=== PATIENT | male | born 1995 | race Two or more races ===

== ENCOUNTER 2018-11-20 16:29 | Inpatient (IN) ==
[2018-11-20] MEDS ORDERED: ONDANSETRON INJ 2 MG/ML 2 ML VIAL IV STA (16:53)
[2018-11-20] MEDS ORDERED: KETOROLAC TROMETHAMINE 15 MG/ML VIAL IV ONE (17:00)
[2018-11-20] MEDS ORDERED: SODIUM CHLORIDE 0.9% 1000ML 1,000 ML IV SCH ×2 (17:00→22:26)
--- NOTE | 2018-11-20 17:06 | Emergency Department Note ---
History of Present Illness General Chief complaint: Vomiting Stated complaint: STOMACH HURTS, VOMITING Source: patient Mode of arrival: ambulatory Limitations: no limitations History of Present Illness Maximum Pain Intensity: 6 This patient is a 23-year-old male who presents the emergency department ambulatory complaining of abdominal pain and vomiting. The patient reports that 2 days ago, he had a fairly sudden onset of vomiting, upper abdominal pain and diarrhea. He states the symptoms lasted for approximately 3 hours and he felt better. He states that the next day, he felt okay. He states that today, he began vomiting this morning and has been vomiting for the past 6 hours without relief. He has had over 15 episodes of vomiting. There has been no hematemesis. Patient has had no diarrhea today. Patient states that his pain is a gnawing pain in the left upper abdomen. He says discomfort a 6/10 and it is sometimes relieved by positional changes. He was seen by [facility] and given Zofran and a GI cocktail without relief. He denies alcohol use, but does admit to occasional marijuana use. He states that his last marijuana use was on Sunday, 1 day before the symptoms started. Denies any urinary symptoms, chest pain, shortness of breath, rash or fevers. Home Medications Home Medications Medication Instructions Recorded Confirmed Type ascorbic acid (vitamin C) [Vitamin 0 mg PO DAILY PRN 11/20/18 11/20/18 History C] Allergies Allergy/AdvReac Type Severity Reaction Status Date / Time No Known Allergies Allergy Unverified 11/20/18 16:34 Past Med/Surg History Medical History No significant past medical history Social History Preferred Language: Lithuanian Communication Ability: Effective [place] Helper Required: No Beliefs That Will Affect Care: None Current Living Situation: Alone Other Information That Helps Us Care for You: No Feels Safe at Home: Yes Smoking Status: Current some day smoker Cigarettes Per Day: socially on occassion Do You Dip or Chew Tobacco: No Hx Alcohol Use: No Hx Substance Use: Yes substance use type: marijuana Substance Use Type Other:: occassionally Last Used Substance: Days (ago) Review of Systems A total of 10 systems reviewed and were otherwise negative Physical Exam Vital Signs Vital Signs - 24 hr 11/20/18 16:34 11/20/18 17:38 11/20/18 18:33 Temperature 36.6 C Temperature Source Oral Sepsis Recent Fever Within 48 Hours No Sepsis New/Unexplained Change in Mental Status No Sepsis Action Taken by Nursing No Action Required Pulse Rate 45 L Pulse Rate [Finger] 61 51 L Pulse Rhythm Regular Pulse Rhythm [Finger] Irregular Pulse Strength Normal Pulse Strength [Finger] Respiratory Rate 18 19 15 Respiratory Effort / Characteristics Non-Labored Spontaneous Non-Labored Non-Labored Respiratory Depth Normal Normal Normal Respiratory Pattern Regular Regular Blood Pressure 156/102 H Blood Pressure [Left Arm] 138/68 142/68 H Blood Pressure Mean 120 Blood Pressure Mean [Left Arm] 91 92 Blood Pressure Position Sitting Blood Pressure Position [Left Arm] Sitting Pulse Oximetry 100 100 100 Oxygen Delivery Method Room Air Room Air Room Air 11/20/18 19:03 11/20/18 20:45 11/20/18 21:02 Temperature Temperature Source Sepsis Recent Fever Within 48 Hours Sepsis New/Unexplained Change in Mental Status Sepsis Action Taken by Nursing Pulse Rate Pulse Rate [Finger] 56 L 93 H Pulse Rhythm Pulse Rhythm [Finger] Pulse Strength Pulse Strength [Finger] Respiratory Rate 16 21 Respiratory Effort / Characteristics Non-Labored Spontaneous Respiratory Depth Normal Respiratory Pattern Regular Blood Pressure Blood Pressure [Left Arm] 127/63 Blood Pressure Mean Blood Pressure Mean [Left Arm] 84 Blood Pressure Position Blood Pressure Position [Left Arm] Pulse Oximetry 100 98 Oxygen Delivery Method Room Air Room Air 11/20/18 21:23 11/20/18 21:56 11/20/18 22:17 Temperature 36.4 C L Temperature Source Oral Sepsis Recent Fever Within 48 Hours Sepsis New/Unexplained Change in Mental Status Sepsis Action Taken by Nursing Pulse Rate 59 L Pulse Rate [Finger] 70 84 Pulse Rhythm Pulse Rhythm [Finger] Regular Pulse Strength Pulse Strength [Finger] Normal Respiratory Rate 18 18 18 Respiratory Effort / Characteristics Non-Labored Respiratory Depth Normal Respiratory Pattern Blood Pressure 125/54 L Blood Pressure [Left Arm] 132/56 L 160/95 H Blood Pressure Mean Blood Pressure Mean [Left Arm] 81 116 Blood Pressure Position Blood Pressure Position [Left Arm] Lying Pulse Oximetry 97 98 96 Oxygen Delivery Method Room Air Room Air 11/20/18 22:38 11/20/18 23:24 11/21/18 00:41 Temperature 37.6 C H Temperature Source Oral Sepsis Recent Fever Within 48 Hours Sepsis New/Unexplained Change in Mental Status Sepsis Action Taken by Nursing Pulse Rate 62 Pulse Rate [Finger] 59 L Pulse Rhythm Pulse Rhythm [Finger] Pulse Strength Pulse Strength [Finger] Respiratory Rate Respiratory Effort / Characteristics Non-Labored Spontaneous Respiratory Depth Normal Normal Respiratory Pattern Regular Blood Pressure Blood Pressure [Left Arm] 148/79 H Blood Pressure Mean Blood Pressure Mean [Left Arm] 102 Blood Pressure Position Blood Pressure Position [Left Arm] Lying Pulse Oximetry 96 Oxygen Delivery Method Room Air Room Air VITALS: Vitals are noted on the nurse's note and reviewed by myself. Vital signs stable. GENERAL: This is a 23-year-old male, in no acute distress, nondiaphoretic, well- developed well-nourished. SKIN: The skin was without rashes. EARS: External auditory canals clear, tympanic membranes pearly childs without erythema or effusion bilaterally. EYES: Pupils equal round and reactive to light and accommodation. MOUTH: Mucous membranes moist. Tonsils are not enlarged. Pharynx without erythema or exudate. NECK: Supple without nuchal rigidity. No lymphadenopathy. HEART: Regular rate and rhythm without murmurs gallops or rubs. LUNGS: Clear to auscultation bilaterally without wheezes, rales or rhonchi. ABDOMEN: Positive bowel sounds x 4. Soft, nontender to palpation. No guarding or rebound tenderness. NEURO: Patient was alert and oriented to person place and time. Course Reevaluation(s) Reevaluation #1: Patient was reevaluated after receiving the Zofran and his nausea is better, however he is still having pain. A dose of Toradol was ordered. Reevaluation #2: Patient was reevaluated and is still having significant pain. A dose of morphine was ordered and CT of the abdomen/pelvis was ordered. Reevaluation #3: Patient was reevaluated and is symptom-free at this time. Findings were discussed with the patient and he is agreeable with admission. Consultations Consultation #1: Dr. Yu - thoracic surgery Dr. Yu will see the patient and recommend starting him on Zosyn and keeping him n.p.o. He also requests a CT of the chest with p.o. contrast. Consultation #2: Dr. Oleary - [facility] Hospitalist Administered Medications Potassium Chloride/Dextrose/Sod Cl (D5w And 1/2nss + 20meq Kcl) 20 meq in 1,000 mls @ 125 mls/hr IV .Q8H SHANON Stop: 12/20/18 21:29 Last Admin: 11/20/18 22:41 Dose: 125 mls/hr Documented by: [id number] Ampicillin Sodium/Sulbactam Sodium 3,000 mg/ Sodium Chloride 108 mls @ 200 mls/hr IV Q6H SHANON; Protocol Stop: 12/01/18 00:00 Last Infusion: 11/21/18 00:58 Dose: 0 mls/hr Documented by: [id number] Admin: 11/21/18 00:28 Dose: 200 mls/hr Documented by: [id number] Fluconazole (Diflucan) 200 mg in 100 mls @ 100 mls/hr IV Q24H SHANON Stop: 11/30/18 22:59 Last Admin: 11/21/18 00:30 Dose: 100 mls/hr Documented by: [id number] Discontinued Medications Sodium Chloride (Nss 1000ml) 1,000 mls @ 999 mls/hr IV .Q1H1M SHANON Stop: 11/20/18 18:00 Last Infusion: 11/20/18 18:34 Dose: 0 mls/hr Documented by: [id number] Admin: 11/20/18 17:33 Dose: 999 mls/hr Documented by: [id number] Piperacillin Sod/Tazobactam Sod (Zosyn) 3.375 gm in 115 mls @ 230 mls/hr IV NOW STA Stop: 11/20/18 20:14 Last Infusion: 11/20/18 20:44 Dose: 0 mls/hr Documented by: [id number] Admin: 11/20/18 19:58 Dose: 230 mls/hr Documented by: [id number] Sodium Chloride (Nss 1000ml) 1,000 mls @ 125 mls/hr IV .Q8H SHANON Stop: 12/20/18 22:25 Last Admin: 11/20/18 22:42 Dose: Not Given Documented by: [id number] Ioversol (Optiray 320 100ml) 93 ml IV ONCE PRN PRN Reason: Interaction Checking Stop: 11/24/18 18:57 Last Admin: 11/20/18 18:58 Dose: 93 ml Documented by: [id number] Ketorolac Tromethamine (Toradol) 15 mg IV NOW ONE Stop: 11/20/18 17:01 Last Admin: 11/20/18 17:34 Dose: 15 mg Documented by: [id number] Morphine Sulfate (Morphine Sulfate) 6 mg IV NOW STA Stop: 11/20/18 18:17 Last Admin: 11/20/18 18:32 Dose: Not Given Documented by: [id number] Morphine Sulfate (Morphine Sulfate) Confirm Administered Dose 4 mg .ROUTE .STK- MED ONE Stop: 11/20/18 18:29 Last Admin: 11/20/18 18:31 Dose: 4 mg Documented by: [id number] Morphine Sulfate (Morphine Sulfate) Confirm Administered Dose 2 mg .ROUTE .STK- MED ONE Stop: 11/20/18 18:29 Last Admin: 11/20/18 18:31 Dose: 2 mg Documented by: [id number] Ondansetron HCl (Zofran) 4 mg IV NOW STA Stop: 11/20/18 16:54 Last Admin: 11/20/18 17:34 Dose: 4 mg Documented by: [id number] Medical Decision Making Differential Diagnosis Differential diagnosis includes gastritis, gastroenteritis, bowel obstruction, Boerhaave syndrome, Antonia-Hassan tear, cholecystitis, pancreatitis, kidney stone, among others. Home Medications Current Medication List: was personally reviewed by me Laboratory Data Attestation: I reviewed the patient's lab results. Result diagrams: 11/20/18 17:29 11/20/18 17:29 Lab Results 11/20/18 11/20/18 11/20/18 Range/Units 17:29 17:29 21:20 WBC 13.13 H (4.8-10.8) K/uL RBC 5.64 (4.7-6.1) M/uL Hgb 16.8 (14.0-18.0) g/dL Hct 46.9 (42-52) % MCV 83.2 (80-100) fL MCH 29.8 (25-34) pg MCHC 35.8 (32-36) g/dL RDW Std Deviation 39.8 (36.4-46.3) fL RDW Coeff of Diego 13.3 (11.5-14.5) % Plt Count 323 (130-400) K/uL MPV 11.1 H (7.4-10.4) fL Immature Gran % (Auto) 0.3 % Neut % (Auto) 88.3 % Lymph % (Auto) 7.8 % Delta % (Auto) 3.4 % Eos % (Auto) 0.1 % Baso % (Auto) 0.1 % Immature Gran # (Auto) 0.04 H (0.00-0.02) K/uL Neut # (Auto) 11.60 H (1.4-6.5) K/uL Lymph # (Auto) 1.02 L (1.2-3.4) K/uL Delta # (Auto) 0.45 (0.11-0.59) K/uL Eos # (Auto) 0.01 (0-0.5) K/uL Baso # (Auto) 0.01 (0-0.2) K/uL Sodium 136 (136-145) mmol/L Potassium 4.3 (3.5-5.1) mmol/L Chloride 105 (98-107) mmol/L Carbon Dioxide 26 (21-32) mmol/L Anion Gap 5.0 (3-11) BUN 11 (7-18) mg/dl Creatinine 0.92 (0.6-1.4) mg/dl Est Cr Clr Drug Dosing 188.3 ml/min Est GFR ( Amer) 137.3 Est GFR (Non-Af Amer) 118.5 BUN/Creatinine Ratio 12.4 (10-20) Glucose 134 H (70-99) mg/dl Calcium 9.1 (8.5-10.1) mg/dl Total Bilirubin 0.6 (0.2-1) mg/dl AST 10 L (15-37) U/L ALT 20 (12-78) U/L Alkaline Phosphatase 83 (45-117) U/L Total Protein 8.1 (6.4-8.2) gm/dl Albumin 3.9 (3.4-5.0) gm/dl Globulin 4.2 H (2.5-4.0) gm/dl Albumin/Globulin Ratio 0.9 (0.9-2) Lipase 64 L (73-393) U/L Specimen Hemolysis Urine Color Yellow Urine Appearance Clear (Clear) Urine pH 8.5 H (4.5-7.5) Ur Specific Aristes > 1.045 H (1.000-1.030) Urine Protein Negative (Negative) Urine Glucose (UA) Negative (Negative) Urine Ketones 1+ H (Negative) Urine Blood Negative (Negative) Urine Nitrite Negative (Negative) Urine Bilirubin Negative (Negative) Urine Urobilinogen Negative (Negative) Ur Leukocyte Esterase Negative (Negative) Imaging Data Attestation: I personally reviewed and interpreted this imaging study as follows: Radiologist's Impression: CHEST AND ABDOMEN 2 VIEWS FINDINGS: The lungs are clear. The cardiomediastinal silhouette is within normal limits. There is no pneumoperitoneum or pneumatosis. The bowel gas pattern is unremarkable. No evidence for bowel obstruction. No pathologic calcifications. Of note, there is relative paucity of bowel gas resulting in suboptimal evaluation. IMPRESSION: No acute cardiopulmonary process. No evidence for bowel obstruction. ABDOMEN AND PELVIS CT WITH IV CONTRAST FINDINGS: The lung bases are clear. Small amount of pneumomediastinum surroundi ng the distal esophagus. This also extends along the bilateral lower lobe bronchi. No pneumoperitoneum. No fractures within the visualized osseous structures. The liver, gallbladder, spleen, adrenal glands, pancreas, and kidneys are unremarkable. No hydronephrosis. No retroperitoneal lymphadenopathy. The bladder is unremarkable. No bowel wall thickening or obstruction. Normal appendix. IMPRESSION: 1. Small amount of pneumomediastinum within the lower chest primarily surrounding the distal esophagus. 2. No bowel wall thickening or obstruction. 3. Normal appendix. CT chest with oral contrast FINDINGS: There is again noted a small amount of pneumomediastinum seen surrounding the majority of the esophagus. There is motion artifact resulting in suboptimal evaluation. Questionable punctate focus of extraluminal contrast within the left side of the esophagus on image 144. However, this is likely artifact due to the motion at this level. No definite extraluminal contrast to confirm the presence of an esophageal tear. The trachea appears intact and is patent. No esophageal wall thickening. No mediastinal or hilar lymphadenopathy. The heart is normal in size. No pleural or pericardial effusions. Normal caliber thoracic aorta. No fractures within the visualized osseous structures. No pneumothorax. Small focal groundglass density within the left lower lobe p osteriorly and a 4 mm subpleural nodular density within the left lower lobe posteriorly favors dependent change/atelectasis. The right lung is clear. IMPRESSION: Redemonstration of the small amount of pneumomediastinum. No definite evidence for esophageal tear. Blood Pressure Blood Pressure Findings: Elevated blood pressure Blood Pressure Disposition: further management by hospitalist REBECCA Joya The patient is a 23-year-old male who presents today complaining of vomiting and left upper quadrant abdominal pain. Labs revealed mild leukocytosis of 13,000. Patient is not anemic and there are no concerning elect light abnormalities. CT of the abdomen and pelvis shows pneumomediastinum. Given concern for Boerhaave syndrome with the location of the pneumomediastinum, Dr. Yu of thoracic surgery was promptly consulted. He did evaluate the patient in the emergency department and had recommended CT of the chest with p.o. contrast as well as Zosyn, both of which were ordered. He recommended admission to the medicine service. Patient remained stable throughout his stay in the emergency department and was symptom-free after receiving Zofran and morphine. The patient's case was discussed with Dr. Espinoza, who agreed with my evaluation and treatment plan. Impression & Plan Pneumomediastinum, Vomiting Discharge Plan Visit Data *Final* Discharge Date/Time: 11/20/18 21:56 Chief Complaint: Vomiting Stated Complaint: STOMACH HURTS, VOMITING ED Provider: Romel Espinoza ED Midlevel Provider: Jael Rodriguez Discharge Problem: Pneumomediastinum, Vomiting Patient Disposition: Admitted As Inpatient Discharge Instructions Interventions: ED Discharge Assessment Last Done: 11/20/18 21:56
[2018-11-20 17:40] LABS: Basophils # (auto) 0.01 K/uL (0-0.2); Basophils % (auto) 0.1 %; Eosinophils # (auto) 0.01 K/uL (0-0.5); Eosinophils % (auto) 0.1 %; Hematocrit (blood only) 46.9 % (42-52); Hemoglobin 16.8 g/dL (14.0-18.0); Immature Granulocytes # (auto) 0.04 K/uL (0.00-0.02); Immature Granulocytes % (auto) 0.3 %; Lymphocytes # (auto) 1.02 K/uL (1.2-3.4); Lymphocytes % (auto) 7.8 %; Mean Corpuscular Hgb Conc 35.8 g/dL (32-36); Mean Corpuscular Volume 83.2 fL (80-100); Mean Platelet Volume 11.1 fL (7.4-10.4); Monocytes # (auto) 0.45 K/uL (0.11-0.59); Monocytes % (auto) 3.4 %; Neutrophils % (auto) 88.3 %; Platelet Count 323 K/uL (130-400); RDW Coefficient of Variation 13.3 % (11.5-14.5); RDW Standard Deviation 39.8 fL (36.4-46.3); Red Blood Count 5.64 M/uL (4.7-6.1); White Blood Count 13.13 K/uL (4.8-10.8)
[2018-11-20 18:08] LABS: Albumin Globulin Ratio 0.9 (0.9-2); Albumin Level 3.9 gm/dl (3.4-5.0); BUN Creatinine Ratio 12.4 (10-20); Bilirubin,Total 0.6 mg/dl (0.2-1); Calcium 9.1 mg/dl (8.5-10.1); Creatinine Clr Calc Pharmacy 188.3 ml/min; Est GFR (African American) 137.3; Est GFR (Non-African American) 118.5; Globulin 4.2 gm/dl (2.5-4.0); Potassium 4.3 mmol/L (3.5-5.1); Total Protein 8.1 gm/dl (6.4-8.2)
--- NOTE | 2018-11-20 18:11 | XRay Report ---
CHEST AND ABDOMEN 2 VIEWS HISTORY: abdominal pain, vomiting COMPARISON: None. FINDINGS: The lungs are clear. The cardiomediastinal silhouette is within normal limits. There is no pneumoperitoneum or pneumatosis. The bowel gas pattern is unremarkable. No evidence for b owel obstruction. No pathologic calcifications. Of note, there is relative paucity of bowel gas resul ting in suboptimal evaluation. IMPRESSION: No acute cardiopulmonary process. No evidence for bowel obstruction. Electronically signed by: Abram Dewitt M.D. 11/20/2018 6:09 PM
[2018-11-20] MEDS ORDERED: MoRPHine SULFATE 10 MG/ML CARP/VIAL IV STA (18:16)
[2018-11-20] MEDS ORDERED: MoRPHine SULFATE 2 MG/ML CARP ONE (18:28)
[2018-11-20] MEDS ORDERED: MoRPHine SULFATE 4 MG/ML 1 ML CARP\\VIAL ONE (18:28)
[2018-11-20] MEDS ORDERED: IOVERSOL 100ml IV PRN (18:58)
--- NOTE | 2018-11-20 19:27 | CT Scan Report ---
ABDOMEN AND PELVIS CT WITH IV CONTRAST CT DOSE: 2088.17 mGy.cm HISTORY: Left upper quadrant abdominal pain. Vomiting. TECHNIQUE: Multiaxial CT images of the abdomen and pelvis were performed following the use of intrave nous contrast. A dose lowering technique was utilized adhering to the principles of ALARA. COMPARISON STUDY: None. FINDINGS: The lung bases are clear. Small amount of pneumomediastinum surrounding the distal esophagu s. This also extends along the bilateral lower lobe bronchi. No pneumoperitoneum. No fractures within the visualized osseous structures. The liver, gallbladder, spleen, adrenal glands, pancreas, and kid neys are unremarkable. No hydronephrosis. No retroperitoneal lymphadenopathy. The bladder is unremark able. No bowel wall thickening or obstruction. Normal appendix. IMPRESSION: 1. Small amount of pneumomediastinum within the lower chest primarily surrounding the distal esophagu s. 2. No bowel wall thickening or obstruction. 3. Normal appendix. Electronically signed by: Abram Dewitt M.D. 11/20/2018 7:25 PM
[2018-11-20] MEDS ORDERED: PIPERACILL/TAZOBAC CONSULT ACTIVE PRN (19:45)
[2018-11-20] MEDS ORDERED: PIPERACILLIN/TAZOBACTAM 3.375 GM/115 ML BAG IV STA (19:45)
--- NOTE | 2018-11-20 21:16 | History & Physical Report ---
Date of Service November 20, 2018 Assessment & Plan (1) Pneumomediastinum: 23yoM with hx of asthma as a child presents with vomiting and abdominal pain which started 2 days ago. Associated with diarrhea 2 days ago. Found to have pneumomediastinum on imaging likely from perforated esophagus from vomiting. Pneumomediastinum in the setting of severe vomiting induced esophageal perforation -CT chest: Redemonstration of the small amount of pneumomediastinum. No definite evidence for esophageal tear. -Ct abdomen/pelvis: Small amount of pneumomediastinum within the lower chest primarily surrounding the distal esophagus -Received a dose of Zosyn in the ED -On Unasyn and Diflucan for empiric coverage -Pain control: Tylenol IV -Thoracic surgery consulted: Dr. Yu - Recommended starting on Unasyn - Npo for possible procedure Abdominal pain/diarrhea/vomiting: likely viral gastroenteritis -Pt reports eating rice last night but symptoms started 2 days ago prior to him eating rice thus unlikely to be bacillus cereus -Afebrile, no WBC -Received 1L IVFs in the ED -Started on NS IVF 125cc/hr -Zofran for nausea -Pain control: Tylenol IV -Continue to monitor closely Hx of asthma -Wheezing appreciated on exam -Albuterol 2 puff Q4H PRN Code: Full DVT: SCDs, encourage ambulation Dispo: PCU w/t telemetry (2) Abdominal pain: (3) Vomiting: History of Present Illness Chief Complaint: Abdominal pain and vomiting Primary Care Provider: [facility] 23yoM with hx of asthma as a child presents with vomiting and abdominal pain which started 2 days ago. Reports on Sunday after he woke up started vomiting and also had abdominal pain and diarrhea for about 2 hours. Then he felt better the rest of Sunday and yesterday. However this AM after he woke up he started vomiting again and also developed LUQ abdominal pain. He did not have diarrhea today. Denies eating out or traveling recently. He reports cooking his own meals. He cannot remember what he ate on Sunday or Sunday but Sunday night he made Biryani (rice) which he had last night as well with chicken nuggets from [employer]. Denies any f/c, cp, sob, dysuria, hemoptysis, hematochezia, dark stools. PMhx: asthma as a child Past Surgical Hx: none Fhx: DM, HTN, HLD Social hx: smokes socially and smoked marijuana on Sunday. Denies alcohol use Allergies Allergy/AdvReac Type Severity Reaction Status Date / Time No Known Allergies Allergy Unverified 11/20/18 16:34 Home Medications Home Medications Medication Instructions Recorded Confirmed Type ascorbic acid (vitamin C) [Vitamin 0 mg PO DAILY PRN 11/20/18 11/20/18 History C] Past Med/Surg History Medical History No significant past medical history Social History Preferred Language: Bermudian Communication Ability: Effective [place]ail[place] Hand Required: No Beliefs That Will Affect Care: None Current Living Situation: Alone Other Information That Helps Us Care for You: No Feels Safe at Home: Yes Smoking Status: Current some day smoker Cigarettes Per Day: socially on occassi on Do You Dip or Chew Tobacco: No Hx Alcohol Use: No Hx Substance Use: Yes substance use type: marijuana Substance Use Type Other:: occassionally Last Used Substance: Days (ago) Review of Systems Review of Systems: As per HPI Physical Exam Physical Exam: General: Actively vomiting when examined Neuro: alert, and oriented x 4 CV: RRR, no m/r/g PULM: occasional wheezing appreciated, diminished breath sounds especially in bibasilar lung lester GI: +BS, non-distended, non TTP LE: no calf TTP, no LE edema Results & Data Vital Signs (Past 12 Hours) Vital Signs Temp Pulse Pulse Resp BP BP Pulse Ox 11/20/18 20:45 93 H 21 98 11/20/18 19:03 56 L 16 127/63 100 11/20/18 18:33 51 L 15 142/68 H 100 11/20/18 17:38 61 19 138/68 100 11/20/18 16:34 36.6 C 45 L 18 156/102 H 100 Laboratory Results Abnormal lab results 11/20/18 11/20/18 Range/Units 17:29 17:29 WBC 13.13 H (4.8-10.8) K/uL MPV 11.1 H (7.4-10.4) fL Immature Gran # (Auto) 0.04 H (0.00-0.02) K/uL Neut # (Auto) 11.60 H (1.4-6.5) K/uL Lymph # (Auto) 1.02 L (1.2-3.4) K/uL Glucose 134 H (70-99) mg/dl AST 10 L (15-37) U/L Globulin 4.2 H (2.5-4.0) gm/dl Lipase 64 L (73-393) U/L Diagnostic Findings ABDOMEN AND PELVIS CT WITH IV CONTRAST CT DOSE: 2088.17 mGy.cm HISTORY: Left upper quadrant abdominal pain. Vomiting. TECHNIQUE: Multiaxial CT images of the abdomen and pelvis were performed following the use of intravenous contrast. A dose lowering technique was utilized adhering to the principles of ALARA. COMPARISON STUDY: None. FINDINGS: The lung bases are clear. Small amount of pneumomediastinum surrounding the distal esophagus. This also extends along the bilateral lower lobe bronchi. No pneumoperitoneum. No fractures within the visualized osseous s tructures. The liver, gallbladder, spleen, adrenal glands, pancreas, and kidneys are unremarkable. No hydronephrosis. No retroperitoneal lymphadenopathy. The bladder is unremarkable. No bowel wall thickening or obstruction. Normal appendix. IMPRESSION: 1. Small amount of pneumomediastinum within the lower chest primarily surrounding the distal esophagus. 2. No bowel wall thickening or obstruction. 3. Normal appendix. CHEST AND ABDOMEN 2 VIEWS HISTORY: abdominal pain, vomiting COMPARISON: None. FINDINGS: The lungs are clear. The cardiomediastinal silhouette is within normal limits. There is no pneumoperitoneum or pneumatosis. The bowel gas pattern is unremarkable. No evidence for bowel obstruction. No pathologic calcifications. Of note, there is relative paucity of bowel gas resulting in suboptimal evaluation. IMPRESSION: No acute cardiopulmonary process. No evidence for bowel obstruction. Code Status & VTE Plan Code Status Full VTE Prophylaxis Plan VTE Prophylaxis will be ordered: Yes Supervising Physician Co-Signing Physician Notes Pt seen/examined in conjunction with resident MD Franky Elizabeth. Orders and plan of admission discussed with resident 23 y/o M presenting with 2 days of nausea, vomiting and abdominal pain. Imaging demonstrated pneumomediastinum. A CT chest with oral contrast was obtained following which did not demonstarte a clear esophageal tear. OE AAO x 3 S1,2 R CTAB NT at time of admission No CCE No deficits P: Pt will be kept NPO - broad spectrum antibiotics and Diflucan provided Thoracic surgical eval to follow - management likely to be conservative for now considering CT result. Illness is likely food-borne and self-limiting - no additional treatment in this regard provided symptoms do not recur Antiemetics, analgesics and IVF provided Resident Activity Tracking Resident Involvement: Resident Care Provided Care Provided: Adult Hospital Medicine
--- NOTE | 2018-11-20 21:26 | CT Scan Report ---
CT chest with oral contrast CT DOSE: 1181.52 mGy.cm HISTORY: Pneumomediastinum. oral contrast - evaluate esophageal rupture/tear TECHNIQUE: Multiaxial CT images of the chest were performed following oral contrast. A dose lowering technique was utilized adhering to the principles of ALARA. COMPARISON: Abdomen and pelvis CT 11/20/2018. FINDINGS: There is again noted a small amount of pneumomediastinum seen surrounding the majority of t he esophagus. There is motion artifact resulting in suboptimal evaluation. Questionable punctate focu s of extraluminal contrast within the left side of the esophagus on image 144. However, this is likel y artifact due to the motion at this level. No definite extraluminal contrast to confirm the presence of an esophageal tear. The trachea appears intact and is patent. No esophageal wall thickening. No m ediastinal or hilar lymphadenopathy. The heart is normal in size. No pleural or pericardial effusions . Normal caliber thoracic aorta. No fractures within the visualized osseous structures. No pneumothor ax. Small focal groundglass density within the left lower lobe posteriorly and a 4 mm subpleural nodu lar density within the left lower lobe posteriorly favors dependent change/atelectasis. The right mario g is clear. IMPRESSION: Redemonstration of the small amount of pneumomediastinum. No definite evidence for esophageal tear. Electronically signed by: Abram Dewitt M.D. 11/20/2018 9:24 PM
[2018-11-20 21:48] LABS: Appearance Urine Clear (Clear); Bilirubin Urine Negative (Negative); Blood Urine Negative (Negative); Color Urine Yellow; Glucose Urine UA Negative (Negative); Ketones Urine 1+ (Negative); Leukocyte Esterase Urine Negative (Negative); Nitrite Urine Negative (Negative); Protein Urine Negative (Negative); Specific Gravity Urine > 1.045 (1.000-1.030); Urobilinogen Urine Negative (Negative); pH Urine 8.5 (4.5-7.5)
[2018-11-20] MEDS ORDERED: ALBUTEROL HFA 8 GM INHALER INH PRN (22:26)
[2018-11-20] MEDS ORDERED: ONDANSETRON INJ 2 MG/ML 2 ML VIAL IV PRN (22:26)
[2018-11-20] MEDS ORDERED: ACETAMINOPHEN 65 ML IV PRN (22:26)
[2018-11-20] MEDS: D5W AND 1/2NSS + 20MEQ KCL 20 MEQ/1,000 ML BAG IV SCH (22:41)
[2018-11-20] MEDS ORDERED: FLUCONAZOLE 200 MG/100 ML BAG IV SCH (23:00)
[2018-11-21] MEDS: AMPICILLIN/SULBACTAM SOD 3,000 MG in 0.9 % SODIUM CHLORIDE 100 ML IV SCH ×2 (00:28→05:35)
--- NOTE | 2018-11-21 03:24 | Consultation Report ---
DATE OF CONSULTATION: 11/20/2018 REASON FOR CONSULTATION: Questionable Boerhaave syndrome. 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 Other than being overweight, the patient really has no medical problems. He developed diarrhea with nausea and vomiting 72 hours ago; however, after 1 day this resolved and he felt better. He developed some abdominal pain today and started vomiting again and presented to the Emergency Room. His white count was a bit elevated at 13,130 and his BUN and creatinine were stable at 11 and 0.92; however, the patient states that his urine output has decreased and it is darker. He is also quite thirsty. CT scan of his chest was obtained which showed some air around his distal esophagus. I was asked to evaluate him from a CT surgery standpoint. I asked Jael Rodriguez to obtain a CT scan with p.o. contrast. He has just gotten the study when I arrived in the Emergency Room. He occasionally smokes cigarettes and occasionally marijuana. He has had no fever or chills. PAST MEDICAL HISTORY: Obesity and occasional cigarette use. PAST SURGICAL HISTORY: None. MEDICATIONS: None. ALLERGIES: No known drug allergies. SOCIAL HISTORY: The patient is a student here at [employer] [facility]. 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 He really does not drink alcohol and rarely smokes. He has a brother who is at [facility] and the rest of his family is in [place]. He has been in this country for 3 years. FAMILY MEDICAL HISTORY: Noncontributory. He has no children. REVIEW OF SYSTEMS: The patient's weight has been stable. He has had no skin breakdown. He is overweight, but physically active. He has no neurologic symptoms. He has had no visual or auditory symptoms. He denies chest pain or palpitations. The rest of his review of systems is unremarkable. PHYSICAL EXAMINATION: GENERAL: This is a 6-foot 1-inch, almost 300-pound male who is awake, alert and oriented. HEENT: His extraocular movements are intact. His pupils are equally round and reactive. Sclerae are anicteric but a bit pale. He has no nasolabial flattening. His teeth are in excellent repair. His tongue is midline. NECK: Thick but supple, and he has no supraclavicular or cervical lymphadenopathy. I detect no subcutaneous emphysema or neck vein distention. LUNGS: Grossly clear. He has very mild end-expiratory wheezing, but no rales or rhonchi. HEART: He has a regular rate and rhythm of his heart and I do not detect a Lucy's crunch. ABDOMEN: Obese, but soft and I am not illiciting any tenderness and he has good bowel sounds. He has no peripheral edema. He has excellent peripheral pulses. He has no skin breakdown. He has no joint effusions. NEUROLOGIC: He is completely intact. DATA: I reviewed his CT scan, both of the lower chest and upper abdomen and of his chest with contrast. Dr. Gallegos and I went over this and we do not feel this patient has a leak. It is not obvious on the scan. PLAN: I am going to keep him n.p.o., keep him on antibiotics, and repeat an x-ray in the morning. Clinically, he is stable and I do not think any further intervention is indicated tonightMilena SAM
[2018-11-21 06:24] LABS: Basophils # (auto) 0.02 K/uL (0-0.2); Basophils % (auto) 0.2 %; Eosinophils % (auto) 0.9 %; Hematocrit (blood only) 42.5 % (42-52); Hemoglobin 14.8 g/dL (14.0-18.0); Immature Granulocytes # (auto) 0.02 K/uL (0.00-0.02); Immature Granulocytes % (auto) 0.2 %; Lymphocytes # (auto) 3.71 K/uL (1.2-3.4); Lymphocytes % (auto) 35.2 %; Mean Corpuscular Hgb Conc 34.8 g/dL (32-36); Mean Corpuscular Volume 84.7 fL (80-100); Mean Platelet Volume 10.9 fL (7.4-10.4); Monocytes # (auto) 0.96 K/uL (0.11-0.59); Monocytes % (auto) 9.1 %; Neutrophils # (auto) 5.72 K/uL (1.4-6.5); Neutrophils % (auto) 54.4 %; Platelet Count 299 K/uL (130-400); RDW Coefficient of Variation 13.6 % (11.5-14.5); RDW Standard Deviation 41.8 fL (36.4-46.3); Red Blood Count 5.02 M/uL (4.7-6.1); White Blood Count 10.53 K/uL (4.8-10.8)
[2018-11-21] MEDS: D5W AND 1/2NSS + 20MEQ KCL 20 MEQ/1,000 ML BAG IV SCH (06:29)
[2018-11-21 06:57] LABS: BUN Creatinine Ratio 9.3 (10-20); Calcium 8.8 mg/dl (8.5-10.1); Est GFR (African American) 139.1; Potassium 3.8 mmol/L (3.5-5.1)
--- NOTE | 2018-11-21 07:13 | XRay Report ---
XR chest 1V portable HISTORY: 23 years-old Male pneumomediastinum follow-up study in a patient with pneumomediastinum COMPARISON: Acute abdominal series radiographs and chest CT of same day TECHNIQUE: Portable AP view of the chest FINDINGS: The previous described pneumomediastinum seen on chest CT is not definitively seen on this exam. Card iac mediastinal and hilar silhouettes are within normal limits. No pneumothorax, pleural effusion, fo sierra airspace consolidation or overt pulmonary edema. The bones appear normal. IMPRESSION: No acute process. The previously described small volume pneumoperitoneum seen on chest CT is not iden tified by radiography. The above report was generated using voice recognition software. It may contain grammatical, syntax o r spelling errors. Electronically signed by: Foreign Alston M.D. 11/21/2018 7:11 AM
--- NOTE | 2018-11-21 10:02 | Surgery Progress Note ---
Date of Service November 21, 2018 Assessment & Plan (1) Pneumomediastinum: -this is not noted on CXR today -no fevers noted this morning -no leukocytosis, ALIS, or electrolyte abnormalities -as pt. has noted clinical improvement, he is felt to be stable for d/c -I have instructed him to see Dr. Yu in office in 1 week with a CXR prior to appt. (office will set up his appt. and CXR) -discussed with primary service Subjective Pt./ denies CP or SOB. No N/V or diarrhea. No fevers, shakes, chills. Physical Exam Physical Exam: No crepitus noted with palpation of neck, back or chest wall. Neck: trachea midline, no stridor Respiratory: normal respiratory effort, lungs clear to auscultation no respiratory distress and no labored breathing Cardiovascular: RRR, no murmur, no edema Gastrointestinal (Abdomen): soft and non-tender Results & Data Vital Signs (Past 12 Hours) Vital Signs Temp Pulse Pulse Resp BP BP Pulse Ox 11/21/18 07:53 36.6 C 63 16 128/72 97 11/21/18 07:37 57 L 11/21/18 03:50 36.7 C 72 18 151/67 H 92 11/21/18 00:41 62 11/20/18 23:24 37.6 C H 59 L 148/79 H 96 11/20/18 22:17 36.4 C L 84 18 160/95 H 96
--- NOTE | 2018-11-21 15:56 | Discharge Summary ---
Date of Service November 21, 2018 Admission HPI Per Admitting Provider 23yoM with hx of asthma as a child presents with vomiting and abdominal pain which started 2 days ago. Reports on Sunday after he woke up started vomiting and also had abdominal pain and diarrhea for about 2 hours. Then he felt better the rest of Sunday and yesterday. However this AM after he woke up he started vomiting again and also developed LUQ abdominal pain. He did not have diarrhea today. Denies eating out or traveling recently. He reports cooking his own meals. He cannot remember what he ate on Sunday or Sunday but Sunday night he made Biryani (rice) which he had last night as well with chicken nuggets from [employer]. Denies any f/c, cp, sob, dysuria, hemoptysis, hematochezia, dark stools. PMhx: asthma as a child Past Surgical Hx: none Fhx: DM, HTN, HLD Social hx: smokes socially and smoked marijuana on Sunday. Denies alcohol use Principal Diagnosis no Discharge Exam General Appearance: WD/WN, no apparent distress, Eyes: normal inspection, PERRL, EOMI, sclerae normal ENT: normal ENT inspection, hearing grossly normal, pharynx normal Neck: supple, no adenopathy, thyroid normal, no JVD, no carotid bruits, trachea midline Respiratory/Chest: chest non-tender, normal breath sounds, no respiratory distress, no accessory muscle use, no rales, wheezing Cardiovascular: regular rate, rhythm, no JVD, no murmur Abdomen: normal bowel sounds, non tender, soft, no organomegaly, Extremities: normal range of motion, non-tender, normal inspection, no pedal edema, no calf tenderness, normal capillary refill, pelvis stable, joint has no limited range of motion, capillary refill is normal, no cyanosis clubbing 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, no motor/sensory deficits, alert, normal mood/affect, oriented x 3 Skin: normal color, warm/dry, no rash Lymphatic: no adenopathy Discharge Data Allergies Allergy/AdvReac Type Severity Reaction Status Date / Time No Known Allergies Allergy Unverified 11/20/18 16:34 Consultations 11/20/18 20:40 Consult Thoracic Surgery Stat 11/20/18 20:41 ED Decision to Admit Stat 11/20/18 22:26 Consult Thoracic Surgery Stat Ordered Studies 11/20/18 18:16 CT abd pelvis IV con only Stat 11/20/18 19:59 CT chest wo con Stat Hospital Course (1) Pneumomediastinum: 23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 I Ed, CT scan of his chest which showed some air around his distal esophagus. 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, no chest pain, denies cough sputum denied nausea vomiting, Tolerates diet, up and walk no dizziness, Discussed with her chest surgeons team patient is stable to be discharged to home, do not need any antibiotic, Patient no fever and chill,Laboratory Results - last 24 hr 11/20/18 11/20/18 11/20/18 17:29 17:29 21:20 WBC 13.13 H RBC 5.64 Hgb 16.8 Hct 46.9 MCV 83.2 MCH 29.8 MCHC 35.8 RDW Std Deviation 39.8 RDW Coeff of Diego 13.3 Plt Count 323 MPV 11.1 H Immature Gran % (Auto) 0.3 Neut % (Auto) 88.3 Lymph % (Auto) 7.8 Bladen % (Auto) 3.4 Eos % (Auto) 0.1 Baso % (Auto) 0.1 Immature Gran # (Auto) 0.04 H Neut # (Auto) 11.60 H Lymph # (Auto) 1.02 L Bladen # (Auto) 0.45 Eos # (Auto) 0.01 Baso # (Auto) 0.01 Sodium 136 Potassium 4.3 Chloride 105 Carbon Dioxide 26 Anion Gap 5.0 BUN 11 Creatinine 0.92 Est Cr Clr Drug Dosing 188.3 Est GFR ( Amer) 137.3 Est GFR (Non-Af Amer) 118.5 BUN/Creatinine Ratio 12.4 Glucose 134 H Calcium 9.1 Total Bilirubin 0.6 AST 10 L ALT 20 Alkaline Phosphatase 83 Total Protein 8.1 Albumin 3.9 Globulin 4.2 H Albumin/Globulin Ratio 0.9 Lipase 64 L Specimen Hemolysis Urine Color Yellow Urine Appearance Clear Urine pH 8.5 H Ur Specific [place] > 1.045 H Urine Protein Negative Urine Glucose (UA) Negative Urine Ketones 1+ H Urine Blood Negative Urine Nitrite Negative Urine Bilirubin Negative Urine Urobilinogen Negative Ur Leukocyte Esterase Negative 11/21/18 11/21/18 06:11 06:11 WBC 10.53 RBC 5.02 Hgb 14.8 Hct 42.5 MCV 84.7 MCH 29.5 MCHC 34.8 RDW Std Deviation 41.8 RDW Coeff of Diego 13.6 Plt Count 299 MPV 10.9 H Immature Gran % (Auto) 0.2 Neut % (Auto) 54.4 Lymph % (Auto) 35.2 [place] % (Auto) 9.1 Eos % (Auto) 0.9 Baso % (Auto) 0.2 Immature Gran # (Auto) 0.02 Neut # (Auto) 5.72 Lymph # (Auto) 3.71 H Bladen # (Auto) 0.96 H Eos # (Auto) 0.10 Baso # (Auto) 0.02 Sodium 140 Potassium 3.8 Chloride 107 Carbon Dioxide 30 Anion Gap 3.0 BUN 8 Creatinine 0.91 Est Cr Clr Drug Dosing 191.0 Est GFR ( Amer) 139.1 Est GFR (Non-Af Amer) 120.0 BUN/Creatinine Ratio 9.3 L Glucose 111 H Calcium 8.8 Total Bilirubin AST ALT Alkaline Phosphatase Total Protein Albumin Globulin Albumin/Globulin Ratio Lipase Specimen Hemolysis Urine Color Urine Appearance Urine pH Ur Specific [place] Urine Protein Urine Glucose (UA) Urine Ketones Urine Blood Urine Nitrite Urine Bilirubin Urine Urobilinogen Ur Leukocyte Esterase Has advised him to follow up with chest surgeon, his office will call you for appointment possible have gastritis, I give him Pepcid for 7 day i told him he needs to follow up with your primary care physician in 1 week, (2) Abdominal pain: (3) Vomiting: Total Time Total Time Spent Total Time Spent (In Minutes): 30 Discharge Plan Discharge Items Patient Disposition: Home - Self-Care Reason For Visit: ABDOMINAL PAIN AND VOMITING,PNEMOMEDIASTINUM Discharge Diagnosis: Pneumomediastinum Condition: Fair Discharge Goals: Decrease discomfort, Diagnostic testing, Improve disease control, Increase independence and Prevent disease Activity: Resume your previous activity Non-emergency contact: Primary Care Provider Call non-emergency contact if: you have any medication questions Follow-up/Referrals: [place] [Primary Care Provider] - Diet: Regular Addtl Provider Instructions: you have Pneumomediastinum, resolved, you need to have follow up with chest surgeon, his office will call you for appointment you possible have gastritis, I give you Pepcid for 7 day . you need to follow up with your primary care physician in 1 week, - take medication as instructed, never overdose or any misuse, or take with alcohol, because misuse of medicine may cause organ damage or , call me, or your primary care physician if have questions of discharge medicaitons. - call your primary care physician, or go to local emergency room if has any fever/chill, chest pain, shortness of breathing, nausea/vomiting/abdominal pain, facial droop/slurry speech/local weakness, or if has any questions. - fall precaution - diet as instructed - you need to follow up with your subspecialist, such as Dr. Yu Prescriptions: New albuterol sulfate [Ventolin HFA] 90 mcg/actuation Hfa Aerosol Inhaler 2 puff inhalation Q4H PRN (Reason: sob) 7 Days Qty: 1 RF: 0 famotidine [Pepcid] 20 mg tablet 20 mg PO BID 7 Days Qty: 14 RF: 0 Continued ascorbic acid (vitamin C) [Vitamin C] 1,000 mg Tablet PO DAILY PRN (Reason: WHEN FEELS LIKE GETTING SICK) RF: 0 Stand-Alone Forms: My [facility] Discharge Orders: Discharge Order (Routine); Ordered 11/21/18 Ordered By: Andres Orta Admission Data Admit Date/Time: 11/20/18 21:15 Attending Provider: Andres Orta Admit Provider: Hilario Oleary Primary Care Provider: [facility] Other Providers: Gurvinder Yu ; Hilario Oleary Service: Telemetry Other Interventions: Discharge Summary Assessment (RN) Last Done: 11/21/18 11:55 DC Date/Time DO NOT enter until pt leaves facility: 11/21/18 12:22
--- NOTE | 2018-11-21 22:22 | Discharge Summary ---
DISCHARGE DIAGNOSES: 1. Pneumomediastinum. 2. Obesity. 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 He came to the ER where CT scan was obtained which showed some gas around his distal esophagus and a question of a possible esophageal tear/Boerhaave syndrome was raised. I came in to see him and we obtained a CT scan with oral contrast of the chest and did not see evidence of a leak. Clinically, he looked quite good and we kept him n.p.o. on antibiotics overnight and with IV fluids and this morning he looked much improved. His abdomen was soft. His white count was normal. He had no fevers. His x-ray showed no evidence of increasing pneumomediastinum. The patient will be discharged by the medical service today. I will see him back in the office in a week and we will keep him on Augmentin.
--- OUTSIDE RECORDS SUMMARY | 2018-11-25 20:49 | External Medical Summary | Continuity of Care Document ---
:1995 Author Name Reed Lam Address Unavailable Unavailable , Care Team Providers Name Role Phone NonMNPG M.DMilena Unavailable [email or web address] [email or web address], NO Unavailable Unavailable Problems Active medical history not documented Allergies and Adverse Reactions Allergy history not documented Medications Medications not documented Procedures Procedures not documented Immunizations Immunizations not documented Plan of Treatment Planned Observations Planned Goals not documented Results No Known Results Results not documented
== END 2018-11-21 12:22 | disposition home or self-care (01) | DRG 200 ==
LOC: ED 16:29 → 2S 21:15 → SUATTDRO 21:15 → 2S 21:56

== ENCOUNTER 2018-11-24 13:24 | Inpatient (IN) ==
[2018-11-24] MEDS ORDERED: MoRPHine SULFATE 4 MG/ML 1 ML CARP\\VIAL IV STA ×3 (13:37→15:09)
[2018-11-24] MEDS ORDERED: ONDANSETRON INJ 2 MG/ML 2 ML VIAL IV STA ×2 (13:37→15:18)
[2018-11-24] MEDS ORDERED: SODIUM CHLORIDE 0.9% 1000ML 1,000 ML IV SCH (13:45)
--- NOTE | 2018-11-24 13:57 | XRay Report ---
XR chest 1V portable HISTORY: 23 years-old Male vomiting, recent pneumomediastinum acute vomiting COMPARISON: Acute abdominal series radiographs 11/22/2018 TECHNIQUE: Portable AP view of the chest FINDINGS: Cardiomediastinal silhouettes are within normal limits. No pneumothorax, pleural effusion, focal airs pace consolidation or overt pulmonary edema. No definite pneumomediastinum identified. Bones of the c hest appear grossly intact. IMPRESSION: No acute process. The above report was generated using voice recognition software. It may contain grammatical, syntax o r spelling errors. Electronically signed by: Foreign Alston M.D. 11/24/2018 1:54 PM
[2018-11-24 13:58] LABS: Basophils # (auto) 0.03 K/uL (0-0.2); Basophils % (auto) 0.3 %; Eosinophils # (auto) 0.11 K/uL (0-0.5); Eosinophils % (auto) 1.2 %; Hematocrit (blood only) 47.1 % (42-52); Hemoglobin 17.4 g/dL (14.0-18.0); Immature Granulocytes # (auto) 0.02 K/uL (0.00-0.02); Immature Granulocytes % (auto) 0.2 %; Lymphocytes # (auto) 1.62 K/uL (1.2-3.4); Mean Corpuscular Hgb Conc 36.9 g/dL (32-36); Mean Corpuscular Volume 82.9 fL (80-100); Mean Platelet Volume 10.6 fL (7.4-10.4); Monocytes # (auto) 0.69 K/uL (0.11-0.59); Monocytes % (auto) 7.2 %; Neutrophils # (auto) 7.08 K/uL (1.4-6.5); Neutrophils % (auto) 74.1 %; Platelet Count 321 K/uL (130-400); RDW Coefficient of Variation 13.3 % (11.5-14.5); RDW Standard Deviation 39.9 fL (36.4-46.3); Red Blood Count 5.68 M/uL (4.7-6.1); White Blood Count 9.55 K/uL (4.8-10.8)
[2018-11-24 14:14] LABS: Calcium 9.1 mg/dl (8.5-10.1); Creatinine Clr Calc Pharmacy 171.4 ml/min; Est GFR (African American) 122.7; Est GFR (Non-African American) 105.8; Potassium 3.5 mmol/L (3.5-5.1)
[2018-11-24 14:33] LABS: Appearance Urine Clear (Clear); Bacteria Urine Automated Negative (Negative); Bilirubin Urine Negative (Negative); Blood Urine Negative (Negative); Color Urine Dark Yellow; Epithelial Cell Urine Auto >30 /lpf (0-5); Glucose Urine UA Negative (Negative); Leukocyte Esterase Urine Negative (Negative); Nitrite Urine Negative (Negative); Protein Urine Trace (Negative); RBC Urine Automated 0-4 /hpf (0-4); Specific Gravity Urine 1.029 (1.000-1.030); Urobilinogen Urine Negative (Negative)
[2018-11-24 14:37] LABS: Ketones Urine 3+ (Negative)
[2018-11-24] MEDS ORDERED: OPTIRAY 320 125ml IV PRN (14:47)
--- NOTE | 2018-11-24 15:11 | CT Scan Report ---
CHEST CT WITH CONTRAST; CT abdomen and pelvis with IV and oral contrast HISTORY: Follow-up study in a patient with recent pneumomediastinum. Persistent vomiting. recent pne umomediastinum, vomitng. Please give PO TECHNIQUE: Multiaxial CT images of the chest, abdomen and pelvis were performed following the intrave nous administration of contrast. A dose lowering technique was utilized adhering to the principles o f ALARA. COMPARISON: CT chest, abdomen and pelvis 11/20/2018. FINDINGS: CT CHEST: Normal-appearing thyroid. No adenopathy. Heart is normal in size without pericardial effusion. The th oracic aorta is normal in course and caliber without aneurysm or dissection. Patency of the imaged gr eat vessels. Pulmonary arterial tree appears unremarkable. There is no pneumothorax, pleural effusion , focal airspace consolidation or pulmonary edema. Pleural-based 4 mm solid nodule of the left lower lobe on image 295 series 6 is likely benign and unchanged. Central airways are patent. Study is limit ed by respiratory motion artifact. Minimal persistent pneumomediastinum is noted probably surrounding the distal esophagus, decreased from comparison. Contrast is noted within the thoracic esophagus. Mi nimal hyperdensity is noted within the subcarinal distribution on image 210 series 6 which is likely unchanged from prior study. No pneumoperitoneum. Bilateral gynecomastia. Soft tissues are otherwise unremarkable. Bones appear to be intact. CT ABDOMEN/PELVIS: No pneumatosis or pneumoperitoneum. Minimal pneumomediastinum tracks along the distal esophagus. Mild wall thickening of the distal esophagus. Spleen is mildly enlarged, 14.7 cm. Liver, gallbladder, quigley creas and adrenal glands are unremarkable. The kidneys, ureters are unremarkable. Moderate wall thick ening of the bladder with partial distention. Prostate is unremarkable. Aorta and IVC are within norm al limits. No bowel obstruction or focal bowel wall thickening. No ascites or mesenteric inflammation. Nondisten tion involves the majority of the colon. Terminal ileum and appendix are unremarkable. The soft tissu es are within normal limits. Bones appear to be intact. IMPRESSION: 1. Trace pneumomediastinum surrounding the distal esophagus has decreased from prior. No pneumothorax or pneumoperitoneum. 2. There is mild wall thickening of the distal esophagus. Additionally, there is trace hyperdensity w ithin the subcarinal distribution which may reflect extravasated contrast in the setting of acute eso phageal wall injury. No significant associated edema or fluid. 3. No bowel obstruction or focal bowel wall thickening. 4. Mild splenomegaly. Findings were discussed with Dr. Stringer on 11/24/2018 at 3:05 PM Electronically signed by: Foreign Alston M.D. 11/24/2018 3:09 PM
[2018-11-24] MEDS ORDERED: SODIUM CHLORIDE 0.9% 1000ML 1,000 ML IV ONE (15:18)
--- NOTE | 2018-11-24 16:23 | Emergency Department Note ---
Entered by Josiah Eaton acting as a scribe for History of Present Illness General Chief complaint: GI Assessment Stated complaint: ABD PAIN,NAUSEA,VOMITING Time Seen by Provider: 11/24/18 13:30 Source: patient Mode of arrival: ambulatory History of Present Illness Provider complaint: GI Assessment Onset (ago): day(s) 3 Location: abdomen Pain Consistency: + constant Maximum Pain Intensity: 7 Current Pain Intensity: 7 Associated symptoms: + nausea/vomiting; no fever/chills Patient is a 23 year old male who presents himself to the ER with complaint of vomiting beginning three days ago. Patient states he has been in hospital two previous times this week for the same problem. He was discharged last morning and was feeling better until Sunday when he had to come back for the same symptoms. Currently he keeps having episodes of vomiting as well as having accompanied symptoms of nausea. He rates his constant pain at a value of 7 on the pain intensity scale. Patient denies fevers and chills. Home Medications Home Medications Medication Instructions Recorded Confirmed Type ascorbic acid (vitamin C) [Vitamin 0 mg PO DAILY PRN 11/20/18 11/24/18 History C] albuterol sulfate [Ventolin HFA] 2 puff INHALATION Q4H PRN 7 Days 11/21/18 11/24/18 Rx #1 gm famotidine [Pepcid] 20 mg PO BID 7 Days #14 tab 11/21/18 11/24/18 Rx omeprazole 40 mg PO DAILY 28 Days #28 cap 11/22/18 11/24/18 Rx ondansetron 4 mg PO Q6H PRN #20 tab 11/22/18 11/24/18 Rx promethazine 25 mg PO Q6H PRN #20 tab 11/22/18 11/24/18 Rx Allergies Allergy/AdvReac Type Severity Reaction Status Date / Time No Known Allergies Allergy Unverified 11/24/18 14:38 Past Med/Surg History Medical History Asthma No significant past surgical history No significant past medical history Social History Preferred Language: Setswana Communication Ability: Effective Instructional Technologist Required: No Beliefs That Will Affect Care: None Current Living Situation: Alone Other Information That Helps Us Care for You: No Feels Safe at Home: Yes Safety Concerns: Feels Safe At This Time Smoking Status: Current some day smoker Tobacco Type: cigarettes Cigarettes Per Day: socially on occasion Do You Dip or Chew Tobacco: No Second Hand Exposure: No Tobacco Cessation Education Requested by Patient: No Hx Alcohol Use: No Hx Substance Use: Yes substance use type: marijuana Substance Use Type Other:: occassionally Last Used Substance: Unknown Last Used Substance Other:: occasionally Review of Systems See HPI for pertinent positives & negatives. and A total of 10 systems reviewed and were otherwise negative Physical Exam Vital Signs Vital Signs - 24 hr 11/24/18 13:26 11/24/18 13:55 11/24/18 14:26 Temperature 36.6 C Temperature Source Oral Sepsis Recent Fever Within 48 Hours No Sepsis New/Unexplained Change in Mental Status No Sepsis Action Taken by Nursing No Action Required Pulse Rate 65 Pulse Rate [Finger] 53 L Pulse Rhythm [Finger] Pulse Strength [Finger] Respiratory Rate 18 20 Respiratory Effort / Characteristics Non-Labored Spontaneous Respiratory Depth Normal Respiratory Pattern Regular Blood Pressure 175/95 H Blood Pressure [Left Arm] 179/106 H Blood Pressure Mean 121 Blood Pressure Mean [Left Arm] 130 Blood Pressure Position Sitting Blood Pressure Position [Left Arm] Pulse Oximetry 97 97 99 Oxygen Delivery Method Room Air Room Air Room Air 11/24/18 15:17 Temperature Temperature Source Sepsis Recent Fever Within 48 Hours Sepsis New/Unexplained Change in Mental Status Sepsis Action Taken by Nursing Pulse Rate Pulse Rate [Finger] 51 L Pulse Rhythm [Finger] Regular Pulse Strength [Finger] Normal Respiratory Rate 18 Respiratory Effort / Characteristics Non-Labored Spontaneous Respiratory Depth Normal Respiratory Pattern Regular Blood Pressure Blood Pressure [Left Arm] 171/98 H Blood Pressure Mean Blood Pressure Mean [Left Arm] 122 Blood Pressure Position Blood Pressure Position [Left Arm] Sitting Pulse Oximetry 100 Oxygen Delivery Method Room Air General: Non-ill appearing 23 year old male in no acute distress. Holding emesis bag. HEENT: Normal cephalic atraumatic. Pupils are equal round and reactive to light. Extraocular movements are intact. Oropharynx is pink with moist mucous membranes. No swelling of the mouth lips or tongue. Neck: Supple with a midline trachea. No meningeal signs or stiffness, no JVD or bruits. No Stridor. Chest: Clear to auscultation bilaterally. No wheezes or rhonchi. No increased work of breathing. Heart: regular rate and rhythm. Abdomen: Soft nontender, nondistended without rebound guarding or rigidity. Extremities: No cyanosis clubbing or edema. No calf tenderness or asymmetry Spine/Back. Non tender to palpation. No CVA tenderness Skin: Good turgor without rashes. Neurologic exam: Cranial nerves two through 12 are intact. Motor and sensation are intact and symmetrical throughout. Course 1402: An IV has been established on the patient. 1415: The patient is feeling better. He is requesting more pain medication. 1445: I spoke to Dr. Alston, Radiologist [facility] regarding the patients case. He thought that there was questionable extraluminal contrast around the distal esophagus which was unchanged from previous CT and felt that it could be a healing perforation. 1515: I spoke with Dr. Yu, [facility]. He does not think this is perforation of the esophagus. 1518: Patient feels a little nauseated after coming back from CAT scan. 1526: I spoke with Dr. Dillon Colon, [facility] regarding the patients case. He will admit the patient under his care. Patient has verbalized agreement of the treatment plan. 1515: I went to go speak with the patient; he was on the phone with his mother. Consultations Consultation #1: Dr. Alston, Radiologist [facility] Time: 14:45 Consultation #2: Dr. Yu, [facility]. Time: 15:15 Consultation #3: Dr. Dillon Colon, [facility] Time: 15:26 Administered Medications Ioversol (Optiray 320 125ml) 120 ml IV ONCE PRN PRN Reason: Interaction Checking Stop: 11/28/18 14:46 Last Admin: 11/24/18 14:47 Dose: 120 ml Documented by: [id number] Discontinued Medications Hydromorphone HCl (Dilaudid) Confirm Administered Dose 1 mg .ROUTE .STK-MED ONE Stop: 11/24/18 16:54 Last Admin: 11/24/18 16:56 Dose: 1 mg Documented by: [id number] Sodium Chloride (Nss 1000ml) 1,000 mls @ 999 mls/hr IV .Q1H1M SHANON Stop: 11/24/18 14:45 Last Infusion: 11/24/18 14:52 Dose: 0 mls/hr Documented by: [id number] Admin: 11/24/18 13:52 Dose: 999 mls/hr Documented by: [id number] Sodium Chloride (Nss 1000ml) 1,000 mls @ 999 mls/hr IV .Q1H1M ONE Stop: 11/24/18 16:18 Last Infusion: 11/24/18 16:20 Dose: 0 mls/hr Documented by: [id number] Admin: 11/24/18 15:20 Dose: 999 mls/hr Documented by: [id number] Morphine Sulfate (Morphine Sulfate) 4 mg IV NOW STA Stop: 11/24/18 13:38 Last Admin: 11/24/18 13:53 Dose: 4 mg Documented by: [id number] Morphine Sulfate (Morphine Sulfate) 4 mg IV NOW STA Stop: 11/24/18 14:21 Last Admin: 11/24/18 14:26 Dose: 4 mg Documented by: [id number] Morphine Sulfate (Morphine Sulfate) 4 mg IV NOW STA Stop: 11/24/18 15:10 Last Admin: 11/24/18 15:13 Dose: 4 mg Documented by: [id number] Ondansetron HCl (Zofran) 4 mg IV NOW STA Stop: 11/24/18 13:38 Last Admin: 11/24/18 13:52 Dose: 4 mg Documented by: [id number] Ondansetron HCl (Zofran) 4 mg IV NOW STA Stop: 11/24/18 15:19 Last Admin: 11/24/18 15:35 Dose: 4 mg Documented by: [id number] Medical Decision Making Differential Diagnosis Dehydration, boerhaave's syndrome, infection, electrolyte or metabolic abnormality. Medical Records Attestation: I reviewed the patient's medical records. Home Medications Current Medication List: was personally reviewed by me Laboratory Data Attestation: I reviewed the patient's lab results. Result diagrams: 11/24/18 13:42 11/24/18 13:42 Lab Results 11/24/18 11/24/18 11/24/18 Range/Units 13:42 13:42 13:42 WBC 9.55 (4.8-10.8) K/uL RBC 5.68 (4.7-6.1) M/uL Hgb 17.4 (14.0-18.0) g/dL Hct 47.1 (42-52) % MCV 82.9 (80-100) fL MCH 30.6 (25-34) pg MCHC 36.9 H (32-36) g/dL RDW Std Deviation 39.9 (36.4-46.3) fL RDW Coeff of [place] 13.3 (11.5-14.5) % Plt Count 321 (130-400) K/uL MPV 10.6 H (7.4-10.4) fL Immature Gran % (Auto) 0.2 % Neut % (Auto) 74.1 % Lymph % (Auto) 17.0 % [place] % (Auto) 7.2 % Eos % (Auto) 1.2 % Baso % (Auto) 0.3 % Immature Gran # (Auto) 0.02 (0.00-0.02) K/uL Neut # (Auto) 7.08 H (1.4-6.5) K/uL Lymph # (Auto) 1.62 (1.2-3.4) K/uL [place] # (Auto) 0.69 H (0.11-0.59) K/uL Eos # (Auto) 0.11 (0-0.5) K/uL Baso # (Auto) 0.03 (0-0.2) K/uL Sodium 137 (136-145) mmol/L Potassium 3.5 (3.5-5.1) mmol/L Chloride 101 (98-107) mmol/L Carbon Dioxide 26 (21-32) mmol/L Anion Gap 10.0 (3-11) BUN 11 (7-18) mg/dl Creatinine 1.01 (0.6-1.4) mg/dl Est Cr Clr Drug Dosing 171.4 ml/min Est GFR ( Amer) 122.7 Est GFR (Non-Af Amer) 105.8 BUN/Creatinine Ratio 11.0 (10-20) Glucose 103 H (70-99) mg/dl Calcium 9.1 (8.5-10.1) mg/dl Total Bilirubin 1.0 (0.2-1) mg/dl AST 11 L (15-37) U/L ALT 18 (12-78) U/L Alkaline Phosphatase 79 (45-117) U/L Total Protein 8.0 (6.4-8.2) gm/dl Albumin 4.0 (3.4-5.0) gm/dl Globulin 4.0 (2.5-4.0) gm/dl Albumin/Globulin Ratio 1.0 (0.9-2) Lipase 100 (73-393) U/L Urine Color Dark Yellow Urine Appearance Clear (Clear) Urine pH 6.0 (4.5-7.5) Ur Specific [place] 1.029 (1.000-1.030) Urine Protein Trace H (Negative) Urine Glucose (UA) Negative (Negative) Urine Ketones 3+ H (Negative) Urine Blood Negative (Negative) Urine Nitrite Negative (Negative) Urine Bilirubin Negative (Negative) Urine Urobilinogen Negative (Negative) Ur Leukocyte Esterase Negative (Negative) Urine WBC (Auto) 1-5 (0-5) /hpf Urine RBC (Auto) 0-4 (0-4) /hpf U Hyaline Cast (Auto) 10-30 H (0-5) /lpf U Epithel Cells (Auto) >30 H (0-5) /lpf Urine Bacteria (Auto) Negative (Negative) Imaging Data Attestation: I personally reviewed and interpreted this imaging study as follows: Radiologist's Impression: Radiology results as stated below per my review and the radiologist's interpretation: CHEST CT WITH CONTRAST; CT abdomen and pelvis with IV and oral contrast HISTORY: Follow-up study in a patient with recent pneumomediastinum. Persistent vomiting. recent pneumomediastinum, vomitng. Please give PO TECHNIQUE: Multiaxial CT images of the chest, abdomen and pelvis were performed following the intravenous administration of contrast. A dose lowering technique was utilized adhering to the principles of ALARA. COMPARISON: CT chest, abdomen and pelvis 11/20/2018. FINDINGS: CT CHEST: Normal-appearing thyroid. No adenopathy. Heart is normal in size without pericardial effusion. The thoracic aorta is normal in course and caliber without aneurysm or dissection. Patency of the imaged great vessels. Pulmonary arterial tree appears unremarkable. There is no pneumothorax, pleural effusion, focal airspace consolidation or pulmonary edema. Pleural-based 4 mm solid nodule of the left lower lobe on image 295 series 6 is likely benign and unchanged. Central airways are patent. Study is limited by respiratory motion artifact. Minimal persistent pneumomediastinum is noted probably surrounding the distal esophagus, decreased from comparison. Contrast is noted within the thoracic esophagus. Minimal hyperdensity is noted within the subcarinal distribution on image 210 series 6 which is likely unchanged from prior study. No pneumoperitoneum. Bilateral gynecomastia. Soft tissues are otherwise unremarkable. Bones appear to be intact. CT ABDOMEN/PELVIS: No pneumatosis or pneumoperitoneum. Minimal pneumomediastinum tracks along the distal esophagus. Mild wall thickening of the distal esophagus. Spleen is mildly enlarged, 14.7 cm. Liver, gallbladder, pancreas and adrenal glands are unremarkable. The kidneys, ureters are unremarkable. Moderate wall thickening of the bladder with partial distention. Prostate is unremarkable. Aorta and IVC are within normal limits. No bowel obstruction or focal bowel wall thickening. No ascites or mesenteric inflammation. Nondistention involves the majority of the colon. Terminal ileum and appendix are unremarkable. The soft tissues are within normal limits. Bones appear to be intact. IMPRESSION: 1. Trace pneumomediastinum surrounding the distal esophagus has decreased from prior. No pneumothorax or pneumoperitoneum. 2. There is mild wall thickening of the distal esophagus. Additionally, there is trace hyperdensity within the subcarinal distribution which may reflect extravasated contrast in the setting of acute esophageal wall injury. No significant associated edema or fluid. 3. No bowel obstruction or focal bowel wall thickening. 4. Mild splenomegaly. Findings were discussed with Dr. Stringer on 11/24/2018 at 3:05 PM Electronically signed by: Foreign Alston M.D. 11/24/2018 3:09 PM Dictated: 11/24/18 1452 Transcribed: 11/24/[address] WITH CONTRAST; CT abdomen and pelvis with IV and oral contrast HISTORY: Follow-up study in a patient with recent pneumomediastinum. Persistent vomiting. recent pneumomediastinum, vomitng. Please give PO TECHNIQUE: Multiaxial CT images of the chest, abdomen and pelvis were performed following the intravenous administration of contrast. A dose lowering technique was utilized adhering to the principles of ALARA. COMPARISON: CT chest, abdomen and pelvis 11/20/2018. FINDINGS: CT CHEST: Normal-appearing thyroid. No adenopathy. Heart is normal in size without pericardial effusion. The thoracic aorta is normal in course and caliber without aneurysm or dissection. Patency of the imaged great vessels. Pulmonary arterial tree appears unremarkable. There is no pneumothorax, pleural effusion, focal airspace consolidation or pulmonary edema. Pleural-based 4 mm solid nodule of the left lower lobe on image 295 series 6 is likely benign and unchanged. Ce ntral airways are patent. Study is limited by respiratory motion artifact. Minimal persistent pneumomediastinum is noted probably surrounding the distal esophagus, decreased from comparison. Contrast is noted within the thoracic esophagus. Minimal hyperdensity is noted within the subcarinal distribution on image 210 series 6 which is likely unchanged from prior study. No pneumoperitoneum. Bilateral gynecomastia. Soft tissues are otherwise unremarkable. Bones appear to be intact. CT ABDOMEN/PELVIS: No pneumatosis or pneumoperitoneum. Minimal pneumomediastinum tracks along the distal esophagus. Mild wall thickening of the distal esophagus. Spleen is mildly enlarged, 14.7 cm. Liver, gallbladder, pancreas and adrenal glands are unremarkable. The kidneys, ureters are unremarkable. Moderate wall thickening of the bladder with partial distention. Prostate is unremarkable. Aorta and IVC are within normal limits. No bowel obstruction or focal bowel wall thickening. No ascites or mesenteric inflammation. Nondistention involves the majority of the colon. Terminal ileum and appendix are unremarkable. The soft tissues are within normal limits. Bones appear to be intact. IMPRESSION: 1. Trace pneumomediastinum surrounding the distal esophagus has decreased from prior. No pneumothorax or pneumoperitoneum. 2. There is mild wall thickening of the distal esophagus. Additionally, there is trace hyperdensity within the subcarinal distribution which may reflect extravasated contrast in the setting of acute esophageal wall injury. No significant associated edema or fluid. 3. No bowel obstruction or focal bowel wall thickening. 4. Mild splenomegaly. Findings were discussed with Dr. Stringer on 11/24/2018 at 3:05 PM Electronically signed by: Foreign Alston M.D. 11/24/2018 3:09 PM Dictated: 11/24/18 1452 Transcribed: 11/24/18 1452 XR chest 1V portable HISTORY: 23 years-old Male vomiting, recent pneumomediastinum acute vomiting COMPARISON: Acute abdominal series radiographs 11/22/2018 TECHNIQUE: Portable AP view of the chest FINDINGS: Cardiomediastinal silhouettes are within normal limits. No pneumothorax, pleural effusion, focal airspace consolidation or overt pulmonary edema. No definite pneumomediastinum identified. Bones of the chest appear grossly intact. IMPRESSION: No acute process. The above report was generated using voice recognition software. It may contain grammatical, syntax or spelling errors. Electronically signed by: Foreign Alston M.D. 11/24/2018 1:54 PM Dictated: 11/24/18 1353 Transcribed: 11/24/18 1353 Blood Pressure Blood Pressure Findings: Elevated blood pressure Blood Pressure Disposition: Referred to patients primary care provider [facility] Narrative This patient comes in as described above. He comes in after having vomiting that started this morning. He has a significant history as of late with vomiting abdominal pain. he has been admitted here and seen here several times. He was admitted after having numerous mediastinum several days ago. They did a CT with Gastrografin there is no evidence to suggest significant esophageal extravasation. The patient has had no fever. On my initial exam, he appears un comfortable and diaphoretic and is vomiting but has stable vital signs is afebrile. IV access was established his abdomen is remained benign and not significantly tender no peritonitis. No crepitus in the abdomen or chest. His white count is not elevated. He has no significant anemia. He has no normal electrolytes. I did a CAT scan of his chest and abdomen including some p.o. contrast on the chest. The pneumomediastinum is almost completely gone, there is no other acute findings but the radiologist told me that there is some thickening of the distal esophagus and he thinks looking back on the previous one there could have been some small extravasation at that point. today he said it looks similar may be slightly better like it was a healing esophageal injury. I called and discussed case with Dr. Yu. He does not feel it is an esophageal rupture he looked at this CAT scan before at length with the radiologist and GI people and does feel that the patient needs a GI follow-up as well. I do think he needs to be admitted. He does have a history of marijuana use although says he has not smoked in a week but this could be related to hyperemesis cannabis. I do think he needs to be admitted for pain management and observation he is got multiple doses of IV morphine for pain medication here as well as IV Zofran. I did consult Dr. Colon to see him in the ER for admissi on. Impression & Plan Abdominal pain, Vomiting Discharge Plan Visit Data Chief Complaint: GI Assessment Stated Complaint: ABD PAIN,NAUSEA,VOMITING ED Provider: Isaiah Stringer Discharge Problem: Abdominal pain, Vomiting Patient Disposition: Being Evaluated by Hospitalist Discharge Instructions Interventions: ED Discharge Assessment Last Done: 11/24/18 17:41 Forms Stand Alone Forms: My [employer] Prescriptions Prescriptions: No Action ascorbic acid (vitamin C) [Vitamin C] 1,000 mg Tablet PO DAILY PRN (Reason: WHEN FEELS LIKE GETTING SICK) RF: 0 albuterol sulfate [Ventolin HFA] 90 mcg/actuation Hfa Aerosol Inhaler 2 puff inhalation Q4H PRN (Reason: sob) 7 Days Qty: 1 RF: 0 famotidine [Pepcid] 20 mg tablet 20 mg PO BID 7 Days Qty: 14 RF: 0 ondansetron 4 mg tablet,disintegrating 4 mg PO Q6H PRN (Reason: nausea and vomiting) Qty: 20 RF: 0 promethazine 25 mg tablet 25 mg PO Q6H PRN (Reason: nausea and vomiting) Qty: 20 RF: 0 omeprazole 40 mg capsule,delayed release(DR/EC) 40 mg PO DAILY 28 Days Qty: 28 RF: 0 Referrals [facility]errals: [facility] [Primary Care Provider[facility] - Discharge Problem: Abdominal pain Qualifiers: Abdominal location: unspecified location Qualified Code(s): R10.9 - Unspecified abdominal pain Vomiting Qualifiers: Vomiting type: unspecified Vomiting Intractability: unspecified Nausea presence: with nausea Qualified Code(s): R11.2 - Nausea with vomiting, unspecified The scribe's documentation has been prepared under my direction and personally reviewed by me in its entirety. I confirm that the note above accurately reflects all work, treatment, procedures, and medical decision making performed by me.
[2018-11-24] MEDS ORDERED: HYDROmorphone INJ 1 MG/ML SYRINGE IV STA (16:49)
--- NOTE | 2018-11-24 16:49 | History & Physical Report ---
Date of Service November 24, 2018 Assessment & Plan (1) Nausea & vomiting: intractable nausea and vomiting for the past week was admitted on 11/20 due to small pneumomediastinum presumed to be from small perforation resolved with conservative measures has been unable to eat or drink much for the past week, no bowel movements recently does admit to recreational marijuana use, has not smoked in a week says that a hot shower did improve his nausea feeling will observe on medical floor Zofran, Phenergan, Ativan PRN for nausea check TSH, CMP and CBC in the morning NPO after midnight with GI consult for tomorrow (2) Abdominal pain: says that the pain gets better after vomiting abdomen soft, no signs of acute abdomen CT abd/pelvis without clear etiology of pain and labs normal likely some degree of abdominal muscle pain from retching (3) Pneumomediastinum: resolved since 11/20 no chest pain, no dyspnea currently presumed to be due to small perforation from vomiting (4) Marijuana use: says that it is recreational has not smoked in a week recommend stopping History of Present Illness Chief Complaint: I can't stop vomiting Primary Care Provider: [facility] 23 yo male with history of asthma and recent history of severe vomiting and pneumomediastinum who returns to the ED with the continued complaint of severe abdominal pain, nausea and vomiting. He cannot keep food or drink down, cannot keep down the antinausea medications and PPI that he has been prescribed. He says that the symptoms started one week ago. He has no history of severe vomiting episodes, just typical occasional vomiting with acute illnesses. This is easily the worst episode of vomiting he has ever had. He has been to the ED 4 times in the past week. He was found to have a pneumomediastinum on Chest CT on 11/20 and he was admitted for observation. Treated empirically with Unasyn and Diflucan. Dr. Yu saw the patient and reviewed imaging with radiology. He had a repeat CT with oral contrast prior to discharge. There was no extravasation of contrast and the pneumomediastinum was smaller on 11/21. He was discharged to home. He came back to the ED one day later and was sent home after nausea was treated. He came back today c/o vomiting since this morning. He had a CT again that showed trace pneumomediastinum and perhaps some small amount of extravasation. Labs were normal. Vital signs stable. He was treated with Zofran and IV fluids and admission requested. 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 He has not been drinking alcohol recently. He does admit to smoking marijuana and cigarettes. He says he stopped smoking marijuana a week ago when he started to have vomiting. Allergies Allergy/AdvReac Type Severity Reaction Status Date / Time No Known Allergies Allergy Unverified 11/24/18 14:38 Home Medications Home Medications Medication Instructions Recorded Confirmed Type ascorbic acid (vitamin C) [Vitamin 0 mg PO DAILY PRN 11/20/18 11/24/18 History C] albuterol sulfate [Ventolin HFA] 2 puff INHALATION Q4H PRN 7 Days 11/21/18 11/24/18 Rx #1 gm famotidine [Pepcid] 20 mg PO BID 7 Days #14 tab 11/21/18 11/24/18 Rx omeprazole 40 mg PO DAILY 28 Days #28 cap 11/22/18 11/24/18 Rx ondansetron 4 mg PO Q6H PRN #20 tab 11/22/18 11/24/18 Rx promethazine 25 mg PO Q6H PRN #20 tab 11/22/18 11/24/18 Rx Past Med/Surg History Medical History Asthma No significant past surgical history No significant past medical history Social History Preferred Language: Mohawk Communication Ability: Effective [employer] Required: No Beliefs That Will Affect Care: None Current Living Situation: Alone Other Information That Helps Us Care for You: No Feels Safe at Home: Yes Safety Concerns: Feels Safe At This Time Smoking Status: Current some day smoker Tobacco Type: cigarettes Cigarettes Per Day: socially on occasion Do You Dip or Chew Tobacco: No Second Hand Exposure: No Tobacco Cessation Education Requested by Patient: No Hx Alcohol Use: No Hx Substance Use: Yes substance use type: marijuana Substance Use Type Other:: occassionally Last Used Substance: Unknown Last Used Substance Other:: occasionally Review of Systems Review of Systems: All systems reviewed & are unremarkable except as noted in HPI & below Gastrointestinal: + abdominal pain, + nausea and + vomiting; no constipation, no diarrhea/loose stools and no blood in stools Physical Exam Constitutional: WD/WN, vitals as above + obese Eyes: PERRL, conjunctivae normal, anicteric sclerae ENMT: external ear and nose normal, oropharynx normal Neck: trachea midline, no thyromegaly Respiratory: normal respiratory effort, lungs clear to auscultation Cardiovascular: RRR, no murmur, no edema Gastrointestinal (Abdomen): Inspection/Auscultation: abdomen normal to inspection and normal bowel sounds; abdomen not distended Percussion/Palpation: + abdomen tender (epigastric) and abdomen soft; no guardin g, no hernia and no abdominal mass Musculoskeletal: no cyanosis or clubbing, extremities motor strength 5/5 Skin: no rashes, warm and dry Neurologic: patellar DTR's 2+ bilat, sensation intact and PERRL, EOMI, accommodation nl, no face palsy, no dysarthria Psychiatric: A+Ox3, euthymic affect Lymphatic: no cervical or axillary lymphadenopathy Results & Data Vital Signs (Past 12 Hours) Vital Signs Temp Pulse Pulse Resp BP BP Pulse Ox 11/24/18 15:17 51 L 18 171/98 H 100 11/24/18 14:26 53 L 20 179/106 H 99 11/24/18 13:55 97 11/24/18 13:26 36.6 C 65 18 175/95 H 97 Laboratory Results Laboratory Results - last 24 hr 11/24/18 11/24/18 11/24/18 13:42 13:42 13:42 WBC 9.55 RBC 5.68 Hgb 17.4 Hct 47.1 MCV 82.9 MCH 30.6 MCHC 36.9 H RDW Std Deviation 39.9 RDW Coeff of Diego 13.3 Plt Count 321 MPV 10.6 H Immature Gran % (Auto) 0.2 Neut % (Auto) 74.1 Lymph % (Auto) 17.0 [place] % (Auto) 7.2 Eos % (Auto) 1.2 Baso % (Auto) 0.3 Immature Gran # (Auto) 0.02 Neut # (Auto) 7.08 H Lymph # (Auto) 1.62 [place] # (Auto) 0.69 H Eos # (Auto) 0.11 Baso # (Auto) 0.03 Sodium 137 Potassium 3.5 Chloride 101 Carbon Dioxide 26 Anion Gap 10.0 BUN 11 Creatinine 1.01 Est Cr Clr Drug Dosing 171.4 Est GFR ( Amer) 122.7 Est GFR (Non-Af Amer) 105.8 BUN/Creatinine Ratio 11.0 Glucose 103 H Calcium 9.1 Total Bilirubin 1.0 AST 11 L ALT 18 Alkaline Phosphatase 79 Total Protein 8.0 Albumin 4.0 Globulin 4.0 Albumin/Globulin Ratio 1.0 Lipase 100 Urine Color Dark Yellow Urine Appearance Clear Urine pH 6.0 Ur Specific [place] 1.029 Urine Protein Trace H Urine Glucose (UA) Negative Urine Ketones 3+ H Urine Blood Negative Urine Nitrite Negative Urine Bilirubin Negative Urine Urobilinogen Negative Ur Leukocyte Esterase Negative Urine WBC (Auto) 1-5 Urine RBC (Auto) 0-4 U Hyaline Cast (Auto) 10-30 H U Epithel Cells (Auto) >30 H Urine Bacteria (Auto) Negative Diagnostic Findings CT CHEST ABDOMEN PELVIS IMPRESSION: 1. Trace pneumomediastinum surrounding the distal esophagus has decreased from prior. No pneumothorax or pneumoperitoneum. 2. There is mild wall thickening of the distal esophagus. Additionally, there is trace hyperdensity within the subcarinal distribution which may reflect extravasated contrast in the setting of acute esophageal wall injury. No significant associated edema or fluid. 3. No bowel obstruction or focal bowel wall thickening. 4. Mild splenomegaly. Code Status & VTE Plan Code Status full code VTE Prophylaxis Plan VTE Prophylaxis will be ordered: No (1) Nausea & vomiting Vomiting Intractability: non-intractable Vomiting type: unspecified Qualified Code(s): R11.2 - Nausea with vomiting, unspecified
[2018-11-24] MEDS ORDERED: HYDROmorphone INJ 1 MG/ML SYRINGE ONE (16:53)
[2018-11-24] MEDS ORDERED: PROMETHAZINE HCL 25 MG in SODIUM CHLORIDE 0.9% 50 ML IV PRN (18:08)
[2018-11-24] MEDS ORDERED: LORazepam 1 MG/2 ML VIAL IV PRN (18:08)
[2018-11-24] MEDS: D5W AND 1/2NSS 1,000 ML IV SCH (18:34)
[2018-11-24] MEDS ORDERED: HYDROmorphone INJ 1 MG/ML SYRINGE IV PRN (19:28)
[2018-11-25] MEDS: D5W AND 1/2NSS 1,000 ML IV SCH ×2 (06:35→18:25)
[2018-11-25] MEDS: ONDANSETRON INJ 2 MG/ML 2 ML VIAL IV PRN (06:45)
[2018-11-25 07:02] LABS: Basophils # (auto) 0.03 K/uL (0-0.2); Basophils % (auto) 0.4 %; Eosinophils # (auto) 0.21 K/uL (0-0.5); Eosinophils % (auto) 2.6 %; Hematocrit (blood only) 45.5 % (42-52); Hemoglobin 16.2 g/dL (14.0-18.0); Immature Granulocytes # (auto) 0.03 K/uL (0.00-0.02); Immature Granulocytes % (auto) 0.4 %; Lymphocytes # (auto) 2.72 K/uL (1.2-3.4); Lymphocytes % (auto) 34.1 %; Mean Corpuscular Hgb Conc 35.6 g/dL (32-36); Mean Corpuscular Volume 83.2 fL (80-100); Mean Platelet Volume 10.4 fL (7.4-10.4); Monocytes # (auto) 0.81 K/uL (0.11-0.59); Monocytes % (auto) 10.2 %; Neutrophils # (auto) 4.17 K/uL (1.4-6.5); Neutrophils % (auto) 52.3 %; Platelet Count 274 K/uL (130-400); RDW Coefficient of Variation 13.3 % (11.5-14.5); RDW Standard Deviation 39.7 fL (36.4-46.3); Red Blood Count 5.47 M/uL (4.7-6.1); White Blood Count 7.97 K/uL (4.8-10.8)
[2018-11-25 07:40] LABS: Albumin Level 3.5 gm/dl (3.4-5.0); BUN Creatinine Ratio 7.6 (10-20); Calcium 9.4 mg/dl (8.5-10.1); Creatinine Clr Calc Pharmacy 192.3 ml/min; Est GFR (Non-African American) 121.7
[2018-11-25 07:49] LABS: Albumin Globulin Ratio 0.9 (0.9-2); Bilirubin,Total 0.8 mg/dl (0.2-1); Globulin 3.7 gm/dl (2.5-4.0); Total Protein 7.2 gm/dl (6.4-8.2)
[2018-11-25 08:24] LABS: Potassium 3.6 mmol/L (3.5-5.1)
[2018-11-25] MEDS ORDERED: HYDROmorphone INJ 1 MG/ML SYRINGE IV STA (12:52)
[2018-11-25] MEDS ORDERED: HYDROmorphone INJ 1 MG/ML SYRINGE IV PRN (13:55)
--- NOTE | 2018-11-25 15:02 | Medical Student Progress Note ---
Date of Service November 25, 2018 Assessment & Plan (1) Abdominal pain: Abdominal pain occurs after vomiting. It is likely related to amount/frequency of vomiting and possibly just musculoskeletal in nature. The patient does continue to request large amounts of narcotics to control pain. 1. Use medications to manage pain effectively but begin titrating back to lower doses. Abdominal location: unspecified location Qualified Code(s): R10.9 - Unspecified abdominal pain (2) Nausea & vomiting: Given the persistent and cyclical nature of the patient's presenting symptoms, this could be Cyclic Vomiting Syndrome or Marijuana Hyperemesis Syndrome. Unfortunately there is substantial overlap between these two conditions. Marijuana Hyperemesis is usually a diagnosis of exclusion, but the patient's history of marijuana use as well as the improvement of symptoms with a hot shower make this a likely diagnosis. Cyclic Vomiting will require an additional work-up for an underlying cause. 1. Counseled patient about abstaining from marijuana for 2+ weeks to see if symptoms improve. He has already gone 8 days without marijuana use due to illness. 2. Appreciate GI consult re: Cyclic Vomiting or need for an EGD, further work- up. Vomiting Intractability: non-intractable Vomiting type: unspecified Qualified Code(s): R11.2 - Nausea with vomiting, unspecified (3) Marijuana use: See above for Marijuana Hyperemesis Syndrome. Subjective Patient states that today he is really feeling poorly. He describes a cyclic pattern to his nausea/vomiting. He states that he is awakened every day with nausea around 8am, and then begins vomiting within the hour. The vomiting persists throughout the day. He has abdominal pain after vomiting that he rates as a 7/10. Around 9pm the nausea and vomiting subside and he is able to sip broth or water and go to sleep, then the cycle repeats. Patient states that he does use marijuana regularly - a couple times per week in social situations for about three years. Physical Exam Vital Signs (Past 24 Hours): Last Vital Signs Temp 36.6 C 11/25/18 06:32 Pulse 56 L 11/25/18 06:32 Resp 18 11/25/18 06:32 BP 117/75 11/25/18 06:32 Pulse Ox 98 11/25/18 06:32 Physical Exam: Deferred due to patient request. Constitutional: Ill-appearing male laying in bed with trash can beside bed. Results & Data Diagnostic Findings Gastric occult blood negative.
[2018-11-25] MEDS ORDERED: METOCLOPRAMIDE HCL INJ 5 MG/ML 2 ML VIAL IV PRN (15:06)
--- NOTE | 2018-11-25 15:48 | Hospitalist Progress Note ---
Date of Service November 25, 2018 Assessment & Plan (1) Nausea & vomiting: intractable nausea and vomiting for the past week was admitted on 11/20 due to small pneumomediastinum presumed to be from small perforation resolved with conservative measures d/w Dr. Yu today, there was no evidence of esophageal perforation has been unable to eat or drink much for the past week, no bowel movements recently does admit to recreational marijuana use, has not smoked in a week says that a hot shower did improve his nausea feeling reports that he has been smoking for 3 years, 3-4x a week Zofran, Phenergan, Ativan PRN for nausea will give a dose of Reglan today consult [facility] GI today TSH normal could this be marijuana hyperemesis or cyclic vomiting syndrome (2) Abdominal pain: pain actually occurs after vomiting today abdomen soft, no signs of acute abdomen CT abd/pelvis without clear etiology of pain and labs normal likely some degree of abdominal muscle pain from retching decrease Dilaudid to 0.5mg (3) Pneumomediastinum: resolved since 11/20 no chest pain, no dyspnea currently no evidence of esophageal perforation (4) Marijuana use: see above advised patient to stop Subjective patient says he slept well last night, no nausea or vomiting, no pain he awoke this morning with nausea and several episodes of vomiting again this continued all day, the vomiting would make his pain worse used Phenergan, Ativan, Zofran PRN for the nausea was requiring Dilaudid for the pain, discussed decreasing the dose to 0.5mg labs stable discussed his marijuana use in depth, says he has been smoking for 3 years says that he smokes 3-4x a week with friends but not every day he has not smoked for a week now discussed that the marijuana may be the cause but will ask GI if there is further work up that can be done updated patients uncle at the bedside Review of Systems Review of Systems: All systems reviewed & are unremarkable except as noted in HPI & below Gastrointestinal: + abdominal pain (epigastric, severe, after vomiting), + nausea and + vomiting; no constipation and no diarrhea/loose stools Physical Exam Constitutional: WD/WN, vitals as above + obese Eyes: PERRL, conjunctivae normal, anicteric sclerae ENMT: external ear and nose normal, oropharynx normal Neck: trachea midline, no thyromegaly Respiratory: normal respiratory effort, lungs clear to auscultation Cardiovascular: RRR, no murmur, no edema Gastrointestinal (Abdomen): Inspection/Auscultation: abdomen normal to inspection and normal bowel sounds; abdomen not distended Percussion/Palpation: + abdomen tender (epigastric) and abdomen soft; no guarding, no hernia and no abdominal mass Musculoskeletal: no cyanosis or clubbing, extremities motor strength 5/5 Skin: no rashes, warm and dry Neurologic: patellar DTR's 2+ bilat, sensation intact and PERRL, EOMI, accommodation nl, no face palsy, no dysarthria Psychiatric: A+Ox3, euthymic affect Lymphatic: no cervical or axillary lymphadenopathy Results & Data Vital Signs (Past 12 Hours) Vital Signs Temp Pulse Resp BP Pulse Ox 11/25/18 15:25 36.6 C 95 H 18 160/92 H 93 11/25/18 06:32 36.6 C 56 L 18 117/75 98 Laboratory Results Laboratory Results - last 24 hr 11/25/18 11/25/18 11/25/18 06:52 06:52 07:57 WBC 7.97 RBC 5.47 Hgb 16.2 Hct 45.5 MCV 83.2 MCH 29.6 MCHC 35.6 RDW Std Deviation 39.7 RDW Coeff of Diego 13.3 Plt Count 274 MPV 10.4 Immature Gran % (Auto) 0.4 Neut % (Auto) 52.3 Lymph % (Auto) 34.1 [place] % (Auto) 10.2 Eos % (Auto) 2.6 Baso % (Auto) 0.4 Immature Gran # (Auto) 0.03 H Neut # (Auto) 4.17 Lymph # (Auto) 2.72 [place] # (Auto) 0.81 H Eos # (Auto) 0.21 Baso # (Auto) 0.03 Sodium 140 Potassium 3.6 Chloride 104 Carbon Dioxide 29 Anion Gap 7.0 BUN 7 Creatinine 0.90 Est Cr Clr Drug Dosing 192.3 Est GFR ( Amer) 141.0 Est GFR (Non-Af Amer) 121.7 BUN/Creatinine Ratio 7.6 L Glucose 91 Calcium 9.4 Total Bilirubin 0.8 AST 8 L ALT 17 Alkaline Phosphatase 68 Total Protein 7.2 Albumin 3.5 Globulin 3.7 Albumin/Globulin Ratio 0.9 TSH 2.600 Medications Administered Current Inpatient Medications Hydromorphone HCl (Dilaudid) 0.5 mg IV Q4H PRN PRN Reason: Pain Stop: 12/08/18 19:27 Dextrose/Sodium Chloride (D5w And 1/2nss) 1,000 mls @ 80 mls/hr IV .[id number] SHANON Stop: 12/24/18 18:07 Last Admin: 11/25/18 06:35 Dose: 80 mls/hr Documented by: Lorazepam (Ativan) 1 mg in 2 mls @ 0.5 mls/min IV Q6 PRN PRN Reason: Nausea And Vomiting Stop: 12/24/18 18:07 Last Admin: 11/25/18 10:58 Dose: 0.5 mls/min Documented by: Promethazine HCl 25 mg/ Sodium (Chloride) 51 mls @ 204 mls/hr IV Q6H PRN PRN Reason: Nausea And Vomiting Stop: 12/24/18 18:07 Last Infusion: 11/25/18 10:43 Dose: Infused Documented by: Metoclopramide HCl (Reglan) 10 mg IV Q6H PRN PRN Reason: Nausea Stop: 12/25/18 15:05 Ondansetron HCl (Zofran) 4 mg IV Q4H PRN PRN Reason: Nausea Stop: 12/24/18 18:07 Last Admin: 11/25/18 06:45 Dose: 4 mg Documented by: (1) Nausea & vomiting Vomiting Intractability: non-intractable Vomiting type: unspecified Qualified Code(s): R11.2 - Nausea with vomiting, unspecified
--- NOTE | 2018-11-25 18:18 | Consultation Report ---
DATE OF CONSULTATION: 11/25/2018 REASON FOR EVALUATION: Abdominal pain, vomiting, and history of pneumomediastinum. 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 He also had a little bit of left upper quadrant pain. He was seen in the Emergency Room and had a small pneumomediastinum, which was treated conservatively and resolved after a few days and was discharged home. He did okay for a short period of time but then his vomiting recurred and is having crampy abdominal pain. The diarrhea seemed to have stopped, but he presented back to the Emergency Room where he had a small residual amount of air in the mediastinum around the distal esophagus, but he was continuing to vomit and he was hospitalized. Of note, the patient does smoke marijuana recreationally about twice a week. He does notice that his nausea and vomiting gets better after a hot shower, which sometimes goes along with cannabis hyperemesis syndrome. No one around him has been similarly afflicted. He has had no fever, skin rash. The diarrhea has resolved, but he continued to have vomiting mitigating against some kind of an infection. His CT of the abdomen and pelvis and chest was otherwise negative. PAST MEDICAL HISTORY: Remarkable only for asthma. MEDICATIONS: Omeprazole, Zofran, Pepcid, albuterol inhaler, vitamin C. ALLERGIES: None. FAMILY HISTORY: Noncontributory. SOCIAL HISTORY: The patient is from [facility]. 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 Does not use alcohol, does smoke marijuana. REVIEW OF SYSTEMS: Positive for some abdominal pain and nausea persisting. PHYSICAL EXAMINATION: GENERAL: The patient is overweight, in no acute distress. VITAL SIGNS: Normal except for slightly elevated blood pressure. He is afebrile. ABDOMEN: Soft. There are no masses, tenderness, or hepatosplenomegaly. IMPRESSION: The patient is having vomiting. He did have associated diarrhea at the onset, which is a little atypical for cannabis hyperemesis, but he does get better with a hot shower, which is very typical of cannabis hyperemesis. He has developed a little bit of air in the mediastinum, which I think has resolved by now. At this point I recommend getting an ultrasound of the gallbladder to rule that out even though it is highly unlikely that he has gallstones. Will also proceed with an upper endoscopy tomorrow November 26 to rule out anything in his stomach or esophagus that could be contributing to his symptoms.
--- OUTSIDE RECORDS SUMMARY | 2018-11-25 22:43 | External Medical Summary | Continuity of Care Document ---
:1995 Author Name Reed Lam Address Unavailable Unavailable , Care Team Providers Name Role Phone NonMNPG M.DMilena Unavailable [email or web address] PCP, NO Unavailable Unavailable Problems Active medical history not documented Allergies and Adverse Reactions Allergy history not documented Medications Medications not documented Procedures Procedures not documented Immunizations Immunizations not documented Plan of Treatment Planned Observations Planned Goals not documented Results No Known Results Results not documented
[2018-11-26] MEDS: D5W AND 1/2NSS 1,000 ML IV SCH (06:27)
[2018-11-26] MEDS: ONDANSETRON INJ 2 MG/ML 2 ML VIAL IV PRN (08:05)
[2018-11-26 08:10] LABS: Basophils # (auto) 0.03 K/uL (0-0.2); Basophils % (auto) 0.5 %; Eosinophils # (auto) 0.21 K/uL (0-0.5); Eosinophils % (auto) 3.4 %; Hematocrit (blood only) 42.1 % (42-52); Hemoglobin 15.2 g/dL (14.0-18.0); Immature Granulocytes # (auto) 0.02 K/uL (0.00-0.02); Immature Granulocytes % (auto) 0.3 %; Lymphocytes # (auto) 2.26 K/uL (1.2-3.4); Lymphocytes % (auto) 36.7 %; Mean Corpuscular Hgb Conc 36.1 g/dL (32-36); Mean Corpuscular Volume 83.2 fL (80-100); Mean Platelet Volume 10.1 fL (7.4-10.4); Monocytes % (auto) 11.4 %; Neutrophils # (auto) 2.94 K/uL (1.4-6.5); Neutrophils % (auto) 47.7 %; Platelet Count 241 K/uL (130-400); RDW Coefficient of Variation 13.5 % (11.5-14.5); RDW Standard Deviation 40.3 fL (36.4-46.3); Red Blood Count 5.06 M/uL (4.7-6.1); White Blood Count 6.16 K/uL (4.8-10.8)
[2018-11-26 08:35] LABS: Alanine Aminotransferase 16 U/L (12-78); Albumin Level 3.5 gm/dl (3.4-5.0); Aspartate Aminotransferase 8 U/L (15-37); BUN Creatinine Ratio 7.7 (10-20); Blood Urea Nitrogen 6 mg/dl (7-18); Calcium 8.8 mg/dl (8.5-10.1); Carbon Dioxide 26 mmol/L (21-32); Chloride 105 mmol/L (98-107); Creatinine Clr Calc Pharmacy 227.7 ml/min; Est GFR (African American) > 150.0; Est GFR (Non-African American) 130.4; Glucose 99 mg/dl (70-99); Potassium 3.3 mmol/L (3.5-5.1); Sodium 139 mmol/L (136-145)
[2018-11-26 08:38] LABS: Alkaline Phosphatase 64 U/L (45-117); Bilirubin,Total 0.7 mg/dl (0.2-1); Globulin 3.4 gm/dl (2.5-4.0); Total Protein 6.9 gm/dl (6.4-8.2)
--- NOTE | 2018-11-26 11:12 | Medical Student Progress Note ---
Date of Service November 26, 2018 Assessment & Plan (1) Abdominal pain: Abdominal pain occurs after vomiting. It is likely related to amount/frequency of vomiting and possibly just musculoskeletal in nature. Patient states the pain is improved today and he is not requiring as much pain medication. 1. Use medications to manage pain effectively but begin titrating back to lower doses. Abdominal location: unspecified location Qualified Code(s): R10.9 - Unspecified abdominal pain (2) Nausea & vomiting: Given the persistent and cyclical nature of the patient's presenting symptoms, this could be Cyclic Vomiting Syndrome or Marijuana Hyperemesis Syndrome. Unfortunately there is substantial overlap between these two conditions. Marijuana Hyperemesis is usually a diagnosis of exclusion, but the patient's history of marijuana use as well as the improvement of symptoms with a hot shower make this a likely diagnosis. Cyclic Vomiting will require an additional work-up for an underlying cause. 1. Counseled patient about abstaining from marijuana for 2+ weeks to see if symptoms improve. He has already gone 9 days without marijuana use due to illness. 2. GI recommendations for u/s of gallbladder and upper endoscopy series, which will be completed this afternoon. Further management depending on results of these studies. Vomiting Intractability: non-intractable Vomiting type: unspecified Qualified Code(s): R11.2 - Nausea with vomiting, unspecified (3) Marijuana use: See above for Marijuana Hyperemesis Syndrome. Subjective Patient is seen with his uncle. He is feeling much better than yesterday. He states that he woke up this morning with some nausea but has not vomited since last evening. He is not having any abdominal pain, although he states this is not unusual because he has not been vomiting. Per GI, the patient has been scheduled for an ultrasound of the gallbladder as well as an upper endoscopy, both of which should be completed this afternoon. Patient is wondering if he will be able to go home after the tests are completed. He is also wondering about getting a medical excuse for school. Physical Exam Vital Signs (Past 24 Hours): Last Vital Signs Temp 36.6 C 11/26/18 07:11 Pulse 60 11/26/18 07:11 Resp 18 11/26/18 07:11 BP 132/77 11/26/18 07:11 Pulse Ox 98 11/26/18 07:11 Constitutional: Patient is an obese male who appears his stated age. He is sitting up in bed today fully dressed. He appears to be more alert than yesterday. Respiratory: Lungs clear to auscultation bilaterally. No rhonchi, rales, or wheezes. Cardiovascular: Regular rate and rhythm with no murmurs, rubs, or gallops. Gastrointestinal (Abdomen): Normoactive bowel sounds in all four quadrants. No tenderness to palpation.
--- NOTE | 2018-11-26 12:52 | Hospitalist Progress Note ---
Date of Service November 26, 2018 Assessment & Plan (1) Nausea & vomiting: intractable nausea and vomiting for the past week was admitted on 11/20 due to small pneumomediastinum presumed to be from small perforation resolved with conservative measures d/w Dr. Yu, there was no evidence of esophageal perforation has been unable to eat or drink much for the past week, no bowel movements recently does admit to recreational marijuana use, has not smoked in a week says that a hot shower did improve his nausea feeling reports that he has been smoking for 3 years, 3-4x a week Zofran, Phenergan, Ativan PRN for nausea improved with some reglan RUQ US on 11/26 shows no abnormalities EGD on 11/26 was normal TSH normal could this be marijuana hyperemesis or cyclic vomiting syndrome will advance diet tonight would want him to eat tonight and tomorrow morning prior to discharging (2) Abdominal pain: pain actually occurs after vomiting abdomen soft, no signs of acute abdomen CT abd/pelvis without clear etiology of pain and labs normal likely some degree of abdominal muscle pain from retching decrease Dilaudid to 0.5mg, taper off prior to d/c (3) Pneumomediastinum: resolved since 11/20 no chest pain, no dyspnea currently no evidence of esophageal perforation (4) Marijuana use: see above advised patient to stop Subjective patient feeling better today, no vomiting, less nausea labs normal including CBC and CMP and lipase appreciate GI consultation, will check abdominal US and endoscopy today updated patient's uncle at the bedside, all questions answered discussed that we should advance diet after scope today, want him tolerating some food prior to discharge Review of Systems Review of Systems: All systems reviewed & are unremarkable except as noted in HPI & below Gastrointestinal: + abdominal pain, + nausea and + vomiting; no constipation and no diarrhea/loose stools Physical Exam Constitutional: WD/WN, vitals as above + obese Eyes: PERRL, conjunctivae normal, anicteric sclerae ENMT: external ear and nose normal, oropharynx normal Neck: trachea midline, no thyromegaly Respiratory: normal respiratory effort, lungs clear to auscultation Cardiovascular: RRR, no murmur, no edema Gastrointestinal (Abdomen): Inspection/Auscultation: abdomen normal to inspection and normal bowel sounds; abdomen not distended Percussion/Palpation: abdomen soft; abdomen nontender, no guarding, no hernia and no abdominal mass Musculoskeletal: no cyanosis or clubbing, extremities motor strength 5/5 Skin: no rashes, warm and dry Neurologic: patellar DTR's 2+ bilat, sensation intact and PERRL, EOMI, accommodation nl, no face palsy, no dysarthria Psychiatric: A+Ox3, euthymic affect Lymphatic: no cervical or axillary lymphadenopathy Results & Data Vital Signs (Past 12 Hours) Vital Signs Temp Pulse Resp BP Pulse Ox 11/26/18 07:11 36.6 C 60 18 132/77 98 Laboratory Results Laboratory Results - last 24 hr 11/26/18 11/26/18 07:56 07:56 WBC 6.16 RBC 5.06 Hgb 15.2 Hct 42.1 MCV 83.2 MCH 30.0 MCHC 36.1 H RDW Std Deviation 40.3 RDW Coeff of Diego 13.5 Plt Count 241 MPV 10.1 Immature Gran % (Auto) 0.3 Neut % (Auto) 47.7 Lymph % (Auto) 36.7 [place] % (Auto) 11.4 Eos % (Auto) 3.4 Baso % (Auto) 0.5 Immature Gran # (Auto) 0.02 Neut # (Auto) 2.94 Lymph # (Auto) 2.26 [place] # (Auto) 0.70 H Eos # (Auto) 0.21 Baso # (Auto) 0.03 Sodium 139 Potassium 3.3 L Chloride 105 Carbon Dioxide 26 Anion Gap 9.0 BUN 6 L Creatinine 0.76 Est Cr Clr Drug Dosing 227.7 Est GFR ( Amer) > 150.0 Est GFR (Non-Af Amer) 130.4 BUN/Creatinine Ratio 7.7 L Glucose 99 Calcium 8.8 Total Bilirubin 0.7 AST 8 L ALT 16 Alkaline Phosphatase 64 Total Protein 6.9 Albumin 3.5 Globulin 3.4 Albumin/Globulin Ratio 1.0 Lipase 108 Diagnostic Findings EGD: normal findings RUQ US: normal GB, no stones seen Medications Administered Current Inpatient Medications Hydromorphone HCl (Dilaudid) 0.5 mg IV Q4H PRN PRN Reason: Pain Stop: 12/08/18 19:27 Dextrose/Sodium Chloride (D5w And 1/2nss) 1,000 mls @ 80 mls/hr IV .[id number] SHANON Stop: 12/24/18 18:07 Last Admin: 11/26/18 06:27 Dose: 80 mls/hr Documented by: Lorazepam (Ativan) 1 mg in 2 mls @ 0.5 mls/min IV Q6 PRN PRN Reason: Nausea And Vomiting Stop: 12/24/18 18:07 Last Admin: 11/25/18 10:58 Dose: 0.5 mls/min Documented by: Promethazine HCl 25 mg/ Sodium (Chloride) 51 mls @ 204 mls/hr IV Q6H PRN PRN Reason: Nausea And Vomiting Stop: 12/24/18 18:07 Last Infusion: 11/25/18 10:43 Dose: Infused Documented by: Metoclopramide HCl (Reglan) 10 mg IV Q6H PRN PRN Reason: Nausea Stop: 12/25/18 15:05 Ondansetron HCl (Zofran) 4 mg IV Q4H PRN PRN Reason: Nausea Stop: 12/24/18 18:07 Last Admin: 11/26/18 08:05 Dose: 4 mg Documented by: (1) Nausea & vomiting Vomiting Intractability: non-intractable Vomiting type: unspecified Qualified Code(s): R11.2 - Nausea with vomiting, unspecified
--- NOTE | 2018-11-26 14:52 | Anesthesiology Consultation ---
Date of Service November 26, 2018 Assessment & Plan (1) Encounter for pre-operative examination: Chart Review Chart Review: Acceptable Risk for Surgery and Patient NOT seen in Pre Admission Testing Consults Requested none History Surgery Operation Date: 11/26/18 08:30 Proposed Procedures p Esophagogastroduodenoscopy Dr Jacob James Height/Weight Height: 6 ft 2 in Weight: 138.5 kg Allergies Allergy/AdvReac Type Severity Reaction Status Date / Time No Known Allergies Allergy Unverified 11/24/18 14:38 Medications Home Medications Medication Instructions Recorded Confirmed Last Taken ascorbic acid (vitamin C) [Vitamin 0 mg PO DAILY PRN 11/20/18 11/24/18 11/20/18 C] albuterol sulfate [Ventolin HFA] 2 puff INHALATION Q4H PRN 7 Days 11/21/18 11/24/18 11/24/18 #1 gm famotidine [Pepcid] 20 mg PO BID 7 Days #14 tab 11/21/18 11/24/18 11/24/18 omeprazole 40 mg PO DAILY 28 Days #28 cap 11/22/18 11/24/18 11/23/18 ondansetron 4 mg PO Q6H PRN #20 tab 11/22/18 11/24/18 11/24/18 promethazine 25 mg PO Q6H PRN #20 tab 11/22/18 11/24/18 11/23/18 Active Medications Generic Name Dose Route Start Last Admin Trade Name Freq PRN Reason Stop Dose Admin Dextrose/Sodium Chloride 1,000 mls @ 80 mls/hr 11/24/18 18:08 11/26/18 13:34 D5w And 1/2nss IV 12/24/18 18:07 0 mls/hr .[id number] SHANON Infusion Lorazepam 1 mg in 2 mls @ 0.5 mls/min 11/24/18 18:08 11/25/18 10:58 Ativan IV 12/24/18 18:07 0.5 mls/min Q6 PRN Administration Nausea And Vomiting Promethazine HCl 25 mg/ Sodium 51 mls @ 204 mls/hr 11/24/18 18:08 11/25/18 10:43 Chloride IV 12/24/18 18:07 Infused Q6H PRN Infusion Nausea And Vomiting Ondansetron HCl 4 mg 11/24/18 18:08 11/26/18 08:05 Zofran IV 12/24/18 18:07 4 mg Q4H PRN Administration Nausea NPO Date Last Intake of Fluids: 11/25/18 Time Last Intake of Fluids: 21:00 Date Last Intake of Solids: 11/25/18 Time Last Intake of Solids: 21:00 Past Medical History Medical History Pneumomediastinum (Acute) Asthma No significant past surgical history Obesity No significant past medical history Exercise / Class Metabolic Activity II 4-5 Yardwork/Stairs/Walk up hill Past Surgical History none Past Anesthesia History No Hx of Anesthesia Complications and No Family Hx of Anesthesia Complications History of PONV No Hx of PONV, No Family Hx of PONV and Other (cyclic vomiting part of reason for EGD) Social History Smoking Status: Current some day smoker tobacco type: cigarettes Smoking cigarettes per day: socially on occasion Do You Dip or Chew Tobacco: No Hx Alcohol Use: No Hx Substance Use: Yes substance use type: marijuana Substance Use Type Other:: occassionally Last Used Substance: Unknown Last Used Substance Other:: occasionally Physical Exam Vital Signs Last Vital Signs Temp 36.2 C L 11/26/18 14:52 Pulse 83 11/26/18 14:52 Resp 20 11/26/18 14:52 BP 173/81 H 11/26/18 14:52 Pulse Ox 98 11/26/18 14:52 Testing Electrocardiogram Date: 11/21/18 Findings: + NSR @ (67) NSR with sinus arrhythmia. Chest X-Ray Date: 11/24/18 XR chest 1V portable HISTORY: 23 years-old Male vomiting, recent pneumomediastinum acute vomiting COMPARISON: Acute abdominal series radiographs 11/22/2018 TECHNIQUE: Portable AP view of the chest FINDINGS: Cardiomediastinal silhouettes are within normal limits. No pneumothorax, pleural effusion, focal airspace consolidation or overt pulmonary edema. No definite pneumomediastinum identified. Bones of the chest appear grossly intact. IMPRESSION: No acute process. Laboratory Results 11/26/18 07:56 11/26/18 07:56 Urine Color Dark Yellow 11/24/18 13:42 Urine Appearance Clear (Clear) 11/24/18 13:42 Urine pH 6.0 (4.5-7.5) 11/24/18 13:42 Ur Specific [place] 1.029 (1.000-1.030) 11/24/18 13:42 Urine Protein Trace (Negative) H 11/24/18 13:42 Urine Glucose (UA) Negative (Negative) 11/24/18 13:42 Urine Ketones 3+ (Negative) H 11/24/18 13:42 Urine Nitrite Negative (Negative) 11/24/18 13:42 Ur Leukocyte Esterase Negative (Negative) 11/24/18 13:42 Urine WBC (Auto) 1-5 /hpf (0-5) 11/24/18 13:42 Urine RBC (Auto) 0-4 /hpf (0-4) 11/24/18 13:42 U Hyaline Cast (Auto) 10-30 /lpf (0-5) H 11/24/18 13:42 U Epithel Cells (Auto) >30 /lpf (0-5) H 11/24/18 13:42 Urine Bacteria (Auto) Negative (Negative) 11/24/18 13:42
--- NOTE | 2018-11-26 14:56 | Ultrasound Report ---
ULTRASOUND RIGHT UPPER QUADRANT ABDOMEN CLINICAL HISTORY: Generalized abdominal pain. COMPARISON STUDY: Abdominal CT dated 11/24/2018. TECHNIQUE: Real-time, grayscale, and color flow sonography of the right upper quadrant of the abdomen was performed. Images are reviewed in the transverse and longitudinal planes. FINDINGS: Liver: The liver is normal in size and echotexture. There is no intrahepatic biliary ductal dilatatio n. The main portal vein is patent. Gallbladder: The gallbladder is normal in appearance. No gallstones are identified. There is no gallb ladder wall thickening or pericholecystic fluid. A sonographic Rivera's sign is reportedly absent. Th e common bile duct measures up to 0.3 cm in diameter. Pancreas: Not well visualized due to overlying bowel gas. Right kidney: Survey images of the right kidney demonstrate normal size and echotexture. There is no hydronephrosis. Ascites: None. IMPRESSION: No acute sonographic abnormality is identified in the right upper quadrant. No gallstones are seen. Electronically signed by: Santiago Paige M.D. 11/26/2018 2:54 PM
--- NOTE | 2018-11-26 15:11 | History & Physical Report ---
Date of Service November 26, 2018 History of Present Illness Chief Complaint: vomiting Primary Care Provider: [facility] Allergies Allergy/AdvReac Type Severity Reaction Status Date / Time No Known Allergies Allergy Unverified 11/24/18 14:38 Home Medications Home Medications Medication Instructions Recorded Confirmed Type ascorbic acid (vitamin C) [Vitamin 0 mg PO DAILY PRN 11/20/18 11/24/18 History C] albuterol sulfate [Ventolin HFA] 2 puff INHALATION Q4H PRN 7 Days 11/21/18 11/24/18 Rx #1 gm famotidine [Pepcid] 20 mg PO BID 7 Days #14 tab 11/21/18 11/24/18 Rx omeprazole 40 mg PO DAILY 28 Days #28 cap 11/22/18 11/24/18 Rx ondansetron 4 mg PO Q6H PRN #20 tab 11/22/18 11/24/18 Rx promethazine 25 mg PO Q6H PRN #20 tab 11/22/18 11/24/18 Rx Past Med/Surg History Medical History Pneumomediastinum (Acute) Asthma No significant past surgical history Obesity No significant past medical history Social History Preferred Language: [place] Communication Ability: Effective Fiberglass Roving Winder Required: No Beliefs That Will Affect Care: None Current Living Situation: Alone Other Information That Helps Us Care for You: No Feels Safe at Home: Yes Safety Concerns: Feels Safe At This Time Smoking Status: Current some day smoker Tobacco Type: cigarettes Cigarettes Per Day: socially on occasion Do You Dip or Chew Tobacco: No Second Hand Exposure: No Tobacco Cessation Education Requested by Patient: No Hx Alcohol Use: No Hx Substance Use: Yes substance use type: marijuana Substance Use Type Other:: occassionally Last Used Substance: Unknown Last Used Substance Other:: occasionally Physical Exam Vital Signs (Past 24 Hours): Last Vital Signs Temp 36.2 C L 11/26/18 14:52 Pulse 83 11/26/18 14:52 Resp 20 11/26/18 14:52 BP 173/81 H 11/26/18 14:52 Pulse Ox 98 11/26/18 14:52 Constitutional: + obese Respiratory: normal respiratory effort Cardiovascular: Rate/Rhythm: regular rate and regular rhythm Gastrointestinal (Abdomen): Percussion/Palpation: abdomen soft Code Status & VTE Plan VTE Prophylaxis Plan VTE Prophylaxis will be ordered: No
[2018-11-26] MEDS ORDERED: SODIUM CHLORIDE 0.9% 1000ML 1,000 ML IV SCH (15:15)
--- NOTE | 2018-11-26 15:40 | GI REPORT ---
Patient Name: Kamila Ramirez Procedure Date: 11/26/2018 3:07 PM Date of : 1995 Admit Type: Inpatient Age: 23 Gender: Male Attending MD: James James MD Procedure: Upper GI endoscopy Providers: James James MD Referring MD: Pancho Colon Indications: Periumbilical abdominal pain, Nausea with vomiting Medicines: Propofol total dose 600 mg IV, Ondansetron 4 mg IV, Lidocaine 80 mg IV Complications: No immediate complications. Estimated Blood Loss: Estimated blood loss: none. Procedure: Pre-Anesthesia Assessment: - Prior to the procedure, a History and Physical was performed, and patient medications, allergies and sensitivities were reviewed. The patient's tolerance of previous anesthesia was reviewed. - The risks and benefits of the procedure and the sedation options and risks were discussed with the patient. All questions were answered and informed consent was obtained. After obtaining informed consent, the endoscope was passed under direct vision. Throughout the procedure, the patient's blood pressure, pulse, and oxygen saturations were monitored continuously. The Endoscope was introduced through the mouth, and advanced to the second part of duodenum. The upper GI endoscopy was accomplished without difficulty. The patient tolerated the procedure well. Findings: The Z-line was regular and was found 39 cm from the incisors. 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 The entire examined stomach was normal. The examined duodenum was normal. Impression: - Z-line regular, 39 cm from the incisors. 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 - Normal stomach. - Normal examined duodenum. - No specimens collected. Recommendation: - Return patient [facility] for [facility] care. James James M.D. James James MD 11/26/2018 3:39:40 PM This report has been signed electronically. Note Initiated On: 11/26/2018 3:07 PM Number of Addenda: 0 I attest to the content of the Intraoperative Record and orders documented therein, exceptions below {[id number]}
[2018-11-26] MEDS ORDERED: ONDANSETRON INJ 2 MG/ML 2 ML VIAL ONE (15:44)
[2018-11-26] MEDS ORDERED: PROPOFOL IV EMULSION 10 MG/ML 20 ML VIAL IV ONE (15:44)
[2018-11-26] MEDS ORDERED: LIDOCAINE HCL 2% 2 ML VIAL/AMP(20MG/ML) INFIL ONE (15:44)
--- NOTE | 2018-11-26 15:49 | Anesthesiology Progress Note ---
Date of Service November 26, 2018 Anesthesia Post Procedure Vital Signs Vital Signs: Temp Pulse Pulse Resp BP Pulse Ox 11/26/18 14:52 36.2 C L 83 20 173/81 H 98 11/26/18 07:11 36.6 C 60 18 132/77 98 11/25/18 22:53 36.9 C 65 18 109/66 96 Pain Intensity Left Abdomen: Pain Intensity: 4 Transfer of Care Handoff Completed per policy Notes Mental Status: alert / awake / arousable and participated in evaluation Patient Amnestic to Procedure: Yes Nausea / Vomiting: adequately controlled Pain: adequately controlled Airway Patency, RR, SpO2: stable & adequate BP & HR: stable & adequate Hydration State: stable & adequate Anesthetic Complications: no major complications apparent and Pt Satisfied with anesthetic care
--- NOTE | 2018-11-26 16:09 | Progress Note ---
DATE: 11/26/2018 The patient tolerated liquids last night and feels better today. He had an abdominal ultrasound which was normal. Upper endoscopy was performed in the endoscopy unit today to further evaluate his symptoms. The exam was normal except for a mild single gastric inlet patch which does not really have any clinical significance. There was no obvious tear or scarring in the esophagus. The stomach and duodenum looked normal. IMPRESSION: The patient's nausea and vomiting remains unclear, but could be related to cannabis hyperemesis and I would recommend that the patient refrain from using cannabis in the future. No further GI suggestions at this time.
[2018-11-27] MEDS: D5W AND 1/2NSS 1,000 ML IV SCH (07:11)
--- NOTE | 2018-11-27 14:52 | Discharge Summary ---
Date of Service November 27, 2018 Admission HPI Per Admitting Provider 23 yo male with history of asthma and recent history of severe vomiting and pneumomediastinum who returns to the ED with the continued complaint of severe abdominal pain, nausea and vomiting. He cannot keep food or drink down, cannot keep down the antinausea medications and PPI that he has been prescribed. He says that the symptoms started one week ago. He has no history of severe vomiting episodes, just typical occasional vomiting with acute illnesses. This is easily the worst episode of vomiting he has ever had. He has been to the ED 4 times in the past week. He was found to have a pneumomediastinum on Chest CT on 11/20 and he was admitted for observation. Treated empirically with Unasyn and Diflucan. Dr. Yu saw the patient and reviewed imaging with radiology. He had a repeat CT with oral contrast prior to discharge. There was no extravasation of contrast and the pneumomediastinum was smaller on 11/21. He was discharged to home. He came back to the ED one day later and was sent home after nausea was treated. He came back today c/o vomiting since this morning. He had a CT again that showed trace pneumomediastinum and perhaps some small amount of extravasation. Labs were normal. Vital signs stable. He was treated with Zofran and IV fluids and admission requested. 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 He has not been drinking alcohol recently. He does admit to smoking marijuana and cigarettes. He says he stopped smoking marijuana a week ago when he started to have vomiting. Admission Exam Per Admitting Provider Constitutional: WD/WN, vitals as above + obese Eyes: PERRL, conjunctivae normal, anicteric sclerae ENMT: external ear and nose normal, oropharynx normal Neck: trachea midline, no thyromegaly Respiratory: normal respiratory effort, lungs clear to auscultation Cardiovascular: RRR, no murmur, no edema Gastrointestinal (Abdomen): Inspection/Auscultation: abdomen normal to inspection and normal bowel sounds; abdomen not distended Percussion/Palpation: + abdomen tender (epigastric) and abdomen soft; no guarding, no hernia and no abdominal mass Musculoskeletal: no cyanosis or clubbing, extremities motor strength 5/5 Skin: no rashes, warm and dry Neurologic: patellar DTR's 2+ bilat, sensation intact and PERRL, EOMI, accommodation nl, no face palsy, no dysarthria Psychiatric: A+Ox3, euthymic affect Lymphatic: no cervical or axillary lymphadenopathy Principal Diagnosis Canibus hyperemesis Discharge Exam Constitutional WD/WN, vitals as above + obese Eyes PERRL, conjunctivae normal, anicteric sclerae ENMT external ear and nose normal, oropharynx normal Neck trachea midline, no thyromegaly Respiratory normal respiratory effort, lungs clear to auscultation Cardiovascular RRR, no murmur, no edema Gastrointestinal (Abdomen) Inspection/Auscultation: abdomen normal to inspection and normal bowel sounds; abdomen not distended Percussion/Palpation: abdomen soft; abdomen nontender, no guarding, no hernia and no abdominal mass Musculoskeletal no cyanosis or clubbing, extremities motor strength 5/5 Skin no rashes, warm and dry Neurologic patellar DTR's 2+ bilat, sensation intact and PERRL, EOMI, accommodation nl, no face palsy, no dysarthria Psychiatric A+Ox3, euthymic affect Lymphatic no cervical or axillary lymphadenopathy Discharge Data Allergies Allergy/AdvReac Type Severity Reaction Status Date / Time No Known Allergies Allergy Unverified 11/24/18 14:38 Consultations 11/24/18 15:29 ED Decision to Admit Stat 11/24/18 18:08 Consult Gastroenterology Routine Procedures Performed Operation Date: 11/26/18 08:30 Actual Procedures p Esophagogastroduodenoscopy(Not Applicable) - James James Ordered Studies 11/24/18 14:16 CT abd pelvis oral and IV con Stat CT chest w con Stat 11/26/18 08:42 US point of care ultrasound Routine 11/26/18 10:35 US abdomen limited Urgent Hospital Course (1) Nausea & vomiting: intractable nausea and vomiting for the past week was admitted on 11/20 due to small pneumomediastinum presumed to be from small perforation resolved with conservative measures d/w Dr. Yu, there was no evidence of esophageal perforation has been unable to eat or drink much for the past week, no bowel movements recently does admit to recreational marijuana use, has not smoked in a week says that a hot shower did improve his nausea feeling reports that he has been smoking for 3 years, 3-4x a week Zofran, Phenergan, Ativan PRN for nausea improved with some reglan RUQ US on 11/26 shows no abnormalities EGD on 11/26 was normal TSH normal could this be marijuana hyperemesis or cyclic vomiting syndrome tolerated dinner and then breakfast on the day of discharge, no vomiting instructed to abstain from marijuana completely as this was the suspected source of his vomiting (2) Abdominal pain: pain actually occurs after vomiting abdomen soft, no signs of acute abdomen CT abd/pelvis without clear etiology of pain and labs normal likely some degree of abdominal muscle pain from retching decrease Dilaudid to 0.5mg, discontinued prior to discharge not having any pain on the day of discharge (3) Pneumomediastinum: resolved since 11/20 no chest pain, no dyspnea currently no evidence of esophageal perforation (4) Marijuana use: see above advised patient to stop, otherwise he will likely have episodes of cyclic vomiting Total Time Total Time Spent Total Time Spent (In Minutes): 35 minutes Total Time Includes: Examination of the Patient, Discharge Planning, Medication Reconciliation, Communication With Other Providers (Dr. James) and Other (updating the patient's uncle in the room) Discharge Plan Discharge Items Patient Disposition: Home - Self-Care Reason For Visit: INTRACTABLE NAUSEA AND VOMITING Discharge Diagnosis: Cyclic vomiting Possible cannibus hyperemesis Condition: Good Discharge Goals: Decrease discomfort and Improve function Activity: Resume your previous activity Non-emergency contact: Primary Care Provider Call non-emergency contact if: you have any medication questions and your symptoms worsen Follow-up/Referrals: Stephan Chandra [Outside Practitioners] - 11/29/18 9:40 am (Please, follow up at [facility] with Dr. Stephan Chandra on SundayNovember 29 at 9:40 am. *If you need to change this appointment, call the office at [phone].) Diet: Regular Addtl Provider Instructions: Medications: continue to use the Zofran and Phenergan as needed for nausea Cyclic vomiting, possibly related to marijuana use extensive work up without another clear etiology several CT scans of abdomen were normal lipase, liver enzymes, electrolytes normal US of the gall bladder was normal EGD showed normal stomach and duodenum recommendation is to stop smoking marijuana for the time being typically if symptoms go away after two weeks then this can suggest the diagnosis would not know for sure unless the vomiting returns after you resume smoking I would not recommend this method but you are free to make your own decisions Prescriptions: Continued ascorbic acid (vitamin C) [Vitamin C] 1,000 mg Tablet PO DAILY PRN (Reason: WHEN FEELS LIKE GETTING SICK) RF: 0 ondansetron 4 mg tablet,disintegrating 4 mg PO Q6H PRN (Reason: nausea and vomiting) Qty: 20 RF: 0 promethazine 25 mg tablet 25 mg PO Q6H PRN (Reason: nausea and vomiting) Qty: 20 RF: 0 Discontinued famotidine [Pepcid] 20 mg tablet 20 mg PO BID 7 Days Qty: 14 RF: 0 omeprazole 40 mg capsule,delayed release(DR/EC) 40 mg PO DAILY 28 Days Qty: 28 RF: 0 Stand-Alone Forms: [facility] Discharge Orders: Discharge Order (Routine); Ordered 11/27/18 Ordered By: Pancho Colon Admission Data Admit Date/Time: 11/26/18 07:49 Attending Provider: Pancho Colon Admit Provider: Pancho Colon Primary Care Provider: [place],[facility] Other Providers: Pancho Colon ; James James Service: Medical Other Interventions: Discharge Summary Assessment (RN) Last Done: 11/27/18 11:50 DC Date/Time DO NOT enter until pt leaves facility: 11/27/18 12:15
== END 2018-11-27 12:15 | disposition home or self-care (01) | DRG 392 ==
LOC: ED 13:24 → 4W 13:24
DX: R10.9 Unspecified abdominal pain; R11.2 Nausea with vomiting, unspecified; F12.90 Cannabis use, unspecified, uncomplicated; J45.909 Unspecified asthma, uncomplicated

== ENCOUNTER 2019-03-22 14:43 | Observation (INO) ==
[2019-03-22] MEDS ORDERED: ONDANSETRON INJ 2 MG/ML 2 ML VIAL IV STA ×2 (15:11→19:20)
[2019-03-22] MEDS ORDERED: FAMOTIDINE 20MG/5ML IV PUSH IV STA (15:11)
[2019-03-22] MEDS ORDERED: DICYCLOMINE HCL 10 MG/ML 2 ML AMP/VIAL IM ONE ×2 (15:11→17:35)
[2019-03-22] MEDS ORDERED: KETOROLAC TROMETHAMINE 15 MG/ML VIAL IV ONE ×2 (15:11→19:37)
[2019-03-22] MEDS ORDERED: PROMETHAZINE 25 MG/51 ML BAG IV STA (15:11)
[2019-03-22] MEDS ORDERED: CAPSAICIN CR 0.075% 60 GM TUBE EXT STA (15:13)
[2019-03-22 15:37] LABS: Basophils # (auto) 0.02 K/uL (0-0.2); Basophils % (auto) 0.2 %; Eosinophils # (auto) 0.06 K/uL (0-0.5); Eosinophils % (auto) 0.6 %; Hematocrit (blood only) 48.4 % (42-52); Hemoglobin 17.6 g/dL (14.0-18.0); Immature Granulocytes # (auto) 0.02 K/uL (0.00-0.02); Immature Granulocytes % (auto) 0.2 %; Lymphocytes # (auto) 1.99 K/uL (1.2-3.4); Lymphocytes % (auto) 21.5 %; Mean Corpuscular Hemoglobin 30.7 pg (25-34); Mean Corpuscular Hgb Conc 36.4 g/dL (32-36); Mean Corpuscular Volume 84.5 fL (80-100); Mean Platelet Volume 10.7 fL (7.4-10.4); Monocytes # (auto) 0.87 K/uL (0.11-0.59); Monocytes % (auto) 9.4 %; Neutrophils # (auto) 6.31 K/uL (1.4-6.5); Neutrophils % (auto) 68.1 %; Platelet Count 340 K/uL (130-400); RDW Coefficient of Variation 13.7 % (11.5-14.5); RDW Standard Deviation 41.5 fL (36.4-46.3); Red Blood Count 5.73 M/uL (4.7-6.1); White Blood Count 9.27 K/uL (4.8-10.8)
[2019-03-22] MEDS: SODIUM CHLORIDE 0.9% 1000ML 1,000 ML IV SCH ×2 (15:45→17:03)
[2019-03-22 16:03] LABS: Alanine Aminotransferase 27 U/L (12-78); Albumin Level 4.3 gm/dl (3.4-5.0); Aspartate Aminotransferase 14 U/L (15-37); BUN Creatinine Ratio 16.8 (10-20); Blood Urea Nitrogen 17 mg/dl (7-18); Calcium 9.4 mg/dl (8.5-10.1); Carbon Dioxide 27 mmol/L (21-32); Chloride 101 mmol/L (98-107); Est GFR (African American) 125.7; Est GFR (Non-African American) 108.4; Glucose 114 mg/dl (70-99); Lipase 85 U/L (73-393); Potassium 3.4 mmol/L (3.5-5.1); Sodium 138 mmol/L (136-145)
[2019-03-22 16:07] LABS: Albumin Globulin Ratio 1.1 (0.9-2); Alkaline Phosphatase 83 U/L (45-117); Bilirubin,Total 1.2 mg/dl (0.2-1); Total Protein 8.3 gm/dl (6.4-8.2)
[2019-03-22] MEDS ORDERED: DiphenhydrAMINE HCL 50 MG/ML VIAL IV STA (16:35)
[2019-03-22] MEDS ORDERED: MoRPHine SULFATE 2 MG/ML CARP IV STA ×2 (16:35→21:08)
[2019-03-22] MEDS ORDERED: METOCLOPRAMIDE HCL INJ 5 MG/ML 2 ML VIAL IV STA (16:35)
[2019-03-22] MEDS ORDERED: CAPSAICIN CR 0.075% 60 GM TUBE ONE (17:15)
[2019-03-22] MEDS ORDERED: SODIUM CHLORIDE 0.9% 1000ML 1,000 ML IV STA (19:20)
[2019-03-22] MEDS ORDERED: OPTIRAY 320 125ml IV PRN (20:49)
--- NOTE | 2019-03-22 21:12 | CT Scan Report ---
ABDOMEN AND PELVIS CT WITH IV CONTRAST CT DOSE: 1753.37 mGy.cm HISTORY: Acute generalized abdominal pain with vomiting abd pain, vomiting TECHNIQUE: Multiaxial CT images of the abdomen and pelvis were performed following the use of intrave nous contrast. A dose lowering technique was utilized adhering to the principles of ALARA. COMPARISON STUDY: Abdominal ultrasound 11/26/2018, CT abdomen and pelvis 11/24/2018 FINDINGS: Lung bases are clear. 3 mm pleural-based solid nodule about the left lower lobe is unchanged and like ly benign. There is no pneumatosis or pneumoperitoneum. The imaged inferior cardiac chambers appear u nremarkable. Gallbladder, pancreas, adrenal glands and liver appear unremarkable. The spleen measures within the upper limits of normal in size. Kidneys and ureters are unremarkable. There is mild circu mferential wall thickening of the urinary bladder. Prostate appears unremarkable. Aorta and IVC are w ithin normal limits. No adenopathy. No bowel obstruction or bowel wall thickening. The majority of the large bowel is decompressed. The a ppendix appears normal within the abdominal right lower quadrant. No ascites or mesenteric inflammati on. Soft tissues appear to be within normal limits. Bones appear to be intact without acute fracture identified. Subcutaneous emphysema of the left gluteal distribution is suggestive of additional injec tion site. Posterior annular disc bulging at L4-L5 and L5-S1 likely contributes to the degree of cent ral canal stenosis. IMPRESSION: 1. No bowel obstruction or bowel wall thickening. 2. Normal appendix. 3. Mild urinary bladder wall thickening. Correlate with urinalysis to exclude cystitis. Electronically signed by: Foreign Alston M.D. 03/22/2019 9:11 PM
--- NOTE | 2019-03-22 21:43 | Emergency Department Note ---
Entered by Graciela Russell acting as a scribe for ED Provider Note CHIEF COMPLAINT: Abdominal Pain HISTORY OF PRESENT ILLNESS: The patient is a 23 year old male who presents to the Emergency Room with complaints of left sided abdominal pain. He rates his pain as an 8/10 in severity. He admits to a history of cyclic vomiting syndrome due to regular marijuana use. He stopped smoking for 3 months and states his symptoms resolved. 1 week ago, he smoked "a lot" of marijuana and also drank alcohol while visiting [place] with friends, and has experienced abdominal pain and vomiting for the past 3 days. He cannot remember how many times he has vomited today. He has not been able to eat or drink in the past 2 days and states he thinks he is dehydrated. He also feels lightheaded. Pt denies LOC, headache, fevers, chills, cough or rhinorrhea, diaphoresis, visual changes, neck pain, chest pain, breathing difficulties, back pain, me kieran, hematochezia, urinary symptoms, numbness, weakness, lymphadenopathy, rash, or other complaints. REVIEW OF SYSTEMS: See HPI for pertinent positives and negatives. A total of ten systems were reviewed and were otherwise negative. PMHx/PSHx: Cyclic Vomiting Syndrome SOCIAL HISTORY: Patient lives at home. PHYSICAL EXAM: GENERAL: Awake, alert, actively vomiting, in no distress HENT: Normocephalic, atraumatic. Oropharynx unremarkable. EYES: PERRL. Normal conjunctiva. Sclera non-icteric. NECK: Inspection normal. Non-tender. Supple. No nuchal rigidity. FROM. No masses. RESPIRATORY: Clear to auscultation. No wheezes. No rales. Normal respiratory effort. CARDIAC: Normal rate. Normal rhythm. No murmurs. No rubs. Extremities warm and well perfused. Pulses equal. No JVD. GI: Soft, non-distended. No tenderness to palpation. No rebound or guarding. No masses. RECTAL: Deferred. MUSCULOSKELETAL: Atraumatic. Chest examination reveals no tenderness. The back is symmetrical on inspection without obvious abnormality. There is no CVA tenderness to palpation. No joint edema. LOWER EXTREMITIES: Calves are equal size bilaterally and non-tender. No edema. No discoloration. NEURO: Normal sensorium. No sensory or motor deficits noted. SKIN: No rash or jaundice noted. EMERGENCY DEPARTMENT COURSE: 1510: Past medical records reviewed. The patient was evaluated in room A9B, and a complete history and physical examination were performed. 164: Nursing informed me the patient is complaining of pain. 1814: I reevaluated the patient. He is still feeling nauseous. I discussed my recommendation we do a CT scan and he is agreeable with the plan. 2129: I discussed the patients case with Dr. Carlson, [facility] Hospitalist. The patient will be further evaluated. 2134: I reevaluated the patient. I discussed my recommendation he remain in the hospital for further evaluation and management and he verbalized complete understanding and agreement. MEDICAL DECISION MAKING: A9 Prior records/ancillary studies reviewed. Triage Nursing notes reviewed and agree them. The patient's history was concerning for nausea, vomiting, and abdominal pain after heavy marijuana use. Differential diagnosis: Etiologies such as cannabinoid induced hyperemesis, cyclic vomiting syndrome, gastroenteritis, food borne illness, infections, appendicitis, diverticulitis, inflammatory bowel disease, GI bleed, biliary pathology, as well as others were entertained. Physical examination findings: No peritoneal findings or guarding. No significant tenderness in the abdomen. ER treatment provided: IV hydration to L NSS. IV Zofran IV Phenergan IV Toradol IM Bentyl Topical capsaicin cream on reassessment the patient felt somewhat better but he was still nauseated IV Reglan IV Benadryl IV morphine 2 mg x 2 diagnostics interpretation by me: The labs revealed an unremarkable CBC and chemistry panel. Imaging studies: CT scan negative for acute process. Mildly thickened bladder wall. Urinalysis pending. The patient has intractable nausea and vomiting which I suspect is from his cannabinoid abuse. As he cannot tolerate oral intake at this point time further management will be necessary in the hospital. He has been in the emergency department for 7 hours for the above treatment. Consultation: A consultation was placed with the hospitalist. The case was discussed and diagnostics were reviewed. The patient was evaluated in the ER for further treatment. IMPRESSION: Intractable nausea and vomiting, upper abdominal pain, marijuana abuse PLAN: Being evaluated by hospitalist The scribe's documentation has been prepared under my direction and personally reviewed by me in its entirety. I confirm that the note above accurately reflects all work, treatment, procedures, and medical decision making performed by me. 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 Beliefs That Will Affect Care: None Current Living Situation: Alone Feels Safe at Home: Yes Smoking Status: Never smoker Tobacco Type: cigarettes ; Cigarettes Per Day: socially on occasion ; Second Hand Exposure: No ; Hx Alcohol Use: No Hx Substance Use: Yes substance use type: marijuana Substance Use Type Other:: occassionally Last Used Substance: Unknown Results & Data Vital Signs Vital Signs - 24 hr 03/22/19 14:46 03/22/19 15:01 03/22/19 16:00 Temperature 36.6 C Temperature Source Oral Sepsis Recent Fever Within 48 Hours No Sepsis Action Taken by Nursing No Action Required Pulse Rate 70 57 L Pulse Rate [Right] Pulse Rate from SpO2 Sensor 56 L Pulse Rhythm Regular Regular Pulse Rhythm [Right] Pulse Strength Normal Pulse Strength [Right] Respiratory Rate 20 20 Respiratory Effort / Characteristics Non-Labored Spontaneous Respiratory Depth Normal Respiratory Pattern Regular Blood Pressure 164/123 H 160/104 H Blood Pressure [Right Arm] Blood Pressure Mean 136 122 Blood Pressure Mean [Right Arm] Blood Pressure Position Sitting Pulse Oximetry 99 99 98 Oxygen Delivery Method Room Air Room Air 03/22/19 16:10 03/22/19 16:30 03/22/19 17:00 Temperature Temperature Source Sepsis Recent Fever Within 48 Hours Sepsis Action Taken by Nursing Pulse Rate 67 60 96 H Pulse Rate [Right] Pulse Rate from SpO2 Sensor 61 93 H Pulse Rhythm Pulse Rhythm [Right] Pulse Strength Pulse Strength [Right] Respiratory Rate 16 21 14 Respiratory Effort / Characteristics Respiratory Depth Respiratory Pattern Blood Pressure 114/87 160/100 H Blood Pressure [Right Arm] Blood Pressure Mean 96 120 Blood Pressure Mean [Right Arm] Blood Pressure Position Pulse Oximetry 98 100 Oxygen Delivery Method 03/22/19 17:30 03/22/19 18:00 03/22/19 18:30 Temperature Temperature Source Sepsis Recent Fever Within 48 Hours Sepsis Action Taken by Nursing Pulse Rate 67 74 57 L Pulse Rate [Right] Pulse Rate from SpO2 Sensor 67 71 58 L Pulse Rhythm Pulse Rhythm [Right] Pulse Strength Pulse Strength [Right] Respiratory Rate 25 H 14 24 Respiratory Effort / Characteristics Respiratory Depth Respiratory Pattern Blood Pressure 146/91 H 156/94 H 149/89 H Blood Pressure [Right Arm] Blood Pressure Mean 109 114 109 Blood Pressure Mean [Right Arm] Blood Pressure Position Pulse Oximetry 99 98 99 Oxygen Delivery Method 03/22/19 19:00 03/22/19 19:30 03/22/19 20:00 Temperature Temperature Source Sepsis Recent Fever Within 48 Hours Sepsis Action Taken by Nursing Pulse Rate 54 L 56 L 57 L Pulse Rate [Right] Pulse Rate from SpO2 Sensor 54 L 58 L 56 L Pulse Rhythm Pulse Rhythm [Right] Pulse Strength Pulse Strength [Right] Respiratory Rate 15 17 18 Respiratory Effort / Characteristics Respiratory Depth Respiratory Pattern Blood Pressure 154/101 H 136/87 139/85 Blood Pressure [Right Arm] Blood Pressure Mean 118 103 103 Blood Pressure Mean [Right Arm] Blood Pressure Position Pulse Oximetry 100 99 97 Oxygen Delivery Method 03/22/19 20:28 03/22/19 20:30 03/22/19 20:35 Temperature Temperature Source Sepsis Recent Fever Within 48 Hours Sepsis Action Taken by Nursing Pulse Rate 54 L 51 L Pulse Rate [Right] 53 L Pulse Rate from SpO2 Sensor 54 L 50 L Pulse Rhythm Pulse Rhythm [Right] Regular Pulse Strength Pulse Strength [Right] Normal Respiratory Rate 19 12 16 Respiratory Effort / Characteristics Non-Labored Spontaneous Respiratory Depth Normal Respiratory Pattern Blood Pressure 145/88 H 170/102 H Blood Pressure [Right Arm] 170/102 H Blood Pressure Mean 107 124 Blood Pressure Mean [Right Arm] 124 Blood Pressure Position Pulse Oximetry 100 100 97 Oxygen Delivery Method Room Air 03/22/19 21:00 03/22/19 21:04 03/22/19 21:30 Temperature Temperature Source Sepsis Recent Fever Within 48 Hours Sepsis Action Taken by Nursing Pulse Rate 69 71 53 L Pulse Rate [Right] Pulse Rate from SpO2 Sensor 67 54 L Pulse Rhythm Pulse Rhythm [Right] Pulse Strength Pulse Strength [Right] Respiratory Rate 32 H 19 18 Respiratory Effort / Characteristics Respiratory Depth Respiratory Pattern Blood Pressure 154/89 H 137/91 Blood Pressure [Right Arm] Blood Pressure Mean 110 106 Blood Pressure Mean [Right Arm] Blood Pressure Position Pulse Oximetry 99 98 Oxygen Delivery Method Home Medications Current Medication List: was personally reviewed by me Laboratory Data Attestation: I reviewed the patient's lab results. Result diagrams: 03/22/19 15:15 03/22/19 15:15 Lab Results 08/24/19 08/24/19 Range/Units 15:15 15:15 WBC 9.27 (4.8-10.8) K/uL RBC 5.73 (4.7-6.1) M/uL Hgb 17.6 (14.0-18.0) g/dL Hct 48.4 (42-52) % MCV 84.5 (80-100) fL MCH 30.7 (25-34) pg MCHC 36.4 H (32-36) g/dL RDW Std Deviation 41.5 (36.4-46.3) fL RDW Coeff of Diego 13.7 (11.5-14.5) % Plt Count 340 (130-400) K/uL MPV 10.7 H (7.4-10.4) fL Immature Gran % (Auto) 0.2 % Neut % (Auto) 68.1 % Lymph % (Auto) 21.5 % Osborne % (Auto) 9.4 % Eos % (Auto) 0.6 % Baso % (Auto) 0.2 % Immature Gran # (Auto) 0.02 (0.00-0.02) K/uL Neut # (Auto) 6.31 (1.4-6.5) K/uL Lymph # (Auto) 1.99 (1.2-3.4) K/uL Osborne # (Auto) 0.87 H (0.11-0.59) K/uL Eos # (Auto) 0.06 (0-0.5) K/uL Baso # (Auto) 0.02 (0-0.2) K/uL Sodium 138 (136-145) mmol/L Potassium 3.4 L (3.5-5.1) mmol/L Chloride 101 (98-107) mmol/L Carbon Dioxide 27 (21-32) mmol/L Anion Gap 10.0 (3-11) BUN 17 (7-18) mg/dl Creatinine 0.99 (0.6-1.4) mg/dl Est Cr Clr Drug Dosing Not Reportable Est GFR ( Amer) 125.7 Est GFR (Non-Af Amer) 108.4 BUN/Creatinine Ratio 16.8 (10-20) Glucose 114 H (70-99) mg/dl Calcium 9.4 (8.5-10.1) mg/dl Total Bilirubin 1.2 H (0.2-1) mg/dl AST 14 L (15-37) U/L ALT 27 (12-78) U/L Alkaline Phosphatase 83 (45-117) U/L Total Protein 8.3 H (6.4-8.2) gm/dl Albumin 4.3 (3.4-5.0) gm/dl Globulin 4.0 (2.5-4.0) gm/dl Albumin/Globulin Ratio 1.1 (0.9-2) Lipase 85 (73-393) U/L Administered Medications Sodium Chloride (Nss 1000ml) 1,000 mls @ 125 mls/hr IV .Q8H STA Stop: 03/23/19 03:19 Last Admin: 03/22/19 20:29 Dose: 125 mls/hr Documented by: [id number] Ioversol (Optiray 320 125ml) 115 ml IV ONCE PRN PRN Reason: Interaction Checking Stop: 03/26/19 20:48 Last Admin: 03/22/19 20:50 Dose: 115 ml Documented by: [id number] Discontinued Medications Capsaicin (Zostrix) 1 appln EXT NOW STA Stop: 03/22/19 15:14 Last Admin: 03/22/19 16:45 Dose: 1 appln Documented by: [id number] Capsaicin (Zostrix) Confirm Administered Dose 180 appln .ROUTE .STK-MED ONE Stop: 03/22/19 17:16 Last Admin: 03/22/19 20:29 Dose: 180 appln Documented by: [id number] Dicyclomine HCl (Bentyl) 20 mg IM NOW ONE Stop: 03/22/19 15:12 Last Admin: 03/22/19 17:43 Dose: 20 mg Documented by: [id number] Dicyclomine HCl (Bentyl) Confirm Administered Dose 20 mg IM .STK-MED ONE Stop: 03/22/19 17:36 Last Admin: 03/22/19 17:45 Dose: Not Given Documented by: [id number] Diphenhydramine HCl (Benadryl) 50 mg IV NOW STA Stop: 03/22/19 16:36 Last Admin: 03/22/19 17:03 Dose: 50 mg Documented by: [id number] Famotidine (Pepcid 20mg Iv Push) 20 mg IV ONE STA Stop: 03/22/19 15:12 Last Admin: 03/22/19 15:44 Dose: 20 mg Documented by: [id number] Sodium Chloride (Nss 1000ml) 1,000 mls @ 999 mls/hr IV .Q1H1M SHANON Stop: 03/22/19 17:15 Last Infusion: 03/22/19 18:04 Dose: 0 mls/hr Documented by: [id number] Admin: 03/22/19 17:03 Dose: 999 mls/hr Documented by: [id number] Infusion: 03/22/19 16:46 Dose: 999 mls/hr Documented by: [id number] Admin: 03/22/19 15:45 Dose: 999 mls/hr Documented by: [id number] Promethazine HCl (Phenergan) 25 mg in 51 mls @ 204 mls/hr IV NOW STA Stop: 03/22/19 15:25 Last Infusion: 03/22/19 16:00 Dose: 0 mls/hr Documented by: [id number] Admin: 03/22/19 15:44 Dose: 204 mls/hr Documented by: [id number] Ketorolac Tromethamine (Toradol) 10 mg IV NOW ONE Stop: 03/22/19 15:12 Last Admin: 03/22/19 15:45 Dose: 10 mg Documented by: [id number] Ketorolac Tromethamine (Toradol) 10 mg IV NOW ONE Stop: 03/22/19 19:38 Last Admin: 03/22/19 20:28 Dose: 10 mg Documented by: [id number] Metoclopramide HCl (Reglan) 10 mg IV NOW STA Stop: 03/22/19 16:36 Last Admin: 03/22/19 17:02 Dose: 10 mg Documented by: [id number] Morphine Sulfate (Morphine Sulfate) 2 mg IV NOW STA Stop: 03/22/19 16:36 Last Admin: 03/22/19 17:03 Dose: 2 mg Documented by: [id number] Morphine Sulfate (Morphine Sulfate) 2 mg IV NOW STA Stop: 03/22/19 21:09 Last Admin: 03/22/19 21:41 Dose: 2 mg Documented by: [id number] Ondansetron HCl (Zofran) 4 mg IV NOW STA Stop: 03/22/19 15:12 Last Admin: 03/22/19 15:48 Dose: 4 mg Documented by: [id number] Ondansetron HCl (Zofran) 4 mg IV NOW STA Stop: 03/22/19 19:21 Last Admin: 03/22/19 20:28 Dose: 4 mg Documented by: [id number] Imaging Data Radiologist's Impression: Radiology results as stated below per my review and the radiologist's interpretation: ABDOMEN AND PELVIS CT WITH IV CONTRAST CT DOSE: 1753.37 mGy.cm HISTORY: Acute generalized abdominal pain with vomiting abd pain, vomiting TECHNIQUE: Multiaxial CT images of the abdomen and pelvis were performed following the use of intravenous contrast. A dose lowering technique was utilized adhering to the principles of ALARA. COMPARISON STUDY: Abdominal ultrasound 11/26/2018, CT abdomen and pelvis 11/24/2018 FINDINGS: Lung bases are clear. 3 mm pleural-based solid nodule about the left lower lobe is unchanged and likely benign. There is no pneumatosis or pneumoperitoneum. The imaged inferior cardiac chambers appear unremarkable. Gallbladder, pancreas, ad renal glands and liver appear unremarkable. The spleen measures within the upper limits of normal in size. Kidneys and ureters are unremarkable. There is mild circumferential wall thickening of the urinary bladder. Prostate appears unremarkable. Aorta and IVC are within normal limits. No adenopathy. No bowel obstruction or bowel wall thickening. The majority of the large bowel is decompressed. The appendix appears normal within the abdominal right lower quadrant. No ascites or mesenteric inflammation. Soft tissues appear to be within normal limits. Bones appear to be intact without acute fracture identified. Subcutaneous emphysema of the left gluteal distribution is suggestive of additional injection site. Posterior annular disc bulging at L4-L5 and L5-S1 likely contributes to the degree of central canal stenosis. IMPRESSION: 1. No bowel obstruction or bowel wall thickening. 2. Normal appendix. 3. Mild urinary bladder wall thickening. Correlate with urinalysis to exclude cystitis. Electronically signed by: Foreign Alston M.D. 03/22/2019 9:11 PM Blood Pressure Blood Pressure Findings: Elevated blood pressure Blood Pressure Disposition: further management by hospitalist Discharge Plan Visit Data Chief Complaint: Abdominal Pain Stated Complaint: ABD PAIN , NUSEA,VOMITING ED Provider: Ankit Soriano Discharge Problem: Intractable nausea and vomiting, Marijuana use, Upper abdominal pain Patient Disposition: Being Evaluated by Hospitalist Forms Stand Alone Forms: My [facility] Prescriptions Prescriptions: No Action ascorbic acid (vitamin C) [Vitamin C] 1,000 mg Tablet PO DAILY PRN (Reason: WHEN FEELS LIKE GETTING SICK) RF: 0 albuterol sulfate [Ventolin HFA] 90 mcg/actuation HFA aerosol inhaler 1 - 2 puff inhalation DAILY PRN (Reason: Shortness Of Breath) RF: 0 Referrals Referrals: [facility] [Primary Care Provider] - The scribe's documentation has been prepared under my direction and personally reviewed by me in its entirety. I confirm that the note above accurately reflects all work, treatment, procedures, and medical decision making performed by me.
--- NOTE | 2019-03-22 23:11 | History & Physical Report ---
Date of Service March 22, 2019 Assessment & Plan (1) Intractable nausea and vomitinyoM with hx of asthma as a child presents with intractable vomiting x 3 days and abdominal pain which started today. Reports heavy alcohol and marijuana use during [place] trip with friends 1 week ago. Arrived 4 days ago and for the past 3 days has been having nausea/vomiting non stop and unable to keep anything down. Developed L sided abdominal pain today and presented to the ED. Hx of recent admission in october 2018 for similar symptoms and found to have pneumomediastinum at that time as well which was conservatively treated. Abdominal pain/nausea/vomiting: likely marijuana hyperemesis in the setting of significant marijuana use vs. GERD triggered by heavy alcohol use -Afebrile, no WBC -Initially tachycardic to 90s and hypertensive now HR 60s and normotensive -K 3.4, mild elevation in TB 1.2 otherwise CMP wnl -Abdominal CT: unremarkable -In the ED received: 1L IVFs and NS at 125cc/hr, morphine, toradol, famotidine, zofran, reglan, bentyl, capsaicin, and benadryl - at the time of admission symptoms had improved -Continue NS IVF 125cc/hr -Started on carafate -Capsaicin and Zofran prn for nausea/vomiting -Pain control: Tylenol IV -Continue to monitor closely Hypokalemia -K 3.4 -IVF 125cc NS + KCL 20meq Hx of asthma -Albuterol 2 puff Q4H PRN Code: Full DVT: SCDs, encourage ambulation Dispo: med/surg (2) Marijuana use: (3) Asthma: (4) Abdominal pain: History of Present Illness Chief Complaint: Nausea/Vomiting/Abdominal pain Primary Care Provider: [facility] 23-year-old male with history of childhood asthma presents with recurrent episode of nausea/vomiting x4 days and abdominal pain that started today as well. Patient reports being in [place] with friends for the past week and used a lot of marijuana and alcohol. Reports returning on Sunday from trip and developing nausea/vomiting starting , 3 days ago. Has had nonstop nausea and vomiting and unable to keep anything down. Was very dehydrated today and also developed abdominal pain and thus presented to the emergency room. Associate with lightheadedness which has now resolved. At the time of admission evaluation patient reported improvement in nausea, vomiting, and abdominal pain however was not able to keep fluids given in the emergency room down. Denies any headache, chest pain, shortness of breath, diarrhea, constipation, dysuria, hematochezia. Patient was recently admitted in October 2018 for similar nausea/v omiting/abdominal pain and at that time the patient was found to have pneumomediastinum which was treated conservatively. Patient was advised to stop smoking marijuana and reports stopped for about 3 months which helped improve symptoms but partied a lot at recent [place] trip which involved smoking marijuana and drinking alcohol and symptoms returned. Allergies Allergy/AdvReac Type Severity Reaction Status Date / Time No Known Allergies Allergy Unverified 03/22/19 16:36 Home Medications Home Medications Medication Instructions Recorded Confirmed Type ascorbic acid (vitamin C) [Vitamin 0 mg PO DAILY PRN 11/20/18 03/22/19 History C] albuterol sulfate [Ventolin HFA] 1 - 2 puff INHALATION DAILY PRN 03/22/19 03/22/19 History ondansetron 4 mg PO Q6H PRN #10 tab 03/23/19 Rx Past Med/Surg History Medical History Cyclic vomiting syndrome No significant past medical history Asthma No significant past surgical history Obesity Pneumomediastinum (Acute) Social History Preferred Language: Mauritanian Communication Ability: Effective Financial Cost Analyst Required: No Beliefs That Will Affect Care: None Current Living Situation: Alone Other Information That Helps Us Care for You: No Feels Safe at Home: Yes Safety Concerns: Feels Safe At This Time Smoking Status: Never smoker Tobacco Type: cigarettes ; Cigarettes Per Day: socially on occasion ; Second Hand Exposure: No ; Hx Alcohol Use: Yes Alcohol type: beer and hard liquor Hx Substance Use: Yes substance use type: marijuana Substance Use Type Other:: occassionally Last Used Substance: Days (ago) Review of Systems Review of Systems: As per HPI Physical Exam Physical Exam: General: In NAD HEENT: Dry mucous membranes Neuro: A&O x 4 Pulm: CTAB equal breath sounds bilaterally CV: RRR, no m/r/g, cap refill 3 sec Abdomen:+BS, no TTP in all quadrants, non-distended LE: no LE edema, no calf TTP Results & Data Vital Signs (Past 12 Hours) Vital Signs Temp Pulse Pulse Resp BP BP Pulse Ox 03/22/19 23:02 63 16 119/55 L 96 03/22/19 21:30 53 L 18 137/91 98 03/22/19 21:04 71 19 154/89 H 99 03/22/19 21:00 69 32 H 03/22/19 20:35 53 L 16 170/102 H 97 03/22/19 20:30 51 L 12 170/102 H 100 03/22/19 20:28 54 L 19 145/88 H 100 03/22/19 20:00 57 L 18 139/85 97 03/22/19 19:30 56 L 17 136/87 99 03/22/19 19:00 54 L 15 154/101 H 100 03/22/19 18:30 57 L 24 149/89 H 99 03/22/19 18:00 74 14 156/94 H 98 03/22/19 17:30 67 25 H 146/91 H 99 03/22/19 17:00 96 H 14 100 03/22/19 16:30 60 21 160/100 H 98 03/22/19 16:10 67 16 114/87 03/22/19 16:00 57 L 20 160/104 H 98 03/22/19 15:01 99 03/22/19 14:46 36.6 C 70 20 164/123 H 99 Laboratory Results Abnormal lab results 03/22/19 03/22/19 Range/Units 15:15 15:15 MCHC 36.4 H (32-36) g/dL MPV 10.7 H (7.4-10.4) fL [place] # (Auto) 0.87 H (0.11-0.59) K/uL Potassium 3.4 L (3.5-5.1) mmol/L Glucose 114 H (70-99) mg/dl Total Bilirubin 1.2 H (0.2-1) mg/dl AST 14 L (15-37) U/L Total Protein 8.3 H (6.4-8.2) gm/dl Diagnostic Findings ABDOMEN AND PELVIS CT WITH IV CONTRAST CT DOSE: 1753.37 mGy.cm HISTORY: Acute generalized abdominal pain with vomiting abd pain, vomiting TECHNIQUE: Multiaxial CT images of the abdomen and pelvis were performed following the use of intravenous contrast. A dose lowering technique was utilized adhering to the principles of ALARA. COMPARISON STUDY: Abdominal ultrasound 11/26/2018, CT abdomen and pelvis 11/24/2018 FINDINGS: Lung bases are clear. 3 mm pleural-based solid nodule about the left lower lobe is unchanged and likely benign. There is no pneumatosis or pneumoperitoneum. The imaged inferior cardiac chambers appear unremarkable. Gallbladder, pancreas, adrenal glands and liver appear unremarkable. The spleen measures within the upper limits of normal in size. Kidneys and ureters are unremarkable. There is mild circumferential wall thickening of the urinary bladder. Prostate appears unremarkable. Aorta and IVC are within normal limits. No adenopathy. No bowel obstruction or bowel wall thickening. The majority of the large bowel is decompressed. The appendix appears normal within the abdominal right lower quadrant. No ascites or mesenteric inflammation. Soft tissues appear to be within normal limits. Bones appear to be intact without acute fracture identified. Subcutaneous emphysema of the left gluteal distribution is suggestive of additional injection site. Posterior annular disc bulging at L4-L5 and L5-S1 likely contributes to the degree of central canal stenosis. IMPRESSION: 1. No bowel obstruction or bowel wall thickening. 2. Normal appendix. 3. Mild urinary bladder wall thickening. Correlate with urinalysis to exclude cystitis. Medications Administered Current Inpatient Medications Sodium Chloride (Nss 1000ml) 1,000 mls @ 125 mls/hr IV .Q8H STA Stop: 03/23/19 03:19 Last Admin: 03/22/19 20:29 Dose: 125 mls/hr Documented by: Ioversol (Optiray 320 125ml) 115 ml IV ONCE PRN PRN Reason: Interaction Checking Stop: 03/26/19 20:48 Last Admin: 03/22/19 20:50 Dose: 115 ml Documented by: Code Status & VTE Plan Code Status Full VTE Prophylaxis Plan VTE Prophylaxis will be ordered: Yes Supervising Physician Co-Signing Physician Notes Attending addendum: I have physically seen this patient, have supervised the medical residents activities, and agree with the H&P unless as otherwise noted. Assessment and Plan: Cannabinoid hyperemesis syndrome/intractable nausea vomiting- Heavy alcohol use. No relief with multiple medications given in ED. Admit for IV fluids. Carafate, Zofran and capsaicin as noted. Acetaminophen IV as needed. Principal treatment for patient on the long-term basis is to quit marijuana use. Asthma- Albuterol 2 puffs every 4 hours as needed Remainder of orders and notations as noted. PG Care Time/CCT Total # of Minutes Spent Total Time Spent with Patient: Total time spent is greater than 50% in coordination of care (as documented) at patient's floor/unit and/or counseling patient: Resident Activity Tracking Resident Involvement: Resident Care Provided Care Provided: Adult Hospital Medicine (1) Abdominal pain Abdominal location: unspecified location Qualified Code(s): R10.9 - Unspecified abdominal pain
[2019-03-23] MEDS ORDERED: ACETAMINOPHEN 1,000 MG/100 ML VIAL IV PRN (00:35)
[2019-03-23] MEDS ORDERED: CAPSAICIN CR 0.075% 60 GM TUBE EXT PRN (00:35)
[2019-03-23] MEDS ORDERED: ONDANSETRON INJ 2 MG/ML 2 ML VIAL IV PRN (00:35)
[2019-03-23] MEDS ORDERED: ALBUTEROL HFA 8 GM INHALER INH PRN (00:35)
[2019-03-23] MEDS ORDERED: ACETAMINOPHEN 325 MG TAB PO PRN (00:35)
[2019-03-23] MEDS ORDERED: POTASSIUM CHLORIDE 20 MEQ in SODIUM CHLORIDE 0.9% 1000ML 1,000 ML IV SCH (00:35)
[2019-03-23 00:49] LABS: Appearance Urine Clear (Clear); Bilirubin Urine Negative (Negative); Blood Urine Negative (Negative); Color Urine Yellow; Glucose Urine UA Negative (Negative); Ketones Urine 1+ (Negative); Leukocyte Esterase Urine Negative (Negative); Nitrite Urine Negative (Negative); Protein Urine Negative (Negative); Specific Gravity Urine > 1.045 (1.000-1.030); Urobilinogen Urine Negative (Negative); pH Urine 6.5 (4.5-7.5)
[2019-03-23] MEDS: NSS + 20MEQ KCL 20 MEQ/1,000 ML BAG IV SCH ×2 (01:13→09:37)
[2019-03-23 07:15] LABS: Alanine Aminotransferase 19 U/L (12-78); Albumin Level 3.2 gm/dl (3.4-5.0); Alkaline Phosphatase 62 U/L (45-117); Aspartate Aminotransferase 12 U/L (15-37); BUN Creatinine Ratio 15.4 (10-20); Bilirubin,Total 0.7 mg/dl (0.2-1); Blood Urea Nitrogen 14 mg/dl (7-18); Calcium 8.6 mg/dl (8.5-10.1); Carbon Dioxide 27 mmol/L (21-32); Chloride 109 mmol/L (98-107); Est GFR (African American) 141.7; Est GFR (Non-African American) 122.2; Globulin 3.3 gm/dl (2.5-4.0); Glucose 82 mg/dl (70-99); Potassium 3.7 mmol/L (3.5-5.1); Sodium 142 mmol/L (136-145); Total Protein 6.5 gm/dl (6.4-8.2)
[2019-03-23] MEDS: SUCRALFATE 1 GM/10 ML UDC PO SCH ×2 (08:12→12:58)
[2019-03-23] MEDS ORDERED: ONDANSETRON 4 MG OD TAB PO PRN (12:28)
--- NOTE | 2019-03-23 15:24 | Discharge Summary ---
Date of Service March 23, 2019 Admission HPI Per Admitting Provider 23-year-old male with history of childhood asthma presents with recurrent episode of nausea/vomiting x4 days and abdominal pain that started today as well. Patient reports being in [place] with friends for the past week and used a lot of marijuana and alcohol. Reports returning on Sunday from trip and developing nausea/vomiting starting , 3 days ago. Has had nonstop nausea and vomiting and unable to keep anything down. Was very dehydrated today and also developed abdominal pain and thus presented to the emergency room. Associate with lightheadedness which has now resolved. At the time of admission evaluation patient reported improvement in nausea, vomiting, and abdominal pain however was not able to keep fluids given in the emergency room down. Denies any headache, chest pain, shortness of breath, diarrhea, constipation, dysuria, hematochezia. Patient was recently admitted in October 2018 for similar nausea/vomiting/abdominal pain and at that time the patient was found to have pneumomediastinum which was treated conservatively. Patient was advised to stop smoking marijuana and reports stopped for about 3 months which helped improve symptoms but partied a lot at recent [place] trip which involved smoking marijuana and drinking alcohol and symptoms returned. Discharge Data Consultations 03/22/19 21:44 ED Decision to Admit Stat Hospital Course (1) Intractable nausea and vomitinyoM with hx of asthma as a child presents with intractable vomiting x 3 days and abdominal pain which started today. Reports heavy alcohol and marijuana use during [place] trip with friends 1 week ago. Arrived 4 days ago and for the past 3 days has been having nausea/vomiting non stop and unable to keep anything down. Developed L sided abdominal pain today and presented to the ED. Hx of recent admission in October 2018 for similar symptoms and found to have pneumomediastinum at that time as well which was conservatively treated. Canabis hyperemesis: -Afebrile, no WBC ; Initially tachycardic to 90s and hypertensive now HR 60s and normotensive -previous extensive GI work-up for similar episode in November that was all negative -Abdominal CT: unremarkable -Continue on Zofran ODT as needed Asthma: -continue Albuterol 2 puff Q4H PRN Code: Full (2) Marijuana use: (3) Asthma: (4) Abdominal pain: Supervising Physician Co-Signing Physician Notes I personally examined the patient and verified all ovalle points of history and exam, discussed case, and agree with decision making with Dr Santiago. Feeling better. Able to eat. Feeling up to going home. Understands that any intake of cannabis is likely to trigger emesis in him, and he expresses a desire to not have this happen again. Vitals noted, in general he is awake and alert pleasant no distress. HEENT normal cephalic atraumatic mucous members moist. Breathing unlabored no accessory muscle use good effort. Skin shows no rashes no pallor or icterus. Intractable nausea and vomitingappears to have been a repeat of cannabis hyperemesis. 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 We discussed cessation for the indefinite future. He is stable for home, Zofran as needed nausea. Hematemesishis story with the intractable vomiting seems to fit with that of something along the lines of a Antonia-Hassan tear, or other pathology that can appear to be bleeding significantly without significant hemorrhage to show for it. We discussed clinical follow-up of this versus endoscopic intervention, but given that his bleeding appears to be slowing, and given that he has good probable cause for the bleeding to be something of a more benign pathology, and further given that he had an EGD only about 4 months ago without any other notable upper GI pathology, we both agreed the clinical follow-up made the most sense in his regard. Certainly if bleeding recurs or persists then endoscopic intervention should be undertaken. Resident Activity Tracking Resident Involvement: Resident Care Provided Care Provided: Adult [facility] Medicine
== END 2019-03-23 16:00 | disposition home or self-care (01) ==
LOC: ED 14:43 → 4W 14:43 → SUATTDRO 23:17 → 4W 03-23 00:06

== ENCOUNTER 2019-05-31 09:39 | Observation (INO) ==
[2019-05-31] MEDS ORDERED: METOCLOPRAMIDE HCL INJ 5 MG/ML 2 ML VIAL IV ONE ×2 (09:52→13:26)
[2019-05-31] MEDS ORDERED: ONDANSETRON INJ 2 MG/ML 2 ML VIAL IV STA ×3 (09:52→15:00)
[2019-05-31] MEDS ORDERED: SODIUM CHLORIDE 0.9% 1000ML 2,000 ML IV ONE (09:52)
[2019-05-31] MEDS ORDERED: KETOROLAC TROMETHAMINE 15 MG/ML VIAL IV ONE (09:58)
[2019-05-31 10:18] LABS: Basophils # (auto) 0.03 K/uL (0-0.2); Basophils % (auto) 0.4 %; Eosinophils # (auto) 0.05 K/uL (0-0.5); Eosinophils % (auto) 0.6 %; Hematocrit (blood only) 48.1 % (42-52); Hemoglobin 17.1 g/dL (14.0-18.0); Immature Granulocytes # (auto) 0.02 K/uL (0.00-0.02); Immature Granulocytes % (auto) 0.3 %; Lymphocytes # (auto) 2.59 K/uL (1.2-3.4); Lymphocytes % (auto) 33.4 %; Mean Corpuscular Hemoglobin 30.8 pg (25-34); Mean Corpuscular Hgb Conc 35.6 g/dL (32-36); Mean Corpuscular Volume 86.7 fL (80-100); Mean Platelet Volume 10.6 fL (7.4-10.4); Monocytes # (auto) 0.63 K/uL (0.11-0.59); Monocytes % (auto) 8.1 %; Neutrophils # (auto) 4.43 K/uL (1.4-6.5); Neutrophils % (auto) 57.2 %; Platelet Count 300 K/uL (130-400); RDW Coefficient of Variation 13.2 % (11.5-14.5); RDW Standard Deviation 41.8 fL (36.4-46.3); Red Blood Count 5.55 M/uL (4.7-6.1); White Blood Count 7.75 K/uL (4.8-10.8)
[2019-05-31 10:52] LABS: Albumin Globulin Ratio 1.1 (0.9-2); Albumin Level 4.1 gm/dl (3.4-5.0); BUN Creatinine Ratio 13.9 (10-20); Calcium 9.2 mg/dl (8.5-10.1); Creatinine Clr Calc Pharmacy 188.3 ml/min; Est GFR (African American) 135.5; Est GFR (Non-African American) 116.9; Globulin 3.6 gm/dl (2.5-4.0); Potassium 3.5 mmol/L (3.5-5.1); Total Protein 7.7 gm/dl (6.4-8.2)
[2019-05-31] MEDS ORDERED: PROMETHAZINE HCL 25 MG in SODIUM CHLORIDE 0.9% 50 ML IV STA ×2 (11:04→12:26)
[2019-05-31] MEDS ORDERED: MoRPHine SULFATE 4 MG/ML 1 ML CARP\\VIAL IV STA ×2 (11:04→13:26)
[2019-05-31] MEDS ORDERED: CAPSAICIN CR 0.075% 60 GM TUBE EXT STA (11:05)
[2019-05-31] MEDS ORDERED: PROMETHAZINE 25 MG/51 ML NSS IV ONE ×2 (11:30→12:30)
[2019-05-31] MEDS ORDERED: SODIUM CHLORIDE 0.9% 1000ML 1,000 ML IV ONE (12:27)
[2019-05-31 15:26] LABS: Appearance Urine Clear (Clear); Bilirubin Urine Negative (Negative); Blood Urine Negative (Negative); Color Urine Yellow; Glucose Urine UA Negative (Negative); Ketones Urine 2+ (Negative); Leukocyte Esterase Urine Negative (Negative); Nitrite Urine Negative (Negative); Protein Urine Negative (Negative); Specific Gravity Urine 1.015 (1.000-1.030); Urobilinogen Urine Negative (Negative); pH Urine 7.5 (4.5-7.5)
--- NOTE | 2019-05-31 15:47 | History & Physical Report ---
Date of Service May 31, 2019 Assessment & Plan (1) Cannabis hyperemesis syndrome concurrent with and due to cannabis abuse: Hyperemesis secondary to cannabis abuse leading to cyclical vomiting syndrome (2) Cyclical vomiting syndrome: Patient advised to quit marijuana abuse. (3) Intractable nausea and vomiting: Add Zofran as needed basis. Add Pepcid. Consult gastroenterology. Add gentle IV fluids. (4) HTN (hypertension): We will monitor blood pressure closely. He has no past history of hypertension. May need IV hydralazine PRN basis (5) Marijuana use: (6) Asthma: Controlled. (7) Hypokalemia: Add potassium supplements with IV fluids, repeat labs in a.m. (8) Dehydration: IV fluids. Monitor intake output. (9) Alcohol abuse: Add Ativan as needed basis (10) Obesity: Add subcu heparin for DVT prophylaxis History of Present Illness Chief Complaint: Intractable nausea vomiting Primary Care Provider: [facility] The patient is 23 years old male with history of chronic marijuana abuse. He has been diagnosed with cyclical vomiting syndrome. The patient says he has bee n having intractable nausea /vomiting for the last 5 days. He was drinking alcohol and using marijuana prior to that. He now has decreased oral intake and is not able to tolerate liquids. No diarrhea. He is complaining of pain in the epigastrium. He had endoscopy in October which was within normal limits. No hematemesis. No syncope. No diarrhea /no bloody stools. The patient received multiple doses of Zofran and Reglan in ER, but his symptoms have been persisting. He will be admitted under observation for further evaluation and management. Allergies Allergy/AdvReac Type Severity Reaction Status Date / Time Pork/Porcine Containing AdvReac Unknown Unknown Verified 05/31/19 16:02 Products Home Medications Home Medications Medication Instructions Recorded Confirmed Type No Known Home Medications 05/31/19 05/31/19 History Past Med/Surg History Medical History Cyclic vomiting syndrome No significant past medical history Asthma No significant past surgical history Obesity Pneumomediastinum (Acute) Social History Preferred Language: Croatian Communication Ability: Effective Roll Examiner Required: No Beliefs That Will Affect Care: Denominational Denominational Beliefs: Islamic diet Current Living Situation: Alone Other Information That Helps Us Care for You: No Feels Safe at Home: Yes Safety Concerns: Feels Safe At This Time Smoking Status: Current some day smoker Tobacco Type: cigarettes ; Cigarettes Per Day: 4 a month ; Do You Dip or Chew Tobacco: No ; Second Hand Exposure: No ; Tobacco Cessation Education Requested by Patient: No Hx Alcohol Use: Yes Alcohol type: beer and hard liquor Hx Substance Use: Yes substance use type: marijuana Substance Use Type Other:: occassionally Last Used Substance: Unknown Review of Systems Review of Systems: All systems reviewed & are unremarkable except as noted in HPI & below Physical Exam Physical Exam: GENERAL : No acute distress, obese male EYES: No icterus, gaze conjugate NOSE: No evidence of epistaxis MOUTH: No lesions or candidiasis, mucosa moist NECK: Supple LUNGS: CTA B/L, no wheezes, rales or rhonchi HEART: Regular, rate controlled ABDOMEN: Soft, tenderness noted in the epigastrium, ND, BS Present EXTREMITIES: No LE edema, pedal pulses intact NEURO: A&OX3 Results & Data Vital Signs (Past 12 Hours) Vital Signs Temp Pulse Pulse Resp BP BP Pulse Ox 05/31/19 15:10 67 19 99 05/31/19 15:01 55 L 17 141/112 H 100 05/31/19 15:00 62 24 99 05/31/19 14:58 56 L 18 165/104 H 100 05/31/19 14:50 58 L 17 100 05/31/19 14:40 65 19 98 05/31/19 14:31 59 L 17 98 05/31/19 14:30 56 L 17 163/88 H 97 05/31/19 14:20 63 17 98 05/31/19 14:10 58 L 18 98 05/31/19 14:01 60 18 98 05/31/19 14:00 60 17 181/104 H 98 05/31/19 13:50 59 L 17 98 05/31/19 13:40 58 L 18 98 05/31/19 13:31 75 17 05/31/19 13:30 61 19 183/105 H 05/31/19 13:20 64 19 05/31/19 13:10 70 20 05/31/19 13:01 67 17 05/31/19 13:00 62 19 184/100 H 05/31/19 12:50 66 20 05/31/19 12:40 82 79 19 185/103 H 94 05/31/19 12:31 75 14 99 05/31/19 12:30 61 17 185/103 H 98 05/31/19 12:20 59 L 15 98 05/31/19 12:17 56 L 16 180/107 H 99 05/31/19 12:10 60 18 98 05/31/19 12:00 53 L 18 98 05/31/19 11:50 53 L 18 96 05/31/19 11:42 59 L 12 166/109 H 99 05/31/19 11:40 53 L 15 98 05/31/19 11:37 54 L 15 166/109 H 100 05/31/19 11:30 61 18 05/31/19 11:20 50 L 18 05/31/19 11:10 76 17 05/31/19 11:00 63 20 05/31/19 10:50 48 L 15 98 05/31/19 10:47 50 L 13 179/117 H 97 05/31/19 10:40 21 100 05/31/19 10:39 18 159/137 H 05/31/19 10:30 79 22 98 05/31/19 10:22 51 L 16 173/110 H 100 05/31/19 10:20 52 L 12 05/31/19 10:09 55 L 20 173/110 H 95 05/31/19 09:43 98.6 F 75 20 201/121 H 96 Laboratory Results 05/31/19 10:09 05/31/19 10:09 Code Status & VTE Plan Code Status Full code VTE Prophylaxis Plan VTE Prophylaxis will be ordered: Yes PG Care Time/CCT Total # of Minutes Spent Total Time Spent with Patient: Total time spent is greater than 50% in co ordination of care (as documented) at patient's floor/unit and/or counseling patient: 60 min (1) HTN (hypertension) Hypertension type: unspecified Qualified Code(s): I10 - Essential (primary) hypertension
--- NOTE | 2019-05-31 16:13 | Emergency Department Note ---
Entered by Jesus Pineda acting as a scribe for Leandro Douglas DO History of Present Illness General Chief complaint: Vomiting Stated complaint: VOMITING - NAUSEA - ABDOMINAL PAIN,HERE LAST NIGHT Source: patient Mode of arrival: ambulatory Limitations: no limitations History of Present Illness Onset (ago): day(s) 3 Location: abdomen Pain Consistency: + constant Maximum Pain Intensity: 7 Quality: + aching Associated symptoms: + denies other symptoms (fever, hematuria, dysuria), + cough, + nausea/vomiting and + other (diarrhea) Treatments prior to arrival: other (Zofran) The patient is a 23 year old male who presents to the Emergency Room with complaints of constant nausea and abdominal pain that started three days prior to arrival. The patient states that he has felt achy pain in his stomach that has been. The patient notes that he has a history of cyclic vomiting for the past five months. The patient denies any fever, hematuria, or dysuria. The patient reports that he has diarrhea and has not eaten regularly for the past four days. The patient states that he has associated runny nose and cough from the flue. The patient notes that he is a regular marijuana user, but notes that he stopped one week prior to arrival. The patient reports that he was seen in the hospital yesterday for the same issues. The patient reports that he has taken Zofran for the vomiting and that it has helped. The patient notes that he drank over the weekend. 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 Beliefs That Will Affect Care: Anglican Anglican Beliefs: Islamic diet Current Living Situation: Alone Other Information That Helps Us Care for You: No Feels Safe at Home: Yes Safety Concerns: Feels Safe At This Time Smoking Status: Current some day smoker Tobacco Type: cigarettes ; Cigarettes Per Day: 4 a month ; Do You Dip or Chew Tobacco: No ; Second Hand Exposure: No ; Tobacco Cessation Education Requested by Patient: No Hx Alcohol Use: Yes Alcohol type: beer and hard liquor Hx Substance Use: Yes substance use type: marijuana Substance Use Type Other:: occassionally Last Used Substance: Unknown Review of Systems See HPI for pertinent positives & negatives. and A total of 10 systems reviewed and were otherwise negative Physical Exam Vital Signs Vital Signs - 24 hr 05/31/19 09:43 05/31/19 10:09 05/31/19 10:20 Temperature 37 C Temperature Source Oral Sepsis Recent Fever Within 48 Hours No Sepsis Action Taken by Nursing No Action Required Pulse Rate 75 52 L Pulse Rate [Apical] 55 L Pulse Rate from SpO2 Sensor Pulse Rhythm Irregular Pulse Rhythm [Apical] Irregular Respiratory Rate 20 20 12 Respiratory Effort / Characteristics Non-Labored Spontaneous Non-Labored Respiratory Depth Normal Normal Respiratory Pattern Blood Pressure 201/121 H Blood Pressure [Right Arm] 173/110 H Blood Pressure Mean 147 Blood Pressure Mean [Right Arm] 131 Blood Pressure Position [Right Arm] Sitting Pulse Oximetry 96 95 Oxygen Delivery Method Room Air Room Air 05/31/19 10:22 05/31/19 10:30 05/31/19 10:39 Temperature Temperature Source Sepsis Recent Fever Within 48 Hours Sepsis Action Taken by Nursing Pulse Rate 51 L 79 Pulse Rate [Apical] Pulse Rate from SpO2 Sensor 50 L 77 Pulse Rhythm Pulse Rhythm [Apical] Respiratory Rate 16 22 18 Respiratory Effort / Characteristics Respiratory Depth Respiratory Pattern Blood Pressure 173/110 H 159/137 H Blood Pressure [Right Arm] Blood Pressure Mean 131 144 Blood Pressure Mean [Right Arm] Blood Pressure Position [Right Arm] Pulse Oximetry 100 98 Oxygen Delivery Method 05/31/19 10:40 05/31/19 10:47 05/31/19 10:50 Temperature Temperature Source Sepsis Recent Fever Within 48 Hours Sepsis Action Taken by Nursing Pulse Rate 50 L 48 L Pulse Rate [Apical] Pulse Rate from SpO2 Sensor 51 L 47 L 49 L Pulse Rhythm Pulse Rhythm [Apical] Respiratory Rate 21 13 15 Respiratory Effort / Characteristics Respiratory Depth Respiratory Pattern Blood Pressure 179/117 H Blood Pressure [Right Arm] Blood Pressure Mean 137 Blood Pressure Mean [Right Arm] Blood Pressure Position [Right Arm] Pulse Oximetry 100 97 98 Oxygen Delivery Method 05/31/19 11:00 05/31/19 11:10 05/31/19 11:20 Temperature Temperature Source Sepsis Recent Fever Within 48 Hours Sepsis Action Taken by Nursing Pulse Rate 63 76 50 L Pulse Rate [Apical] Pulse Rate from SpO2 Sensor Pulse Rhythm Pulse Rhythm [Apical] Respiratory Rate 20 17 18 Respiratory Effort / Characteristics Respiratory Depth Respiratory Pattern Blood Pressure Blood Pressure [Right Arm] Blood Pressure Mean Blood Pressure Mean [Right Arm] Blood Pressure Position [Right Arm] Pulse Oximetry Oxygen Delivery Method 05/31/19 11:30 05/31/19 11:37 05/31/19 11:40 Temperature Temperature Source Sepsis Recent Fever Within 48 Hours Sepsis Action Taken by Nursing Pulse Rate 61 54 L 53 L Pulse Rate [Apical] Pulse Rate from SpO2 Sensor 55 L 51 L Pulse Rhythm Pulse Rhythm [Apical] Respiratory Rate 18 15 15 Respiratory Effort / Characteristics Respiratory Depth Respiratory Pattern Blood Pressure 166/109 H Blood Pressure [Right Arm] Blood Pressure Mean 128 Blood Pressure Mean [Right Arm] Blood Pressure Position [Right Arm] Pulse Oximetry 100 98 Oxygen Delivery Method 05/31/19 11:42 05/31/19 11:50 05/31/19 12:00 Temperature Temperature Source Sepsis Recent Fever Within 48 Hours Sepsis Action Taken by Nursing Pulse Rate 53 L 53 L Pulse Rate [Apical] 59 L Pulse Rate from SpO2 Sensor 57 L 54 L Pulse Rhythm Pulse Rhythm [Apical] Regular Respiratory Rate 12 18 18 Respiratory Effort / Characteristics Non-Labored Spontaneous Respiratory Depth Normal Respiratory Pattern Regular Blood Pressure Blood Pressure [Right Arm] 166/109 H Blood Pressure Mean Blood Pressure Mean [Right Arm] 128 Blood Pressure Position [Right Arm] Sitting Pulse Oximetry 99 96 98 Oxygen Delivery Method Room Air 05/31/19 12:10 05/31/19 12:17 05/31/19 12:20 Temperature Temperature Source Sepsis Recent Fever Within 48 Hours Sepsis Action Taken by Nursing Pulse Rate 60 56 L 59 L Pulse Rate [Apical] Pulse Rate from SpO2 Sensor 61 56 L 57 L Pulse Rhythm Pulse Rhythm [Apical] Respiratory Rate 18 16 15 Respiratory Effort / Characteristics Respiratory Depth Respiratory Pattern Blood Pressure 180/107 H Blood Pressure [Right Arm] Blood Pressure Mean 131 Blood Pressure Mean [Right Arm] Blood Pressure Position [Right Arm] Pulse Oximetry 98 99 98 Oxygen Delivery Method 05/31/19 12:30 05/31/19 12:31 05/31/19 12:40 Temperature Temperature Source Sepsis Recent Fever Within 48 Hours Sepsis Action Taken by Nursing Pulse Rate 61 75 82 Pulse Rate [Apical] 79 Pulse Rate from SpO2 Sensor 58 L 73 Pulse Rhythm Pulse Rhythm [Apical] Irregular Respiratory Rate 17 14 19 Respiratory Effort / Characteristics Non-Labored Respiratory Depth Normal Respiratory Pattern Blood Pressure 185/103 H Blood Pressure [Right Arm] 185/103 H Blood Pressure Mean 130 Blood Pressure Mean [Right Arm] 130 Blood Pressure Position [Right Arm] Sitting Pulse Oximetry 98 99 94 Oxygen Delivery Method Room Air 05/31/19 12:50 05/31/19 13:00 05/31/19 13:01 Temperature Temperature Source Sepsis Recent Fever Within 48 Hours Sepsis Action Taken by Nursing Pulse Rate 66 62 67 Pulse Rate [Apical] Pulse Rate from SpO2 Sensor Pulse Rhythm Pulse Rhythm [Apical] Respiratory Rate 20 19 17 Respiratory Effort / Characteristics Respiratory Depth Respiratory Pattern Blood Pressure 184/100 H Blood Pressure [Right Arm] Blood Pressure Mean 128 Blood Pressure Mean [Right Arm] Blood Pressure Position [Right Arm] Pulse Oximetry Oxygen Delivery Method 05/31/19 13:10 05/31/19 13:20 05/31/19 13:30 Temperature Temperature Source Sepsis Recent Fever Within 48 Hours Sepsis Action Taken by Nursing Pulse Rate 70 64 61 Pulse Rate [Apical] Pulse Rate from SpO2 Sensor Pulse Rhythm Pulse Rhythm [Apical] Respiratory Rate 20 19 19 Respiratory Effort / Characteristics Respiratory Depth Respiratory Pattern Blood Pressure 183/105 H Blood Pressure [Right Arm] Blood Pressure Mean 131 Blood Pressure Mean [Right Arm] Blood Pressure Position [Right Arm] Pulse Oximetry Oxygen Delivery Method 05/31/19 13:31 05/31/19 13:40 05/31/19 13:50 Temperature Temperature Source Sepsis Recent Fever Within 48 Hours Sepsis Action Taken by Nursing Pulse Rate 75 58 L 59 L Pulse Rate [Apical] Pulse Rate from SpO2 Sensor 58 L 60 Pulse Rhythm Pulse Rhythm [Apical] Respiratory Rate 17 18 17 Respiratory Effort / Characteristics Respiratory Depth Respiratory Pattern Blood Pressure Blood Pressure [Right Arm] Blood Pressure Mean Blood Pressure Mean [Right Arm] Blood Pressure Position [Right Arm] Pulse Oximetry 98 98 Oxygen Delivery Method 05/31/19 14:00 05/31/19 14:01 05/31/19 14:10 Temperature Temperature Source Sepsis Recent Fever Within 48 Hours Sepsis Action Taken by Nursing Pulse Rate 60 60 58 L Pulse Rate [Apical] Pulse Rate from SpO2 Sensor 62 62 58 L Pulse Rhythm Pulse Rhythm [Apical] Respiratory Rate 17 18 18 Respiratory Effort / Characteristics Respiratory Depth Respiratory Pattern Blood Pressure 181/104 H Blood Pressure [Right Arm] Blood Pressure Mean 129 Blood Pressure Mean [Right Arm] Blood Pressure Position [Right Arm] Pulse Oximetry 98 98 98 Oxygen Delivery Method 05/31/19 14:20 05/31/19 14:30 05/31/19 14:31 Temperature Temperature Source Sepsis Recent Fever Within 48 Hours Sepsis Action Taken by Nursing Pulse Rate 63 56 L 59 L Pulse Rate [Apical] Pulse Rate from SpO2 Sensor 66 56 L 61 Pulse Rhythm Pulse Rhythm [Apical] Respiratory Rate 17 17 17 Respiratory Effort / Characteristics Respiratory Depth Respiratory Pattern Blood Pressure 163/88 H Blood Pressure [Right Arm] Blood Pressure Mean 113 Blood Pressure Mean [Right Arm] Blood Pressure Position [Right Arm] Pulse Oximetry 98 97 98 Oxygen Delivery Method 05/31/19 14:40 05/31/19 14:50 05/31/19 14:58 Temperature Temperature Source Sepsis Recent Fever Within 48 Hours Sepsis Action Taken by Nursing Pulse Rate 65 58 L 56 L Pulse Rate [Apical] Pulse Rate from SpO2 Sensor 64 56 L 60 Pulse Rhythm Pulse Rhythm [Apical] Respiratory Rate 19 17 18 Respiratory Effort / Characteristics Respiratory Depth Respiratory Pattern Blood Pressure 165/104 H Blood Pressure [Right Arm] Blood Pressure Mean 124 Blood Pressure Mean [Right Arm] Blood Pressure Position [Right Arm] Pulse Oximetry 98 100 100 Oxygen Delivery Method 05/31/19 15:00 05/31/19 15:01 05/31/19 15:10 Temperature Temperature Source Sepsis Recent Fever Within 48 Hours Sepsis Action Taken by Nursing Pulse Rate 62 55 L 67 Pulse Rate [Apical] Pulse Rate from SpO2 Sensor 61 56 L 66 Pulse Rhythm Pulse Rhythm [Apical] Respiratory Rate 24 17 19 Respiratory Effort / Characteristics Respiratory Depth Respiratory Pattern Blood Pressure 141/112 H Blood Pressure [Right Arm] Blood Pressure Mean 121 Blood Pressure Mean [Right Arm] Blood Pressure Position [Right Arm] Pulse Oximetry 99 100 99 Oxygen Delivery Method GENERAL: sitting up in bed, holding a vomit bag, clear emesis present, mild distress EYE EXAM: normal conjunctiva, PERRL and EOM's grossly intact OROPHARYNX: no exudate, no erythema, lips, buccal mucosa, and tongue normal and mucous membranes are moist NECK: supple, no nuchal rigidity, no adenopathy, non-tender LUNGS: Clear to auscultation. Normal chest wall mechanics HEART: no murmurs, S1 normal and S2 normal ABDOMEN: abdomen soft, non-tender, normo-active bowel sounds, no masses, no rebound or guarding. BACK: Back is symmetrical on inspection and there is no deformity, no midline tenderness, no CVA tenderness. SKIN: no rashes and no bruising UPPER EXTREMITIES: upper extremities are grossly normal. LOWER EXTREMITIES: No pitting edema. NEURO EXAM: Normal sensorium, cranial nerves II-XII grossly intact, normal speech, no gross weakness of arms, no gross weakness of legs. Course ED COURSE: Vital signs were reviewed and showed hypertensive situationally The patients medical record was reviewed The above diagnostic studies were performed and reviewed. ED treatments and interventions as stated above. 0952: The patient was evaluated in room B06. A complete history and physical examination was performed. 0952: The patient denies any abdominal imaging. 1106: Upon reevaluation, the patient is still vomiting.I discussed my findings with the patient and he understands and agrees with the treatment plan. Based on the patients age, coexisting illnesses, exam and lab findings the decision to treat as an inpatient was made. The patient remained stable while under my care. The patient will be evaluated for further management. Administered Medications Discontinued Medications Capsaicin (Zostrix) 1 appln EXT NOW STA Stop: 05/31/19 11:06 Last Admin: 05/31/19 11:34 Dose: 1 appln Documented by: [id number] Sodium Chloride (Nss 1000ml) 2,000 mls @ 999 mls/hr IV .Q2H1M ONE Stop: 05/31/19 11:52 Last Infusion: 05/31/19 12:11 Dose: 0 mls/hr Documented by: [id number] Admin: 05/31/19 10:10 Dose: 999 mls/hr Documented by: [id number] Promethazine HCl 25 mg/ Sodium (Chloride) 51 mls @ 204 mls/hr IV NOW STA Stop: 05/31/19 11:18 Last Infusion: 05/31/19 11:48 Dose: 0 mls/hr Documented by: [id number] Admin: 05/31/19 11:33 Dose: 204 mls/hr Documented by: [id number] Promethazine HCl 25 mg/ Sodium (Chloride) 51 mls @ 204 mls/hr IV NOW STA Stop: 05/31/19 12:40 Last Infusion: 05/31/19 12:47 Dose: 0 mls/hr Documented by: [id number] Admin: 05/31/19 12:32 Dose: 204 mls/hr Documented by: [id number] Sodium Chloride (Nss 1000ml) 1,000 mls @ 999 mls/hr IV .Q1H1M ONE Stop: 05/31/19 13:27 Last Admin: 05/31/19 12:32 Dose: 999 mls/hr Documented by: [id number] Ketorolac Tromethamine (Toradol) 15 mg IV NOW ONE Stop: 05/31/19 09:59 Last Admin: 05/31/19 10:14 Dose: 15 mg Documented by: [id number] Metoclopramide HCl (Reglan) 5 mg IV ONE ONE Stop: 05/31/19 09:53 Last Admin: 05/31/19 10:14 Dose: 5 mg Documented by: [id number] Metoclopramide HCl (Reglan) 5 mg IV ONE ONE Stop: 05/31/19 13:27 Last Admin: 05/31/19 13:41 Dose: 5 mg Documented by: [id number] Morphine Sulfate (Morphine Sulfate) 4 mg IV NOW STA Stop: 05/31/19 11:05 Last Admin: 05/31/19 11:34 Dose: 4 mg Documented by: [id number] Morphine Sulfate (Morphine Sulfate) 4 mg IV NOW STA Stop: 05/31/19 13:27 Last Admin: 05/31/19 13:34 Dose: 4 mg Documented by: [id number] Ondansetron HCl (Zofran) 4 mg IV NOW STA Stop: 05/31/19 09:53 Last Admin: 05/31/19 10:14 Dose: 4 mg Documented by: [id number] Ondansetron HCl (Zofran) 4 mg IV NOW STA Stop: 05/31/19 12:27 Last Admin: 05/31/19 12:38 Dose: 4 mg Documented by: [id number] Ondansetron HCl (Zofran) 4 mg IV NOW STA Stop: 05/31/19 15:01 Last Admin: 05/31/19 15:06 Dose: 4 mg Documented by: [id number] Promethazine HCl (Phenergan) Confirm Administered Dose 25 mg IV .STK-MED ONE Stop: 05/31/19 11:31 Last Admin: 05/31/19 11:33 Dose: Not Given Documented by: [id number] Promethazine HCl (Phenergan) Confirm Administered Dose 25 mg IV .STK-MED ONE Stop: 05/31/19 12:31 Last Admin: 05/31/19 12:43 Dose: Not Given Documented by: [id number] Medical Decision Making Differential Diagnosis Differential diagnoses includes but is not limited to gastritis, peptic ulcer disease, GERD, gallbladder disease, pancreatitis, small bowel obstruction, acute coronary syndrome, pericarditis, ischemic bowel, irritable bowel disease, irritable bowel syndrome, appendicitis, diverticulitis, malignancy, hernia, urinary tract infection, torsion, [/ectopic (if female)], perforation, trauma, infectious. Medical Records Attestation: I reviewed the patient's medical records. Home Medications Current Medication List: was personally reviewed by me Laboratory Data Attestation: I reviewed the patient's lab results. Result diagrams: 05/31/19 10:05/31/19 10:09 Lab Results 05/31/19 05/31/19 05/31/19 Range/Units 10:09 10:09 15:05 WBC 7.75 (4.8-10.8) K/uL RBC 5.55 (4.7-6.1) M/uL Hgb 17.1 (14.0-18.0) g/dL Hct 48.1 (42-52) % MCV 86.7 (80-100) fL MCH 30.8 (25-34) pg MCHC 35.6 (32-36) g/dL RDW Std Deviation 41.8 (36.4-46.3) fL RDW Coeff of Diego 13.2 (11.5-14.5) % Plt Count 300 (130-400) K/uL MPV 10.6 H (7.4-10.4) fL Immature Gran % (Auto) 0.3 % Neut % (Auto) 57.2 % Lymph % (Auto) 33.4 % [place] % (Auto) 8.1 % Eos % (Auto) 0.6 % Baso % (Auto) 0.4 % Immature Gran # (Auto) 0.02 (0.00-0.02) K/uL Neut # (Auto) 4.43 (1.4-6.5) K/uL Lymph # (Auto) 2.59 (1.2-3.4) K/uL [place] # (Auto) 0.63 H (0.11-0.59) K/uL Eos # (Auto) 0.05 (0-0.5) K/uL Baso # (Auto) 0.03 (0-0.2) K/uL Sodium 137 (136-145) mmol/L Potassium 3.5 (3.5-5.1) mmol/L Chloride 102 (98-107) mmol/L Carbon Dioxide 27 (21-32) mmol/L Anion Gap 8.0 (3-11) BUN 13 (7-18) mg/dl Creatinine 0.93 (0.6-1.4) mg/dl Est Cr Clr Drug Dosing 188.3 ml/min Est GFR ( Amer) 135.5 Est GFR (Non-Af Amer) 116.9 BUN/Creatinine Ratio 13.9 (10-20) Glucose 103 H (70-99) mg/dl Calcium 9.2 (8.5-10.1) mg/dl Total Bilirubin 1.0 (0.2-1) mg/dl AST 11 L (15-37) U/L ALT 15 (12-78) U/L Alkaline Phosphatase 73 (45-117) U/L Total Protein 7.7 (6.4-8.2) gm/dl Albumin 4.1 (3.4-5.0) gm/dl Globulin 3.6 (2.5-4.0) gm/dl Albumin/Globulin Ratio 1.1 (0.9-2) Lipase 108 (73-393) U/L Specimen Hemolysis Urine Color Yellow Urine Appearance Clear (Clear) Urine pH 7.5 (4.5-7.5) Ur Specific [place] 1.015 (1.000-1.030) Urine Protein Negative (Negative) Urine Glucose (UA) Negative (Negative) Urine Ketones 2+ H (Negative) Urine Blood Negative (Negative) Urine Nitrite Negative (Negative) Urine Bilirubin Negative (Negative) Urine Urobilinogen Negative (Negative) Ur Leukocyte Esterase Negative (Negative) Blood Pressure Blood Pressure Findings: Elevated blood pressure Blood Pressure Disposition: did not require urgent referral MDM Narrative Patient is a 23-year-old male with a past medical history of cyclical vomiting syndrome who smokes marijuana regularly but has stopped and has not since this past Sunday. He notes he did drink alcohol this weekend. Sunday he started with nausea and vomiting. He is Zofran until coming into the ER last night. He was given fluids and Zofran during that visit and was discharged. He presents today with same symptoms. Patient declined imaging while in the ER. IV was established blood work was obtained and showed no significant leukocytosis or anemia. BMP along with LFTs bilirubin and lipase was negative. UA had 2+ ketones. He was given multiple doses of Zofran, Reglan, Phenergan and IV fluids along with IV narcotics. Capsaicin was applied to the abdomen. Vomiting did decrease but he still had after drinking. He was discussed with the hospitalist for observation. Impression & Plan Cyclical vomiting syndrome, HTN (hypertension), Vomiting Discharge Plan Visit Data Chief Complaint: Vomiting Stated Complaint: VOMITING - NAUSEA - ABDOMINAL PAIN,HERE LAST NIGHT ED Provider: Leandro Douglas Discharge Problem: Cyclical vomiting syndrome, HTN (hypertension), Vomiting Discharge Instructions Krames/Other Patient Handouts: Abd Pain, Hypertension Control, Hypertension Dc, Syndrome Cyclic Vomiting Ch Activity Restrictions/Additional Instructions: Please follow up with your primary care doctor or if you are a student, [facility] with in the next 24 hours. Any worsening of your symptoms, please return to the ED immediately. This includes any fevers greater than 100.4, worsening pain, chest pain, shortness breath, persistent nausea, vomiting, unable to eat or drink, or any other concerning signs or symptoms from your standpoint. You were given medications during this visit that will inhibit your ability to drive, operate machinery and work. Please do NOT drive, operate machinery, drink alcohol or work for the next 12hrs. You were found to have a blood pressure greater than 120 systolic over 90 diastolic. Due to the new Medicare guidelines, we are now recommending that you follow up with your primary care doctor in regards to this elevated blood pressure. Forms Stand Alone Forms: My [facility] Prescriptions Prescriptions: No Action No Known Home Medications RF: 0 Referrals Referrals: [facility] [Primary Care Provider] - Discharge Problem: HTN (hypertension) Qualifiers: Hypertension type: unspecified Qualified Code(s): I10 - Essential (primary) hypertension Vomiting Qualifiers: Vomiting type: unspecified Vomiting Intractability: unspecified Nausea presenc e: with nausea Qualified Code(s): R11.2 - Nausea with vomiting, unspecified The scribe's documentation has been prepared under my direction and personally reviewed by me in its entirety. I confirm that the note above accurately reflects all work, treatment, procedures, and medical decision making performed by me.
[2019-05-31] MEDS ORDERED: ACETAMINOPHEN 325 MG TAB PO PRN (17:28)
[2019-05-31] MEDS ORDERED: MAGNESIUM HYDROXIDE SUSP 30 ML UDC PO PRN (17:28)
[2019-05-31] MEDS ORDERED: LORazepam 0.5 MG TAB PO PRN (17:28)
[2019-05-31] MEDS ORDERED: ZOLPIDEM TARTRATE 5 MG TAB PO PRN (17:28)
[2019-05-31] MEDS ORDERED: ALUMINUM/MAGNESIUM SUSP 30 ML UDC PO PRN (17:28)
[2019-05-31] MEDS ORDERED: POLYETHYLENE (MIRALAX) 17 GM PACK PO PRN (17:28)
[2019-05-31] MEDS: NSS + 20MEQ KCL 20 MEQ/1,000 ML BAG IV SCH (17:51)
[2019-05-31] MEDS: ONDANSETRON INJ 2 MG/ML 2 ML VIAL IV PRN (19:17)
[2019-05-31] MEDS ORDERED: ENOXAPARIN INJ 40 MG/0.4 ML SYR SQ SCH (21:00)
[2019-06-01] MEDS: NSS + 20MEQ KCL 20 MEQ/1,000 ML BAG IV SCH ×2 (01:16→08:02)
[2019-06-01 05:46] LABS: Hematocrit (blood only) 42.1 % (42-52); Hemoglobin 14.6 g/dL (14.0-18.0); Mean Corpuscular Hemoglobin 30.2 pg (25-34); Mean Corpuscular Hgb Conc 34.7 g/dL (32-36); Mean Platelet Volume 10.9 fL (7.4-10.4); Platelet Count 247 K/uL (130-400); RDW Standard Deviation 41.8 fL (36.4-46.3); Red Blood Count 4.84 M/uL (4.7-6.1); White Blood Count 6.76 K/uL (4.8-10.8)
[2019-06-01 06:11] LABS: Albumin Level 3.1 gm/dl (3.4-5.0); BUN Creatinine Ratio 11.3 (10-20); Bilirubin Direct 0.2 mg/dl (0-0.2); Calcium 8.3 mg/dl (8.5-10.1); Creatinine Clr Calc Pharmacy 208.4 ml/min; Est GFR (African American) 145.1; Est GFR (Non-African American) 125.2; Potassium 3.4 mmol/L (3.5-5.1)
[2019-06-01 06:19] LABS: Globulin 3.1 gm/dl (2.5-4.0); Total Protein 6.2 gm/dl (6.4-8.2)
[2019-06-01] MEDS: ONDANSETRON INJ 2 MG/ML 2 ML VIAL IV PRN (08:27)
[2019-06-01] MEDS ORDERED: INFLUENZA ADMINISTRATION CHARGE ONE (15:30)
[2019-06-01] MEDS ORDERED: INFLUENZA VIRUS QUAD VACCINE 0.5 ML SYR IM ONE (15:30)
[2019-06-01] MEDS ORDERED: ONDANSETRON HOME PACK 4MG OD TAB PO ONE (16:57)
--- NOTE | 2019-06-01 17:04 | Discharge Summary ---
Date of Service June 01, 2019 Admission HPI Per Admitting Provider The patient is 23 years old male with history of chronic marijuana abuse. He has been diagnosed with cyclical vomiting syndrome. The patient says he has been having intractable nausea /vomiting for the last 5 days. He was drinking alcohol and using marijuana prior to that. He now has decreased oral intake and is not able to tolerate liquids. No diarrhea. He is complaining of pain in the epigastrium. He had endoscopy in October which was within normal limits. No hematemesis. No syncope. No diarrhea /no bloody stools. The patient received multiple doses of Zofran and Reglan in ER, but his symptoms have been persisting. He will be admitted under observation for further evaluation and management. Admission Exam Per Admitting Provider GENERAL : No acute distress, obese male EYES: No icterus, gaze conjugate NOSE: No evidence of epistaxis MOUTH: No lesions or candidiasis, mucosa moist NECK: Supple LUNGS: CTA B/L, no wheezes, rales or rhonchi HEART: Regular, rate controlled ABDOMEN: Soft, tenderness noted in the epigastrium, ND, BS Present EXTREMITIES: No LE edema, pedal pulses intact NEURO: A&OX3 Principal Diagnosis Cannabis hyperemesis Viral upper respiratory tract infection Alcohol use Hypertensive urgency Discharge Exam Constitutional well developed and + obese; no acute distress Eyes PERRL, conjunctivae normal, anicteric sclerae Neck trachea midline and + thick neck Respiratory normal respiratory effort, lungs clear to auscultation Cardiovascular RRR, no murmur, no edema Gastrointestinal (Abdomen) normal bowel sounds, soft, nontender, no hepatosplenomegaly Musculoskeletal no cyanosis or clubbing, extremities motor strength 5/5 Skin no rashes, warm and dry Neurologic moves all extremities and awake; no focal motor deficits and not confused Motor/Sensory: no pronator drift and no sensory deficit Psychiatric A+Ox3, euthymic affect Discharge Data Allergies Allergy/AdvReac Type Severity Reaction Status Date / Time Pork/Porcine Containing AdvReac Unknown Unknown Verified 06/02/19 11:38 Products Consultations 05/31/19 14:55 ED Decision to Admit Stat Hospital Course (1) Cannabis hyperemesis syndrome concurrent with and due to cannabis abuse: Suspect underlying hyperemesis secondary to cannabis use which has been exacerbated by recent alcohol use and possible viral URI with post nasal drip. Patient now tolerating liquid diet. Already has ondansetron Phenergan at home. He denies any further nausea and feels ready to go home. (2) Cyclical vomiting syndrome: Advised to abstain from marijuana and alcohol (3) Intractable nausea and vomiting: Gastrology consult cancelled as he has had a full workup in the past and vomting suspect to be due to cannabis which he has continued to do in addition to alcohol. (4) HTN (hypertension): Follow up with S to check for resolution when well. (5) Marijuana use: (6) Asthma: No current exacerbation (7) Obesity: Add subcu heparin for DVT prophylaxis (8) Alcohol use: Advised to abstain from alcohol Total Time Total Time Spent Total Time Spent (In Minutes): 45 Total Time Includes: Examination of the Patient, Discharge Planning and Medication Reconciliation Discharge Plan Discharge Items Patient Disposition: Home - Self-Care Reason For Visit: INTRACTABLE VOMITING Discharge Diagnosis: Cannabis hyperemesis Viral upper respiratory tract infection Alcohol use Hypertensive urgency Activity: Resume your previous activity Non-emergency contact: Primary Care Provider Call non-emergency contact if: you have any medication questions, your symptoms worsen and your temperature is above 101.5 Follow-up/Referrals: [facility] [Primary Care Provider] - Diet: Regular Addtl Attending Provider Instructions: You were observed in hospital overnight due to intractable vomiting. Suspect this was from a combination of recent upper respiratory tract infection, cannabis use and alcohol use. Please olive picker previously prescribed of Zofran for nausea. Recommend abstaining from alcohol and cannabis in order to prevent recurrence. Your blood pressure was also noted to be substantially elevated. In the halfway this increases your risk of heart disease and stroke. Please follow up with [facility] for ongoing management of this. No new medications were started at this time. Pending Studies at Discharge: No Stand-Alone Forms: My [facility], Work/School Release (Inpt), Smoking Cessation Medications and DC Order Prescriptions: No Action ondansetron 4 mg tablet,disintegrating 8 mg PO UD PRN (Reason: Nausea) RF: 0 Discharge Orders: Discharge Order (Routine); Ordered 06/01/19 Ordered By: Eric Garcia/Other Patient Handouts: Alcoholism, Abuse Marijuana Admission Data Admit Date/Time: 05/31/19 17:27 Attending Provider: Eric Grove Admit Provider: Thiago Chairez Primary Care Provider: [facility] Other Providers: Thiago Chairez Other Interventions: Discharge Summary Assessment (RN) Last Done: 06/01/19 17:10 DC Date/Time DO NOT enter until pt leaves facility: 06/01/19 17:43
== END 2019-06-01 17:43 | disposition home or self-care (01) ==
LOC: ED 09:39 → 3W 09:39 → SUATTDRO 17:27

== ENCOUNTER 2019-06-02 10:16 | Observation (INO) ==
[2019-06-02] MEDS ORDERED: CAPSAICIN CR 0.075% 60 GM TUBE EXT STA (11:06)
[2019-06-02] MEDS ORDERED: DiphenhydrAMINE HCL 50 MG/ML VIAL IV STA ×2 (11:07→16:39)
[2019-06-02] MEDS ORDERED: PROCHLORPERAZINE 2 ML IV ONE (11:07)
[2019-06-02] MEDS ORDERED: SODIUM CHLORIDE 0.9% 1000ML 2,000 ML IV ONE (11:08)
[2019-06-02] MEDS ORDERED: ONDANSETRON INJ 2 MG/ML 2 ML VIAL IV STA (12:13)
[2019-06-02] MEDS ORDERED: ACETAMINOPHEN 1,000 MG/100 ML VIAL IV STA (12:13)
[2019-06-02 12:19] LABS: iSTAT Creatinine 0.7 mg/dl (0.6-1.3); iSTAT Ionized Calcium 1.09 mmol/l (1.12-1.32); iSTAT Potassium 3.8 mEq/L (3.3-5.0)
[2019-06-02 12:19] LABS: Albumin Level 4.2 gm/dl (3.4-5.0); Bilirubin Direct 0.3 mg/dl (0-0.2); Calcium 9.4 mg/dl (8.5-10.1); Creatinine Clr Calc Pharmacy 196.6 ml/min; Est GFR (African American) 139.1; Potassium 3.7 mmol/L (3.5-5.1)
[2019-06-02 12:28] LABS: Albumin Globulin Ratio 1.1 (0.9-2); Bilirubin,Total 1.1 mg/dl (0.2-1); Globulin 3.8 gm/dl (2.5-4.0)
[2019-06-02 12:53] LABS: Hematocrit (blood only) 48.7 % (42-52); Hemoglobin 17.8 g/dL (14.0-18.0); Mean Corpuscular Hgb Conc 36.6 g/dL (32-36); Mean Corpuscular Volume 84.7 fL (80-100); Mean Platelet Volume 10.7 fL (7.4-10.4); Platelet Count 335 K/uL (130-400); RDW Coefficient of Variation 13.1 % (11.5-14.5); RDW Standard Deviation 40.2 fL (36.4-46.3); Red Blood Count 5.75 M/uL (4.7-6.1)
[2019-06-02 12:54] LABS: Basophils # (auto) 0.01 K/uL (0-0.2); Basophils % (auto) 0.1 %; Eosinophils # (auto) 0.08 K/uL (0-0.5); Eosinophils % (auto) 0.6 %; Immature Granulocytes # (auto) 0.03 K/uL (0.00-0.02); Immature Granulocytes % (auto) 0.2 %; Lymphocytes # (auto) 1.66 K/uL (1.2-3.4); Lymphocytes % (auto) 13.2 %; Monocytes % (auto) 4.8 %; Neutrophils # (auto) 10.22 K/uL (1.4-6.5); Neutrophils % (auto) 81.1 %
[2019-06-02] MEDS ORDERED: PROMETHAZINE 25 MG/51 ML BAG IV STA (13:35)
[2019-06-02] MEDS ORDERED: KETOROLAC 30 MG/ML VIAL IV STA (13:35)
--- NOTE | 2019-06-02 13:40 | XRay Report ---
XR abdomen 2V w PA chest HISTORY: 23 years-old Male Pt c/o epigastric pain acute epigastric abdominal pain COMPARISON: Chest radiograph 11/24/2018, CT abdomen and pelvis 03/22/2019 TECHNIQUE: PA view of the chest with erect and supine views of the abdomen FINDINGS: Cardiac mediastinal and hilar silhouettes are within normal limits. Mild right hemidiaphragmatic elev ation. No pneumothorax, pleural effusion, focal airspace consolidation or overt pulmonary edema. Bone s of the chest appear grossly intact. Mild convex right curvature of the midthoracic spine, likely po sitional. No pneumatosis or pneumoperitoneum. Nonobstructive bowel gas pattern. No urolith or acute f racture. IMPRESSION: Unremarkable acute abdominal series radiographs. The above report was generated using voice recognition software. It may contain grammatical, syntax o r spelling errors. Electronically signed by: Foreign Alston M.D. 06/02/2019 1:39 PM
--- NOTE | 2019-06-02 14:47 | History & Physical Report ---
Date of Service June 02, 2019 Assessment & Plan (1) Cyclical vomiting syndrome: Patient with persistent nausea and vomiting. He has been admitted multiple times for the same. His most recent symptoms have been ongoing for the last week. He was admitted and discharged yesterday, symptoms thought to be secondary to marijuana use. Today patient reports some diarrhea as well. Also complaining of rhinorrhea and PND which he feels is contributing greatly to his nausea. 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 ?substance induced - patient reports not using marijuana or alcohol for the last week. ?motility vs GERD -Zofran PRN -Phenergen PRN -Morphine PRN -Capsaicin topical -Encourage cessation of marijuana use Present on Admission?: Yes (2) HTN (hypertension): Persistently elevated blood pressure on this admission and prior admissions as well. 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 He was recently admitted with the same from 05/31 - 06/01. Thought to be secondary to cannabis hyperemesis syndrome. He was treated with multiple doses of anti-emetics and counseled about marijuana abuse. He was discharged home yesterday in stable condition. Symptoms returned today. He reports constant nausea and multiple episodes of vomiting - liquid vomitus, non-bloody. He also reports severe, diffuse abdominal pain and some diarrhea since today. Patient requesting morphine - states that it is the only thing that helps his abdominal pain. ER Course: Tylenol, Benadryl, Capsaicin, Zofran, Phenergan, Compazine Allergies Allergy/AdvReac Type Severity Reaction Status Date / Time Pork/Porcine Containing AdvReac Unknown Unknown Verified 06/02/19 11:38 Products Home Medications Home Medications Medication Instructions Recorded Confirmed Type ondansetron 8 mg PO UD PRN 06/02/19 06/02/19 History Past Med/Surg History Medical History Cyclic vomiting syndrome Asthma No significant past surgical history Obesity Pneumomediastinum (Acute) Family History Other No pertinent family history in first degree relatives Social History Preferred Language: Divehi Communication Ability: Effective Purchasing Officer Required: No Beliefs That Will Affect Care: Scientologist Scientologist Beliefs: Islamic diet Current Living Situation: Alone Other Information That Helps Us Care for You: No Feels Safe at Home: Yes Safety Concerns: Feels Safe At This Time Smoking Status: Never smoker Tobacco Type: cigarettes ; Cigarettes Per Day: 4 a month ; Second Hand Exposure: No ; Hx Alcohol Use: Yes Alcohol type: beer and hard liquor Hx Substance Use: Yes substance use type: marijuana Substance Use Type Other:: occassionally Last Used Substance: Unknown Review of Systems Review of Systems: All systems reviewed & are unremarkable except as noted in HPI & below +subjective fevers/chills +rhinorrhea +PND Physical Exam Physical Exam: General: patient in mild distress secondary to pain, non-toxic in appearance, AA&O x 4 Skin: warm, dry, intact, no rashes or lesions HEENT: NC/AT, PERRL, EOMI, anicteric sclera, conjunctiva without injection, external ear normal to inspection and nontender, nares patent, moist mucus mem branes, dentition intact, no oropharyngeal lesions, neck supple, trachea midline, no LAD, no thyromegaly, no JVD Heart: +S1/S2, regular, no m/r/g Lungs: equal air entry bilaterally, no rales/rhonchi/wheezes Abd: +BS, soft, diffusely tender with deep palpation, no rebound/guarding/peritoneal signs, no masses/organomegaly/ascites Ext: warm, 2+ pulses in UE/LE bilaterally, no clubbing/cyanosis or edema Neuro: nonfocal, patient AA&O x 4, speech intact, no facial droop, moving all extremities on command with equal strength 5/5 Results & Data Vital Signs (Past 12 Hours) Vital Signs Temp Pulse Resp BP Pulse Ox 06/02/19 13:55 69 20 172/99 H 99 06/02/19 13:01 66 24 97 06/02/19 13:00 64 22 170/108 H 98 06/02/19 12:31 63 21 98 06/02/19 12:30 63 21 178/101 H 99 06/02/19 12:26 64 21 96 06/02/19 12:07 88 20 99 06/02/19 12:06 68 19 179/113 H 95 06/02/19 10:22 36.8 C 83 16 166/96 H 99 Laboratory Results Lab Results 06/02/19 06/02/19 06/02/19 Range/Units 11:50 11:50 11:50 WBC 12.60 H (4.8-10.8) K/uL RBC 5.75 (4.7-6.1) M/uL Hgb 17.8 D (14.0-18.0) g/dL POC Hgb (14.0-18.0) g/dl Hct 48.7 (42-52) % POC Hct (42-52) % MCV 84.7 (80-100) fL MCH 31.0 (25-34) pg MCHC 36.6 H (32-36) g/dL RDW Std Deviation 40.2 (36.4-46.3) fL RDW Coeff of [place] 13.1 (11.5-14.5) % Plt Count 335 (130-400) K/uL MPV 10.7 H (7.4-10.4) fL Immature Gran % (Auto) 0.2 % Neut % (Auto) 81.1 % Lymph % (Auto) 13.2 % [place] % (Auto) 4.8 % Eos % (Auto) 0.6 % Baso % (Auto) 0.1 % Immature Gran # (Auto) 0.03 H (0.00-0.02) K/uL Neut # (Auto) 10.22 H (1.4-6.5) K/uL Lymph # (Auto) 1.66 (1.2-3.4) K/uL [place] # (Auto) 0.60 H (0.11-0.59) K/uL Eos # (Auto) 0.08 (0-0.5) K/uL Baso # (Auto) 0.01 (0-0.2) K/uL POC Sodium (135-144) mEq/L Sodium 137 (136-145) mmol/L POC Potassium (3.3-5.0) mEq/L Potassium 3.7 (3.5-5.1) mmol/L POC Chloride (101-112) mEq/L Chloride 102 (98-107) mmol/L Carbon Dioxide 25 (21-32) mmol/L POC Total CO2 (24-31) mEq/l Anion Gap 9.0 (3-11) POC Anion Gap (16-25) mmol/L POC BUN (7-18) mg/dl BUN 8 (7-18) mg/dl Creatinine 0.91 (0.6-1.4) mg/dl POC Creatinine (0.6-1.3) mg/dl Est Cr Clr Drug Dosing 196.6 ml/min Est GFR ( Amer) 139.1 Est GFR (Non-Af Amer) 120.0 BUN/Creatinine Ratio 9.0 L (10-20) Glucose 124 H (70-99) mg/dl POC Glucose (other) (70-99) mg/dl Calcium 9.4 (8.5-10.1) mg/dl POC Ioniz Calcium Cuate (1.12-1.32) mmol/l Phosphorus 3.7 (2.5-4.9) mg/dl Magnesium 2.0 (1.8-2.4) mg/dl Total Bilirubin 1.1 H (0.2-1) mg/dl Direct Bilirubin 0.3 H (0-0.2) mg/dl AST 6 L (15-37) U/L ALT 15 (12-78) U/L Alkaline Phosphatase 86 (45-117) U/L Total Protein 8.0 D (6.4-8.2) gm/dl Albumin 4.2 (3.4-5.0) gm/dl Globulin 3.8 (2.5-4.0) gm/dl Albumin/Globulin Ratio 1.1 (0.9-2) Lipase 91 (73-393) U/L Urine Color Urine Appearance (Clear) Urine pH (4.5-7.5) Ur Specific [place] (1.000-1.030) Urine Protein (Negative) Urine Glucose (UA) (Negative) Urine Ketones (Negative) Urine Blood (Negative) Urine Nitrite (Negative) Urine Bilirubin (Negative) Urine Urobilinogen (Negative) Ur Leukocyte Esterase (Negative) Urine Opiates Screen (Neg) Ur Methadone, Qual (Neg) Urine Barbiturates (Neg) Ur Phencyclidine (PCP) (Neg) U Amphetamin/Meth Scrn (Neg) MDMA (Ecstasy) Screen (Neg) U Benzodiazepines Scrn (Neg) Ur Cocaine Metabolite (Neg) U Marijuana (THC) Screen (Neg) 06/02/19 06/02/19 06/02/19 Range/Units 11:57 14:55 14:55 WBC (4.8-10.8) K/uL RBC (4.7-6.1) M/uL Hgb (14.0-18.0) g/dL POC Hgb 17.0 (14.0-18.0) g/dl Hct (42-52) % POC Hct 50 (42-52) % MCV (80-100) fL MCH (25-34) pg MCHC (32-36) g/dL RDW Std Deviation (36.4-46.3) fL RDW Coeff of [place] (11.5-14.5) % Plt Count (130-400) K/uL MPV (7.4-10.4) fL Immature Gran % (Auto) % Neut % (Auto) % Lymph % (Auto) % [place] % (Auto) % Eos % (Auto) % Baso % (Auto) % Immature Gran # (Auto) (0.00-0.02) K/uL Neut # (Auto) (1.4-6.5) K/uL Lymph # (Auto) (1.2-3.4) K/uL [place] # (Auto) (0.11-0.59) K/uL Eos # (Auto) (0-0.5) K/uL Baso # (Auto) (0-0.2) K/uL POC Sodium 139 (135-144) mEq/L Sodium (136-145) mmol/L POC Potassium 3.8 (3.3-5.0) mEq/L Potassium (3.5-5.1) mmol/L POC Chloride 99 L (101-112) mEq/L Chloride (98-107) mmol/L Carbon Dioxide (21-32) mmol/L POC Total CO2 25 (24-31) mEq/l Anion Gap (3-11) POC Anion Gap 19.0 (16-25) mmol/L POC BUN 7 (7-18) mg/dl BUN (7-18) mg/dl Creatinine (0.6-1.4) mg/dl POC Creatinine 0.7 (0.6-1.3) mg/dl Est Cr Clr Drug Dosing ml/min Est GFR ( Amer) Est GFR (Non-Af Amer) BUN/Creatinine Ratio (10-20) Glucose (70-99) mg/dl POC Glucose (other) 129 H (70-99) mg/dl Calcium (8.5-10.1) mg/dl POC Ioniz Calcium Cuate 1.09 L (1.12-1.32) mmol/l Phosphorus (2.5-4.9) mg/dl Magnesium (1.8-2.4) mg/dl Total Bilirubin (0.2-1) mg/dl Direct Bilirubin (0-0.2) mg/dl AST (15-37) U/L ALT (12-78) U/L Alkaline Phosphatase (45-117) U/L Total Protein (6.4-8.2) gm/dl Albumin (3.4-5.0) gm/dl Globulin (2.5-4.0) gm/dl Albumin/Globulin Ratio (0.9-2) Lipase (73-393) U/L Urine Color Yellow Urine Appearance Clear (Clear) Urine pH 7.5 (4.5-7.5) Ur Specific [place] 1.014 (1.000-1.030) Urine Protein Negative (Negative) Urine Glucose (UA) Negative (Negative) Urine Ketones 2+ H (Negative) Urine Blood Negative (Negative) Urine Nitrite Negative (Negative) Urine Bilirubin Negative (Negative) Urine Urobilinogen Negative (Negative) Ur Leukocyte Esterase Negative (Negative) Urine Opiates Screen Neg (Neg) Ur Methadone, Qual Neg (Neg) Urine Barbiturates Neg (Neg) Ur Phencyclidine (PCP) Neg (Neg) U Amphetamin/Meth Scrn Neg (Neg) MDMA (Ecstasy) Screen Neg (Neg) U Benzodiazepines Scrn Neg (Neg) Ur Cocaine Metabolite Neg (Neg) U Marijuana (THC) Screen Pos H (Neg) Diagnostic Findings XR abdomen 2V w PA chest HISTORY: 23 years-old Male Pt c/o epigastric pain acute epigastric abdominal pain COMPARISON: Chest radiograph 11/24/2018, CT abdomen and pelvis 03/22/2019 TECHNIQUE: PA view of the chest with erect and supine views of the abdomen FINDINGS: Cardiac mediastinal and hilar silhouettes are within normal limits. Mild right hemidiaphragmatic elevation. No pneumothorax, pleural effusion, focal airspace consolidation or overt pulmonary edema. Bones of the chest appear grossly intact. Mild convex right curvature of the midthoracic spine, likely positional. No pneumatosis or pneumoperitoneum. Nonobstructive bowel gas pattern. No urolith or acute fracture. IMPRESSION: Unremarkable acute abdominal series radiographs. The above report was generated using voice recognition software. It may contain grammatical, syntax or spelling errors. Electronically signed by: Foreign Alston M.D. 06/02/2019 1:39 PM Dictated: 06/02/19 1337 Transcribed: 06/02/19 1337 Code Status & VTE Plan Code Status FULL VTE Prophylaxis Plan VTE Prophylaxis will be ordered: Yes PG Care Time/CCT Total # of Minutes Spent Total Time Spent with Patient: Total time spent is greater than 50% in coordination of care (as documented) at patient's floor/unit and/or counseling patient: (1) HTN (hypertension) Hypertension type: unspecified Qualified Code(s): I10 - Essential (primary) hypertension
[2019-06-02] MEDS ORDERED: DICYCLOMINE HCL 10 MG/ML 2 ML AMP/VIAL IM ONE (14:52)
[2019-06-02 15:13] LABS: Appearance Urine Clear (Clear); Bilirubin Urine Negative (Negative); Blood Urine Negative (Negative); Color Urine Yellow; Glucose Urine UA Negative (Negative); Ketones Urine 2+ (Negative); Leukocyte Esterase Urine Negative (Negative); Nitrite Urine Negative (Negative); Protein Urine Negative (Negative); Specific Gravity Urine 1.014 (1.000-1.030); Urobilinogen Urine Negative (Negative); pH Urine 7.5 (4.5-7.5)
[2019-06-02 15:35] LABS: Amphetamines+Metham, Urine Neg (Neg); Barbiturates, Urine Neg (Neg); Benzodiazepine, Urine Neg (Neg); Cocaine, Urine Neg (Neg); MDMA (Ecstacy), Urine Neg (Neg); Methadone, Urine Neg (Neg); Opiate, Urine Neg (Neg); Phencyclidine, Urine Neg (Neg)
--- NOTE | 2019-06-02 15:43 | Emergency Department Note ---
Entered by Jesus Schaffer acting as a scribe for History of Present Illness General Chief complaint: Nausea Stated complaint: VOMITING STOMACH PAIN Time Seen by Provider: 06/02/19 10:57 Source: patient History of Present Illness Provider complaint: Abdominal pain Onset (ago): day(s) (Couple of days) Location: abdomen Severity: similar to prior episodes Pain Consistency: + constant Maximum Pain Intensity: 10 Current Pain Intensity: 10 Relieved By: + none Associated symptoms: + nausea/vomiting; no fever/chills The patient is a 23 year old male who presents to the Emergency Room with complaints of constant left upper quadrant pain that started a couple of days ago. The patient rates the pain as a 10/10 and notes it does not radiate anywhere. The patient states he was just discharged yesterday after being hospitalized overnight for similar symptoms. The patient endorses constant nausea with the pain and has been vomiting since the onset. The patient was discharged with Zofran but no cream. The patient reports that this medication is no effective nor is anything else he has tried. 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 Home Medications Home Medications Medication Instructions Recorded Confirmed Type ondansetron 8 mg PO UD PRN 06/02/19 06/02/19 History Allergies Allergy/AdvReac Type Severity Reaction Status Date / Time Pork/Porcine Containing AdvReac Unknown Unknown Verified 06/02/19 11:38 Products Past Med/Surg History Medical History Cyclic vomiting syndrome Asthma No significant past surgical history Obesity Pneumomediastinum (Acute) Family History Other No pertinent family history in first degree relatives Social History Preferred Language: Greenlandic Communication Ability: Effective Fabrication Specialist Required: No Beliefs That Will Affect Care: Church Church Beliefs: Islamic diet Current Living Situation: Alone Other Information That Helps Us Care for You: No Feels Safe at Home: Yes Safety Concerns: Feels Safe At This Time Smoking Status: Never smoker Tobacco Type: cigarettes ; Cigarettes Per Day: 4 a month ; Second Hand Exposure: No ; Hx Alcohol Use: Yes Alcohol type: beer and hard liquor Hx Substance Use: Yes substance use type: marijuana Substance Use Type Other:: occassionally Last Used Substance: Unknown Review of Systems See HPI for pertinent positives & negatives. and A total of 10 systems reviewed and were otherwise negative Physical Exam Vital Signs Vital Signs - 24 hr 06/02/19 10:22 06/02/19 12:06 06/02/19 12:07 Temperature 36.8 C Temperature Source Oral Sepsis Recent Fever Within 48 Hours No Sepsis New/Unexplained Change in Mental Status No Sepsis Action Taken by Nursing No Action Required Pulse Rate 83 68 88 Pulse Rate from SpO2 Sensor 67 Respiratory Rate 16 19 20 Respiratory Effort / Characteristics Non-Labored Respiratory Depth Normal Blood Pressure 166/96 H 179/113 H Blood Pressure Mean 119 135 Pulse Oximetry 99 95 99 Oxygen Delivery Method Room Air Room Air 06/02/19 12:26 06/02/19 12:30 06/02/19 12:31 Temperature Temperature Source Sepsis Recent Fever Within 48 Hours Sepsis New/Unexplained Change in Mental Status Sepsis Action Taken by Nursing Pulse Rate 64 63 63 Pulse Rate from SpO2 Sensor 67 62 66 Respiratory Rate 21 21 21 Respiratory Effort / Characteristics Respiratory Depth Blood Pressure 178/101 H Blood Pressure Mean 126 Pulse Oximetry 96 99 98 Oxygen Delivery Method 06/02/19 13:00 06/02/19 13:01 06/02/19 13:55 Temperature Temperature Source Sepsis Recent Fever Within 48 Hours Sepsis New/Unexplained Change in Mental Status Sepsis Action Taken by Nursing Pulse Rate 64 66 69 Pulse Rate from SpO2 Sensor 64 63 Respiratory Rate 22 24 20 Respiratory Effort / Characteristics Respiratory Depth Blood Pressure 170/108 H 172/99 H Blood Pressure Mean 128 123 Pulse Oximetry 98 97 99 Oxygen Delivery Method Room Air GENERAL: Awake, alert, actively vomiting. HENT: Normocephalic, atraumatic. Oropharynx unremarkable. EYES: Normal conjunctiva. Sclera non-icteric. NECK: Supple. No nuchal rigidity. FROM. No masses. RESPIRATORY: Clear to auscultation. No wheezes. No rales. Normal respiratory effort. CARDIAC: Normal rate. Normal rhythm. No murmurs. No rubs. Extremities warm and well perfused. Pulses equal. No JVD. GI: Soft, non-distended. No tenderness to palpation. No rebound or guarding. No masses. RECTAL: Deferred. MUSCULOSKELETAL: Atraumatic. Chest examination reveals no tenderness. The back is symmetrical on inspection without obvious abnormality. There is no CVA tende rness to palpation. No joint edema. LOWER EXTREMITIES: Calves are equal size bilaterally and non-tender. No edema. No discoloration. NEURO: Normal sensorium. No sensory or motor deficits noted. Course 1103: Past medical records reviewed. The patient was evaluated in room C04, and a complete history and physical examination were performed. 1240: I reevaluated the patient and he is resting in bed. I discussed the treatment plan and he is agreeable. 1344: I spoke to Dr. Carl Mcclellan [facility] about the patient's case. She is going to accept the patient for further evaluation. Consultations Consultation #1: I spoke to Dr. Carl Mcclellan [facility] about the patient's case. She is going to accept the patient for further evaluation. Time: 13:44 Administered Medications Capsaicin (Zostrix) 1 appln EXT QID PRN PRN Reason: abdominal pain Stop: 07/02/19 15:43 Last Admin: 06/02/19 18:47 Dose: 1 appln Documented by: [id number] Fluticasone Propionate (Flonase) 2 sprays NA DAILY SHANON Stop: 07/03/19 08:59 Last Admin: 06/03/19 08:00 Dose: 2 sprays Documented by: [id number] Ondansetron HCl (Zofran) 4 mg IV Q6H PRN PRN Reason: Nausea Stop: 07/02/19 15:43 Last Admin: 06/03/19 07:56 Dose: 4 mg Documented by: [id number] Admin: 06/02/19 18:28 Dose: 4 mg Documented by: [id number] Discontinued Medications Capsaicin (Zostrix) 1 appln EXT NOW STA Stop: 06/02/19 11:07 Last Admin: 06/02/19 12:29 Dose: 1 appln Documented by: [id number] Dicyclomine HCl (Bentyl) 20 mg IM NOW ONE Stop: 06/02/19 14:53 Last Admin: 06/02/19 15:04 Dose: 20 mg Documented by: [id number] Diphenhydramine HCl (Benadryl) 50 mg IV NOW STA Stop: 06/02/19 11:08 Last Admin: 06/02/19 12:04 Dose: 50 mg Documented by: [id number] Diphenhydramine HCl (Benadryl) 25 mg IV NOW STA Stop: 06/02/19 16:40 Last Admin: 06/02/19 16:50 Dose: 25 mg Documented by: [id number] Prochlorperazine (Compazine) 2 mls @ 1 mls/min IV ONE ONE Stop: 06/02/19 11:08 Last Admin: 06/02/19 12:02 Dose: 1 mls/min Documented by: [id number] Sodium Chloride (Nss 1000ml) 2,000 mls @ 999 mls/hr IV .Q2H1M ONE Stop: 06/02/19 13:08 Last Infusion: 06/02/19 14:03 Dose: 0 mls/hr Documented by: [id number] Admin: 06/02/19 12:00 Dose: 999 mls/hr Documented by: [id number] Acetaminophen (Ofirmev) 1,000 mg in 100 mls @ 400 mls/hr IV NOW STA Stop: 06/02/19 12:27 Last Infusion: 06/02/19 13:09 Dose: 0 mls/hr Documented by: [id number] Admin: 06/02/19 12:20 Dose: 400 mls/hr Documented by: [id number] Promethazine HCl (Phenergan) 25 mg in 51 mls @ 204 mls/hr IV NOW STA Stop: 06/02/19 13:49 Last Infusion: 06/02/19 14:43 Dose: 0 mls/hr Documented by: [id number] Admin: 06/02/19 13:52 Dose: 204 mls/hr Documented by: [id number] Lactated Ringer's (Lr) 1,000 mls @ 125 mls/hr IV .Q8H SHANON Stop: 06/03/19 07:43 Last Infusion: 06/03/19 10:23 Dose: 0 mls/hr Documented by: [id number] Infusion: 06/03/19 06:11 Dose: 125 mls/hr Documented by: [id number] Admin: 06/03/19 00:11 Dose: 125 mls/hr Documented by: [id number] Infusion: 06/03/19 00:11 Dose: 125 mls/hr Documented by: [id number] Admin: 06/02/19 16:48 Dose: 125 mls/hr Documented by: [id number] Potassium Chloride (K Gabriel / Wtr) 10 meq in 100 mls @ 100 mls/hr IV Q1H SHANON Stop: 06/03/19 12:44 Last Admin: 06/03/19 13:26 Dose: 100 mls/hr Documented by: [id number] Infusion: 06/03/19 13:10 Dose: 100 mls/hr Documented by: [id number] Admin: 06/03/19 12:10 Dose: 100 mls/hr Documented by: [id number] Ketorolac Tromethamine (Toradol) 30 mg IV NOW STA Stop: 06/02/19 13:36 Last Admin: 06/02/19 13:50 Dose: 30 mg Documented by: [id number] Metoclopramide HCl (Reglan) 5 mg IV ONE ONE Stop: 06/02/19 16:40 Last Admin: 06/02/19 16:50 Dose: 5 mg Documented by: [id number] Morphine Sulfate (Morphine Sulfate) 2 mg IV NOW STA Stop: 06/02/19 15:49 Last Admin: 06/02/19 15:57 Dose: 2 mg Documented by: [id number] Ondansetron HCl (Zofran) 4 mg IV NOW STA Stop: 06/02/19 12:14 Last Admin: 06/02/19 12:17 Dose: 4 mg Documented by: [id number] Medical Decision Making Differential Diagnosis Differential diagnoses includes but is not limited to gastritis, peptic ulcer disease, GERD, gallbladder disease, pancreatitis, small bowel obstruction, acute coronary syndrome, pericarditis, ischemic bowel, irritable bowel disease, irritable bowel syndrome, appendicitis, diverticulitis, malignancy, hernia, urinary tract infection, torsion, perforation, trauma, infectious. Medical Records Attestation: I reviewed the patient's medical records. Home Medications Current Medication List: was personally reviewed by me Laboratory Data Attestation: I reviewed the patient's lab results. Result diagrams: 06/03/19 04:49 06/03/19 04:49 Lab Results 06/02/19 06/02/19 06/02/19 Range/Units 11:50 11:50 11:50 WBC 12.60 H (4.8-10.8) K/uL RBC 5.75 (4.7-6.1) M/uL Hgb 17.8 D (14.0-18.0) g/dL POC Hgb (14.0-18.0) g/dl Hct 48.7 (42-52) % POC Hct (42-52) % MCV 84.7 (80-100) fL MCH 31.0 (25-34) pg MCHC 36.6 H (32-36) g/dL RDW Std Deviation 40.2 (36.4-46.3) fL RDW Coeff of Diego 13.1 (11.5-14.5) % Plt Count 335 (130-400) K/uL MPV 10.7 H (7.4-10.4) fL Immature Gran % (Auto) 0.2 % Neut % (Auto) 81.1 % Lymph % (Auto) 13.2 % Refugio % (Auto) 4.8 % Eos % (Auto) 0.6 % Baso % (Auto) 0.1 % Immature Gran # (Auto) 0.03 H (0.00-0.02) K/uL Neut # (Auto) 10.22 H (1.4-6.5) K/uL Lymph # (Auto) 1.66 (1.2-3.4) K/uL Refugio # (Auto) 0.60 H (0.11-0.59) K/uL Eos # (Auto) 0.08 (0-0.5) K/uL Baso # (Auto) 0.01 (0-0.2) K/uL POC Sodium (135-144) mEq/L Sodium 137 (136-145) mmol/L POC Potassium (3.3-5.0) mEq/L Potassium 3.7 (3.5-5.1) mmol/L POC Chloride (101-112) mEq/L Chloride 102 (98-107) mmol/L Carbon Dioxide 25 (21-32) mmol/L POC Total CO2 (24-31) mEq/l Anion Gap 9.0 (3-11) POC Anion Gap (16-25) mmol/L POC BUN (7-18) mg/dl BUN 8 (7-18) mg/dl Creatinine 0.91 (0.6-1.4) mg/dl POC Creatinine (0.6-1.3) mg/dl Est Cr Clr Drug Dosing 196.6 ml/min Est GFR ( Amer) 139.1 Est GFR (Non-Af Amer) 120.0 BUN/Creatinine Ratio 9.0 L (10-20) Glucose 124 H (70-99) mg/dl POC Glucose (other) (70-99) mg/dl Calcium 9.4 (8.5-10.1) mg/dl POC Ioniz Calcium Cuate (1.12-1.32) mmol/l Phosphorus 3.7 (2.5-4.9) mg/dl Magnesium 2.0 (1.8-2.4) mg/dl Total Bilirubin 1.1 H (0.2-1) mg/dl Direct Bilirubin 0.3 H (0-0.2) mg/dl AST 6 L (15-37) U/L ALT 15 (12-78) U/L Alkaline Phosphatase 86 (45-117) U/L Total Protein 8.0 D (6.4-8.2) gm/dl Albumin 4.2 (3.4-5.0) gm/dl Globulin 3.8 (2.5-4.0) gm/dl Albumin/Globulin Ratio 1.1 (0.9-2) Lipase 91 (73-393) U/L 06/02/19 Range/Units 11:57 WBC (4.8-10.8) K/uL RBC (4.7-6.1) M/uL Hgb (14.0-18.0) g/dL POC Hgb 17.0 (14.0-18.0) g/dl Hct (42-52) % POC Hct 50 (42-52) % MCV (80-100) fL MCH (25-34) pg MCHC (32-36) g/dL RDW Std Deviation (36.4-46.3) fL RDW Coeff of Diego (11.5-14.5) % Plt Count (130-400) K/uL MPV (7.4-10.4) fL Immature Gran % (Auto) % Neut % (Auto) % Lymph % (Auto) % Refugio % (Auto) % Eos % (Auto) % Baso % (Auto) % Immature Gran # (Auto) (0.00-0.02) K/uL Neut # (Auto) (1.4-6.5) K/uL Lymph # (Auto) (1.2-3.4) K/uL Refugio # (Auto) (0.11-0.59) K/uL Eos # (Auto) (0-0.5) K/uL Baso # (Auto) (0-0.2) K/uL POC Sodium 139 (135-144) mEq/L Sodium (136-145) mmol/L POC Potassium 3.8 (3.3-5.0) mEq/L Potassium (3.5-5.1) mmol/L POC Chloride 99 L (101-112) mEq/L Chloride (98-107) mmol/L Carbon Dioxide (21-32) mmol/L POC Total CO2 25 (24-31) mEq/l Anion Gap (3-11) POC Anion Gap 19.0 (16-25) mmol/L POC BUN 7 (7-18) mg/dl BUN (7-18) mg/dl Creatinine (0.6-1.4) mg/dl POC Creatinine 0.7 (0.6-1.3) mg/dl Est Cr Clr Drug Dosing ml/min Est GFR ( Amer) Est GFR (Non-Af Amer) BUN/Creatinine Ratio (10-20) Glucose (70-99) mg/dl POC Glucose (other) 129 H (70-99) mg/dl Calcium (8.5-10.1) mg/dl POC Ioniz Calcium Cuate 1.09 L (1.12-1.32) mmol/l Phosphorus (2.5-4.9) mg/dl Magnesium (1.8-2.4) mg/dl Total Bilirubin (0.2-1) mg/dl Direct Bilirubin (0-0.2) mg/dl AST (15-37) U/L ALT (12-78) U/L Alkaline Phosphatase (45-117) U/L Total Protein (6.4-8.2) gm/dl Albumin (3.4-5.0) gm/dl Globulin (2.5-4.0) gm/dl Albumin/Globulin Ratio (0.9-2) Lipase (73-393) U/L Imaging Data Radiologist's Impression: Radiology results as stated below per my review and the radiologist's interpretation: XR abdomen 2V w PA chest HISTORY: 23 years-old Male Pt c/o epigastric pain acute epigastric abdominal pain COMPARISON: Chest radiograph 11/24/2018, CT abdomen and pelvis 03/22/2019 TECHNIQUE: PA view of the chest with erect and supine views of the abdomen FINDINGS: Cardiac mediastinal and hilar silhouettes are within normal limits. Mild right hemidiaphragmatic elevation. No pneumothorax, pleural effusion, focal airspace consolidation or overt pulmonary edema. Bones of the chest appear grossly intact. Mild convex right curvature of the midthoracic spine, likely positional. No pneumatosis or pneumoperitoneum. Nonobstructive bowel gas pattern. No urolith or acute fracture. IMPRESSION: Unremarkable acute abdominal series radiographs. The above report was generated using voice recognition software. It may contain grammatical, syntax or spelling errors. Electronically signed by: Foreign Alston M.D. 06/02/2019 1:39 PM Blood Pressure Blood Pressure Findings: Elevated blood pressure Blood Pressure Disposition: further management by hospitalist MDM Narrative This is a 23-year-old male who presents emergency department cyclic vomiting syndrome. Patient is actively vomiting on my physical examination. He because of this capsaicin was placed on the patient's chest. He was also given Benadryl Compazine without relief of his symptoms. Patient was then given a further Zofran as well as Solu-Medrol however continue to vomit. He does have a slight elevation his white blood cell count and I did recommend CAT scan of the abdomen as well as head however the patient is refusing. Patient was then given x-rays which did not show any evidence of obstruction. Because the patient continued to vomit I did discuss the case with the hospitalist service who did admit the patient. He was given Tylenol as well as Toradol for the pain. Impression & Plan Cyclic vomiting syndrome, Intractable nausea and vomiting, Marijuana use Discharge Plan Visit Data *Final* Discharge Date/Time: 06/02/19 15:28 Chief Complaint: Nausea Stated Complaint: VOMITING STOMACH PAIN ED Provider: Suman Jacobson Discharge Problem: Cyclic vomiting syndrome, Intractable nausea and vomiting, Marijuana use Patient Disposition: Admitted As Inpatient Discharge Instructions Interventions: ED Discharge Assessment Last Done: 06/02/19 15:28 The scribe's documentation has been prepared under my direction and personally reviewed by me in its entirety. I confirm that the note above accurately reflects all work, treatment, procedures, and medical decision making performed by me.
[2019-06-02] MEDS ORDERED: PROMETHAZINE HCL 12.5 MG in SODIUM CHLORIDE 0.9% 50 ML IV PRN (15:44)
[2019-06-02] MEDS ORDERED: MoRPHine SULFATE 2 MG/ML CARP IV PRN (15:44)
[2019-06-02] MEDS ORDERED: CAPSAICIN CR 0.075% 60 GM TUBE EXT PRN (15:44)
[2019-06-02] MEDS ORDERED: ACETAMINOPHEN 325 MG TAB PO PRN (15:44)
[2019-06-02] MEDS ORDERED: MoRPHine SULFATE 2 MG/ML CARP IV STA (15:48)
[2019-06-02 16:21] LABS: Phosphorus 3.7 mg/dl (2.5-4.9)
[2019-06-02] MEDS ORDERED: METOCLOPRAMIDE HCL INJ 5 MG/ML 2 ML VIAL IV ONE (16:39)
[2019-06-02] MEDS: LACTATED RINGER'S 1,000 ML IV SCH (16:48)
[2019-06-02] MEDS: ONDANSETRON INJ 2 MG/ML 2 ML VIAL IV PRN (18:28)
[2019-06-02] MEDS ORDERED: SODIUM CHLORIDE 0.65% NA SOLN 45 ML (OCEAN) PRN (21:24)
[2019-06-03] MEDS: LACTATED RINGER'S 1,000 ML IV SCH (00:11)
[2019-06-03 05:16] LABS: Basophils # (auto) 0.01 K/uL (0-0.2); Basophils % (auto) 0.1 %; Eosinophils % (auto) 2.4 %; Hemoglobin 15.1 g/dL (14.0-18.0); Immature Granulocytes # (auto) 0.02 K/uL (0.00-0.02); Immature Granulocytes % (auto) 0.2 %; Lymphocytes # (auto) 3.31 K/uL (1.2-3.4); Lymphocytes % (auto) 39.6 %; Mean Corpuscular Hemoglobin 30.1 pg (25-34); Mean Corpuscular Hgb Conc 35.1 g/dL (32-36); Mean Corpuscular Volume 85.8 fL (80-100); Mean Platelet Volume 10.9 fL (7.4-10.4); Monocytes # (auto) 0.73 K/uL (0.11-0.59); Monocytes % (auto) 8.7 %; Neutrophils # (auto) 4.09 K/uL (1.4-6.5); Platelet Count 258 K/uL (130-400); RDW Coefficient of Variation 12.9 % (11.5-14.5); RDW Standard Deviation 40.2 fL (36.4-46.3); Red Blood Count 5.01 M/uL (4.7-6.1); White Blood Count 8.36 K/uL (4.8-10.8)
[2019-06-03 05:54] LABS: BUN Creatinine Ratio 10.9 (10-20); Blood Urea Nitrogen 8 mg/dl (7-18); Calcium 8.6 mg/dl (8.5-10.1); Carbon Dioxide 26 mmol/L (21-32); Chloride 103 mmol/L (98-107); Creatinine Clr Calc Pharmacy 241.7 ml/min; Est GFR (African American) > 150.0; Est GFR (Non-African American) 131.9; Glucose 89 mg/dl (70-99); Potassium 3.1 mmol/L (3.5-5.1); Sodium 138 mmol/L (136-145)
[2019-06-03] MEDS: ONDANSETRON INJ 2 MG/ML 2 ML VIAL IV PRN (07:56)
[2019-06-03] MEDS ORDERED: FLUTICASONE PROPIONATE NA SPR 16 GM BTL SCH (09:00)
[2019-06-03] MEDS: POTASSIUM CHLORIDE / WTR 10 MEQ/100 ML PLCT IV SCH ×2 (12:10→13:26)
--- NOTE | 2019-06-03 15:47 | Consultation Report ---
DATE OF CONSULTATION: 06/03/2019 REASON FOR CONSULTATION: Abdominal pain, nausea, and vomiting. 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 These symptoms seem to occur after he binge drinks and smokes marijuana and are relieved with a hot shower typically. During his last hospitalization, he underwent a CT of the chest, abdomen and pelvis, ultrasound of the gallbladder and an EGD, all of which were negative. He presented back to the hospital this time in rapid sequence with similar symptoms. He did drink some alcohol and smoke marijuana about a week ago. He thinks it is temporarily related. He is currently feeling better and he is eating solid food. His white count was elevated at the time of hospitalization about 13,000. PAST MEDICAL HISTORY: Remarkable for hypertension. MEDICATIONS: Zofran. ALLERGIES: PORK. FAMILY HISTORY: Negative for any family history or members with similar symptoms. SOCIAL HISTORY: The patient is a student of [employer] at [employer] from [employer]. PHYSICAL EXAMINATION: GENERAL: The patient is overweight, in no acute distress. VITAL SIGNS: Showed high blood pressure 172/99, pulse 69. ABDOMEN: Obese. There is some mild tenderness throughout the abdomen. No mass or rebound appreciated. White count yesterday was 12.6. IMPRESSION: The patient has recurrent abdominal pain, nausea, and vomiting, probably from cannabis hyperemesis syndrome or possibly AN ALLERGY TO ALCOHOL. Other possibilities, but less likely include porphyria or familial Mediterranean fever. The patient will collect a random urine for porphyria screening and I contacted the lab about ordering a blood test for Mediterranean fever.
--- NOTE | 2019-06-03 18:21 | Discharge Summary ---
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 He was recently admitted with the same from 05/31 - 06/01. Thought to be secondary to cannabis hyperemesis syndrome. He was treated with multiple doses of anti-emetics and counseled about marijuana abuse. He was discharged home yesterday in stable condition. Symptoms returned today. He reports constant nausea and multiple episodes of vomiting - liquid vomitus, non-bloody. He also reports severe, diffuse abdominal pain and some diarrhea since today. Patient requesting morphine - states that it is the only thing that helps his abdominal pain. ER Course: Tylenol, Benadryl, Capsaicin, Zofran, Phenergan, Compazine Principal Diagnosis Intractable nausea/vomiting Discharge Exam Constitutional WD/WN, vitals as above + obese Eyes PERRL, conjunctivae normal, anicteric sclerae EOM intact bilaterally; no anisocoria and no nystagmus ENMT external ear and nose normal, oropharynx normal Neck trachea midline, no thyromegaly Respiratory normal respiratory effort, lungs clear to auscultation Cardiovascular RRR, no murmur, no edema Gastrointestinal (Abdomen) normal bowel sounds, soft, nontender, no hepatosplenomegaly Musculoskeletal Extremities: extremities normal to inspection; no cyanosis and no clubbing Skin no rashes, warm and dry Neurologic CN's II-XI intact bilaterally, moves all extremities and awake; + abnormal deep tendon reflexes (DTRs 1+ and symmetric throughout UEs and LEs) and no focal motor deficits Motor/Sensory: no sensory deficit (throughout UEs and LEs) Psychiatric A+Ox3, euthymic affect Discharge Data Allergies Allergy/AdvReac Type Severity Reaction Status Date / Time Pork/Porcine Containing AdvReac Unknown Unknown Verified 06/02/19 11:38 Products Consultations 06/02/19 13:45 ED Decision to Admit Stat 06/03/19 10:44 Consult Gastroenterology Routine Ordered Studies 06/03/19 10:44 CT head/brain wo con Routine Abdomen xray Hospital Course (1) Cyclical vomiting syndrome: Patient with persistent nausea and vomiting. He has been admitted or in the ER multiple times for the same. His most recent symptoms have been ongoing for the last week and correlate with recent EtOH use. He was admitted and discharged the day prior to this admission; symptoms thought to be secondary to marijuana and/or EtOH use. Also had some diarrhea as well which is now reoslved. Also complaining of rhinorrhea and PND which he feels is contributing greatly to his nausea. 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 ?substance induced - patient reports not using marijuana or alcohol for the last week. ?motility vs GERD GI consulted here and think could be cannabis-hyperemesis but could be porphyria or less likely Mediterranean fever, vs alcohol ALLERGY Much improved with IVFs, antiemetics, one dose of capsaicin cream on abdomen -was tolerating a regular diet and had no further abdominal pain or N/V/D by the next day He declined CT of the head which was ordered to rule out increased ICP as cause of recurrent N/V--> neuro exam here nonfocal, and he has had many months between episodes where he had no problems at all so not likely that he has increased ICP. Advised if recurs in the absence of EtOH or Marijuana use (both of which were advised to stop using), then he should have imaging of the head/brain -Encourage cessation of marijuana and EtOH use -stable for dc to home -advised f/u with GI for results of porphyria and Mediterranean fever test results -f/u with PCP (2) HTN (hypertension): Persistently elevated blood pressure on this admission and prior admissions as well. ?stress/pain/nausea and hypersympathetic state -Pain control -Nausea control -BP improved but remained elevated in the 140s-150s/80-90s prior to discharge -advised follow up with PCP and needs weight loss, low sodium diet Dispo-stable for dc to home Total Time Total Time Spent Total Time Spent (In Minutes): >30 min Total Time Includes: Examination of the Patient, Discharge Planning and Medication Reconciliation Discharge Plan Discharge Items Patient Disposition: Home - Self-Care Reason For Visit: VOMITING Discharge Diagnosis: Intractable nausea/vomiting, hypokalemia Condition on Discharge: Good Activity: Resume your previous activity Lifting: Gradually increase as tolerated Bathing: No limitations Exercise/Sports: Gradually increase as tolerated Non-emergency contact: Primary Care Provider and Seed Cutter Call non-emergency contact if: your symptoms worsen, your pain is not controlled, your pain is worsening and your pain is unusual for you Follow-up/Referrals: [facility] [Outside] (Please call for a follow up appointment within 1 week.) James James [Physician] - (Please call for a follow up appointment within 1-2 weeks) PCP,NO [Primary Care Provider] - Diet: Heart Healthy Addtl Attending Provider Instructions: You were admitted for nausea and vomiting again along with abdominal pain. You improved with IV fluids and anti-nausea medications. The Seed Cutter ordered some labs for Porphyria and Familial Mediterranean Fever (rare conditions) and the results will take about 1 week to come back. Please follow up with Dr. James in his office. Your blood pressure was quite high and although it did improve once your nausea improved, you should follow up with your primary care doctor to discuss management of high blood pressure. Weight loss, a low sodium diet, and calorie restriction will help lower your blood pressure. It is recommended that you NOT drink any alcohol or smoke any marijuana. Pending Studies at Discharge: Yes (Porphyria urine studies and Familial Mediterranean Fever genetic analysis) Stand-Alone Forms: My [facility] [employer], Work/School Release (Inpt), Smoking Cessation Medications and DC Order Prescriptions: New fluticasone propionate 50 mcg/actuation Switzer,Suspension 2 sprays NA DAILY Qty: 9.9 RF: 0 Zostrix 0.033 % Cream 1 applic EXT QID PRN (Reason: vomiting) Qty: 56.6 RF: 0 Continued ondansetron 4 mg tablet,disintegrating 8 mg PO UD PRN (Reason: Nausea) RF: 0 Discharge Orders: Discharge Order (Routine); Ordered 06/03/19 Ordered By: Jessica Mccann Admission Data Admit Date/Time: 06/02/19 14:47 Attending Provider: Jessica Mccann Admit Provider: Sandy Henry Primary Care Provider: PCP,NO Other Providers: Sandy Hnery ; James James Other Interventions: Discharge Summary Assessment (RN) Last Done: 06/03/19 18:03
== END 2019-06-03 18:46 | disposition home or self-care (01) ==
LOC: 3N 10:16 → ED 10:16 → SUATTDRO 14:47 → 3N 15:28

== ENCOUNTER 2019-07-14 10:16 | Observation (INO) ==
[2019-07-14] MEDS ORDERED: KETOROLAC 30 MG/ML VIAL IV STA (10:58)
[2019-07-14] MEDS ORDERED: PROCHLORPERAZINE 2 ML IV ONE (10:58)
[2019-07-14] MEDS ORDERED: DiphenhydrAMINE HCL 50 MG/ML VIAL IV STA (10:58)
[2019-07-14] MEDS ORDERED: SODIUM CHLORIDE 0.9% 1000ML 1,000 ML IV ONE ×2 (10:58→12:48)
[2019-07-14 11:12] LABS: Basophils # (auto) 0.02 K/uL (0-0.2); Basophils % (auto) 0.2 %; Eosinophils # (auto) 0.05 K/uL (0-0.5); Eosinophils % (auto) 0.6 %; Hematocrit (blood only) 49.3 % (42-52); Hemoglobin 17.2 g/dL (14.0-18.0); Immature Granulocytes # (auto) 0.02 K/uL (0.00-0.02); Immature Granulocytes % (auto) 0.2 %; Lymphocytes # (auto) 1.95 K/uL (1.2-3.4); Lymphocytes % (auto) 22.2 %; Mean Corpuscular Hemoglobin 30.1 pg (25-34); Mean Corpuscular Hgb Conc 34.9 g/dL (32-36); Mean Corpuscular Volume 86.3 fL (80-100); Mean Platelet Volume 11.2 fL (7.4-10.4); Monocytes # (auto) 0.68 K/uL (0.11-0.59); Monocytes % (auto) 7.8 %; Neutrophils # (auto) 6.05 K/uL (1.4-6.5); Platelet Count 350 K/uL (130-400); RDW Coefficient of Variation 13.9 % (11.5-14.5); RDW Standard Deviation 43.2 fL (36.4-46.3); Red Blood Count 5.71 M/uL (4.7-6.1); White Blood Count 8.77 K/uL (4.8-10.8)
[2019-07-14 11:20] LABS: Albumin Level 4.4 gm/dl (3.4-5.0); BUN Creatinine Ratio 13.9 (10-20); Calcium 9.3 mg/dl (8.5-10.1); Creatinine Clr Calc Pharmacy 164.4 ml/min; Est GFR (African American) 114.4; Est GFR (Non-African American) 98.7; Potassium 3.5 mmol/L (3.5-5.1)
--- NOTE | 2019-07-14 11:21 | Emergency Department Note ---
History of Present Illness General Chief complaint: Vomiting Stated complaint: VOMITING SINCE SUNDAY, MINOR ABD PAIN Source: patient Mode of arrival: ambulatory Limitations: no limitations History of Present Illness Provider Complaint: + nausea and + vomiting Onset (ago): day(s) 3 Description of Vomiting: + food contents, + watery and + bilious Associated Abdominal Pain: Yes Location of pain: + diffuse Severity: moderate Current Pain Intensity: 2 Quality: + cramping Pain Consistency: + intermittent Relieved By: + none Exacerbated By: + eating and + vomiting Context: + marijuana use Associated symptoms: + myalgias Treatments prior to arrival: + other (Zofran, capsaicin) HPI Narrative: This 23-year-old male patient with known history cannabinoid hyperemesis syndrome reports to the emergency department today, ambulatory, complaining of cyclic vomiting since Sunday. Patient states he was admitted in April for the vomiting and hospitalized for approximately 1 week. He states he was discharged and was doing well, but over break began smoking marijuana again. He states on Sunday, he developed sudden onset of nausea, vomiting, and generalized abdominal cramping. The symptoms have been intermittent since Sunday, and have improved somewhat with Zofran and capsaicin until earlier today. He states he has not smoked marijuana or used any alcohol since . He has been unable to keep down food or fluids today. He denies any fever, diarrhea, constipation, specific abdominal pain, chest pain, or dyspnea. He denies any bloody emesis. Home Medications Home Medications Medication Instructions Recorded Confirmed Type ondansetron 8 mg PO UD PRN 06/02/19 07/14/19 History fluticasone propionate 2 sprays NA DAILY #9.9 gm 06/03/19 07/14/19 Rx capsaicin [Zostrix] 1 applic EXT QID PRN 07/14/19 07/14/19 History Allergies Allergy/AdvReac Type Severity Reaction Status Date / Time Pork/Porcine Containing AdvReac Unknown Unknown Verified 07/14/19 10:51 Products Past Med/Surg History Medical History Asthma Cyclic vomiting syndrome Obesity Pneumomediastinum (Acute) Social History Preferred Language: Vietnamese Communication Ability: Effective 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8 C Temperature Source Oral Pulse Rate 79 62 Pulse Rate from Sp O2 Sensor 60 Pulse Rhythm Regular Pulse Strength Normal Respiratory Rate 20 12 Respiratory Effort / Characteristics Non-Labored Respiratory Depth Normal Respiratory Patter n Regular Blood Pressure 165/112 H 176/108 H Blood Pressure [place] n 129 123 Blood Pressure Pos ition Sitting Pulse Oximetry 97 97 98 Oxygen Delivery Me thod Room Air Room Air Sepsis Recent Feve r Within 48 Hours No Sepsis Action Take n by Nursing No Action Required 07/14/19 11:39 07/14/19 12:00 07/14/19 12:01 Temperature Temperature Source Pulse Rate 48 L 58 L 61 Pulse Rate from Sp O2 Sensor 49 L 53 L Pulse Rhythm Pulse Strength Respiratory Rate 19 18 Respiratory Effort / Characteristics Respiratory Depth Respiratory Patter n Blood Pressure 180/115 H Blood Pressure [place] n 138 Blood Pressure Pos ition Pulse Oximetry 99 96 Oxygen Delivery Me thod Sepsis Recent Feve r Within 48 Hours Sepsis Action Take n by Nursing 07/14/19 12:59 07/14/19 13:00 07/14/19 13:01 Temperature Temperature Source Pulse Rate Pulse Rate from Sp O2 Sensor 64 50 L 54 L Pulse Rhythm Pulse Strength Respiratory Rate Respiratory Effort / Characteristics Respiratory Depth Respiratory Patter n Blood Pressure 206/120 H Blood Pressure [place] n 139 Blood Pressure Pos ition Pulse Oximetry 90 89 L 100 Oxygen Delivery Me thod Sepsis Recent Feve r Within 48 Hours Sepsis Action Take n by Nursing 07/14/19 13:30 07/14/19 14:00 07/14/19 14:30 Temperature Temperature Source Pulse Rate Pulse Rate from Sp O2 Sensor Pulse Rhythm Pulse Strength Respiratory Rate Respiratory Effort / Characteristics Respiratory Depth Respiratory Patter n Blood Pressure 176/107 H 169/82 H 174/85 H Blood Pressure [place] n 142 112 107 Blood Pressure Pos ition Pulse Oximetry Oxygen Delivery Me thod Sepsis Recent Feve r Within 48 Hours Sepsis Action Take n by Nursing 07/14/19 15:00 07/14/19 15:30 Temperature Temperature Source Pulse Rate Pulse Rate from Sp O2 Sensor Pulse Rhythm Pulse Strength Respiratory Rate Respiratory Effort / Characteristics Respiratory Depth Respiratory Patter n Blood Pressure 188/105 H 167/98 H Blood Pressure [place] n 130 126 Blood Pressure Pos ition Pulse Oximetry Oxygen Delivery Me thod Sepsis Recent Feve r Within 48 Hours Sepsis Action Take n by Nursing Physical Exam: VITALS: Vitals are noted on the nurse's note and reviewed by myself. Vital signs stable. GENERAL: This is a 23-year-old male, in no acute distress, nondiaphoretic, well- developed well-nourished. SKIN: The skin was without rashes, erythema, edema, or bruising. There is no tenting of the skin. Capillary refill less than 2 seconds. HEAD: Normocephalic atraumatic. EARS: External auditory canals clear, tympanic membranes pearly childs without erythema or effusion bilaterally. EYES: Pupils equal round and reactive to light and accommodation. Conjunctivae without injection, sclerae without icterus. NOSE: Patent, turbinates without inflammation or discharge. No sinus tenderness. MOUTH: Mucous membranes moist. Tonsils are not enlarged. Pharynx without erythema or exudate. Uvula midline. Airway patent. Tongue does not deviate. NECK: Supple without nuchal rigidity. No lymphadenopathy. HEART: Regular rate and rhythm without murmurs gallops or rubs. LUNGS: Clear to auscultation bilaterally without wheezes, rales or rhonchi. No retractions or accessory muscle use. ABDOMEN: Positive bowel sounds x 4. Normal tympanic percussion. Soft, nontender, without masses or organomegaly. Rivera sign negative. No guarding or rebound tenderness. No CVA tenderness bilaterally. MUSCULOSKELETAL: No muscle atrophy, erythema, or edema noted. Full range of motion without joint tenderness in all extremities. No tenderness to palpation. Normal gait. Strength 5/5 throughout. NEURO: Patient was alert and oriented to person place and time. No focal neurological deficits. Course The patient was seen and evaluated as above. Previous medical records reviewed. IV access obtained, labs drawn. Patient medicated with IV fluids, Benadryl, Compazine, Toradol. Labs reviewed by myself. Patient given a second liter of IV fluids. He continues to complain of nausea, but no vomiting. He was medicated with Pepcid, Zofran, and capsaicin. The patient was reassessed. He states he has not vomited in 2 hours, but continues to feel nauseated. I recommended a p.o. trial of clear liquids. He was given water. He was unable to keep this down and ultimately upon reassessment showed me an emesis bag full of liquid. 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 [facility] will see and evaluate the patient. [facility] regarding ongoing management and care of this patient. Administered Medications Discontinued Medications Capsaicin (Zostrix) 1 appln EXT NOW STA Stop: 07/14/19 13:17 Last Admin: 07/14/19 13:52 Dose: 1 appln Documented by: [id number] Diphenhydramine HCl (Benadryl) 25 mg IV NOW STA Stop: 07/14/19 10:59 Last Admin: 07/14/19 11:33 Dose: 25 mg Documented by: [id number] Sodium Chloride (Nss 1000ml) 1,000 mls @ 999 mls/hr IV .Q1H1M ONE Stop: 07/14/19 11:58 Last Infusion: 07/14/19 12:35 Dose: 0 mls/hr Documented by: [id number] Admin: 07/14/19 11:33 Dose: 999 mls/hr Documented by: [id number] Prochlorperazine (Compazine) 2 mls @ 1 mls/min IV ONE ONE Stop: 07/14/19 10:59 Last Admin: 07/14/19 11:33 Dose: 1 mls/min Documented by: [id number] Sodium Chloride (Nss 1000ml) 1,000 mls @ 999 mls/hr IV .Q1H1M ONE Stop: 07/14/19 13:48 Last Infusion: 07/14/19 14:02 Dose: 0 mls/hr Documented by: [id number] Admin: 07/14/19 12:58 Dose: 999 mls/hr Documented by: [id number] Ondansetron HCl (Zofran) 8 mg in 54 mls @ 216 mls/hr IV NOW STA Stop: 07/14/19 13:26 Last Infusion: 07/14/19 14:02 Dose: 0 mls/hr Documented by: [id number] Admin: 07/14/19 13:38 Dose: 216 mls/hr Documented by: [id number] Famotidine (Pepcid 20mg Iv Push) 20 mg in 5 mls @ 2.5 mls/min IV NOW STA Stop: 07/14/19 13:16 Last Admin: 07/14/19 13:38 Dose: 2.5 mls/min Documented by: [id number] Ketorolac Tromethamine (Toradol) 30 mg IV NOW STA Stop: 07/14/19 10:59 Last Admin: 07/14/19 11:33 Dose: 30 mg Documented by: [id number] Medical Decision Making Differential Diagnosis + gastroenteritis, + food borne illness, + infections, + appendicitis, + diverticulitis, + inflammatory bowel disease, + GI bleed, + biliary pathology, + nausea, + vomiting, + diarrhea and + abdominal pain hyperemesis, cyclic vomiting, overdose, alcohol use/overuse, among others. Medical Records Attestation: I reviewed the patient's medical records. Home Medications Current Medication List: was personally reviewed by me Laboratory Data Attestation: I reviewed the patient's lab results. No leukocytosis, anemia, thrombocytopenia. Renal, hepatic function, and electrolytes without significant abnormality. INR 1.2. Urinalysis positive for nitrates, 3+ ketones. Urine drug screen positive for marijuana. Alcohol negative. Result diagrams: 07/14/19 10:35 07/14/19 10:35 Lab Results 07/14/19 07/14/19 07/14/19 Range/Units 10:35 10:35 10:35 WBC 8.77 (4.8-10.8) K/uL RBC 5.71 (4.7-6.1) M/uL Hgb 17.2 (14.0-18.0) g/dL Hct 49.3 (42-52) % MCV 86.3 (80-100) fL MCH 30.1 (25-34) pg MCHC 34.9 (32-36) g/dL RDW Std Deviation 43.2 (36.4-46.3) fL RDW Coeff of Diego 13.9 (11.5-14.5) % Plt Count 350 (130-400) K/uL MPV 11.2 H (7.4-10.4) fL Immature Gran % (Auto) 0.2 % Neut % (Auto) 69.0 % Lymph % (Auto) 22.2 % Stevens % (Auto) 7.8 % Eos % (Auto) 0.6 % Baso % (Auto) 0.2 % Immature Gran # (Auto) 0.02 (0.00-0.02) K/uL Neut # (Auto) 6.05 (1.4-6.5) K/uL Lymph # (Auto) 1.95 (1.2-3.4) K/uL Stevens # (Auto) 0.68 H (0.11-0.59) K/uL Eos # (Auto) 0.05 (0-0.5) K/uL Baso # (Auto) 0.02 (0-0.2) K/uL PT 11.8 (9.0-12.0) Seconds INR 1.2 H (0.9-1.1) APTT 24.2 (21.0-31.0) Seconds PTT Ratio 0.9 Sodium 137 (136-145) mmol/L Potassium 3.5 (3.5-5.1) mmol/L Chloride 105 (98-107) mmol/L Carbon Dioxide 26 (21-32) mmol/L Anion Gap 6.0 (3-11) BUN 15 (7-18) mg/dl Creatinine 1.07 (0.6-1.4) mg/dl Est Cr Clr Drug Dosing 164.4 ml/min Est GFR ( Amer) 114.4 Est GFR (Non-Af Amer) 98.7 BUN/Creatinine Ratio 13.9 (10-20) Glucose 121 H (70-99) mg/dl Calcium 9.3 (8.5-10.1) mg/dl Total Bilirubin 1.2 H (0.2-1) mg/dl AST 8 L (15-37) U/L ALT 19 (12-78) U/L Alkaline Phosphatase 78 (45-117) U/L Total Protein 8.4 H (6.4-8.2) gm/dl Albumin 4.4 (3.4-5.0) gm/dl Globulin 4.0 (2.5-4.0) gm/dl Albumin/Globulin Ratio 1.1 (0.9-2) Urine Color Urine Appearance (Clear) Urine pH (4.5-7.5) Ur Specific [place] (1.000-1.030) Urine Protein (Negative) Urine Glucose (UA) (Negative) Urine Ketones (Negative) Urine Blood (Negative) Urine Nitrite (Negative) Urine Bilirubin (Negative) Urine Urobilinogen (Negative) Ur Leukocyte Esterase (Negative) Urine WBC (Auto) (0-5) /hpf Urine RBC (Auto) (0-4) /hpf U Hyaline Cast (Auto) U Epithel Cells (Auto) (0-5) /lpf Urine Bacteria (Auto) (Negative) Urine Crystals Uric Acid Crystals (None Prsent) Amorphous Sediment (None Prsent) Urine Mucus (None Prsent) Urine Opiates Screen (Neg) Ur Methadone, Qual (Neg) Urine Barbiturates (Neg) Ur Phencyclidine (PCP) (Neg) U Amphetamin/Meth Scrn (Neg) MDMA (Ecstasy) Screen (Neg) U Benzodiazepines Scrn (Neg) Ur Cocaine Metabolite (Neg) U Marijuana (THC) Screen (Neg) Ethyl Alcohol mg/dL (0-3) mg/dl 07/14/19 07/14/19 07/14/19 Range/Units 11:40 12:15 12:15 WBC (4.8-10.8) K/uL RBC (4.7-6.1) M/uL Hgb (14.0-18.0) g/dL Hct (42-52) % MCV (80-100) fL MCH (25-34) pg MCHC (32-36) g/dL RDW Std Deviation (36.4-46.3) fL RDW Coeff of Diego (11.5-14.5) % Plt Count (130-400) K/uL MPV (7.4-10.4) fL Immature Gran % (Auto) % Neut % (Auto) % Lymph % (Auto) % Stevens % (Auto) % Eos % (Auto) % Baso % (Auto) % Immature Gran # (Auto) (0.00-0.02) K/uL Neut # (Auto) (1.4-6.5) K/uL Lymph # (Auto) (1.2-3.4) K/uL Stevens # (Auto) (0.11-0.59) K/uL Eos # (Auto) (0-0.5) K/uL Baso # (Auto) (0-0.2) K/uL PT (9.0-12.0) Seconds INR (0.9-1.1) APTT (21.0-31.0) Seconds PTT Ratio Sodium (136-145) mmol/L Potassium (3.5-5.1) mmol/L Chloride (98-107) mmol/L Carbon Dioxide (21-32) mmol/L Anion Gap (3-11) BUN (7-18) mg/dl Creatinine (0.6-1.4) mg/dl Est Cr Clr Drug Dosing ml/min Est GFR ( Amer) Est GFR (Non-Af Amer) BUN/Creatinine Ratio (10-20) Glucose (70-99) mg/dl Calcium (8.5-10.1) mg/dl Total Bilirubin (0.2-1) mg/dl AST (15-37) U/L ALT (12-78) U/L Alkaline Phosphatase (45-117) U/L Total Protein (6.4-8.2) gm/dl Albumin (3.4-5.0) gm/dl Globulin (2.5-4.0) gm/dl Albumin/Globulin Ratio (0.9-2) Urine Color Dark Yellow Urine Appearance Turbid A (Clear) Urine pH 5.5 (4.5-7.5) Ur Specific [place] 1.036 H (1.000-1.030) Urine Protein 1+ H (Negative) Urine Glucose (UA) Negative (Negative) Urine Ketones 3+ H (Negative) Urine Blood Negative (Negative) Urine Nitrite Positive A (Negative) Urine Bilirubin Negative (Negative) Urine Urobilinogen Negative (Negative) Ur Leukocyte Esterase Trace H (Negative) Urine WBC (Auto) 5-10 H (0-5) /hpf Urine RBC (Auto) 0-4 (0-4) /hpf U Hyaline Cast (Auto) Not Reportable U Epithel Cells (Auto) >30 H (0-5) /lpf Urine Bacteria (Auto) Negative (Negative) Urine Crystals Not Reportable Uric Acid Crystals Present A (None Prsent) Amorphous Sediment Present A (None Prsent) Urine Mucus Present A (None Prsent) Urine Opiates Screen Neg (Neg) Ur Methadone, Qual Neg (Neg) Urine Barbiturates Neg (Neg) Ur Phencyclidine (PCP) Neg (Neg) U Amphetamin/Meth Scrn Neg (Neg) MDMA (Ecstasy) Screen Neg (Neg) U Benzodiazepines Scrn Neg (Neg) Ur Cocaine Metabolite Neg (Neg) U Marijuana (THC) Screen Pos H (Neg) Ethyl Alcohol mg/dL < 3.0 (0-3) mg/dl Blood Pressure Blood Pressure Findings: Elevated blood pressure Blood Pressure Disposition: further management by hospitalist MDM Narrative This 23-year-old male patient presents the emergency department today due to hyperemesis. The patient states he is aware that the hyperemesis presents after smoking marijuana, however he continues to smoke marijuana. The patient was unable to tolerate p.o. clear liquids despite multiple rounds of antiemetics and IV fluids. He did respond somewhat to Capsaicin, but continued to complain of nausea. He did request admission due to his symptoms and concern that he will not be able to tolerate food or fluids as an outpatient. I did offer to Rx Phenergan suppositories, but the patient declines this. I did discuss the case with the hospitalist team, who did see and evaluate the patient and will admit to their service for further management of his symptoms. The chart was completed utilizing [employer] Speech voice recognition software. Grammatical errors, random word insertions, pronoun errors, and incomplete sentences are an occasional consequence of this system due to software porras itations, ambient noise, and hardware issues. Any formal questions or concerns about the content, text, or information contained within the body of this dictation should be directly addressed to the provider for clarification. Impression & Plan Intractable nausea and vomiting Discharge Plan Visit Data Chief Complaint: Vomiting Stated Complaint: VOMITING SINCE SUNDAY, MINOR ABD PAIN ED Provider: Suman Elias ED Midlevel Provider: Maria L Ortiz Discharge Problem: Intractable nausea and vomiting Patient Disposition: Still a Patient Condition: Good Forms Stand Alone Forms: My [facility] [employer], Important Visit Information Prescriptions Prescriptions: No Action ondansetron 4 mg tablet,disintegrating 8 mg PO UD PRN (Reason: Nausea) RF: 0 fluticasone propionate 50 mcg/actuation [place],Suspension 2 sprays NA DAILY Qty: 9.9 RF: 0 Zostrix 0.033 % cream 1 applic EXT QID PRN (Reason: Skin Irritation) RF: 0 [facility]errals [facility] -
[2019-07-14 11:22] LABS: INR 1.2 (0.9-1.1); Partial Thromboplastin Ratio 0.9; Partial Thromboplastin Time 24.2 Seconds (21.0-31.0); Prothrombin Time 11.8 Seconds (9.0-12.0)
[2019-07-14 11:23] LABS: Albumin Globulin Ratio 1.1 (0.9-2); Bilirubin,Total 1.2 mg/dl (0.2-1); Total Protein 8.4 gm/dl (6.4-8.2)
[2019-07-14 12:31] LABS: Appearance Urine Turbid (Clear); Bacteria Urine Automated Negative (Negative); Blood Urine Negative (Negative); Color Urine Dark Yellow; Epithelial Cell Urine Auto >30 /lpf (0-5); Glucose Urine UA Negative (Negative); Leukocyte Esterase Urine Trace (Negative); Nitrite Urine Positive (Negative); Protein Urine 1+ (Negative); RBC Urine Automated 0-4 /hpf (0-4); Specific Gravity Urine 1.036 (1.000-1.030); Urobilinogen Urine Negative (Negative); pH Urine 5.5 (4.5-7.5)
[2019-07-14 12:35] LABS: Bilirubin Urine Negative (Negative); Ictotest Urine Negative (Negative)
[2019-07-14 12:36] LABS: Ketones Urine 3+ (Negative)
[2019-07-14 12:58] LABS: Mucus Urine Present (None Prsent)
[2019-07-14 12:59] LABS: Amorphous Sediment Urine Present (None Prsent)
[2019-07-14 13:00] LABS: Uric Acid Crystals Urine Present (None Prsent)
[2019-07-14 13:01] LABS: Amphetamines+Metham, Urine Neg (Neg); Barbiturates, Urine Neg (Neg); Benzodiazepine, Urine Neg (Neg); Cocaine, Urine Neg (Neg); MDMA (Ecstacy), Urine Neg (Neg); Methadone, Urine Neg (Neg); Opiate, Urine Neg (Neg); Phencyclidine, Urine Neg (Neg)
[2019-07-14] MEDS ORDERED: ONDANSETRON HCL 8 MG/54 ML BAG IV STA (13:12)
[2019-07-14] MEDS ORDERED: FAMOTIDINE 20MG IV PUSH 20 MG/5 ML SYR IV STA (13:15)
[2019-07-14] MEDS ORDERED: CAPSAICIN CR 0.075% 60 GM TUBE EXT STA (13:16)
--- NOTE | 2019-07-14 17:10 | History & Physical Report ---
Date of Service July 14, 2019 Assessment & Plan (1) Vom[age]-year-old male was admitted on 14 July 2019 for return of nausea and vomiting as well as continued cannabis use. Nausea and vomiting, cannabis hyperemesis syndrome: Patient is adamant that he last used a single joint around Thanksgiving (i.e. > 3 weeks ago). This does not completely match the expected positive timeline for THC in urine. Presently, besides some HTN his vital signs and exam are completely non-focal and he appears very comfortable. No present evidence of an acute infectious or surgical issue. Patient himself is completely convinced his vomiting is due to THC. There is some concern that the patient is along the somatization vs malingering spectrum in that he is using THC to modify social/life issues (e.g. upcoming final exams). - In ED, afebrile, at times bradycardic, highest BP 206/120, normal room SpO2. WBC 8. Normal electrolytes, creatinine, hemoglobin. Bilirubin slightly elevated at 1.2. THC positive. EtOH level is negative. - In ED, treated with normal saline IVF, Toradol, Compazine, Benadryl, famotidine, and capsaicin. Symptoms improved with this. - We discussed that he quite likely could be treated as an outpatient with the same above medications. He is insistent that he will simply become more dehydrated and immediately return to the ED if discharged. Thus will admit for hydration and anti-emetics to include capsaicin. Consult psychiatry to help with THC abuse. Hypertension: Highest ED BP was 206/120. Patient says home checks were 169/112. Patient is unaware that he has hypertension. Not on any related meds. Does not have a PCP locally. No present evidence of end-organ disease. - Would benefit from close outpatient follow-up and related work-up. Possible chronic cystitis: On this admit, UA positive for ketones and nitrates. Patient denies any dysuria, hematuria, increased frequency, or abdominal/pelvic discomfort. 06Nov CT a/p noted nonspecific circumferential bladder wall thickening similar to prior [seen on Feb 2019 scan as well]. - Concerned that patient will not follow up as outpatient. Will consult urology for their thoughts on this admit. Ongoing medical issues: - Asthma: Says mostly as a child. No recent inhaler use. - Obesity: BMI 34.6. - Alcohol abuse: Patient denies any intake since April. Code status: Full code. Diet: Regular. DVT prophy: Heparin TID. PT/OT: Deferred. Disbo: Admit to [facility] for observation. (2) Cannabis hyperemesis syndrome concurrent with and due to cannabis abuse: (3) HTN (hypertension): (4) Cystitis: (5) Asthma: (6) Obesity: (7) Alcohol abuse: History of Present Illness Primary Care Provider: [facility] [[email or web address] 23-year-old male presents stating that he has had ongoing nausea and vomiting for the past three days. When asked why, patient says it is due to smoking marijuana. Patient says that this feels exactly like his previous admissions for the same. He is quite concerned that he will become dehydrated, stating he has not been able to keep any food or fluids down since Sunday, 13Dec. Patient notes a history of daily marijuana use previously but says he stopped this after his last admission in early May. However, he notes that he smoked a single joint identical to what his friends of been smoking on . He adamantly denies any other marijuana use since then. He also denies any other illicit drug use including synthetic THC. During this past three days, he says he never had any abdominal pain or discomfort. Has been having regular formed bowel movements including this morning. Denies any fevers or known recent illness, new foods or sick contacts, recent travel, antibiotic use, or other acute concerns. - When asked why he continues to smoke marijuana despite multiple previous admissions, patient states that he simply thought he would no longer get sick from it since he no longer uses it daily. He does state that he is tired of coming to the hospital for this but sees no other choice. - Patient says that he has no primary care provider here in town. He says [place] doctors back [place] and that he is able to visit about every 5 months. He does not go to [facility] because he believes they are "useless". He says he was never told to follow-up with GI after his last admission. - When asked about his blood pressure, patient says it is not very high. He says he checks it at home, most recently being 169/112. He denies any known history of hypertension. - When asked about any urinary symptoms, he specifically denies any dysuria, hematuria, flank pain, increased urinary frequency, or discharge. He says he has never been told that he had an abnormal CT a/p scan in regards to his [facility]. Admissions background: - Jun 02-: Admit for N/V. Dx cyclical vomiting syndrome, improved with IVF + antiemetics + capsaicin cream to abdomen. Referred to GI for follow-up. - Jun 01-: Admit for N/V. Dx with cannabis hyperemesis syndrome. Advised to abstain from marijuana and alcohol. On Phenergan and Zofran at home. CT a/p noted nonspecific circumferential bladder wall thickening similar to prior. Otherwise no additional abnormality identified. - Mar 22: Admit for N/V. Dx with intractable nausea and vomiting related to heavy alcohol and marijuana use on previous trip. - Nov 24-: Admit for N/V and abdominal pain. Imaging included right upper quadrant ultrasound, EGD, and CT abdomen pelvis. Dx with N/V. Advised to abstain from marijuana. Seen by GI. - Nov 20: Admit for pneumomediastinum related to N/V and abd pain. Seen by thoracic surgery then, repeat imaging okay, recommended f/u in their office. - Past medical history includes cannabis hyperemesis syndrome, alcohol abuse, asthma, obesity, pneumomediastinum. - Social history includes standing he last smoked cigarettes over a year ago. Marijuana use as above. Last alcohol intake reportedly a month ago with previous heavy use. Denies other illicit drug use. Allergies Allergy/AdvReac Type Severity Reaction Status Date / Time Pork/Porcine Containing AdvReac Unknown Unknown Verified 07/14/19 10:51 Products Home Medications Home Medications Medication Instructions Recorded Confirmed Type ondansetron 8 mg PO UD PRN 06/02/19 07/14/19 History fluticasone propionate 2 sprays NA DAILY #9.9 gm 06/03/19 07/14/19 Rx capsaicin [Zostrix] 1 applic EXT QID PRN 07/14/19 07/14/19 History Past Med/Surg History Medical History Asthma Cyclic vomiting syndrome Obesity Pneumomediastinum (Acute) Social History Preferred Language: Cook Islander Communication Ability: Effective 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 Beliefs That Will Affect Care: None Current Living Situation: Alone Current Living Situation Comment: off campus apartment housing Other Information That Helps Us Care for You: No Feels Safe at Home: Yes Safety Concerns: Feels Safe At This Time Smoking Status: Former smoker Tobacco Type: cigarettes ; Cigarettes Per Day: 4 a month ; Do You Dip or Chew Tobacco: No ; Second Hand Exposure: No ; Tobacco Cessation Education Requested by Patient: No Hx Alcohol Use: Yes Alcohol type: wine and hard liquor Hx Substance Use: Yes substance use type: marijuana Substance Use Type Other:: occassionally Last Used Substance: Unknown Last Used Substance Other:: pt states the 23 of june Review of Systems Review of Systems: Constitutional: Denies fevers, chills, focal weakness Eyes: Denies any visual loss or diplopia ENT: Denies any ear/nose/throat pain or difficulty speaking or swallowing Respiratory: Denies any dyspnea, cough, hemoptysis Cardiovascular: Denies any chest pain or feeling of edema Gastrointestinal: Denies any abdominal pain. Positive nausea vomiting. Denies diarrhea. Musculoskeletal: Denies any acute extremity pains, myalgias, or focal weakness Skin: Denies any known acute rashes or lesions Neuro: Denies any headache, acute focal weakness or numbness, or difficulties with speech or swallow. Physical Exam Physical Exam: GENERAL: Awake, alert, well-appearing, in no acute distress. HENT: Normocephalic, atraumatic. Oropharynx unremarkable. EYES: Normal conjunctiva. Sclera non-icteric. NECK: Inspection normal. Supple and full ROM. No nuchal rigidity. CARDIAC: +S1S2 RRR, no murmurs. RESPIRATORY: Clear to auscultation. No wheezes or rales. Normal respiratory effort. GI: +BS, soft, non-distended. No tenderness to palpation. No rebound or guarding. EXTREMITIES: No pedal edema or calf tenderness. Moving all extremities naturally and easily. NEURO: No gross neuro deficits. Results & Data Vital Signs (Past 12 Hours) Vital Signs Temp Pulse Resp BP Pulse Ox 07/14/19 16:30 181/106 H 07/14/19 16:01 165/144 H 07/14/19 15:30 167/98 H 07/14/19 15:00 188/105 H 07/14/19 14:30 174/85 H 07/14/19 14:00 169/82 H 07/14/19 13:30 176/107 H 07/14/19 13:01 206/120 H 100 07/14/19 13:00 89 L 07/14/19 12:59 90 07/14/19 12:01 61 18 07/14/19 12:00 58 L 19 180/115 H 96 07/14/19 11:39 48 L 99 07/14/19 11:35 62 12 176/108 H 98 07/14/19 11:21 97 07/14/19 10:17 36.8 C 79 20 165/112 H 97 Laboratory Results 07/14/19 07/14/19 07/14/19 Range/Units 12:15 12:15 12:15 WBC (4.8-10.8) K/uL RBC (4.7-6.1) M/uL Hgb (14.0-18.0) g/dL Hct (42-52) % MCV (80-100) fL MCH (25-34) pg MCHC (32-36) g/dL RDW Std Deviation (36.4-46.3) fL RDW Coeff of Diego (11.5-14.5) % Plt Count (130-400) K/uL MPV (7.4-10.4) fL Immature Gran % (Auto) % Neut % (Auto) % Lymph % (Auto) % [place] % (Auto) % Eos % (Auto) % Baso % (Auto) % Immature Gran # (Auto) (0.00-0.02) K/uL Neut # (Auto) (1.4-6.5) K/uL Lymph # (Auto) (1.2-3.4) K/uL [place] # (Auto) (0.11-0.59) K/uL Eos # (Auto) (0-0.5) K/uL Baso # (Auto) (0-0.2) K/uL PT (9.0-12.0) Seconds INR (0.9-1.1) APTT (21.0-31.0) Seconds PTT Ratio Sodium (136-145) mmol/L Potassium (3.5-5.1) mmol/L Chloride (98-107) mmol/L Carbon Dioxide (21-32) mmol/L Anion Gap (3-11) BUN (7-18) mg/dl Creatinine (0.6-1.4) mg/dl Est Cr Clr Drug Dosing ml/min Est GFR ( Amer) Est GFR (Non-Af Amer) BUN/Creatinine Ratio (10-20) Glucose (70-99) mg/dl Calcium (8.5-10.1) mg/dl Total Bilirubin (0.2-1) mg/dl AST (15-37) U/L ALT (12-78) U/L Alkaline Phosphatase (45-117) U/L Total Protein (6.4-8.2) gm/dl Albumin (3.4-5.0) gm/dl Globulin (2.5-4.0) gm/dl Albumin/Globulin Ratio (0.9-2) Urine Color Dark Yellow Urine Appearance Turbid A (Clear) Urine pH 5.5 (4.5-7.5) Ur Specific [place] 1.036 H (1.000-1.030) Urine Protein 1+ H (Negative) Urine Glucose (UA) Negative (Negative) Urine Ketones 3+ H (Negative) Urine Blood Negative (Negative) Urine Nitrite Positive A (Negative) Urine Bilirubin Negative (Negative) Urine Urobilinogen Negative (Negative) Ur Leukocyte Esterase Trace H (Negative) Urine WBC (Auto) 5-10 H (0-5) /hpf Urine RBC (Auto) 0-4 (0-4) /hpf U Hyaline Cast (Auto) Not Reportable U Epithel Cells (Auto) >30 H (0-5) /lpf Urine Bacteria (Auto) Negative (Negative) Urine Crystals Not Reportable Uric Acid Crystals Present A (None Prsent) Amorphous Sediment Present A (None Prsent) Urine Mucus Present A (None Prsent) Urine Opiates Screen Neg (Neg) Ur Methadone, Qual Neg (Neg) Urine Barbiturates Neg (Neg) Ur Phencyclidine (PCP) Neg (Neg) U Amphetamin/Meth Scrn Neg (Neg) MDMA (Ecstasy) Screen Neg (Neg) U Benzodiazepines Scrn Neg (Neg) Ur Cocaine Metabolite Neg (Neg) U Marijuana (THC) Screen Pos H (Neg) U Marijuana THC Carboxy Pending Drug Screen Comment Pending Ethyl Alcohol mg/dL (0-3) mg/dl 07/14/19 07/14/19 07/14/19 Range/Units 11:40 10:35 10:35 WBC (4.8-10.8) K/uL RBC (4.7-6.1) M/uL Hgb (14.0-18.0) g/dL Hct (42-52) % MCV (80-100) fL MCH (25-34) pg MCHC (32-36) g/dL RDW Std Deviation (36.4-46.3) fL RDW Coeff of Diego (11.5-14.5) % Plt Count (130-400) K/uL MPV (7.4-10.4) fL Immature Gran % (Auto) % Neut % (Auto) % Lymph % (Auto) % [place] % (Auto) % Eos % (Auto) % Baso % (Auto) % Immature Gran # (Auto) (0.00-0.02) K/uL Neut # (Auto) (1.4-6.5) K/uL Lymph # (Auto) (1.2-3.4) K/uL [place] # (Auto) (0.11-0.59) K/uL Eos # (Auto) (0-0.5) K/uL Baso # (Auto) (0-0.2) K/uL PT 11.8 (9.0-12.0) Seconds INR 1.2 H (0.9-1.1) APTT 24.2 (21.0-31.0) Seconds PTT Ratio 0.9 Sodium 137 (136-145) mmol/L Potassium 3.5 (3.5-5.1) mmol/L Chloride 105 (98-107) mmol/L Carbon Dioxide 26 (21-32) mmol/L Anion Gap 6.0 (3-11) BUN 15 (7-18) mg/dl Creatinine 1.07 (0.6-1.4) mg/dl Est Cr Clr Drug Dosing 164.4 ml/min Est GFR ( Amer) 114.4 Est GFR (Non-Af Amer) 98.7 BUN/Creatinine Ratio 13.9 (10-20) Glucose 121 H (70-99) mg/dl Calcium 9.3 (8.5-10.1) mg/dl Total Bilirubin 1.2 H (0.2-1) mg/dl AST 8 L (15-37) U/L ALT 19 (12-78) U/L Alkaline Phosphatase 78 (45-117) U/L Total Protein 8.4 H (6.4-8.2) gm/dl Albumin 4.4 (3.4-5.0) gm/dl Globulin 4.0 (2.5-4.0) gm/dl Albumin/Globulin Ratio 1.1 (0.9-2) Urine Color Urine Appearance (Clear) Urine pH (4.5-7.5) Ur Specific [place] (1.000-1.030) Urine Protein (Negative) Urine Glucose (UA) (Negative) Urine Ketones (Negative) Urine Blood (Negative) Urine Nitrite (Negative) Urine Bilirubin (Negative) Urine Urobilinogen (Negative) Ur Leukocyte Esterase (Negative) Urine WBC (Auto) (0-5) /hpf Urine RBC (Auto) (0-4) /hpf U Hyaline Cast (Auto) U Epithel Cells (Auto) (0-5) /lpf Urine Bacteria (Auto) (Negative) Urine Crystals Uric Acid Crystals (None Prsent) Amorphous Sediment (None Prsent) Urine Mucus (None Prsent) Urine Opiates Screen (Neg) Ur Methadone, Qual (Neg) Urine Barbiturates (Neg) Ur Phencyclidine (PCP) (Neg) U Amphetamin/Meth Scrn (Neg) MDMA (Ecstasy) Screen (Neg) U Benzodiazepines Scrn (Neg) Ur Cocaine Metabolite (Neg) U Marijuana (THC) Screen (Neg) U Marijuana THC Carboxy Drug Screen Comment Ethyl Alcohol mg/dL < 3.0 (0-3) mg/dl 07/14/19 Range/Units 10:35 WBC 8.77 (4.8-10.8) K/uL RBC 5.71 (4.7-6.1) M/uL Hgb 17.2 (14.0-18.0) g/dL Hct 49.3 (42-52) % MCV 86.3 (80-100) fL MCH 30.1 (25-34) pg MCHC 34.9 (32-36) g/dL RDW Std Deviation 43.2 (36.4-46.3) fL RDW Coeff of Diego 13.9 (11.5-14.5) % Plt Count 350 (130-400) K/uL MPV 11.2 H (7.4-10.4) fL Immature Gran % (Auto) 0.2 % Neut % (Auto) 69.0 % Lymph % (Auto) 22.2 % [place] % (Auto) 7.8 % Eos % (Auto) 0.6 % Baso % (Auto) 0.2 % Immature Gran # (Auto) 0.02 (0.00-0.02) K/uL Neut # (Auto) 6.05 (1.4-6.5) K/uL Lymph # (Auto) 1.95 (1.2-3.4) K/uL [place] # (Auto) 0.68 H (0.11-0.59) K/uL Eos # (Auto) 0.05 (0-0.5) K/uL Baso # (Auto) 0.02 (0-0.2) K/uL PT (9.0-12.0) Seconds INR (0.9-1.1) APTT (21.0-31.0) Seconds PTT Ratio Sodium (136-145) mmol/L Potassium (3.5-5.1) mmol/L Chloride (98-107) mmol/L Carbon Dioxide (21-32) mmol/L Anion Gap (3-11) BUN (7-18) mg/dl Creatinine (0.6-1.4) mg/dl Est Cr Clr Drug Dosing ml/min Est GFR ( Amer) Est GFR (Non-Af Amer) BUN/Creatinine Ratio (10-20) Glucose (70-99) mg/dl Calcium (8.5-10.1) mg/dl Total Bilirubin (0.2-1) mg/dl AST (15-37) U/L ALT (12-78) U/L Alkaline Phosphatase (45-117) U/L Total Protein (6.4-8.2) gm/dl Albumin (3.4-5.0) gm/dl Globulin (2.5-4.0) gm/dl Albumin/Globulin Ratio (0.9-2) Urine Color Urine Appearance (Clear) Urine pH (4.5-7.5) Ur Specific [place] (1.000-1.030) Urine Protein (Negative) Urine Glucose (UA) (Negative) Urine Ketones (Negative) Urine Blood (Negative) Urine Nitrite (Negative) Urine Bilirubin (Negative) Urine Urobilinogen (Negative) Ur Leukocyte Esterase (Negative) Urine WBC (Auto) (0-5) /hpf Urine RBC (Auto) (0-4) /hpf U Hyaline Cast (Auto) U Epithel Cells (Auto) (0-5) /lpf Urine Bacteria (Auto) (Negative) Urine Crystals Uric Acid Crystals (None Prsent) Amorphous Sediment (None Prsent) Urine Mucus (None Prsent) Urine Opiates Screen (Neg) Ur Methadone, Qual (Neg) Urine Barbiturates (Neg) Ur Phencyclidine (PCP) (Neg) U Amphetamin/Meth Scrn (Neg) MDMA (Ecstasy) Screen (Neg) U Benzodiazepines Scrn (Neg) Ur Cocaine Metabolite (Neg) U Marijuana (THC) Screen (Neg) U Marijuana THC Carboxy Drug Screen Comment Ethyl Alcohol mg/dL (0-3) mg/dl Medications Administered Discontinued Medications Capsaicin (Zostrix) 1 appln EXT NOW STA Stop: 07/14/19 13:17 Last Admin: 07/14/19 13:52 Dose: 1 appln Documented by: [id number] Diphenhydramine HCl (Benadryl) 25 mg IV NOW STA Stop: 07/14/19 10:59 Last Admin: 07/14/19 11:33 Dose: 25 mg Documented by: [id number] Sodium Chloride (Nss 1000ml) 1,000 mls @ 999 mls/hr IV .Q1H1M ONE Stop: 07/14/19 11:58 Last Infusion: 07/14/19 12:35 Dose: 0 mls/hr Documented by: [id number] Admin: 07/14/19 11:33 Dose: 999 mls/hr Documented by: [id number] Prochlorperazine (Compazine) 2 mls @ 1 mls/min IV ONE ONE Stop: 07/14/19 10:59 Last Admin: 07/14/19 11:33 Dose: 1 mls/min Documented by: [id number] Sodium Chloride (Nss 1000ml) 1,000 mls @ 999 mls/hr IV .Q1H1M ONE Stop: 07/14/19 13:48 Last Infusion: 07/14/19 14:02 Dose: 0 mls/hr Documented by: [id number] Admin: 07/14/19 12:58 Dose: 999 mls/hr Documented by: [id number] Ondansetron HCl (Zofran) 8 mg in 54 mls @ 216 mls/hr IV NOW STA Stop: 07/14/19 13:26 Last Infusion: 07/14/19 14:02 Dose: 0 mls/hr Documented by: [id number] Admin: 07/14/19 13:38 Dose: 216 mls/hr Documented by: [id number] Famotidine (Pepcid 20mg Iv Push) 20 mg in 5 mls @ 2.5 mls/min IV NOW STA Stop: 07/14/19 13:16 Last Admin: 07/14/19 13:38 Dose: 2.5 mls/min Documented by: [id number] Ketorolac Tromethamine (Toradol) 30 mg IV NOW STA Stop: 07/14/19 10:59 Last Admin: 07/14/19 11:33 Dose: 30 mg Documented by: [id number] Code Status & VTE Plan Code Status Full code VTE Prophylaxis Plan VTE Prophylaxis will be ordered: Yes Supervising Physician Co-Signing Physician Notes Patient was seen and examined by me personally. I reviewed the chart, the orders and discussed the case in detail with Dr. Foreign Bone MD . I read this H&P and agree with its contents to entirety. Resident Activity Tracking Resident Involvement: Resident Care Provided Care Provided: Adult Hospital Medicine (1) HTN (hypertension) Hypertension type: unspecified Qualified Code(s): I10 - Essential (primary) hypertension (2) Vomiting Nausea presence: with nausea Vomiting Intractability: unspecified Vomiting type: unspecified Qualified Code(s): R11.2 - Nausea with vomiting, unspecified
[2019-07-14] MEDS ORDERED: PROMETHAZINE HCL 12.5 MG in SODIUM CHLORIDE 0.9% 50 ML IV PRN (17:47)
[2019-07-14] MEDS ORDERED: ONDANSETRON 8 MG TABLET PO PRN (17:47)
[2019-07-14] MEDS ORDERED: CAPSAICIN CR 0.075% 60 GM TUBE EXT PRN (17:47)
[2019-07-14] MEDS: LACTATED RINGER'S 1,000 ML IV SCH (18:10)
[2019-07-14] MEDS: ONDANSETRON INJ 2 MG/ML 2 ML VIAL IV PRN (19:23)
--- NOTE | 2019-07-14 19:33 | Billing Data ---
Date of Service July 14, 2019 Coding Level of Care Code 59517 OBS Care - Level 2
[2019-07-14] MEDS: HEPARIN SOD 5,000 UNIT/0.5 ML VIAL SQ SCH (22:00)
[2019-07-15] MEDS: LACTATED RINGER'S 1,000 ML IV SCH (06:10)
[2019-07-15] MEDS: HEPARIN SOD 5,000 UNIT/0.5 ML VIAL SQ SCH ×2 (06:11→14:48)
[2019-07-15] MEDS: ONDANSETRON INJ 2 MG/ML 2 ML VIAL IV PRN (07:11)
[2019-07-15] MEDS ORDERED: FLUTICASONE PROPIONATE NA SPR 16 GM BTL SCH (09:00)
--- NOTE | 2019-07-15 13:54 | Urology Consultation ---
Date of Consultation July 15, 2019 Assessment & Plan (1) Abnormal CT scan, bladder: A/P 23-year-old male with mild bladder thickening on CT scan imaging. CT scan images personally reviewed and not found to be worrisome. No worrisome findings on urine analysis, clinical history or examination. No further evaluation should be necessary at this time. Should the patient develop symptoms, hematuria or evidence of urinary tract infection he may recontact our service in the future. PRN follow-up. Thank you for allowing us to participate in this patient's acute care. Please contact our service with any questions or concerns. History of Present Illness Reason for Consultation: Asymptomatic bladder thickening on CT scan imaging from May 2019. Attending Physician: Eric Purdy History of Present Illness Patient is a 23-year-old male who was admitted for recurrent episodes of uncontrolled emesis. The inciting factor seems to be THC use in the vicinity of [facility]. He reports he has had difficulties with recurrent, intractable emesis intermittently since requiring admission on occasion. His current bout has resolved and he is taking a regular diet today. Patient is undergone CT imaging on his prior admissions including an admission over a month ago from early May 2019. Radiology report noted some bladder wall thickening and offered a possible clinical diagnosis of asymptomatic cystitis. Patient's previous urinalyses have been unremarkable save for the sequelae of dehydration consistent with his diagnosis of emesis. Patient denies any history of hematuria or dysuria. He denies any history of nocturia, slow stream, intermittency, postvoid dribbling or urinary spraying. He denies any history of urgency, frequency, urge incontinence. He denies any history of surgery or prior urologic evaluation. He denies any history of worrisome lower abdominal pain or discomfort associated with his voiding. He denies any history of bother her voiding bother. Urology consultation is requested for evaluation of his clinical finding. CT scan images are personally reviewed. Normal nephrograms are present with a relatively un-worrisome bladder without evidence of inflammation and some mild thickening. Allergies Allergy/AdvReac Type Severity Reaction Status Date / Time Pork/Porcine Containing AdvReac Unknown Unknown Verified 07/14/19 10:51 Products Home Medications Home Medications Medication Instructions Recorded Confirmed Type ondansetron 8 mg PO UD PRN 06/02/19 07/14/19 History fluticasone propionate 2 sprays NA DAILY #9.9 gm 06/03/19 07/14/19 Rx capsaicin [Zostrix] 1 applic EXT QID PRN 07/14/19 07/14/19 History Patient History Medical History Asthma Cyclic vomiting syndrome Obesity Pneumomediastinum (Acute) Social History Preferred Language: Lebanese Communication Ability: Effective Neuropsychology Service Director Required: No Beliefs That Will Affect Care: None Current Living Situation: Alone Current Living Situation Comment: off campus apartment housing Other Information That Helps Us Care for You: No Feels Safe at Home: Yes Safety Concerns: Feels Safe At This Time Smoking Status: Former smoker Tobacco Type: cigarettes ; Cigarettes Per Day: 4 a month ; Do You Dip or Chew Tobacco: No ; Second Hand Exposure: No ; Tobacco Cessation Education Requested by Patient: No Hx Alcohol Use: Yes Alcohol type: wine and hard liquor Hx Substance Use: Yes substance use type: marijuana Substance Use Type Other:: occassionally Last Used Substance: Unknown Last Used Substance Other:: pt states the 23 of june Review of Systems Constitutional: no fever and no chills Eyes: no diplopia Ear, Nose, Mouth, Throat: no ear trauma Respiratory: no hemoptysis Cardiovascular: no chest pain Gastrointestinal: + nausea; no abdominal pain Genitourinary: + as per Subjective / HPI Integumentary: no acne and no boil Neurologic: no paralysis Psychiatric: no hopelessness Allergy / Immunological: no tongue swelling Physical Exam Constitutional: + obese; no acute distress Eyes: eyes not dysmorphic ENMT: Ears: no external ear abnormality Neck: trachea midline; no anterior neck swelling Respiratory: no respiratory distress and does not use accessory muscles Cardiovascular: Vessels: radial pulses present Gastrointestinal (Abdomen): Inspection/Auscultation: abdomen not distended Percussion/Palpation: abdomen soft; abdomen nontender Musculoskeletal: Head/Neck/Chest: normocephalic and neck supple Skin: normal turgor Neurologic: awake; not obtunded Psychiatric: Orientation: oriented x 3 Lymphatic: no lymphadenopathy Results & Data Vital Signs (Past 12 Hours) Vital Signs Temp Pulse Resp BP Pulse Ox 07/15/19 06:43 36.7 C 66 18 162/65 H 94 Laboratory Results Laboratory Results - last 48 hr 07/14/19 07/14/19 07/14/19 10:35 10:35 10:35 WBC 8.77 RBC 5.71 Hgb 17.2 Hct 49.3 MCV 86.3 MCH 30.1 MCHC 34.9 RDW Std Deviation 43.2 RDW Coeff of Diego 13.9 Plt Count 350 MPV 11.2 H Immature Gran % (Auto) 0.2 Neut % (Auto) 69.0 Lymph % (Auto) 22.2 [place] % (Auto) 7.8 Eos % (Auto) 0.6 Baso % (Auto) 0.2 Immature Gran # (Auto) 0.02 Neut # (Auto) 6.05 Lymph # (Auto) 1.95 [place] # (Auto) 0.68 H Eos # (Auto) 0.05 Baso # (Auto) 0.02 PT 11.8 INR 1.2 H APTT 24.2 PTT Ratio 0.9 Sodium 137 Potassium 3.5 Chloride 105 Carbon Dioxide 26 Anion Gap 6.0 BUN 15 Creatinine 1.07 Est Cr Clr Drug Dosing 164.4 Est GFR ( Amer) 114.4 Est GFR (Non-Af Amer) 98.7 BUN/Creatinine Ratio 13.9 Glucose 121 H Calcium 9.3 Total Bilirubin 1.2 H AST 8 L ALT 19 Alkaline Phosphatase 78 Total Protein 8.4 H Albumin 4.4 Globulin 4.0 Albumin/Globulin Ratio 1.1 Urine Color Urine Appearance Urine pH Ur Specific [place] Urine Protein Urine Glucose (UA) Urine Ketones Urine Blood Urine Nitrite Urine Bilirubin Urine Urobilinogen Ur Leukocyte Esterase Urine WBC (Auto) Urine RBC (Auto) U Hyaline Cast (Auto) U Epithel Cells (Auto) Urine Bacteria (Auto) Urine Crystals Uric Acid Crystals Amorphous Sediment Urine Mucus Urine Opiates Screen Ur Methadone, Qual Urine Barbiturates Ur Phencyclidine (PCP) U Amphetamin/Meth Scrn MDMA (Ecstasy) Screen U Benzodiazepines Scrn Ur Cocaine Metabolite U Marijuana (THC) Screen Ethyl Alcohol mg/dL 07/14/19 07/14/19 07/14/19 11:40 12:15 12:15 WBC RBC Hgb Hct MCV MCH MCHC RDW Std Deviation RDW Coeff of [place] Plt Count MPV Immature Gran % (Auto) Neut % (Auto) Lymph % (Auto) [place] % (Auto) Eos % (Auto) Baso % (Auto) Immature Gran # (Auto) Neut # (Auto) Lymph # (Auto) [place] # (Auto) Eos # (Auto) Baso # (Auto) PT INR APTT PTT Ratio Sodium Potassium Chloride Carbon Dioxide Anion Gap BUN Creatinine Est Cr Clr Drug Dosing Est GFR ( Amer) Est GFR (Non-Af Amer) BUN/Creatinine Ratio Glucose Calcium Total Bilirubin AST ALT Alkaline Phosphatase Total Protein Albumin Globulin Albumin/Globulin Ratio Urine Color Dark Yellow Urine Appearance Turbid A Urine pH 5.5 Ur Specific [place] 1.036 H Urine Protein 1+ H Urine Glucose (UA) Negative Urine Ketones 3+ H Urine Blood Negative Urine Nitrite Positive A Urine Bilirubin Negative Urine Urobilinogen Negative Ur Leukocyte Esterase Trace H Urine WBC (Auto) 5-10 H Urine RBC (Auto) 0-4 U Hyaline Cast (Auto) Not Reportable U Epithel Cells (Auto) >30 H Urine Bacteria (Auto) Negative Urine Crystals Not Reportable Uric Acid Crystals Present A Amorphous Sediment Present A Urine Mucus Present A Urine Opiates Screen Neg Ur Methadone, Qual Neg Urine Barbiturates Neg Ur Phencyclidine (PCP) Neg U Amphetamin/Meth Scrn Neg MDMA (Ecstasy) Screen Neg U Benzodiazepines Scrn Neg Ur Cocaine Metabolite Neg U Marijuana (THC) Screen Pos H Ethyl Alcohol mg/dL < 3.0 PG Care Time/CCT Total # of Minutes Spent Total Time Spent with Patient: Total time spent is greater than 50% in coordination of care (as documented) at patient's floor/unit and/or counseling patient:
--- NOTE | 2019-07-15 17:14 | Discharge Summary ---
Date of Service July 15, 2019 Admission HPI Per Admitting Provider 23-year-old male presents stating that he has had ongoing nausea and vomiting for the past three days. When asked why, patient says it is due to smoking marijuana. Patient says that this feels exactly like his previous admissions for the same. He is quite concerned that he will become dehydrated, stating he has not been able to keep any food or fluids down since Sunday, 13Dec. Patient notes a history of daily marijuana use previously but says he stopped this after his last admission in early May. However, he notes that he smoked a single joint identical to what his friends had been smoking on . He adamantly denies any other marijuana use since then. He also denies any other illicit drug use including synthetic THC. During this past three days, he says he never had any abdominal pain or discomfort. Has been having regular formed bowel movements including this morning. Denies any fevers or known recent illness, new foods or sick contacts, recent travel, antibiotic use, or other acute concerns. - When asked why he continues to smoke marijuana despite multiple previous admissions, patient states that he simply thought he would no longer get sick from it since he no longer uses it daily. He does state that he is tired of coming to the hospital for this but sees no other choice. - Patient says that he has no primary care provider here in town. He says his doctors back home in the [facility] and that he is able to visit about every 5 months. He does not go to [facility] because he believes they are "useless". He says he was never told to follow-up with GI after his last admission. - When asked about his blood pressure, patient says it is not very high. He says he checks it at home, most recently being 169/112. He denies any known history of hypertension. - When asked about any urinary symptoms, he specifically denies any dysuria, hematuria, flank pain, increased urinary frequency, or discharge. He says he has never been told that he had an abnormal CT a/p scan in regards to his bladder. Admissions background: - Jun 02-: Admit for N/V. Dx cyclical vomiting syndrome, improved with IVF + antiemetics + capsaicin cream to abdomen. Referred to GI for follow-up. - Jun 01-: Admit for N/V. Dx with cannabis hyperemesis syndrome. Advised to abstain from marijuana and alcohol. On Phenergan and Zofran at home. Nov CT a/p noted nonspecific circumferential bladder wall thickening similar to prior. Otherwise no additional abnormality identified. - Mar 22: Admit for N/V. Dx with intractable nausea and vomiting related to heavy alcohol and marijuana use on previous trip. - Nov 24-: Admit for N/V and abdominal pain. Imaging included right upper quadrant ultrasound, EGD, and CT abdomen pelvis. Dx with N/V. Advised to abstain from marijuana. Seen by GI. - Nov 20: Admit for pneumomediastinum related to N/V and abd pain. Seen by thoracic surgery then, repeat imaging okay, recommended f/u in their office. Principal Diagnosis intractable nausea/emesis - suspect 2nd to cannabis hyperemesis syndrome Discharge Exam Constitutional + obese; no acute distress and no altered mental status ENMT external ear and nose normal, oropharynx normal Respiratory normal respiratory effort, lungs clear to auscultation Cardiovascular Rate/Rhythm: regular rate and regular rhythm Heart Sounds: normal S1 and normal S2; no murmur Vessels: posterior tibial pulses present and dorsalis pedis pulses present; no JVD Extremities: no edema Gastrointestinal (Abdomen) normal bowel sounds, soft, nontender, no hepatosplenomegaly Skin no rashes, warm and dry Psychiatric A+Ox3, euthymic affect Discharge Data Allergies Allergy/AdvReac Type Severity Reaction Status Date / Time Pork/Porcine Containing AdvReac Unknown Unknown Verified 07/14/19 10:51 Products Consultations [facility] Course (1) Vomiting: The patient's symptoms were suspected to be from cannabis hyperemesis syndrome. He was hydrated and given anti-emetics. GI symptoms ultimately resolved and he was able to take a diet. Imaging was deferred this admission as he has had advanced imaging on previous admissions. LFTs and lipase were normal. u/a was mildly abnormal but he had no symptoms of UTI. Urine for GC/chlamydia was sent and ultimately returned negative. At discharge he was encouraged to stop cannabis use. He has prescriptions for anti-emetics at home in the event his GI symptoms return. I also gave him a 30-day prescription for PPI to cover for any esophagitis that may have contributed to his presentation. (2) Cannabis hyperemesis syndrome concurrent with and due to cannabis abuse: (3) HTN (hypertension): During this stay and on previous stays his BPs have been markedly kunal vated. He reports that outside of the hospital setting his BPs are normal. I asked him to check his BPs at home and to have f/u with his PCP for this. He certainly could have white-coat HTN but I am also concerned that he has essential HTN. Again outpatient f/u is needed. (4) Cystitis: During his 05/2019 admission the patient had a CT of the abd/pelvis showing bladder wall thickening. Urology was consulted this admission for the abnormal CT. Urology did not recommend any specific work-up given that he had no urological symptoms. Again, since u/a was mildly abnormal, urine for GC/chlamydia was sent. These ultimately returned negative. (5) Asthma: (6) Obesity: BMI 35 (7) Alcohol abuse: Moderation advised. Lipase was normal while here. PPI x 30 days was given in the event he had gastritis and/or esophagitis. Total Time Total Time Spent Total Time Spent (In Minutes): 25 Total Time Includes: Examination of the Patient, Discharge Planning and Medication Reconciliation Discharge Plan Discharge Items Patient Disposition: Home - Self-Care Reason For Visit: Nausea, vomiting, inability to eat Discharge Diagnosis: nausea, vomiting - resolved. exact cause uncertain. Condition on Discharge: Good Activity: Resume your previous activity Non-emergency contact: Primary Care Provider Call non-emergency contact if: you have any medication questions, your symptoms worsen and you have a fever Follow-up/Referrals: [facility] [Primary Care Provider] - Diet: Regular Addtl Attending Provider Instructions: You were seen and treated for significant dehydration, nausea, and vomiting. The exact cause of the nausea and vomiting was uncertain. If these symptoms were to recur over time I would highly recommend seeing a geospatial specialist in [place] (GI specialist). It is possible that some of the symptoms could be from past marijuana use. Because of an abnormal appearing bladder on your CAT scan in May of the abdomen/pelvis you were seen by the urologist. At this time they did not recommend any further work-up or treatment. Lastly, during this hospital stay and prior hospital stays, your blood pressures have been very high. The systolic BP (top number) has ranged from 140s to as high as 200. I am very concerned that you have high blood pressure (hypertension). Recommendations - 1. focus on good hydration over the next few days. Avoid fatty foods, fried foods, fast foods, excessive caffeine, alcohol for at least 1 week. 2. please purchase a home blood pressure machine/cuff. Check your blood pressures at least every other day. Follow-up with a family physician for the BPs. 3. take omeprazole 40mg once daily for 30 days in the event you have stomach and/or esophageal irritation from the vomiting. I sent this prescription to [facility] for you. 4. may use the zofran tablets (ondansetron) every 6-8 hours as needed for nausea. 5. when you go back home please ask your family if they hear snoring when you sleep. If they do please obtain a sleep study from your family doctor to rule out sleep apnea. Follow-up -- we will attempt to secure a new family physician for you in [place], preferably before you travel back home. Return to [facility] if -- * you have fevers over 100.5 degrees * you have recurrent nausea and/or vomiting * you have abdominal pains * any other concerns Pending Studies at Discharge: No Stand-Alone Forms: My [facility], Work/School Release (Inpt), Smoking Cessation Medications and DC Order Prescriptions: New omeprazole 40 mg capsule,delayed release(DR/EC) 40 mg PO DAILY 30 Days Qty: 30 RF: 0 Continued ondansetron 4 mg tablet,disintegrating 8 mg PO UD PRN (Reason: Nausea) RF: 0 fluticasone propionate 50 mcg/actuation [place],Suspension 2 sprays NA DAILY Qty: 9.9 RF: 0 Zostrix 0.033 % cream 1 applic EXT QID PRN (Reason: Skin Irritation) RF: 0 Discharge Orders: Discharge Order (Routine); Ordered 07/15/19 Ordered By: Eric Purdy Admission Data Admit Date/Time: 07/14/19 17:04 Attending Provider: Eric Purdy Admit Provider: [facility] Primary Care Provider: [facility] Other Providers: Filomena Lewis ; Quincy Santos ; Timoteo Maloney Other Interventions: Discharge Summary Assessment (RN) Last Done: 07/15/19 17:12 DC Date/Time DO NOT enter until pt leaves facility: 07/15/19 17:46
--- NOTE | 2019-07-16 09:48 | Communication Note ---
Date of Service: July 16, 2019 23-year-old male admitted medically on 07/14/19 after presenting to the ED with nausea and vomiting, diagnosed with cannabis hyperemesis syndrome. This was his 6th admission for this condition. Psychiatric consultation was requested for assistance with substance abuse treatment, and Case management consult for discharge planning. Patient was seen by psychiatric nurse liaison, and denied psychiatric history and symptoms of depression or anxiety. He reported abuse of TCH was "recreational" and denied desire to quit. He did not want psychiatric services. These findings were discussed with attending physician, who verbalized the consultation would be cancelled. Please see psychiatric liaison notes for additional information regarding our involvement in the patient's case.
[2019-07-16 12:00] LABS: Marijuana Quant, GCMS Urine 2980 ng/mL (<5)
[2019-07-17 12:57] LABS: Chlamydia Trach RNA NOT DETECTED (NOT DETECTED); GC (Neis gonorrhoeae) RNA NOT DETECTED (NOT DETECTED)
== END 2019-07-15 17:46 | disposition home or self-care (01) ==
LOC: ED 10:16 → 4W 10:16 → SUATTDRO 17:04 → 4W 17:28

== ENCOUNTER 2019-10-01 04:34 | Observation (INO) ==
[2019-10-01] MEDS ORDERED: ONDANSETRON INJ 2 MG/ML 2 ML VIAL IV STA ×2 (05:09→06:37)
[2019-10-01] MEDS ORDERED: SODIUM CHLORIDE 0.9% 1000ML 1,000 ML IV SCH ×2 (05:15→07:45)
[2019-10-01 05:24] LABS: Basophils # (auto) 0.02 K/uL (0-0.2); Basophils % (auto) 0.2 %; Eosinophils # (auto) 0.08 K/uL (0-0.5); Eosinophils % (auto) 0.9 %; Hematocrit (blood only) 49.6 % (42-52); Hemoglobin 17.7 g/dL (14.0-18.0); Immature Granulocytes # (auto) 0.03 K/uL (0.00-0.02); Immature Granulocytes % (auto) 0.3 %; Lymphocytes # (auto) 2.56 K/uL (1.2-3.4); Lymphocytes % (auto) 29.8 %; Mean Corpuscular Hemoglobin 29.9 pg (25-34); Mean Corpuscular Hgb Conc 35.7 g/dL (32-36); Mean Corpuscular Volume 83.8 fL (80-100); Mean Platelet Volume 11.3 fL (7.4-10.4); Monocytes # (auto) 0.78 K/uL (0.11-0.59); Monocytes % (auto) 9.1 %; Neutrophils # (auto) 5.12 K/uL (1.4-6.5); Neutrophils % (auto) 59.7 %; Platelet Count 321 K/uL (130-400); RDW Coefficient of Variation 12.9 % (11.5-14.5); RDW Standard Deviation 38.6 fL (36.4-46.3); Red Blood Count 5.92 M/uL (4.7-6.1); White Blood Count 8.59 K/uL (4.8-10.8)
[2019-10-01 05:32] LABS: Albumin Level 4.1 gm/dl (3.4-5.0); BUN Creatinine Ratio 15.7 (10-20); Calcium 9.2 mg/dl (8.5-10.1); Creatinine Clr Calc Pharmacy 181.7 ml/min; Est GFR (African American) 139.1; Potassium 3.1 mmol/L (3.5-5.1)
[2019-10-01 05:35] LABS: Bilirubin,Total 1.7 mg/dl (0.2-1); Globulin 4.1 gm/dl (2.5-4.0); Total Protein 8.2 gm/dl (6.4-8.2)
[2019-10-01] MEDS ORDERED: POTASSIUM CHLORIDE 20 MEQ TABCR PO STA (06:09)
[2019-10-01 06:14] LABS: Appearance Urine Clear (Clear); Blood Urine Negative (Negative); Color Urine Yellow; Glucose Urine UA Negative (Negative); Ketones Urine 1+ (Negative); Leukocyte Esterase Urine Negative (Negative); Nitrite Urine Negative (Negative); Protein Urine Negative (Negative); Urobilinogen Urine Positive (Negative); pH Urine 7.5 (4.5-7.5)
[2019-10-01 06:16] LABS: Bilirubin Urine Negative (Negative); Ictotest Urine Negative (Negative)
[2019-10-01] MEDS ORDERED: SODIUM CHLORIDE 0.9% 1000ML 1,000 ML IV ONE (07:44)
[2019-10-01] MEDS ORDERED: PROMETHAZINE 25 MG/51 ML BAG IV STA (07:44)
[2019-10-01] MEDS ORDERED: POTASSIUM CHLORIDE / WTR 10 MEQ/100 ML PLCT IV ONE (07:46)
[2019-10-01] MEDS ORDERED: ONDANSETRON INJ 2 MG/ML 2 ML VIAL IV PRN (07:46)
--- NOTE | 2019-10-01 07:49 | History & Physical Report ---
Date of Service October 01, 2019 Assessment & Plan (1) Vomiting: Intractable after x2 ondansetron 4mg IV. Previously related to cannabis/alcohol use although this is denied by the patient. Last marijuana use as per patient was 3 weeks ago in a cake. Symptoms started on Sunday and main reason for coming to hospital was he ran out of medication. He has not yet established with a primary care physician. Continue supportive care with IV fluids. Ondansetron +/- Phenergan PRN. Capsaicin cream previously helps him significantly therefore will re-prescribe this. Observation status in med/surg arana. (2) Hypokalemia: IV potassium replacement as per ER. Will repeat later today if he is to go home or tomorrow if he needs to stay overnight. 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 Previously re lated to marijuana use and he was recommended to discontinue this completely. On this occasion he reports no marijuana use for the last 3 weeks and no alcohol use for longer than this (on previous occasions he felt the alcohol was the cause). On this occasion he feels the cause was cinnamon he had to eat. He does describe reflux symptoms more subacutely, especially related to eating later at night, he takes PRN Pepcid for this. He reports the main reason for coming to the ER was he ran out of his usual medication at home that he uses for this. He has not established with a PCP to continue prescription of his ondansetron and capsaicin cream. In the ER he was given x2 4mg ondansetron IV and he continues vomit. Phenergan being given now when seen. Allergies Allergy/AdvReac Type Severity Reaction Status Date / Time Pork/Porcine Containing AdvReac Unknown Unknown Verified 10/01/19 04:53 Products Home Medications Home Medications Medication Instructions Recorded Confirmed Type No Known Home Medications 10/01/19 10/01/19 History capsaicin 1 applic TOP QID PRN #57 gm 10/01/19 Rx omeprazole 20 mg PO DAILY #30 tab 10/01/19 Rx ondansetron 4 mg PO DAILY PRN #14 tab 10/01/19 Rx Past Med/Surg History Medical History Abnormal CT scan, bladder Asthma Cyclic vomiting syndrome Obesity Pneumomediastinum (Acute) Surgical History No significant past surgical history Family History Other No pertinent family history in first degree relatives Social History Preferred Language: Bengali Communication Ability: Effective Covered Button Maker Required: No Beliefs That Will Affect Care: None Current Living Situation: Alone Current Living Situation Comment: off campus apartment housing Other Information That Helps Us Care for You: No Feels Safe at Home: Yes Safety Concerns: Feels Safe At This Time Smoking Status: Former smoker Tobacco Type: cigarettes ; Cigarettes Per Day: 4 a month ; Do You Dip or Chew Tobacco: No ; Second Hand Exposure: No ; Tobacco Cessation Education Requested by Patient: No Hx Alcohol Use: Yes Alcohol type: wine and hard liquor Hx Substance Use: Yes substance use type: marijuana Substance Use Type Other:: occassionally Last Used Substance: Unknown Last Used Substance Other:: sep 17 Review of Systems Review of Systems: All systems reviewed & are unremarkable except as noted in HPI & below Physical Exam Constitutional: WD/WN, vitals as above Eyes: + anicteric sclerae; normal pupil size ENMT: external ear and nose normal, oropharynx normal Neck: trachea midline, no thyromegaly Respiratory: normal respiratory effort, lungs clear to auscultation Cardiovascular: RRR, no murmur, no edema Gastrointestinal (Abdomen): Inspection/Auscultation: abdomen normal to inspection and normal bowel sounds Percussion/Palpation: + abdomen tender (mild epigastric tenderness) and abdomen soft; no guarding and abdomen not rigid Musculoskeletal: no cyanosis or clubbing, extremities motor strength 5/5 Skin: no rashes, warm and dry Neurologic: moves all extremities and awake; not confused Psychiatric: A+Ox3, euthymic affect Lymphatic: no cervical or axillary lymphadenopathy Results & Data Vital Signs (Past 12 Hours) Vital Signs Temp Pulse Pulse Resp BP BP Pulse Ox 10/01/19 06:13 53 L 20 156/114 H 99 10/01/19 05:29 99 10/01/19 05:28 62 20 169/105 H 99 10/01/19 04:39 36.8 C 68 18 160/101 H 99 Code Status & VTE Plan Code Status Full VTE Prophylaxis Plan VTE Prophylaxis will be ordered: No PG Care Time/CCT Total # of Minutes Spent Total Time Spent with Patient: Total time spent is greater than 50% in coordination of care (as documented) at patient's floor/unit and/or counseling patient: Coding Level of Care Code 81827 OBS Care - Level 2 Diagnoses Vomiting R11.10 Nausea presence: unspecified Vomiting Intractability: unspecified Vomiting type: unspecified Hypokalemia E87.6 GERD (gastroesophageal reflux disease) K21.9 (1) Vomiting Nausea presence: unspecified Vomiting Intractability: unspecified Vomiting type: unspecified Qualified Code(s): R11.10 - Vomiting, unspecified
[2019-10-01] MEDS ORDERED: CAPSAICIN CR 0.075% 60 GM TUBE EXT PRN (08:00)
--- NOTE | 2019-10-01 08:51 | Emergency Department Note ---
Entered by Kerry Vides acting as a scribe for Leana Kelly DO History of Present Illness General Chief complaint: Abdominal Pain Stated complaint: ABD PAIN, VOMITING, NAUSEA Time Seen by Provider: 10/01/19 04:55 Source: patient Limitations: no limitations History of Present Illness Onset (ago): week(s) 1 Location: abdomen Severity: similar to prior episodes Pain Consistency: + other (persistent) Maximum Pain Intensity: 3 Quality: + other (nausea/vomiting) Relieved By: + other (abdominal cream) Associated symptoms: + denies other symptoms (diarrhea, constipation, and cramping) The patient is a 23 year old male who presents to the Emergency Room with complaints of persistent nausea/vomiting that began 1 week ago. He reports that he's been in this ER for similar symptoms. The patient notes that he believes the nausea/vomiting was "triggered" by the cinnamon in a [place]. He states that he has not been able to keep anything down, including water, for the past week. The patient notes that he has been taking Zofran and Phenergan, but neither has provided any relief. He complains of now resolved abdominal pain, stating that the pain was present for the first few days of his symptoms. The patient denies any diarrhea, constipation, and cramping. The patient reports that his abdominal cream for hyperemesis provided some relief. He notes that he last smoked marijuana 2 months ago, but he had an edible 3 weeks ago. Home Medications Home Medications Medication Instructions Recorded Confirmed Type No Known Home Medications 10/01/19 10/01/19 History capsaicin 1 applic TOP QID PRN #57 gm 10/01/19 Rx omeprazole 20 mg PO DAILY #30 tab 10/01/19 Rx ondansetron 4 mg PO DAILY PRN #14 tab 10/01/19 Rx Allergies Allergy/AdvReac Type Severity Reaction Status Date / Time Pork/Porcine Containing AdvReac Unknown Unknown Verified 10/01/19 04:53 Products Past Med/Surg History Medical History Abnormal CT scan, bladder Asthma Cyclic vomiting syndrome Obesity Pneumomediastinum (Acute) Surgical History No significant past surgical history Family History Other No pertinent family history in first degree relatives Social History Preferred Language: Sinhala Communication Ability: Effective Tobacco Buyer Required: No Beliefs That Will Affect Care: None Current Living Situation: Alone Current Living Situation Comment: off campus apartment housing Other Information That Helps Us Care for You: No Feels Safe at Home: Yes Safety Concerns: Feels Safe At This Time Smoking Status: Former smoker Tobacco Type: cigarettes ; Cigarettes Per Day: 4 a month ; Do You Dip or Chew Tobacco: No ; Second Hand Exposure: No ; Tobacco Cessation Education Requested by Patient: No Hx Alcohol Use: Yes Alcohol type: wine and hard liquor Hx Substance Use: Yes substance use type: marijuana Substance Use Type Other:: occassionally Last Used Substance: Unknown Last Used Substance Other:: sep 17 Review of Systems See HPI for pertinent positives & negatives. and A total of 10 systems reviewed and were otherwise negative Physical Exam Vital Signs Vital Signs - 24 hr 10/01/19 04:39 10/01/19 05:28 10/01/19 05:29 Temperature 36.8 C Temperature Source Oral Pulse Rate 68 Pulse Rate [Finger] 62 Respiratory Rate 18 20 Respiratory Effort / Characteristics Non-Labored Spontaneous Respiratory Depth Normal Respiratory Pattern Regular Blood Pressure 160/101 H Blood Pressure [Right Arm] 169/105 H Blood Pressure Mean 120 Blood Pressure Mean [Right Arm] 126 Blood Pressure Position Sitting Pulse Oximetry 99 99 99 Oxygen Delivery Method Room Air Room Air Room Air Sepsis Recent Fever Within 48 Hours No Sepsis Action Taken by Nursing No Action Required 10/01/19 06:13 Temperature Temperature Source Pulse Rate Pulse Rate [Finger] 53 L Respiratory Rate 20 Respiratory Effort / Characteristics Respiratory Depth Respiratory Pattern Blood Pressure Blood Pressure [Right Arm] 156/114 H Blood Pressure Mean Blood Pressure Mean [Right Arm] 128 Blood Pressure Position Pulse Oximetry 99 Oxygen Delivery Method Room Air Sepsis Recent Fever Within 48 Hours Sepsis Action Taken by Nursing HEENT: Head - normocephalic and atraumatic Pupils are equal, round, and reactive to light. Extraocular eye muscles are intact, and sclera are anicteric. Nose - moist nasal mucosa without discharge. Mouth - moist buccal mucosa. Oropharynx is nonerythematous and there is no tonsillar exudate or edema noted. Neck: Supple; no cervical lymphadenopathy or nuchal rigidity Heart: Regular rate and rhythm. There is a normal S1 and S2 with no murmurs, clicks, or gallops appreciated. Lungs: Clear to auscultation bilaterally with no wheezes, rales, or rhonchi. Abdomen: Soft, completely nontender, nondistended, with good bowel sounds. There are no palpable pulsatile masses or hepatosplenomegaly. There is no guarding, rigidity, or rebound noted. Extremities: No evidence of cyanosis, clubbing, or edema. There are easily palpa ble peripheral pulses. Skin: warm and dry with good turgor and no rashes. Course Course 0502: The patient was evaluated in room A10. A complete history and physical exam was performed. An IV lock was initiated. Labs were drawn as below. An order was placed for continuous cardiac monitoring. The patient remained in a normal sinus rhythm at a rate of 68. 0509: NSS 1000 mL IV, Zofran 4 mg IV 0557: I reassessed the patient and suggested that he drink some fluids. The patient stated that he would like to wait. His blood pressure was still 180/104. He states that when he checks his blood pressure outside of the hospital, it is significantly lower. 0609: Klor-Con M20 40 meq PO 0630: Per the nursing staff, the patient was able to keep one potassium pill down. She stated that he vomited up the other pill. The patients nurse noted that he has been drinking fluids. 0637: Zofran 4 mg IV 0649: I checked on the patient and gave him may crackers. 0720: Nursing staff notified me that he started to vomit again and is unable to keep anything down. I spoke with Dr. Grove, [facility] hospitalist, about the p atients case. He will further evaluate the patient. 0747: Phenergan 25 mg IV, NSS 1000 mL IV, K Gabriel/Wtr 10 meq in 100 ml IV Administered Medications Discontinued Medications Capsaicin (Zostrix) 1 appln EXT Q4H PRN PRN Reason: nausea, vomiting Stop: 10/31/19 07:59 Last Admin: 10/01/19 13:03 Dose: 1 appln Documented by: [id number] Sodium Chloride (Nss 1000ml) 1,000 mls @ 999 mls/hr IV .Q1H1M SHANON Stop: 10/01/19 06:15 Last Infusion: 10/01/19 06:17 Dose: 0 mls/hr Documented by: [id number] Admin: 10/01/19 05:16 Dose: 999 mls/hr Documented by: [id number] Sodium Chloride (Nss 1000ml) 1,000 mls @ 999 mls/hr IV .Q1H1M SHANON Stop: 10/01/19 08:45 Last Admin: 10/01/19 08:13 Dose: Not Given Documented by: [id number] Sodium Chloride (Nss 1000ml) 1,000 mls @ 999 mls/hr IV .Q1H1M ONE Stop: 10/01/19 08:44 Last Infusion: 10/01/19 08:30 Dose: 0 mls/hr Documented by: [id number] Admin: 10/01/19 07:55 Dose: 999 mls/hr Documented by: [id number] Promethazine HCl (Phenergan) 25 mg in 51 mls @ 204 mls/hr IV NOW STA Stop: 10/01/19 07:58 Last Infusion: 10/01/19 08:45 Dose: 0 mls/hr Documented by: [id number] Admin: 10/01/19 07:54 Dose: 204 mls/hr Documented by: [id number] Potassium Chloride (K Gabriel / Wtr) 10 meq in 100 mls @ 100 mls/hr IV ONE ONE Stop: 10/01/19 08:45 Last Infusion: 10/01/19 10:26 Dose: 0 mls/hr Documented by: [id number] Infusion: 10/01/19 08:30 Dose: 50 mls/hr Documented by: [id number] Admin: 10/01/19 08:25 Dose: 100 mls/hr Documented by: [id number] Lactated Ringer's (Lr) 1,000 mls @ 125 mls/hr IV .Q8H SHANON Stop: 10/31/19 08:59 Last Admin: 10/01/19 16:55 Dose: 125 mls/hr Documented by: [id number] Cosigned by: [id number] Infusion: 10/01/19 16:55 Dose: 125 mls/hr Documented by: [id number] Cosigned by: [id number] Admin: 10/01/19 10:26 Dose: 125 mls/hr Documented by: [id number] Ondansetron HCl (Zofran) 4 mg IV NOW STA Stop: 10/01/19 05:10 Last Admin: 10/01/19 05:16 Dose: 4 mg Documented by: [id number] Ondansetron HCl (Zofran) 4 mg IV NOW STA Stop: 10/01/19 06:38 Last Admin: 10/01/19 06:41 Dose: 4 mg Documented by: [id number] Ondansetron HCl (Zofran) 4 mg IV Q6H PRN PRN Reason: Nausea Stop: 10/31/19 07:45 Last Admin: 10/01/19 10:23 Dose: 4 mg Documented by: [id number] Potassium Chloride (Klor-Con M20) 40 meq PO NOW STA Stop: 10/01/19 06:10 Last Admin: 10/01/19 06:17 Dose: 40 meq Documented by: [id number] Medical Decision Making Differential Diagnosis The differential diagnosis includes: dehydration and exacerbation of cyclic vomiting syndrome. The patient could be abusing marijuana again and this could be cannabinol hyperemesis syndrome again. Medical Records Attestation: I reviewed the patient's medical records. Home Medications Current Medication List: was personally reviewed by me Laboratory Data Attestation: I reviewed the patient's lab results. Result diagrams: 10/01/19 05:00 10/01/19 05:00 Lab Results 10/01/19 10/01/19 10/01/19 Range/Units 05:00 05:00 06:06 WBC 8.59 (4.8-10.8) K/uL RBC 5.92 (4.7-6.1) M/uL Hgb 17.7 (14.0-18.0) g/dL Hct 49.6 (42-52) % MCV 83.8 (80-100) fL MCH 29.9 (25-34) pg MCHC 35.7 (32-36) g/dL RDW Std Deviation 38.6 (36.4-46.3) fL RDW Coeff of Diego 12.9 (11.5-14.5) % Plt Count 321 (130-400) K/uL MPV 11.3 H (7.4-10.4) fL Immature Gran % (Auto) 0.3 % Neut % (Auto) 59.7 % Lymph % (Auto) 29.8 % Gregory % (Auto) 9.1 % Eos % (Auto) 0.9 % Baso % (Auto) 0.2 % Immature Gran # (Auto) 0.03 H (0.00-0.02) K/uL Neut # (Auto) 5.12 (1.4-6.5) K/uL Lymph # (Auto) 2.56 (1.2-3.4) K/uL Gregory # (Auto) 0.78 H (0.11-0.59) K/uL Eos # (Auto) 0.08 (0-0.5) K/uL Baso # (Auto) 0.02 (0-0.2) K/uL Sodium 135 L (136-145) mmol/L Potassium 3.1 L (3.5-5.1) mmol/L Chloride 100 (98-107) mmol/L Carbon Dioxide 25 (21-32) mmol/L Anion Gap 10.0 (3-11) BUN 14 (7-18) mg/dl Creatinine 0.91 (0.6-1.4) mg/dl Est Cr Clr Drug Dosing 181.7 ml/min Est GFR ( Amer) 139.1 Est GFR (Non-Af Amer) 120.0 BUN/Creatinine Ratio 15.7 (10-20) Glucose 121 H (70-99) mg/dl Calcium 9.2 (8.5-10.1) mg/dl Total Bilirubin 1.7 H (0.2-1) mg/dl AST 6 L (15-37) U/L ALT 16 (12-78) U/L Alkaline Phosphatase 81 (45-117) U/L Total Protein 8.2 (6.4-8.2) gm/dl Albumin 4.1 (3.4-5.0) gm/dl Globulin 4.1 H (2.5-4.0) gm/dl Albumin/Globulin Ratio 1.0 (0.9-2) Lipase 107 (73-393) U/L Urine Color Yellow Urine Appearance Clear (Clear) Urine pH 7.5 (4.5-7.5) Ur Specific [place] 1.010 (1.000-1.030) Urine Protein Negative (Negative) Urine Glucose (UA) Negative (Negative) Urine Ketones 1+ H (Negative) Urine Blood Negative (Negative) Urine Nitrite Negative (Negative) Urine Bilirubin Negative (Negative) Urine Urobilinogen Positive H (Negative) Ur Leukocyte Esterase Negative (Negative) Urine Opiates Screen (Neg) Ur Methadone, Qual (Neg) Urine Barbiturates (Neg) Ur Phencyclidine (PCP) (Neg) U Amphetamin/Meth Scrn (Neg) MDMA (Ecstasy) Screen (Neg) U Benzodiazepines Scrn (Neg) Ur Cocaine Metabolite (Neg) U Marijuana (THC) Screen (Neg) 10/01/19 Range/Units 06:06 WBC (4.8-10.8) K/uL RBC (4.7-6.1) M/uL Hgb (14.0-18.0) g/dL Hct (42-52) % MCV (80-100) fL MCH (25-34) pg MCHC (32-36) g/dL RDW Std Deviation (36.4-46.3) fL RDW Coeff of Diego (11.5-14.5) % Plt Count (130-400) K/uL MPV (7.4-10.4) fL Immature Gran % (Auto) % Neut % (Auto) % Lymph % (Auto) % Gregory % (Auto) % Eos % (Auto) % Baso % (Auto) % Immature Gran # (Auto) (0.00-0.02) K/uL Neut # (Auto) (1.4-6.5) K/uL Lymph # (Auto) (1.2-3.4) K/uL Gregory # (Auto) (0.11-0.59) K/uL Eos # (Auto) (0-0.5) K/uL Baso # (Auto) (0-0.2) K/uL Sodium (136-145) mmol/L Potassium (3.5-5.1) mmol/L Chloride (98-107) mmol/L Carbon Dioxide (21-32) mmol/L Anion Gap (3-11) BUN (7-18) mg/dl Creatinine (0.6-1.4) mg/dl Est Cr Clr Drug Dosing ml/min Est GFR ( Amer) Est GFR (Non-Af Amer) BUN/Creatinine Ratio (10-20) Glucose (70-99) mg/dl Calcium (8.5-10.1) mg/dl Total Bilirubin (0.2-1) mg/dl AST (15-37) U/L ALT (12-78) U/L Alkaline Phosphatase (45-117) U/L Total Protein (6.4-8.2) gm/dl Albumin (3.4-5.0) gm/dl Globulin (2.5-4.0) gm/dl Albumin/Globulin Ratio (0.9-2) Lipase (73-393) U/L Urine Color Urine Appearance (Clear) Urine pH (4.5-7.5) Ur Specific [place] (1.000-1.030) Urine Protein (Negative) Urine Glucose (UA) (Negative) Urine Ketones (Negative) Urine Blood (Negative) Urine Nitrite (Negative) Urine Bilirubin (Negative) Urine Urobilinogen (Negative) Ur Leukocyte Esterase (Negative) Urine Opiates Screen Neg (Neg) Ur Methadone, Qual Neg (Neg) Urine Barbiturates Neg (Neg) Ur Phencyclidine (PCP) Neg (Neg) U Amphetamin/Meth Scrn Neg (Neg) MDMA (Ecstasy) Screen Neg (Neg) U Benzodiazepines Scrn Neg (Neg) Ur Cocaine Metabolite Neg (Neg) U Marijuana (THC) Screen Pos H (Neg) Blood Pressure Blood Pressure Findings: Elevated blood pressure Blood Pressure Disposition: further management by hospitalist MDM Narrative The patient is a 23 year old male who presents to the Emergency Room with complaints of persistent nausea/vomiting that began 1 week ago. The patient gives a history of persistent nausea and vomiting and being unable to keep anything down including water. The patient states that this started after eating cinnamon and a cinnamon bun. It reminded him of the cinnamon and fireball which made him previously vomit. The patient has a long history of cannabinis l hyperemesis syndrome. Although he adamantly denies smoking marijuana for more than 2 months. He does admit to using edibles 2-3 weeks ago. The patient received 2 L of IV fluid here in the emergency department along with multiple doses of IV antiemetics but continued to vomit. He was also noted to be hypokalemic and was unable to keep down oral potassium replacement. He received IV potassium replacement. I discussed the case with the [facility] Hospitalist and they will evaluate for further management. Impression & Plan Vomiting, Hypokalemia Discharge Plan Visit Data *Final* Discharge Date/Time: 10/01/19 08:26 Chief Complaint: Abdominal Pain Stated Complaint: ABD PAIN, VOMITING, NAUSEA ED Provider: Leana Kelly Discharge Problem: Vomiting, Hypokalemia Patient Disposition: Admitted As Inpatient Discharge Instructions Interventions: ED Discharge Assessment Last Done: 10/01/19 08:26 Discharge Problem: Vomiting Qualifiers: Vomiting type: unspecified Vomiting Intractability: intractable Nausea presence: unspecified Qualified Code(s): R11.10 - Vomiting, unspecified The scribe's documentation has been prepared under my direction and personally reviewed by me in its entirety. I confirm that the note above accurately reflects all work, treatment, procedures, and medical decision making performed by me.
[2019-10-01 09:23] LABS: Amphetamines+Metham, Urine Neg (Neg); Barbiturates, Urine Neg (Neg); Benzodiazepine, Urine Neg (Neg); Cocaine, Urine Neg (Neg); MDMA (Ecstacy), Urine Neg (Neg); Methadone, Urine Neg (Neg); Opiate, Urine Neg (Neg); Phencyclidine, Urine Neg (Neg)
[2019-10-01] MEDS: LACTATED RINGER'S 1,000 ML IV SCH ×2 (10:26→16:55)
[2019-10-01 15:08] VITALS: BP 147/86; PULSE 69; TEMP 98.8; O2SAT 94
[2019-10-01] MEDS ORDERED: ONDANSETRON HOME PACK 4MG OD TAB PO ONE (18:27)
--- NOTE | 2019-10-01 18:47 | Discharge Summary ---
Date of Service October 01, 2019 Principal Diagnosis Cannabis hyperemesis syndrome Discharge Exam Constitutional WD/WN, vitals as above Eyes + anicteric sclerae; normal pupil size ENMT external ear and nose normal, oropharynx normal Neck trachea midline, no thyromegaly Respiratory normal respiratory effort, lungs clear to auscultation Cardiovascular RRR, no murmur, no edema Gastrointestinal (Abdomen) Inspection/Auscultation: abdomen normal to inspection and normal bowel sounds Percussion/Palpation: + abdomen tender (mild epigastric tenderness) and abdomen soft; no guarding and abdomen not rigid Musculoskeletal no cyanosis or clubbing, extremities motor strength 5/5 Skin no rashes, warm and dry Neurologic moves all extremities and awake; not confused Psychiatric A+Ox3, euthymic affect Lymphatic no cervical or axillary lymphadenopathy Discharge Data Allergies Allergy/AdvReac Type Severity Reaction Status Date / Time Pork/Porcine Containing AdvReac Unknown Unknown Verified 10/01/19 04:53 Products Consultations 10/01/19 07:46 ED Decision to Admit Stat Hospital Course (1) Vomiting: Kamila Ramirez is a 23 year old male observed for 1 day at [facility] on October 01 2019 due to intractable nausea and vomiting. Urine toxicology was positive for marijuana therefore suspect this is still the cause of his ongoing episodes of intractable nausea and vomiting. Nausea and vomiting may also be related to cinnamon and reflux. Therefore recommended avoiding cinnamon and foods that exacerbate GERD such as caffeine, acidic or spicy foods. Do not eat 2 hours prior to bed. Sleep with multiple pillows or head of your bed elevated. He recovered throughout the course of the day and was tolerating a clear liquid diet on discharge with advice to slowly increase his diet back to regular foods and he was discharged the same day. He is prescribed omeprazole (Prilosec) for GERD to take regularly over the next month and then possible PRN if symptoms are well controlled after this. Capsaicin cream also has been very useful for abdominal pain to be used as needed. Ondansetron (Zofran) for nausea. Encouraged to establish and follow up with a PCP (appointment made as below) for further prescriptions. (2) Hypokalemia: (3) GERD (gastroesophageal reflux disease): Total Time Total Time Spent Total Time Spent (In Minutes): 25 Total Time Includes: Examination of the Patient, Discharge Planning and Medication Reconciliation Discharge Plan Discharge Items Patient Disposition: Home - Self-Care Reason For Visit: INTRACTABLE NAUSEA AND VOMITING Discharge Diagnosis: Cannabis hyperemesis syndrome Activity: Resume your previous activity Non-emergency contact: Primary Care Provider Call non-emergency contact if: you have any medication questions and your symptoms worsen Follow-up/Referrals: Roman Salazar MD [Primary Care Provider] - 10/06/19 11:00 am (Please, follow up at [facility] with Dr. Roman Salazar on SundayOctober 05 at 11:00 am. *If you need to change this appointment, call the office at [phone].) Diet: Regular Addtl Attending Provider Instructions: You were admitted to [facility] on October 01 2019 due to intractable nausea and vomiting. Urine toxicology was positive for marijuana therefore suspect this is still the cause of your ongoing episodes. Nausea and vomiting may also be related to cinnamon and reflux. Therefore recommend avoiding foods that exacerbate your reflux such as caffeine, acidic or spicy foods. Do not eat 2 hours prior to bed. Sleep with multiple pillows or head of your bed elevated. You have been prescribed omeprazole (Prilosec) to reduce stomach acid for your reflux, please take this regularly unless otherwise advised by your outpatient physician. In addition to capsaicin cream for abdominal pain to be used as needed. Ondansetron (Zofran) for nausea. Please follow up with the outpatient prescriber as arranged for ongoing prescriptions to avoid running out of medication in the future. Kind regards, Dr Eric Grove Pending Studies at Discharge: Yes (Full urine toxicology) Stand-Alone Forms: [facility], Smoking Cessation Medications and DC Order Prescriptions: New capsaicin 0.075 % cream 1 applic TOP QID PRN (Reason: Nasuea, vomiting, abdominal pain) Qty: 57 RF: 0 omeprazole 20 mg tablet,delayed release (DR/EC) 20 mg PO DAILY Qty: 30 RF: 0 ondansetron 4 mg tablet,disintegrating 4 mg PO DAILY PRN (Reason: nausea and vomiting) Qty: 14 RF: 0 No Action No Known Home Medications RF: 0 Discharge Orders: Discharge Order (Routine); Ordered 10/01/19 Ordered By: Eric Garcia/Other Patient Handouts: GERD Lifestyle Changes, GERD Dc Admission Data Admit Date/Time: 10/01/19 07:46 Attending Provider: Eric Grove Admit Provider: Eric Grove Primary Care Provider: Roman Salazar Other Providers: Eric Grove Other Interventions: Discharge Summary Assessment (RN) Last Done: 10/01/19 18:49 DC Date/Time DO NOT enter until pt leaves facility: 10/01/19 19:07 Coding Level of Care Code 17560 OBS Care - Discharge Diagnoses Vomiting R11.10 Nausea presence: unspecified Vomiting Intractability: intractable Vomiting type: unspecified Hypokalemia E87.6 GERD (gastroesophageal reflux disease) K21.9
[2019-10-03 02:09] LABS: Marijuana Quant, GCMS Urine 2380 ng/mL (<5)
== END 2019-10-01 19:07 | disposition home or self-care (01) ==
LOC: 3N 04:34 → ED 04:34 → 3N 08:26

== ENCOUNTER 2019-10-29 12:59 | Observation (INO) ==
[2019-10-29] MEDS ORDERED: METOCLOPRAMIDE HCL INJ 5 MG/ML 2 ML VIAL IV STA (13:17)
[2019-10-29] MEDS ORDERED: FAMOTIDINE 20MG IV PUSH 20 MG/5 ML SYR IV STA (13:17)
[2019-10-29] MEDS ORDERED: LACTATED RINGER'S 2,000 ML IV ONE (13:17)
[2019-10-29] MEDS ORDERED: CAPSAICIN CR 0.075% 60 GM TUBE EXT ONE (13:19)
--- NOTE | 2019-10-29 13:25 | Emergency Department Note ---
Impression & Plan Marijuana use, Cyclic vomiting syndrome, Gastritis, Abdominal pain, acute, left upper quadrant ED Provider Note Provider: Charly Hale MD DATE OF SERVICE: 10/29/2019 CHIEF COMPLAINT: Vomiting, abdominal pain HISTORY OF PRESENT ILLNESS: Patient is a 23-year-old gentleman with a history of cyclic vomiting secondary to marijuana use presenting today with a complaint of intractable left-sided upper abdominal pain and vomiting over the past 2 days. Began initially with pain is worsened over last several days with vomiting. Has been trying some Zofran and capsaicin at home with minimal improvement. Feels very thirsty and dehydrated. Denies any fever or trauma, upper respiratory symptoms, chest pain, shortness of breath. Patient denies any diarrhea or constipation. Patient denies any blood in his vomit. Not able to keep much down at this juncture. Patient denies alcohol use. Patient states he is been trying to avoid the ER given the recent coronavirus outbreak but symptoms got worse and thus presented today. Vomiting feels similar to before but the patient states he is not had severe pain like this before. Patient does admit to marijuana use several days ago before this began. REVIEW OF SYSTEMS: A total of 10 review of systems was obtained and negative except as stated above in the HPI. 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 ENT: Mucous membranes pink and moderately dry. Pharynx without erythema or exudate. LUNGS: Airway patent. No retractions. Breath sounds clear with good air entry bilaterally. HEART: Regular rate and rhythm. No chest wall tenderness ABDOMEN: Soft and non-tender, without guarding or rebound. No hepatosplenomegaly or masses SKIN: Acyanotic, warm, dry, without rashes EXTREMITIES: Without swelling, tenderness or deformity NEUROLOGICAL: No focal deficits. No aphasia. No facial droop or slurred speech. Ambulatory. EKG: Sinus bradycardia rate of 50. No PVC. No acute ST segment elevation or depression. Normal QTC. Normal axis. CONTINUOUS CARDIAC MONITORING: was ordered and showed a heart rate of 62 bpm in normal sinus rhythm Patient's hypertension was referred to the hospitalist/PCP HOSPITAL COURSE: 1309 Patient was first seen and H&P performed. 1445 Patient reassessed and updated. Patient was still experiencing abdominal discomfort and nausea. [facility] alerted. Patient's laboratory studies and imaging reviewed. Differential includes Appendicitis, testicular torsion, infections, diverticulitis, UTI, obstruction, mesenteric ischemia, aortic pathology, inflammatory bowel disease, renal colic, PUD, pancreatitis, biliary pathology, hernia, volvulus, constipation, as well as other pathologies. IMPRESSION/MEDICAL DECISION MAKING: Patient presentation seems most likely related to a cyclic vomiting syndrome possibly cannabinoid hyperemesis syndrome, however states the pain is much worse. Possibly more of a gastritis. Given this pain a CT scan was complete without acute findings. Basic labs are sent to exclude hepatitis pancreatitis. Electrolytes were sent. Given IV hydration and treated symptomatically with in itially some Reglan, Pepcid, and additional capsaicin. Basic laboratory studies completed here showed no significant cytosis or anemia. No evidence of significant electrolyte abnormalities, hepatitis, or pancreatitis. CT imaging without acute intra-abdominal pathology noted. On reassessment the patient still complaining of significant symptoms. Given additional Zofran for symptom control. Patient requesting further observation in the hospital as he experiences cyclic vomiting before and does not feel comfortable going home. Discussed with case management. Hospitalist was alerted. DIAGNOSIS: Cyclic vomiting syndrome, left upper quadrant abdominal pain, gastritis, cannabinol hyperemesis syndrome DISPOSITION: Hospitalist will evaluate Patient was agreeable with this plan. Discussed return precautions and advised follow up. 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 Beliefs That Will Affect Care: Protestant Protestant Beliefs: Islamic diet Current Living Situation: Alone Current Living Situation Comment: off campus apartment housing Other Information That Helps Us Care for You: No Feels Safe at Home: Yes Safety Concerns: Feels Safe At This Time Smoking Status: Former smoker Tobacco Type: cigarettes ; Cigarettes Per Day: 4 a month ; Do You Dip or Chew Tobacco: No ; Second Hand Exposure: No ; Hx Alcohol Use: Yes Alcohol type: wine and hard liquor Hx Substance Use: Yes substance use type: marijuana Substance Use Type Other:: occassionally Last Used Substance: Unknown Allergies Allergies Allergy/AdvReac Type Severity Reaction Status Date / Time Pork/Porcine Containing AdvReac Unknown Unknown Verified 10/29/19 14:49 Products Home Meds Home Medications Medication Instructions Recorded Confirmed No Known Home Medications 10/01/19 10/29/19 Results & Data (ED) Vital Signs Vital Signs - 24 hr 10/29/19 13:02 10/29/19 13:38 10/29/19 13:41 Temperature 36.4 C L Temperature Source Oral Pulse Rate 57 L 66 65 Pulse Rate from SpO2 Sensor Respiratory Rate 16 16 31 H Respiratory Effort / Characteristics Non-Labored Spontaneous Respiratory Depth Normal Respiratory Pattern Regular Blood Pressure 174/88 H 154/102 H Blood Pressure Mean 116 106 Blood Pressure Position Sitting Pulse Oximetry 98 96 97 Oxygen Delivery Method Room Air Room Air Room Air Sepsis Recent Fever Within 48 Hours No Sepsis New/Unexplained Change in Mental Status No Sepsis Action Taken by Nursing No Action Required 10/29/19 13:43 10/29/19 14:00 10/29/19 14:01 Temperature Temperature Source Pulse Rate 54 L 62 Pulse Rate from SpO2 Sensor Respiratory Rate 16 21 Respiratory Effort / Characteristics Respiratory Depth Respiratory Pattern Blood Pressure 176/101 H Blood Pressure Mean 121 Blood Pressure Position Pulse Oximetry 98 98 95 Oxygen Delivery Method Room Air Room Air Room Air Sepsis Recent Fever Within 48 Hours Sepsis New/Unexplained Change in Mental Status Sepsis Action Taken by Nursing 10/29/19 14:30 10/29/19 15:00 10/29/19 15:08 Temperature Temperature Source Pulse Rate 51 L 58 L 46 L Pulse Rate from SpO2 Sensor 51 L Respiratory Rate 16 15 14 Respiratory Effort / Characteristics Respiratory Depth Respiratory Pattern Blood Pressure 173/89 H Blood Pressure Mean 110 Blood Pressure Position Pulse Oximetry 99 97 97 Oxygen Delivery Method Room Air Room Air Room Air Sepsis Recent Fever Within 48 Hours Sepsis New/Unexplained Change in Mental Status Sepsis Action Taken by Nursing 10/29/19 15:30 Temperature Temperature Source Pulse Rate Pulse Rate from SpO2 Sensor Respiratory Rate 19 Respiratory Effort / Characteristics Respiratory Depth Respiratory Pattern Blood Pressure Blood Pressure Mean Blood Pressure Position Pulse Oximetry 99 Oxygen Delivery Method Room Air Sepsis Recent Fever Within 48 Hours Sepsis New/Unexplained Change in Mental Status Sepsis Action Taken by Nursing Laboratory Data Result diagrams: 10/29/19 13:25 10/29/19 13:25 Lab Results 10/29/19 10/29/19 10/29/19 Range/Units 13:25 13:25 15:45 WBC 9.03 (4.8-10.8) K/uL RBC 5.84 (4.7-6.1) M/uL Hgb 17.6 (14.0-18.0) g/dL Hct 49.3 (42-52) % MCV 84.4 (80-100) fL MCH 30.1 (25-34) pg MCHC 35.7 (32-36) g/dL RDW Std Deviation 40.9 (36.4-46.3) fL RDW Coeff of [place] 13.5 (11.5-14.5) % Plt Count 335 (130-400) K/uL MPV 10.4 (7.4-10.4) fL Immature Gran % (Auto) 0.3 % Neut % (Auto) 77.7 % Lymph % (Auto) 17.3 % [place] % (Auto) 4.4 % Eos % (Auto) 0.1 % Baso % (Auto) 0.2 % Immature Gran # (Auto) 0.03 H (0.00-0.02) K/uL Neut # (Auto) 7.01 H (1.4-6.5) K/uL Lymph # (Auto) 1.56 (1.2-3.4) K/uL [place] # (Auto) 0.40 (0.11-0.59) K/uL Eos # (Auto) 0.01 (0-0.5) K/uL Baso # (Auto) 0.02 (0-0.2) K/uL Sodium 137 (136-145) mmol/L Potassium 3.4 L (3.5-5.1) mmol/L Chloride 105 (98-107) mmol/L Carbon Dioxide 26 (21-32) mmol/L Anion Gap 7.0 (3-11) BUN 13 (7-18) mg/dl Creatinine 0.92 (0.6-1.4) mg/dl Est Cr Clr Drug Dosing 177.4 ml/min Est GFR ( Amer) 137.3 Est GFR (Non-Af Amer) 118.5 BUN/Creatinine Ratio 13.7 (10-20) Glucose 122 H (70-99) mg/dl Calcium 9.6 (8.5-10.1) mg/dl Magnesium 2.0 (1.8-2.4) mg/dl Total Bilirubin 0.7 (0.2-1) mg/dl AST 12 L (15-37) U/L ALT 19 (12-78) U/L Alkaline Phosphatase 85 (45-117) U/L Total Protein 8.3 H (6.4-8.2) gm/dl Albumin 4.2 (3.4-5.0) gm/dl Globulin 4.1 H (2.5-4.0) gm/dl Albumin/Globulin Ratio 1.0 (0.9-2) Lipase 151 (73-393) U/L Urine Color Yellow Urine Appearance Clear (Clear) Urine pH 8.0 H (4.5-7.5) Ur Specific [place] > 1.045 H (1.000-1.030) Urine Protein Negative (Negative) Urine Glucose (UA) Negative (Negative) Urine Ketones 1+ H (Negative) Urine Blood Negative (Negative) Urine Nitrite Negative (Negative) Urine Bilirubin Negative (Negative) Urine Urobilinogen Negative (Negative) Ur Leukocyte Esterase Negative (Negative) Administered Medications Discontinued Medications Al Hydrox/Mg Hydrox/Simethicone () 1 dose PO ONE ONE Stop: 10/29/19 15:14 Last Admin: 10/29/19 15:19 Dose: 1 dose Documented by: [id number] Capsaicin (Zostrix) 1 appln EXT ONCE ONE Stop: 10/29/19 13:20 Last Admin: 10/29/19 13:42 Dose: 1 appln Documented by: [id number] Al Hydrox/Mg Hydrox/Simethicone 18 ml/ Lidocaine HCl 6 ml/ BARCODE IDENTIFIER 1 ea 0 ml PO ONE ONE Stop: 10/29/19 14:49 Last Admin: 10/29/19 15:18 Dose: Not Given Documented by: [id number] Lactated Ringer's (Lr) 2,000 mls @ 999 mls/hr IV .Q2H1M ONE Stop: 10/29/19 15:17 Last Infusion: 10/29/19 15:43 Dose: 0 mls/hr Documented by: [id number] Admin: 10/29/19 13:42 Dose: 999 mls/hr Documented by: [id number] Famotidine (Pepcid 20mg Iv Push) 20 mg in 5 mls @ 2.5 mls/min IV NOW STA Stop: 10/29/19 13:18 Last Admin: 10/29/19 13:42 Dose: 2.5 mls/min Documented by: [id number] Ioversol (Optiray 320 100ml) 94 ml IV ONCE PRN PRN Reason: Interaction Checking Stop: 11/02/19 14:19 Last Admin: 10/29/19 14:20 Dose: 94 ml Documented by: [id number] Metoclopramide HCl (Reglan) 10 mg IV NOW STA Stop: 10/29/19 13:18 Last Admin: 10/29/19 13:42 Dose: 10 mg Documented by: [id number] Ondansetron HCl (Zofran) 4 mg IV NOW STA Stop: 10/29/19 14:49 Last Admin: 10/29/19 15:07 Dose: 4 mg Documented by: [id number] Discharge Plan Visit Data *Final* Discharge Date/Time: 10/29/19 17:20 Chief Complaint: Vomiting Stated Complaint: VOMITING, ABD PAIN ED Provider: Charly Hale Discharge Problem: Marijuana use, Cyclic vomiting syndrome, Gastritis, Abdominal pain, acute, left upper quadrant Patient Disposition: Admitted As Inpatient Condition: Good Discharge Instructions Interventions: ED Discharge Assessment Last Done: 10/29/19 17:20
[2019-10-29 13:42] LABS: Basophils # (auto) 0.02 K/uL (0-0.2); Basophils % (auto) 0.2 %; Eosinophils # (auto) 0.01 K/uL (0-0.5); Eosinophils % (auto) 0.1 %; Hematocrit (blood only) 49.3 % (42-52); Hemoglobin 17.6 g/dL (14.0-18.0); Immature Granulocytes # (auto) 0.03 K/uL (0.00-0.02); Immature Granulocytes % (auto) 0.3 %; Lymphocytes # (auto) 1.56 K/uL (1.2-3.4); Lymphocytes % (auto) 17.3 %; Mean Corpuscular Hemoglobin 30.1 pg (25-34); Mean Corpuscular Hgb Conc 35.7 g/dL (32-36); Mean Corpuscular Volume 84.4 fL (80-100); Mean Platelet Volume 10.4 fL (7.4-10.4); Monocytes % (auto) 4.4 %; Neutrophils # (auto) 7.01 K/uL (1.4-6.5); Neutrophils % (auto) 77.7 %; Platelet Count 335 K/uL (130-400); RDW Coefficient of Variation 13.5 % (11.5-14.5); RDW Standard Deviation 40.9 fL (36.4-46.3); Red Blood Count 5.84 M/uL (4.7-6.1); White Blood Count 9.03 K/uL (4.8-10.8)
[2019-10-29 13:58] LABS: Albumin Level 4.2 gm/dl (3.4-5.0); BUN Creatinine Ratio 13.7 (10-20); Calcium 9.6 mg/dl (8.5-10.1); Creatinine Clr Calc Pharmacy 177.4 ml/min; Est GFR (African American) 137.3; Est GFR (Non-African American) 118.5; Potassium 3.4 mmol/L (3.5-5.1)
[2019-10-29 14:01] LABS: Bilirubin,Total 0.7 mg/dl (0.2-1); Globulin 4.1 gm/dl (2.5-4.0); Total Protein 8.3 gm/dl (6.4-8.2)
[2019-10-29] MEDS ORDERED: IOVERSOL 100ml IV PRN (14:20)
--- NOTE | 2019-10-29 14:20 | Electrocardiogram Report ---
Test Reason : Blood Pressure : / mmHG Vent. Rate : 050 BPM Atrial Rate : 050 BPM P-R Int : 126 ms QRS Dur : 102 ms QT Int : 450 ms P-R-T Axes : 015 045 051 degrees QTc Int : 410 ms Sinus bradycardia Otherwise normal ECG When compared with ECG of 21-NOV-2018 00:06, No significant change was found Confirmed by Gordo Mckee ([id number]) on 10/29/2019 2:20:49 PM Referred By: ED Confirmed By:Gordo Mckee
--- NOTE | 2019-10-29 14:32 | CT Scan Report ---
CT abd pelvis IV con only CLINICAL HISTORY: L abdominal pain, nausea, vomiting COMPARISON STUDY: 06/04/2019 TECHNIQUE: The patient was scanned in a dynamic helical fashion during intravenous administration of 94 cc of Optiray 320. A dose lowering technique was utilized adhering to the principles of ALARA. CT DOSE: 1555.67 mGy.cm FINDINGS: Lower chest: The heart is normal in size and configuration, without pericardial effusion. The lung ba ses and pleural spaces are clear. There is a small hiatal hernia. Liver: The contrast-enhanced liver is normal in size, contour, and attenuation. There is no intrahepa tic biliary ductal dilatation. The hepatic veins and portal veins are patent. Gallbladder: Unremarkable. Spleen: Mildly enlarged measuring 14 cm Pancreas: Unremarkable. Adrenal glands: Unremarkable. Kidneys: There is symmetric renal cortical enhancement. The kidneys are normal in size without hydron ephrosis. Bowel: There are no transition zones to indicate bowel obstruction. The appendix appears normal. Ther e is no evidence of acute diverticulitis. Peritoneum: There is no intraperitoneal free air or abdominal ascites. Vasculature: The abdominal aorta is normal in course and caliber. Adenopathy: None. Pelvic viscera: There is persistent mild bladder wall thickening. Skeletal structures: No destructive osseous lesions are seen. IMPRESSION: 1. No evidence of bowel obstruction. No evidence of free air 2. Normal appendix. No evidence of acute diverticulitis 3. Persistent mild bladder wall thickening. ACT 112: Negative or not required by law. Electronically signed by: Kris Munson M.D. 10/29/2019 2:31 PM
[2019-10-29] MEDS ORDERED: ONDANSETRON INJ 2 MG/ML 2 ML VIAL IV STA (14:48)
[2019-10-29] MEDS ORDERED: ALUMINUM/MAGNESIUM SUSP 18 ML, LIDOCAINE HCL VISCOUS 2% 6 ML, BARCODE IDENTIFIER 1 EA PO ONE (14:48)
[2019-10-29] MEDS ORDERED: GI COCKTAIL ED USE PO ONE (15:13)
[2019-10-29 15:55] LABS: Appearance Urine Clear (Clear); Bilirubin Urine Negative (Negative); Blood Urine Negative (Negative); Color Urine Yellow; Glucose Urine UA Negative (Negative); Ketones Urine 1+ (Negative); Leukocyte Esterase Urine Negative (Negative); Nitrite Urine Negative (Negative); Protein Urine Negative (Negative); Specific Gravity Urine > 1.045 (1.000-1.030); Urobilinogen Urine Negative (Negative)
--- NOTE | 2019-10-29 15:59 | History & Physical Report ---
Date of Service October 29, 2019 Assessment & Plan (1) Cannabinoid hyperemesis syndrome: Similar admission to prior. No concerning factors. CT A/P did show bladder wall thickening therefore will get UA but otherwise no symptoms of urine tract infection. Continue usual regimen; Capsaicin cream, Ondansetron. LR 125 ml/hr. Can have clear liquid diet as tolerated. Usually resolves within 24 hours therefore expected discharge tomorrow. (2) Abdominal pain: Suspect MSK from repeated vomiting. Although he notes this is new for him he has described very similar pains to me in the past. 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 Always related to marijuana use (although he has denied this in the past his urnie toxicology has always been positive) and he was recommended to discontinue this completely and diagnosed with cannabis hyperemesis syndrome. On this occasion he does admit to smoking marijuana after getting bored in self isolation. He has been vomiting for three days at this point and not relieved with his outpatient Zofran prescription. He reports his GERD symptoms have mostly resolved; takes famotidine approximately once/week. 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 Beliefs That Will Affect Care: Oriental Orthodox Oriental Orthodox Beliefs: Islamic diet Current Living Situation: Alone Current Living Situation Comment: off campus apartment housing Other Information That Helps Us Care for You: No Feels Safe at Home: Yes Safety Concerns: Feels Safe At This Time Smoking Status: Former smoker Tobacco Type: cigarettes ; Cigarettes Per Day: 4 a month ; Do You Dip or Chew Tobacco: No ; Second Hand Exposure: No ; Hx Alcohol Use: Yes Alcohol type: wine and hard liquor Hx Substance Use: Yes substance use type: marijuana Substance Use Type Other:: occassionally Last Used Substance: Unknown Review of Systems Review of Systems: All systems reviewed & are unremarkable except as noted in HPI & below Physical Exam Constitutional: WD/WN, vitals as above Eyes: + anicteric sclerae; normal pupil size ENMT: external ear and nose normal, oropharynx normal Neck: trachea midline, no thyromegaly Respiratory: normal respiratory effort, lungs clear to auscultation Cardiovascular: Rate/Rhythm: regular rhythm and + tachycardic Heart Sounds: no murmur Extremities: normal capillary refill; no pedal edema Gastrointestinal (Abdomen): normal bowel sounds, soft, nontender, no hepatosplenomegaly Musculoskeletal: no cyanosis or clubbing, extremities motor strength 5/5 Skin: no rashes, warm and dry Neurologic: moves all extremities and awake; no focal motor deficits and not confused Psychiatric: A+Ox3, euthymic affect Results & Data Results & Data ([facility]) Vital Signs (Past 12 Hours) Vital Signs Temp Pulse Resp BP Pulse Ox 10/29/19 15:00 58 L 15 97 10/29/19 14:30 51 L 16 99 10/29/19 14:01 62 21 95 10/29/19 14:00 54 L 16 176/101 H 98 10/29/19 13:43 98 10/29/19 13:41 65 31 H 97 10/29/19 13:38 66 16 154/102 H 96 10/29/19 13:02 36.4 C L 57 L 16 174/88 H 98 Code Status & VTE Plan Code Status Full VTE Prophylaxis Plan VTE Prophylaxis will be ordered: No Reason for no VTE drug order: Treatment not indicated PG Care Time/CCT Total # of Minutes Spent Total Time Spent with Patient: Total time spent is greater than 50% in coordination of care (as documented) at patient's floor/unit and/or counseling patient: Coding Level of Care Code 72826 OBS Care - Level 2 Diagnoses Cannabinoid hyperemesis syndrome F12.988 Abdominal pain R10.12 Abdominal location: left upper quadrant (1) Abdominal pain Abdominal location: left upper quadrant Qualified Code(s): R10.12 - Left upper quadrant pain
[2019-10-29] MEDS ORDERED: CAPSAICIN CR 0.075% 60 GM TUBE EXT PRN (17:32)
[2019-10-29] MEDS ORDERED: ONDANSETRON INJ 2 MG/ML 2 ML VIAL IV PRN (17:32)
[2019-10-29] MEDS ORDERED: ACETAMINOPHEN 1,000 MG/100 ML VIAL IV PRN (17:53)
[2019-10-29] MEDS ORDERED: KETOROLAC TROMETHAMINE 15 MG/ML VIAL IV PRN (17:53)
[2019-10-29] MEDS ORDERED: PROMETHAZINE HCL 25 MG in SODIUM CHLORIDE 0.9% 50 ML IV PRN (17:54)
[2019-10-29] MEDS ORDERED: LACTATED RINGER'S 1,000 ML IV ONE (18:03)
[2019-10-29] MEDS: LACTATED RINGER'S 1,000 ML IV SCH (19:55)
[2019-10-30] MEDS: LACTATED RINGER'S 1,000 ML IV SCH ×2 (03:50→11:54)
[2019-10-30] MEDS ORDERED: FAMOTIDINE 20 MG in SYRINGE 3 ML IV SCH (09:00)
--- NOTE | 2019-10-30 15:32 | Discharge Summary ---
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 Always related to marijuana use (although he has denied this in the past his urnie toxicology has always been positive) and he was recommended to discontinue this completely and diagnosed with cannabis hyperemesis syndrome. On this occasion he does admit to smoking marijuana after getting bored in self isolation. He has been vomiting for three days at this point and not relieved with his outpatient Zofran prescription. He reports his GERD symptoms have mostly resolved; takes famotidine approximately once/week. Admission Exam Per Admitting Provider Constitutional: WD/WN, vitals as above Eyes: + anicteric sclerae; normal pupil size ENMT: external ear and nose normal, oropharynx normal Neck: trachea midline, no thyromegaly Respiratory: normal respiratory effort, lungs clear to auscultation Cardiovascular: Rate/Rhythm: regular rhythm and + tachycardic Heart Sounds: no murmur Extremities: normal capillary refill; no pedal edema Gastrointestinal (Abdomen): normal bowel sounds, soft, nontender, no hepatosplenomegaly Musculoskeletal: no cyanosis or clubbing, extremities motor strength 5/5 Skin: no rashes, warm and dry Neurologic: moves all extremities and awake; no focal motor deficits and not confused Psychiatric: A+Ox3, euthymic affect Principal Diagnosis Cannabis hyperemesis syndrome Discharge Exam Constitutional WD/WN, vitals as above + obese Eyes + anicteric sclerae; normal pupil size ENMT external ear and nose normal, oropharynx normal Respiratory normal respiratory effort Neurologic moves all extremities and awake Psychiatric A+Ox3, euthymic affect Discharge Data Allergies Allergy/AdvReac Type Severity Reaction Status Date / Time Pork/Porcine Containing AdvReac Unknown Unknown Verified 10/29/19 14:49 Products Consultations 10/29/19 15:15 ED Decision to Admit Stat Ordered Studies 10/29/19 13:20 CT abd pelvis IV con only Stat IMPRESSION: 1. No evidence of bowel obstruction. No evidence of free air 2. Normal appendix. No evidence of acute diverticulitis 3. Persistent mild bladder wall thickening. Hospital Course (1) Cannabinoid hyperemesis syndrome: Kamila Ramirez is a 23 year old male observed overnight at [facility] from October 28 to 2019 due to intractable nausea and vomiting and abdominal pain. He has recurrent cannabis hyperemesis syndrome with multiple admissions over the last year. He was treated with IV fluids and antiemetics and recovered overnight tolerating full liquid diet. He was again advised to abstain from any further cannabis use. (2) Abdominal pain: Total Time Total Time Spent Total Time Spent (In Minutes): 15 Total Time Includes: Examination of the Patient, Discharge Planning and Medication Reconciliation Discharge Plan Discharge Items Patient Disposition: Home - Self-Care Reason For Visit: INTRACTABLE NAUSEA AND VOMITING Discharge Diagnosis: Cannabis hyperemesis syndrome Condition on Discharge: Good Activity: Resume your previous activity Non-emergency contact: Primary Care Provider Call non-emergency contact if: you have any medication questions, your symptoms worsen and you have a fever Follow-up/Referrals: Roman Salazar MD [Primary Care Provider] - (No routine follow up required) Diet: Regular Addtl Attending Provider Instructions: You were observed in [facility] from October 28 to 2019 due to intractable nausea and vomiting. You were diagnosed with cannabis hyperemesis syndrome, treated with intravenous fluids and anti-emetics; ondansetron (Zofran) and Phenergan. You have been prescribed your usual ondansetron on discharge. Please abstain from further cannabis use to stop this reoccurring. Pending Studies at Discharge: No Stand-Alone Forms: [facility], Smoking Cessation Medications and DC Order Prescriptions: New ondansetron 4 mg tablet,disintegrating 4 mg PO Q6H PRN (Reason: nausea and vomiting) Qty: 14 RF: 0 famotidine 20 mg tablet 20 mg PO DAILY PRN (Reason: heartburn) Qty: 10 RF: 0 capsaicin 0.075 % cream 1 appln TOP TID PRN (Reason: abdominal pain, nausea) Qty: 57 RF: 0 No Action No Known Home Medications RF: 0 Discharge Orders: Discharge Order (Routine); Ordered 10/30/19 Ordered By: Eric Grove Admission Data Admit Date/Time: 10/29/19 16:25 Attending Provider: Eric Grove Admit Provider: Eric Grove Primary Care Provider: Roman Salazar Other Providers: Eric Grove Coding Level of Care Code 23852 OBS Care - Discharge Diagnoses Cannabinoid hyperemesis syndrome F12.988 Abdominal pain R10.12 Abdominal location: left upper quadrant
== END 2019-10-30 17:18 | disposition home or self-care (01) ==
LOC: ED 12:59 → 3E 12:59

== ENCOUNTER 2020-03-25 17:21 | Observation (INO) ==
[2020-03-25] MEDS ORDERED: DiphenhydrAMINE HCL 50 MG/ML VIAL IV STA (17:47)
[2020-03-25] MEDS ORDERED: ONDANSETRON INJ 2 MG/ML 2 ML VIAL IV STA ×2 (17:47→20:38)
[2020-03-25] MEDS ORDERED: CAPSAICIN CR 0.075% 60 GM TUBE EXT ONE (17:48)
[2020-03-25] MEDS ORDERED: SODIUM CHLORIDE 0.9% 1000ML 1,000 ML IV SCH (18:00)
[2020-03-25 18:12] LABS: Basophils # (auto) 0.02 K/uL (0-0.2); Basophils % (auto) 0.2 %; Eosinophils # (auto) 0.14 K/uL (0-0.5); Eosinophils % (auto) 1.1 %; Hematocrit (blood only) 51.3 % (42-52); Hemoglobin 18.6 g/dL (14.0-18.0); Immature Granulocytes # (auto) 0.03 K/uL (0.00-0.02); Immature Granulocytes % (auto) 0.2 %; Lymphocytes # (auto) 2.42 K/uL (1.2-3.4); Lymphocytes % (auto) 18.9 %; Mean Corpuscular Hemoglobin 30.1 pg (25-34); Mean Corpuscular Hgb Conc 36.3 g/dL (32-36); Mean Platelet Volume 10.7 fL (7.4-10.4); Monocytes # (auto) 1.08 K/uL (0.11-0.59); Monocytes % (auto) 8.4 %; Neutrophils # (auto) 9.13 K/uL (1.4-6.5); Neutrophils % (auto) 71.2 %; Platelet Count 415 K/uL (130-400); RDW Coefficient of Variation 12.6 % (11.5-14.5); RDW Standard Deviation 37.3 fL (36.4-46.3); Red Blood Count 6.18 M/uL (4.7-6.1); White Blood Count 12.82 K/uL (4.8-10.8)
--- NOTE | 2020-03-25 18:26 | Emergency Department Note ---
Impression & Plan Cyclic vomiting syndrome, Vomiting ED Provider Note NAME: PAULINE ALFARO AGE: 24 SEX: M : 1995 ARRIVES VIA: Walk-In INFORMANT: Patient, ED PROVIDER(S): Gordo Sierra DO CHIEF COMPLAINT: Nausea vomiting HPI: The patient is a 24-year-old male who has a history of cyclic vomiting syndrome who presented to the emergency department for an evaluation of nausea and vomiting. The patient has a history of marijuana use and has been told in the past that he has cyclic vomiting secondary to this. He did stop using ma rijuana for a long time but restarted a few days ago. He states his symptoms were significantly improved a few days ago after using Zofran and he also has been using capsaicin at home. The patient presented to the emergency department today because over the last 24 hours he has been unable to eat or drink without vomiting. He denies having any chest pain or fever. He does complain of significant upper abdominal pain which is intermittent and worsened with eating. He denies having any alcohol use. He has no rectal bleeding or hematemesis reported. He states his symptoms are severe at this time. ROS: See above HPI for pertinent positives & negatives. A total of 10 systems reviewed and were otherwise negative. PAST MEDICAL HISTORY: See Below PAST SURGICAL HISTORY: See Below FAMILY HISTORY: See Below SOCIAL HISTORY: See Below HOME MEDICATIONS: See Below ALLERGIES: See Below VITALS: See Below PHYSICAL EXAMINATION: GENERAL: The patient is awake and alert. He is very anxious appearing and appears to be uncomfortable. EYES: The conjunctivae are clear. The pupils are round and reactive. EARS, NOSE, MOUTH AND THROAT: The nose is without any evidence of any deformity. Mucous membranes are moist. Tongue is midline. NECK: The neck is nontender and supple. RESPIRATORY: Normal respiratory effort is noted there is no evidence of wheezing rhonchi or rales CARDIOVASCULAR: Tachycardic rate with regular rhythm was noted. There is no definite murmur. GASTROINTESTINAL: The abdomen is soft. Abdomen is nontender. MUSCULOSKELETAL/EXTREMITIES: There is no evidence of gross deformity full range of motion is noted in the hips and shoulders. SKIN: There is no obvious evidence of any rash. There are no petechiae, pallor or cyanosis noted. NEUROLOGIC: Patient is awake alert and oriented x3 strength is symmetric patellar reflexes are 2+ bilaterally MEDICAL DECISION MAKING: The patient is a 24-year-old male who presented to the emergency department for an evaluation of nausea vomiting. The patient has a history of cyclic vomiting. He states that he has been maintained well with avoiding marijuana and using Zofran but recently he started having worsening symptoms. He tried capsaicin cream at home without relief. He presented to the emergency department after he started to have recurrent nausea and vomiting to the point where he could not eat or drink. The patient was treated with IV fluids and IV antiemetics. He was reevaluated multiple times. I discussed the patient's laboratory and radiographic studies with him. On subsequent reevaluation the patient still had very severe symptoms. He was not comfortable being discharged to home at this time. He was treated with multiple antiemetics as well as IV fluids. Not comfortable with the patient receiving any further IV antiemetics until he has been evaluated by the hospitalist for possible inpatient management. [facility]. Triage Nursing notes reviewed. Prior medical records reviewed Vital Signs: reviewed and remarkable for elevated blood pressure. Differential diagnosis: Gastroenteritis, food borne illness, infections, appendicitis, diverticulitis, i nflammatory bowel disease, obstruction, GI bleed, biliary pathology, volvulus, as well as other pathologies. ER treatment provided: See below Diagnostics interpreted by me: ECG: none Cardiac Monitoring: An order was placed for continuous cardiac monitoring. The monitor shows a rate of 82 bpm with sinus rhythm. Laboratory studies: As stated above and show below. Imaging studies: See below Consultation(s): 2200: I discussed this case with Dr. Henry who [facility] COURSE: Procedures: none Critical Care: None Past Med/Surg History Medical History Abnormal CT scan, bladder Asthma Cyclic vomiting syndrome Obesity Pneumomediastinum Surgical History No significant past surgical history Family History Other No pertinent family history in first degree relatives Social History Smoking Status: Never smoker Cigarettes Per Day: 4 a month; Second Hand Exposure: No; Hx Alcohol Use: Yes Alcohol type: wine and hard liquor Hx Substance Use: Yes Last Used Substance: Unknown Substance Use Type Other:: occassionally Preferred Language: Estonian Communication Ability: Effective Drafter Civil (Cad) Required: No Beliefs That Will Affect Care: Mormonism Mormonism Beliefs: Islamic diet Current Living Situation: Alone Current Living Situation Comment: off campus apartment housing Feels Safe at Home: Yes Allergies Allergies Allergy/AdvReac Type Severity Reaction Status Date / Time cinnamon AdvReac Severe Vomiting Unverified 03/25/20 19:26 Pork/Porcine Containing AdvReac Unknown Unknown Verified 03/25/20 19:24 Products Home Meds Home Medications Medication Instructions Recorded Confirmed No Known Home Medications 03/25/20 03/25/20 Results & Data (ED) Vital Signs Vital Signs - 24 hr 03/25/20 17:32 03/25/20 18:57 03/25/20 19:57 Temperature 37.4 C Temperature Source Oral Pulse Rate 118 H 95 H Pulse Rate [Right Finger] 95 H 74 Pulse Rhythm Regular Pulse Rhythm [Right Finger] Regular Regular Pulse Strength [Right Finger] Normal Respiratory Rate 18 20 16 Respiratory Effort / Characteristics Non-Labored Spontaneous Non-Labored Spontaneous Respiratory Depth Normal Normal Respiratory Pattern Regular Blood Pressure 149/92 H Blood Pressure [Left Arm] 141/87 H 141/87 H Blood Pressure Mean 111 Blood Pressure Mean [Left Arm] 105 105 Blood Pressure Position [Left Arm] Sitting Sitting Pulse Oximetry 94 97 96 Oxygen Delivery Method Room Air Room Air Room Air Sepsis Recent Fever Within 48 Hours No Sepsis New/Unexplained Change in Mental Status No Sepsis Action Taken by Nursing No Action Required 03/25/20 21:00 Temperature Temperature Source Pulse Rate Pulse Rate [Right Finger] 84 Pulse Rhythm Pulse Rhythm [Right Finger] Pulse Strength [Right Finger] Respiratory Rate 16 Respiratory Effort / Characteristics Non-Labored Spontaneous Respiratory Depth Normal Respiratory Pattern Blood Pressure Blood Pressure [Left Arm] 176/109 H Blood Pressure Mean Blood Pressure Mean [Left Arm] 131 Blood Pressure Position [Left Arm] Pulse Oximetry 98 Oxygen Delivery Method Room Air Sepsis Recent Fever Within 48 Hours Sepsis New/Unexplained Change in Mental Status Sepsis Action Taken by Residential Medications Current Medication List: was personally reviewed by me Laboratory Data Attestation: I reviewed the patient's lab results. Result diagrams: 03/25/20 18:00 03/25/20 18:00 Lab Results 03/25/20 03/25/20 Range/Units 18:00 18:00 WBC 12.82 H (4.8-10.8) K/uL RBC 6.18 H (4.7-6.1) M/uL Hgb 18.6 H (14.0-18.0) g/dL Hct 51.3 (42-52) % MCV 83.0 (80-100) fL MCH 30.1 (25-34) pg MCHC 36.3 H (32-36) g/dL RDW Std Deviation 37.3 (36.4-46.3) fL RDW Coeff of Diego 12.6 (11.5-14.5) % Plt Count 415 H (130-400) K/uL MPV 10.7 H (7.4-10.4) fL Immature Gran % (Auto) 0.2 % Neut % (Auto) 71.2 % Lymph % (Auto) 18.9 % [place] % (Auto) 8.4 % Eos % (Auto) 1.1 % Baso % (Auto) 0.2 % Neut # (Auto) 9.13 H (1.4-6.5) K/uL Lymph # (Auto) 2.42 (1.2-3.4) K/uL [place] # (Auto) 1.08 H (0.11-0.59) K/uL Eos # (Auto) 0.14 (0-0.5) K/uL Baso # (Auto) 0.02 (0-0.2) K/uL Immature Gran # (Auto) 0.03 H (0.00-0.02) K/uL Sodium 136 (136-145) mmol/L Potassium 3.4 L (3.5-5.1) mmol/L Chloride 100 (98-107) mmol/L Carbon Dioxide 23 (21-32) mmol/L Anion Gap 13.0 H (3-11) BUN 16 (7-18) mg/dl Creatinine 1.11 (0.6-1.4) mg/dl Est Cr Clr Drug Dosing Not Reportable Est GFR ( Amer) 108.7 Est GFR (Non-Af Amer) 93.8 BUN/Creatinine Ratio 14.7 (10-20) Glucose 147 H (70-99) mg/dl Calcium 9.6 (8.5-10.1) mg/dl Total Bilirubin 2.1 H (0.2-1) mg/dl AST 13 L (15-37) U/L ALT 28 (12-78) U/L Alkaline Phosphatase 83 (45-117) U/L Total Protein 8.2 (6.4-8.2) gm/dl Albumin 4.4 (3.4-5.0) gm/dl Globulin 3.8 (2.5-4.0) gm/dl Albumin/Globulin Ratio 1.2 (0.9-2) Lipase 98 (73-393) U/L Administered Medications Discontinued Medications Capsaicin (Capsaicin Cr 0.075% 60 Gm Tube) 1 appln EXT ONE ONE Stop: 03/25/20 17:49 Last Admin: 03/25/20 18:01 Dose: 1 appln Documented by: [id number] Diphenhydramine HCl (Diphenhydramine Hcl 50 Mg/Ml Vial) 25 mg IV NOW STA Stop: 03/25/20 17:48 Last Admin: 03/25/20 18:00 Dose: 25 mg Documented by: [id number] Sodium Chloride (Nss 1000ml) 1,000 mls @ 999 mls/hr IV .Q1H1M SHANON Stop: 03/25/20 19:00 Last Infusion: 03/25/20 19:08 Dose: 0 mls/hr Documented by: [id number] Admin: 03/25/20 18:02 Dose: 999 mls/hr Documented by: [id number] Promethazine HCl (Phenergan) 12.5 mg in 50.5 mls @ 202 mls/hr IV NOW STA Stop: 03/25/20 19:11 Last Infusion: 03/25/20 19:25 Dose: 0 mls/hr Documented by: [id number] Admin: 03/25/20 19:08 Dose: 202 mls/hr Documented by: [id number] Sodium Chloride (Nss 1000ml) 1,000 mls @ 999 mls/hr IV .Q1H1M ONE Stop: 03/25/20 21:38 Last Admin: 03/25/20 20:43 Dose: 999 mls/hr Documented by: [id number] Ondansetron HCl (Ondansetron Inj 2 Mg/Ml 2 Ml Vial) 4 mg IV NOW STA Stop: 03/25/20 17:48 Last Admin: 03/25/20 18:00 Dose: 4 mg Documented by: [id number] Ondansetron HCl (Ondansetron Inj 2 Mg/Ml 2 Ml Vial) 4 mg IV NOW STA Stop: 03/25/20 20:39 Last Admin: 03/25/20 20:44 Dose: 4 mg Documented by: [id number] Imaging Data Radiologist's Impression: KUB CLINICAL HISTORY: Vomiting. FINDINGS: 2 AP supine abdominal radiographs are compared to study dated 06/02/2019 and correlated with abdominal CT dated 10/29/2019. There is a nonobstructed abdominal bowel gas pattern. No evidence of intraperitoneal free air is seen on these supine images. There are no abnormal abdominal calc ifications. The bony structures appear intact. The lung bases are clear as imaged. IMPRESSION: Nonobstructed bowel gas pattern. Electronically signed by: Santiago Paige M.D. 03/25/2020 6:50 PM Dictated: 03/25/201848 Transcribed: 03/25/201848 SINGLE VIEW CHEST CLINICAL HISTORY: Vomiting. FINDINGS: An AP, portable, upright chest radiograph is compared to study dated 06/02/2019. The cardiomediastinal silhouette is unremarkable. The lungs and pleural spaces are clear. No pneumothorax is seen. The bony thorax is grossly intact. IMPRESSION: No active disease in the chest. ACT 112: Negative or not required by law. Electronically signed by: Santiago Paige M.D. 03/25/2020 6:49 PM Dictated: 03/25/201848 Transcribed: 03/25/201848 Blood Pressure Blood Pressure Findings: Elevated blood pressure Blood Pressure Disposition: Referred to patients primary care provider Discharge Plan Visit Data Chief Complaint: Vomiting Stated Complaint: SICK, VOMITTING ED Provider: Gordo Sierra Discharge Problem: Cyclic vomiting syndrome, Vomiting Patient Disposition: Being Evaluated by Hospitalist Condition: Good Forms Stand Alone Forms: [employer] Prescriptions Prescriptions: No Action No Known Home Medications RF: 0 Referrals Referrals: PCP,NO [Primary Care Provider] -
[2020-03-25 18:29] LABS: Alanine Aminotransferase 28 U/L (12-78); Albumin Level 4.4 gm/dl (3.4-5.0); Aspartate Aminotransferase 13 U/L (15-37); BUN Creatinine Ratio 14.7 (10-20); Blood Urea Nitrogen 16 mg/dl (7-18); Calcium 9.6 mg/dl (8.5-10.1); Carbon Dioxide 23 mmol/L (21-32); Chloride 100 mmol/L (98-107); Est GFR (African American) 108.7; Est GFR (Non-African American) 93.8; Glucose 147 mg/dl (70-99); Lipase 98 U/L (73-393); Potassium 3.4 mmol/L (3.5-5.1); Sodium 136 mmol/L (136-145)
[2020-03-25 18:31] LABS: Albumin Globulin Ratio 1.2 (0.9-2); Alkaline Phosphatase 83 U/L (45-117); Bilirubin,Total 2.1 mg/dl (0.2-1); Globulin 3.8 gm/dl (2.5-4.0); Total Protein 8.2 gm/dl (6.4-8.2)
--- NOTE | 2020-03-25 18:51 | XRay Report ---
SINGLE VIEW CHEST CLINICAL HISTORY: Vomiting. FINDINGS: An AP, portable, upright chest radiograph is compared to study dated 06/02/2019. The cardiom ediastinal silhouette is unremarkable. The lungs and pleural spaces are clear. No pneumothorax is see n. The bony thorax is grossly intact. IMPRESSION: No active disease in the chest. ACT 112: Negative or not required by law. Electronically signed by: Santiago Paige M.D. 03/25/2020 6:49 PM
--- NOTE | 2020-03-25 18:52 | XRay Report ---
KUB CLINICAL HISTORY: Vomiting. FINDINGS: 2 AP supine abdominal radiographs are compared to study dated 06/02/2019 and correlated with abdominal CT dated 10/29/2019. There is a nonobstructed abdominal bowel gas pattern. No evidence of in traperitoneal free air is seen on these supine images. There are no abnormal abdominal calcifications . The bony structures appear intact. The lung bases are clear as imaged. IMPRESSION: Nonobstructed bowel gas pattern. Electronically signed by: Santiago Paige M.D. 03/25/2020 6:50 PM
[2020-03-25] MEDS ORDERED: PROMETHAZINE 12.5 MG/50.5 ML BAG IV STA (18:57)
[2020-03-25] MEDS ORDERED: SODIUM CHLORIDE 0.9% 1000ML 1,000 ML IV ONE (20:38)
--- NOTE | 2020-03-25 23:10 | History & Physical Report ---
Date of Service March 25, 2020 Assessment & Plan (1) Cyclical vomiting syndrome: 24yo male with history fo cyclic vomiting syndrome presents with nausea/vomiting/abdominal pain and po intolerance. Last hospital admission on 10/29/19 for similar complaints. No clear trigger for symptoms identified. Minimal relief with medications administered in ER. 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 CT of the abdomen performed on 10/29/19 largely unremarkable. Workup has otherwise been unremarkable. He has had urine porphobilinogen study which was unremarkable. Patient denies fever/chest pain/joint pain or swelling or other complaints that would suggest a diagnosis of FMF. -Observation to medical floor -NSS +20mEq KCl at 125mL/hr x 2 liters -Check Mg and PO4 x 1 and replete if needed -Check RUQUS, elevated Tbili -Repeat LFTs in AM -Encourage cessation of recreational marijuana use Present on Admission?: Yes (2) GERD (gastroesophageal reflux disease): Chronic. Patient uses PRN Prilosec at home -Protonix 40mg po daily Present on Admission?: Yes (3) Hypokalemia: K=3.4 -NSS +20mEq KCL -Repeat labs in AM F/E/N - NSS +KCl, check Mg and PO4 x 1, clear liquid diet as tolerated, no pork or pork products due to congregational beliefs Ppx - Low risk for DVT Code - Full Dispo - Observation to medical floor History of Present Illness Chief Complaint: nausea, vomiting, abdominal pain Primary Care Provider: NO PCP Kamila Ashley is a 24yo male presenting with persistent nausea, multiple episodes of non-bloody/non-bilious vomiting. Patient with diagnosis of cyclic vomiting syndrome. He has been hospitalized at [facility] several times in the past for similar symptoms. Prior workup includes and EGD performed by Dr. 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 Urine porphobilinogen from 06/03/19 negative. Patient reports symptoms began appx 6 days ago, persistent nausea, multiple episodes of vomiting, po intolerance and diffuse abdominal pain, most in LUQ. He has been taking hot showers with no relief. Patient does not drink EtOH. He smokes marijuana frequently, q 2-3 days but reports no marijuana use over the last week. He denies dietary changes. This is his first episode of severe nausea over the last 5 months. Patient is originally from [place]. 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 He lives in off campus housing. Did not return home for the summer due to Covid-19. Denies fever, rash, joint pain. Denies CP/SOB/cough/diarrhea. He was constipated this week but had a normal BM today. No family members with similar symptoms. ER Course: Capsaicin topical, Benadryl 25mg IV, Zofran 4mg IV x 2, Phenergan 12.5mg IV x 1, NSS x 2L Allergies Allergy/AdvReac Type Severity Reaction Status Date / Time cinnamon AdvReac Severe Vomiting Unverified 03/25/20 19:26 Pork/Porcine Containing AdvReac Unknown Unknown Verified 03/25/20 19:24 Products Home Medications Home Medications Medication Instructions Recorded Confirmed Type No Known Home Medications 03/25/20 03/25/20 History Past Med/Surg History Medical History (Updated 03/25/20 @ 23:07 by Sandy Henry DO) Asthma Cyclical vomiting syndrome GERD (gastroesophageal reflux disease) Obesity Pneumomediastinum Surgical History (Updated 03/25/20 @ 22:57 by Sandy Henry DO) No significant past surgical history Family History Other No pertinent family history in first degree relatives Social History Smoking Status: Never smoker Cigarettes Per Day: 4 a month; Second Hand Exposure: No; Hx Alcohol Use: Yes Alcohol type: wine and hard liquor Hx Substance Use: Yes Last Used Substance: Unknown Substance Use Type Other:: occassionally Preferred Language: Andorran Communication Ability: Effective [employer] Safety Engineer Required: No Beliefs That Will Affect Care: Yazidism Yazidism Beliefs: Islamic diet Current Living Situation: Alone Current Living Situation Comment: off campus apartment housing Feels Safe at Home: Yes Review of Systems Review of Systems: All systems reviewed & are unremarkable except as noted in HPI & below Physical Exam Physical Exam: General: patient resting, appears uncomfortable but in NAD, non-toxic in appearance, AA&O x 4 Skin: warm, dry, intact, no rashes or lesions HEENT: NC/AT, PERRL, EOMI, anicteric sclera, conjunctiva without injection, external ear normal to inspection and nontender, nares patent, dry mucus membranes, dentition intact, no oropharyngeal lesions, neck supple, trachea midline, no LAD, no thyromegaly, no JVD Heart: +S1/S2, regular, no m/r/g Lungs: equal air entry bilaterally, no rales/rhonchi/wheezes Abd: +BS, soft, diffuse tenderness with deep palpation, no rebound/guarding/peritoneal signs, no masses/organomegaly/ascites Ext: warm, 2+ pulses in UE/LE bilaterally, no clubbing/cyanosis or edema Neuro: nonfocal, patient AA&O x 4, speech intact, no facial droop, moving all extremities on command with equal strength 5/5 Results & Data Results & Data ([facility]) Vital Signs (Past 12 Hours) Vital Signs Temp Pulse Pulse Resp BP BP Pulse Ox 03/25/20 21:00 84 16 176/109 H 98 03/25/20 19:57 74 16 141/87 H 96 03/25/20 18:57 95 H 95 H 20 141/87 H 97 03/25/20 17:32 37.4 C 118 H 18 149/92 H 94 Laboratory Results Lab Results 03/25/20 03/25/20 Range/Units 18:00 18:00 WBC 12.82 H (4.8-10.8) K/uL RBC 6.18 H (4.7-6.1) M/uL Hgb 18.6 H (14.0-18.0) g/dL Hct 51.3 (42-52) % MCV 83.0 (80-100) fL MCH 30.1 (25-34) pg MCHC 36.3 H (32-36) g/dL RDW Std Deviation 37.3 (36.4-46.3) fL RDW Coeff of Diego 12.6 (11.5-14.5) % Plt Count 415 H (130-400) K/uL MPV 10.7 H (7.4-10.4) fL Immature Gran % (Auto) 0.2 % Neut % (Auto) 71.2 % Lymph % (Auto) 18.9 % [place] % (Auto) 8.4 % Eos % (Auto) 1.1 % Baso % (Auto) 0.2 % Neut # (Auto) 9.13 H (1.4-6.5) K/uL Lymph # (Auto) 2.42 (1.2-3.4) K/uL [place] # (Auto) 1.08 H (0.11-0.59) K/uL Eos # (Auto) 0.14 (0-0.5) K/uL Baso # (Auto) 0.02 (0-0.2) K/uL Immature Gran # (Auto) 0.03 H (0.00-0.02) K/uL Sodium 136 (136-145) mmol/L Potassium 3.4 L (3.5-5.1) mmol/L Chloride 100 (98-107) mmol/L Carbon Dioxide 23 (21-32) mmol/L Anion Gap 13.0 H (3-11) BUN 16 (7-18) mg/dl Creatinine 1.11 (0.6-1.4) mg/dl Est Cr Clr Drug Dosing Not Reportable Est GFR ( Amer) 108.7 Est GFR (Non-Af Amer) 93.8 BUN/Creatinine Ratio 14.7 (10-20) Glucose 147 H (70-99) mg/dl Calcium 9.6 (8.5-10.1) mg/dl Total Bilirubin 2.1 H (0.2-1) mg/dl AST 13 L (15-37) U/L ALT 28 (12-78) U/L Alkaline Phosphatase 83 (45-117) U/L Total Protein 8.2 (6.4-8.2) gm/dl Albumin 4.4 (3.4-5.0) gm/dl Globulin 3.8 (2.5-4.0) gm/dl Albumin/Globulin Ratio 1.2 (0.9-2) Lipase 98 (73-393) U/L Diagnostic Findings KUB CLINICAL HISTORY: Vomiting. FINDINGS: 2 AP supine abdominal radiographs are compared to study dated 06/02/2019 and correlated with abdominal CT dated 10/29/2019. There is a nonobstructed abdominal bowel gas pattern. No evidence of intraperitoneal free air is seen on these supine images. There are no abnormal abdominal calcifications. The bony structures appear intact. The lung bases are clear as imaged. IMPRESSION: Nonobstructed bowel gas pattern. Electronically signed by: Santiago aPige M.D. 03/25/2020 6:50 PM Dictated: 03/25/201848 Transcribed: 03/25/201848 SINGLE VIEW CHEST CLINICAL HISTORY: Vomiting. FINDINGS: An AP, portable, upright chest radiograph is compared to study dated 06/02/2019. The cardiomediastinal silhouette is unremarkable. The lungs and pleural spaces are clear. No pneumothorax is seen. The bony thorax is grossly intact. IMPRESSION: No active disease in the chest. ACT 112: Negative or not required by law. Electronically signed by: Santiago Paige M.D. 03/25/2020 6:49 PM Dictated: 03/25/201848 Transcribed: 03/25/201848 Code Status & VTE Plan Code Status FULL VTE Prophylaxis Plan VTE Prophylaxis will be ordered: No Reason for no VTE drug order: Treatment not indicated Reason for no VTE mechanical prophylaxis: Treatment not indicated PG Care Time/CCT Total # of Minutes Spent Total Time Spent with Patient: Total time spent is greater than 50% in coordination of care (as documented) at patient's floor/unit and/or counseling patient: Coding Level of Care Code 58385 OBS Care - Level 2 Diagnoses Cyclical vomiting syndrome R11.15 GERD (gastroesophageal reflux disease) K21.9 Esophagitis presence: esophagitis presence not specified Hypokalemia E87.6 (1) GERD (gastroesophageal reflux disease) Esophagitis presence: esophagitis presence not specified Qualified Code(s): K21.9 - Gastro-esophageal reflux disease without esophagitis
[2020-03-25] MEDS ORDERED: METOCLOPRAMIDE HCL INJ 5 MG/ML 2 ML VIAL IV PRN (23:30)
[2020-03-25] MEDS ORDERED: CAPSAICIN CR 0.075% 60 GM TUBE EXT PRN (23:30)
[2020-03-25] MEDS ORDERED: ONDANSETRON INJ 2 MG/ML 2 ML VIAL IV PRN (23:30)
[2020-03-26 00:49] LABS: Magnesium 2.3 mg/dl (1.8-2.4); Phosphorus 3.5 mg/dl (2.5-4.9)
[2020-03-26] MEDS: NSS + 20MEQ KCL 20 MEQ/1,000 ML BAG IV SCH ×2 (01:04→08:47)
[2020-03-26 06:51] LABS: Appearance Urine Clear (Clear); Bacteria Urine Automated Negative (Negative); Blood Urine Negative (Negative); Epithelial Cell Urine Auto >30 /lpf (0-5); Glucose Urine UA Negative (Negative); Ketones Urine 3+ (Negative); Leukocyte Esterase Urine Trace (Negative); Nitrite Urine Positive (Negative); Protein Urine Trace (Negative); RBC Urine Automated 0-4 /hpf (0-4); Urobilinogen Urine Positive (Negative); pH Urine 6.5 (4.5-7.5)
[2020-03-26 06:57] LABS: Basophils # (auto) 0.01 K/uL (0-0.2); Basophils % (auto) 0.1 %; Eosinophils # (auto) 0.12 K/uL (0-0.5); Eosinophils % (auto) 1.3 %; Hematocrit (blood only) 43.7 % (42-52); Hemoglobin 15.4 g/dL (14.0-18.0); Immature Granulocytes # (auto) 0.03 K/uL (0.00-0.02); Immature Granulocytes % (auto) 0.3 %; Lymphocytes % (auto) 43.1 %; Mean Corpuscular Hemoglobin 29.9 pg (25-34); Mean Corpuscular Hgb Conc 35.2 g/dL (32-36); Mean Corpuscular Volume 84.9 fL (80-100); Mean Platelet Volume 10.8 fL (7.4-10.4); Monocytes # (auto) 0.84 K/uL (0.11-0.59); Monocytes % (auto) 9.1 %; Neutrophils # (auto) 4.28 K/uL (1.4-6.5); Neutrophils % (auto) 46.1 %; Platelet Count 292 K/uL (130-400); RDW Coefficient of Variation 12.6 % (11.5-14.5); RDW Standard Deviation 38.7 fL (36.4-46.3); Red Blood Count 5.15 M/uL (4.7-6.1); White Blood Count 9.28 K/uL (4.8-10.8)
[2020-03-26 07:02] LABS: Bilirubin Urine Negative (Negative); Color Urine Amber; Ictotest Urine Negative (Negative)
[2020-03-26 07:26] LABS: Mucus Urine Present (None Prsent)
[2020-03-26 07:38] LABS: Estimated Average Glucose 100 mg/dl; Hemoglobin A1C 5.1 % (4.5-5.6)
--- NOTE | 2020-03-26 07:38 | Ultrasound Report ---
ABDOMINAL ULTRASOUND, RIGHT UPPER QUADRANT HISTORY: Elevated total bilirubin.. COMPARISON: Abdomen and pelvis CT 10/29/2019. FINDINGS: Pancreas: Obscured by overlying bowel gas. Liver: Unremarkable. Gallbladder: No gallbladder. No gallstones. A 3 mm gallbladder polyp is noted. Negative sonographic M urphy sign. CBD: 3 mm. Right kidney: No hydronephrosis. Focal scarring within the upper pole. IMPRESSION: 1. A 3 mm gallbladder polyp. 2. Normal liver. 3. The pancreas was obscured by overlying bowel gas. ACT 112: Negative or not required by law. Electronically signed by: Abram Dewitt M.D. 03/26/2020 7:36 AM
[2020-03-26 07:51] LABS: Alanine Aminotransferase 22 U/L (12-78); Albumin Level 3.3 gm/dl (3.4-5.0); Alkaline Phosphatase 63 U/L (45-117); Aspartate Aminotransferase 10 U/L (15-37); BUN Creatinine Ratio 19.3 (10-20); Bilirubin Direct 0.3 mg/dl (0-0.2); Bilirubin,Total 1.3 mg/dl (0.2-1); Blood Urea Nitrogen 13 mg/dl (7-18); Calcium 8.3 mg/dl (8.5-10.1); Carbon Dioxide 24 mmol/L (21-32); Chloride 106 mmol/L (98-107); Creatinine Clr Calc Pharmacy 242.1 ml/min; Est GFR (African American) > 150.0; Glucose 96 mg/dl (70-99); Potassium 3.3 mmol/L (3.5-5.1); Sodium 137 mmol/L (136-145); Total Protein 6.5 gm/dl (6.4-8.2)
[2020-03-26] MEDS ORDERED: PANTOprazole 40 MG TAB PO SCH (09:00)
[2020-03-26] MEDS: POTASSIUM CHLORIDE 20 MEQ TABCR PO SCH ×2 (10:31→17:45)
--- NOTE | 2020-03-26 18:46 | Discharge Summary ---
Date of Service date of admission - March 25, 2020 date of discharge - March 26, 2020 Admission HPI Per Admitting Provider Kamila Ashley is a 24yo male presenting with persistent nausea, multiple episodes of non-bloody/non-bilious vomiting. Patient with diagnosis of cyclic vomiting syndrome. He has been hospitalized at [facility] several times in the past for similar symptoms. Prior workup includes and EGD performed by Dr. 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 Urine porphobilinogen from 06/03/19 negative. Patient reports symptoms began appx 6 days ago, persistent nausea, multiple episodes of vomiting, po intolerance and diffuse abdominal pain, most in LUQ. He has been taking hot showers with no relief. Patient does not drink EtOH. He smokes marijuana frequently, q 2-3 days but reports no marijuana use over the last week. He denies dietary changes. This is his first episode of severe nausea over the last 5 months. Patient is originally from [facility]. 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 He lives in off campus housing. Did not return home for the summer due to Covid-19. Denies fever, rash, joint pain. Denies CP/SOB/cough/diarrhea. He was constipated this week but had a normal BM today. No family members with similar symptoms. ER Course: Capsaicin topical, Benadryl 25mg IV, Zofran 4mg IV x 2, Phenergan 12.5mg IV x 1, NSS x 2L Principal Diagnosis 1. exacerbation of cyclic vomiting syndrome 2. suspected UTI Discharge Exam Constitutional well developed, well nourished and + obese; no acute distress and no altered mental status ENMT external ear and nose normal, oropharynx normal Respiratory normal respiratory effort, lungs clear to auscultation Cardiovascular RRR, no murmur, no edema Heart Sounds: normal S1 and normal S2 Gastrointestinal (Abdomen) normal bowel sounds, soft, nontender, no hepatosplenomegaly Psychiatric A+Ox3, euthymic affect Discharge Data Allergies Allergy/AdvReac Type Severity Reaction Status Date / Time cinnamon AdvReac Severe Vomiting Unverified 03/25/20 19:26 Pork/Porcine Containing AdvReac Unknown Unknown Verified 03/25/20 19:24 Products Ordered Studies 03/25/20 23:30 US liver Routine IMPRESSION: 1. A 3 mm gallbladder polyp. 2. Normal liver. 3. The pancreas was obscured by overlying bowel gas. Hospital Course (1) Cyclical vomiting syndrome: Patient had evidence of dehydration upon admission as a result of his cyclic vomiting syndrome exacerbation. He was hydrated, given anti-emetics, and placed on clear liquid diet. Symptoms improved quickly, labs improved, and we were able to advance his diet. On the evening of discharge he was tolerating a regular diet without any GI intolerance. (2) Hypokalemia: 2nd to vomiting and inability to eat/drink pre-hospitalization. K 3.4 at discharge. (3) UTI (urinary tract infection): suspected. urine culture was pending at discharge. will call in oral antibiotics post-discharge once final culture has resulted. (4) Serum total bilirubin elevated: mild hyperbilirubinemia seen this admission and on prior hospitalizations. direct bilirubin levels have been scantly elevated. he may have Gilbert's syndrome which does not require treatment. liver u/s without evidence of biliary disease or obstruction. (5) Elevated blood-pressure reading without diagnosis of hypertension: nearly ALL blood pressure readings dating back to at least 2019 are elevated. In light of obesity I believe he likely has essential HTN. I recommended he f/u with [facility] for this as he may need to initiate BP medication. I counseled him about his blood pressures. Total Time Total Time Spent Total Time Spent (In Minutes): 25 Total Time Includes: Examination of the Patient, Discharge Planning and Medication Reconciliation Discharge Plan Discharge Items Patient Disposition: Home - Self-Care Reason For Visit: NAUSEA VOMITING Discharge Diagnosis: flare-up of cyclic vomiting syndrome Condition on Discharge: Good Activity: Resume your previous activity Non-emergency contact: Primary Care Provider Call non-emergency contact if: you have any medication questions, your symptoms worsen, your pain is not controlled, your pain is worsening and you have a fever Follow-up/Referrals: [facility] [Outside] (see S within a week to discuss your elevated blood pressures ) Diet: Regular Addtl Attending Provider Instructions: You were treated with IV fluids and nausea medication for your cyclic vomiting syndrome. Your symptoms improved while here. In addition we noted your blood pressures to be elevated. I am concerned you have high blood pressure. Please follow-up with [facility] for this. You may need blood pressure medication. Lastly, your urinalysis suggested possible infection. A urine culture was sent and is pending at time of discharge. If we find any evidence of a urinary infection we will call you. Follow-up -- see [facility] within a week for your blood pressure Please continue to practice social distancing and wear a mask at all times while in public to reduce your chances of victoria COVID-19 infection. Please discontinue marijuana use if possible. Return to [facility] if -- * you have fever over 100.4 degrees * you have persistent nausea or vomiting * you have severe abdominal pain * any other concerns Pending Studies at Discharge: Yes Studies:: urine culture Stand-Alone Forms: My [facility], Smoking Cessation Medications and DC Order Prescriptions: New Zostrix 0.033 % Cream 1 applic EXT Q4H PRN (Reason: abdominal pain ) Qty: 1 RF: 0 ondansetron 8 mg tablet,disintegrating 8 mg PO Q8H PRN (Reason: nausea and vomiting) Qty: 15 RF: 0 cephalexin [Keflex] 500 mg capsule 500 mg PO BID 10 Days Qty: 20 RF: 0 Saccharomyces boulardii 250 mg capsule 250 mg PO DAILY 10 Days Qty: 10 RF: 0 Discharge Orders: Discharge Order (Routine); Ordered 03/26/20 Ordered By: Eric Garcia/Other Patient Handouts: ED Hypertension, To Be Confirmed Admission Data Admit Date/Time: 03/25/20 22:42 Attending Provider: Eric Purdy Admit Provider: Sandy Henry Primary Care Provider: PCP,NO Other Providers: Sandy Henry Other Interventions: Discharge Summary Assessment (RN) Last Done: 03/26/20 17:08 Coding Level of Care Code 33355 OBS Care - Discharge Diagnoses Cyclical vomiting syndrome R11.15 Hypokalemia E87.6 UTI (urinary tract infection) N39.0 Serum total bilirubin elevated R17 Elevated blood-pressure reading without diagnosis of hypertension R03.0
== END 2020-03-26 19:31 | disposition home or self-care (01) ==
LOC: ED 17:21 → 2N 17:21 → SUATTDRO 22:42 → 2N 23:03